=== PATIENT | male | born 1960 | race Caucasian/White ===

== ENCOUNTER 2016-12-17 18:09 | Inpatient (IN) | payer OTHER ==
[2016-12-17 18:25] VITALS: BMI 25.0
--- NOTE | 2016-12-17 19:37 | PDOC ---
History of Present Illness - General Chief Complaint: Pain, Acute Stated Complaint: LEG PAIN/TOES NUMBNESS Time Seen by Provider: 12/17/16 19:20 History Source: Patient Exam Limitations: No Limitations - History of Present Illness Initial Comments: 12/17/16 19:32 This is a 56yo man with PMH: IDDM, HTN, HLD, CAD s/p CABG who presents with 1 week of worsening b/l calf pain which worsens while walking. He states he is able to walk approximately 1-2 blocks before he has to stop due to pain. Pain does not resolve for "hours." He denies trauma. He denies loss of sensation or loss of strength in legs. He denies fevers, chills, chest pain, shortness of breath, abdominal pain, nausea, vomiting or saddle anesthesia. 12/17/16 19:42 Timing/Duration: 1 week, getting worse Severity: moderate Associated Symptoms: denies: chest pain, cough, headaches, loss of appetite, malaise, nausea/vomiting, rash, seizure, shortness of breath, syncope, weakness Past History - Travel Traveled outside of the country in the last 30 days: No Close contact w/someone who was outside of country & ill: No - Past Medical History Allergies/Adverse Reactions: Allergies Allergy/AdvReac Type Severity Reaction Status Date / Time No Known Allergies Allergy Verified 12/17/16 18:20 Home Medications: Ambulatory Orders Aspirin [Aspirin EC] 81 mg PO DAILY 12/17/16 Atorvastatin Ca [Lipitor] 80 mg PO HS 12/17/16 BUPROPion HCL "SR" [WELLBUTRIN SR [Nf]] 100 mg PO DAILY 12/17/16 Clopidogrel Bisulfate [Clopidogrel] 75 mg PO DAILY 12/17/16 Insulin (Levemir) [Levemir Flexpen -] 20 units SQ HS 12/17/16 Insulin Lispro [Humalog] 8 unit SQ TID 12/17/16 Metformin HCl [Metformin HCl ER] 1,000 mg PO BID 12/17/16 Cardiac Disorders: Yes (triple bypass,stent placementx3) Diabetes: Yes HTN: Yes Hypercholesterolemia: Yes - Surgical History Cardiac Surgery: Yes (triple bypass) - Psycho/Social/Smoking Cessation Hx Suicidal Ideation: No Smoking History: Current every day smoker Have you smoked in the past 12 months: Yes Number of Cigarettes Smoked Daily: 20 Information on smoking cessation initiated: No Review of Systems - Review of Systems Able to Perform ROS?: Yes Is the patient limited Chinese proficient: No Constitutional: No: Symptoms Reported HEENTM: No: Symptoms Reported Respiratory: No: Symptoms reported Cardiac (ROS): Yes: Other (PND) ABD/GI: No: Symptoms Reported : No: Symptoms Reported Musculoskeletal: Yes: See HPI Integumentary: No: Symptoms Reported Neurological: No: Symptoms reported *Physical Exam - Vital Signs Last Vital Signs Temp Pulse Resp BP Pulse Ox 98.1 F 102 H 19 140/106 98 12/17/16 18:20 12/17/16 18:20 12/17/16 18:20 12/17/16 18:20 12/17/16 18:20 - Physical Exam General Appearance: Yes: Appropriately Dressed. No: Apparent Distress HEENT: positive: GOPAL, Normal ENT Inspection, Normal Voice Neck: positive: Trachea midline, Supple Respiratory/Chest: positive: Lungs Clear, Normal Breath Sounds. negative: Chest Tender, Respiratory Distress Cardiovascular: positive: Regular Rhythm, Regular Rate. negative: Edema, JVD, Murmur Vascular Pulses: Dorsalis-Pedis (R): 0, Doralis-Pedis (L): 1+ Gastrointestinal/Abdominal: positive: Normal Bowel Sounds, Soft. negative: Tender, Organomegaly, Pulsatile Mass Musculoskeletal: positive: Normal Inspection. negative: CVA Tenderness Extremity: positive: Normal Capillary Refill, Normal Range of Motion, Coldness ( bilateral feet and ankles with R>L). negative: Pedal Edema, Erythema Integumentary: positive: Normal Color, Dry Neurologic: positive: principal statistical programmer II-XII NML intact, Fully Oriented, Alert, Normal Mood/ Affect ED Treatment Course - LABORATORY CBC & Chemistry Diagram: 12/17/16 19:40 12/17/16 19:40 Medical Decision Making - Medical Decision Making 12/17/16 19:42 A/P: This is a 56yo man with PMH: IDDM, HTN, HLD, CAD s/p CABG who presents with 1 week of worsening b/l calf pain which worsens while walking. He states he is able to walk approximately 1-2 blocks before he has to stop due to pain. Pain does not resolve for "hours." He denies trauma. He denies loss of sensation or loss of strength in legs. He has intermittent compliance with medications. He denies fevers, chills, chest pain, shortness of breath, abdominal pain, nausea, vomiting or saddle anesthesia. Bilateral foot and ankles cold to touch with weak pulses present. DDx- dvt vs PAD - dopplers - labs- CBC, BMP 12/17/16 22:03 Arterial doppler positive for Complete occlusion of right mid SFA. - FOBT - heparin gtt started - vascular consult placed - coags - CXR - EKG - T&S PMD- Rochelle (not on service) Will admit to hospitalist 12/17/16 22:07 Case discussed with vascular surgery- Chas. CTA abdomen aorta with runoff ordered. NPO after MN for OR in AM 12/18/16 00:20 Case discussed with Hospitalist- Ryann Araujo, will be admitted. *DC/Admit/Observation/Transfer Diagnosis at time of Disposition: Superficial femoral artery occlusion - Discharge Dispostion Condition at time of disposition: Guarded Admit: Yes Decision to Admit order Date/Time: 12/18/16 00:18
[2016-12-17 19:57] LABS: URINE APPEARANCE SLCLOUDY; URINE BILIRUBIN NEGATIVE (NEGATIVE); URINE BLOOD 1+ (NEGATIVE); URINE COLOR LTYELLOW; URINE GLUCOSE (UA) 3+ (NEGATIVE); URINE KETONE TRACE (NEGATIVE); URINE LEUK ESTERASE TRACE (NEGATIVE); URINE NITRITE NEGATIVE (NEGATIVE); URINE UROBILINOGEN NEGATIVE mg/dL (0.2-1.0)
[2016-12-17 19:59] LABS: BASOPHIL 1.3 % (0-2.0); EOSINOPHIL 1.7 % (0-4.5); MCH 31.1 pg (25.7-33.7); MCHC 33.2 g/dl (32.0-35.9); MEAN CELL VOLUME 93.6 fl (80-96); MEAN PLT VOLUME 9.1 fl (7.5-11.1); NEUTROPHILS 56.2 % (42.8-82.8); PLATELET COUNT 223 K/MM3 (134-434); RDW 13.6 % (11.9-15.9); WHITE BLOOD COUNT 8.7 K/mm3 (4.0-10.0)
[2016-12-17 20:01] LABS: URINE PROTEIN 1+ (NEGATIVE)
[2016-12-17 20:28] LABS: URINE MUCUS RARE; URINE RBC 299 /hpf (0-3); URINE WBC 20 /hpf (3-5); YEAST RARE
[2016-12-17 20:29] LABS: ANION GAP 7 (8-16); CALCIUM 9.5 mg/dL (8.5-10.1); CO2 28 mmol/L (21-32); CREATININE 0.8 mg/dL (0.7-1.3); GLUCOSE,RANDOM 263 mg/dL (74-106)
[2016-12-17] MEDS ORDERED: HEPARIN NA (PORCINE) 5,000 UNITS/ML 1ML VIAL IVPUSH PRN ×2 (21:50)
[2016-12-17] MEDS ORDERED: HEPARIN - 25,000 UNIT in SODIUM CHLORIDE 495 ML IV SCH (22:00)
[2016-12-17] MEDS ORDERED: HEPARIN NA (PORCINE) 5,000 UNITS/ML 1ML VIAL ONE (22:21)
[2016-12-17] MEDS ORDERED: HEPARIN INFUSION - 500 ML IVPB ONE (22:21)
[2016-12-18 00:58] LABS: INR 1.02 (0.82-1.09); PROTHROMBIN TIME (PATIENT) 11.2 SEC (9.98-11.88)
--- NOTE | 2016-12-18 01:02 | PN ---
Teaching Attending Note Name of Resident: Lavern Pollack ATTENDING PHYSICIAN STATEMENT I saw and evaluated the patient. I reviewed the resident's note and discussed the case with the resident. I agree with the resident's findings and plan as documented. SUBJECTIVE: 56 yo F with pmhx of IDDM, HTN, HLD, CAD s/p CABG ( 1 year ago) with 1 week hx of calf pain. States pain is worse with walking. States he is able to ambulate 1 -2 weeks before the pain makes him stop. No chest pain, pressure or shortness of breath. OBJECTIVE: Physical: VS: Vital Signs Period Temp Pulse Resp BP Sys/Bocanegra Pulse Ox Last 24 Hr 96.8 F-98.1 F 91-102 18-19 138-140/76-106 97-98 GEN: NAd, Elderly gentleman resting in bed HEENT: NCAT, PERRL CARD: RRR S1, S2 RESP: CTAB ABD: BS X4, NTD to palpation EXT: DP pulse RLE 0/4, LLE +1/4,, no clubbing or edema CBCD WBC 8.7 K/mm3 (4.0-10.0) 12/17/16 19:40 RBC 4.97 M/mm3 (4.00-5.60) 12/17/16 19:40 Hgb 15.4 GM/dL (11.7-16.9) 12/17/16 19:40 Hct 46.6 % (35.4-49) 12/17/16 19:40 MCV 93.6 fl (80-96) 12/17/16 19:40 MCHC 33.2 g/dl (32.0-35.9) 12/17/16 19:40 RDW 13.6 % (11.9-15.9) 12/17/16 19:40 Plt Count 223 K/MM3 (134-434) 12/17/16 19:40 MPV 9.1 fl (7.5-11.1) 12/17/16 19:40 CMP Sodium 137 mmol/L (136-145) 12/17/16 19:40 Potassium 4.0 mmol/L (3.5-5.1) 12/17/16 19:40 Chloride 102 mmol/L (98-107) 12/17/16 19:40 Carbon Dioxide 28 mmol/L (21-32) 12/17/16 19:40 Anion Gap 7 (8-16) L 12/17/16 19:40 BUN 21 mg/dL (7-18) H 12/17/16 19:40 Creatinine 0.8 mg/dL (0.7-1.3) 12/17/16 19:40 Random Glucose 263 mg/dL (74-106) H 12/17/16 19:40 Calcium 9.5 mg/dL (8.5-10.1) 12/17/16 19:40 CXR: No acute process EKG: NSR Duplex- NO evidence of DVT DUPLEX Art- SFA complete occulusion CTAorta w Runoff- Mod. Atherosclerotic changes and mural thrombus in the thoracic aorta and proximal great vessles Mod. Atherosclerotic changes in abdominal aorta w. irregular mural thrombus as above Mod. Atherosclerotic changes in both LE arteries w segemental occlusion of mid- superficial femoral art. Home Medications Medication Instructions Recorded Aspirin [Aspirin EC] 81 mg PO DAILY 12/17/16 Atorvastatin Ca [Lipitor] 80 mg PO HS 12/17/16 BUPROPion HCL "SR" [WELLBUTRIN SR 100 mg PO DAILY 12/17/16 [Nf]] Clopidogrel Bisulfate [Clopidogrel] 75 mg PO DAILY 12/17/16 Insulin (Levemir) [Levemir Flexpen 20 units SQ HS 12/17/16 -] Insulin Lispro [Humalog] 8 unit SQ TID 12/17/16 Metformin HCl [Metformin HCl ER] 1,000 mg PO BID 12/17/16 ASSESSMENT AND PLAN: 56 yo M with Hx of IDDM, HTN, CAD s/p CABG who has 1 week hx. of bilateral calf pain, worsened with ambulation found to have SFA complete occlusion 1.) Occlusion of the Superficial Femoral Artery/ Thrombus of thoracic aorta/ prox. great vessles/abd. aorta thrombus - Heparin gtt/plavix - Coags - Repeat CBC - Type and Screen - NPO - Vascular consulted 2.) CAD s/p CABG - C/w Home meds 3.) DM II - FS - RAISS - Hold Metformin - NS 4.) Current Smoker - Discussed with pt. smoking cessation 5.) UTI - U cx - Ceftriaxone Place in Med Sx.
[2016-12-18 01:27] LABS: ACTIVATED PTT 144.3 SECONDS (26.9-34.4)
[2016-12-18] MEDS ORDERED: HEPARIN NA (PORCINE) 5,000 UNITS/ML 1ML VIAL IVPUSH PRN ×3 (02:05→03:12)
--- NOTE | 2016-12-18 02:30 | HP ---
CHIEF COMPLAINT: bilateral calf pain PCP: none HISTORY OF PRESENT ILLNESS: 56yo currently smoking man with PMH of CAD s/p CABG and stents, well-controlled HTN, IDDM, HLD, PAD who presents after 1 week of bilateral calf pain. The pain is worse with walking with a severity of 10/10. The patient reports previously having unlimited exercise tolerance, but starting 1 week ago could not walk more than 1 block due his calf pain (R>L). For the past 3 days he noticed intermittent cyanosis of his R great toe, and coolness to touch. Denies SOB, chest pain, pressure or tightness. No FLORES or changes in vision. No hemoptysis, melena, or hematochezia. ER course was notable for: (1) LE dopplers revealed R mid-SFA occulsion (2) Started on heparin gtt Recent Travel: no PAST MEDICAL HISTORY: #CAD #HTN #IDDM #PAD #HLD #Balanitis/candidiasis - pt reports for past 3-4mo has had inflammation of glans penis. Prior PCP told patient it was 2/2 to his DM. Reports inflammation/ pain improved when he remembers to use the Clotrimazole cream PAST SURGICAL HISTORY: #triple bypass 3y ago #CABG 1y ago #appendectomy - approximately 20y ago Social History: Smoking: current, 1ppd for past 35y Alcohol: social Drugs: none Family History: mother - heart disease Allergies: NKDA HOME MEDICATIONS: Home Medications Medication Instructions Recorded Aspirin [Aspirin EC] 81 mg PO DAILY 12/17/16 Atorvastatin Ca [Lipitor] 80 mg PO HS 12/17/16 BUPROPion HCL "SR" [WELLBUTRIN SR 100 mg PO DAILY 12/17/16 [Nf]] Clopidogrel Bisulfate [Clopidogrel] 75 mg PO DAILY 12/17/16 Insulin (Levemir) [Levemir Flexpen 20 units SQ HS 12/17/16 -] Insulin Lispro [Humalog] 7 unit SQ TID 12/17/16 REVIEW OF SYSTEMS CONSTITUTIONAL: Absent: fever, chills, diaphoresis, generalized weakness, malaise, loss of appetite, weight change HEENT: Absent: rhinorrhea, nasal congestion, throat pain, throat swelling, difficulty swallowing, mouth swelling, ear pain, eye pain, visual changes CARDIOVASCULAR: Absent: chest pain, syncope, palpitations, irregular heart rate, lightheadedness , peripheral edema RESPIRATORY: +SOB, paroxysmal nocturnal dyspnea, orthopnea Absent: cough, shortness of breath, dyspnea with exertion, orthopnea, wheezing, stridor, hemoptysis GASTROINTESTINAL: Absent: abdominal pain, abdominal distension, nausea, vomiting, diarrhea, constipation, melena, hematochezia GENITOURINARY: +chronic glans inflammation, dysuria/burning of glans during urination Absent: frequency, urgency, hesitancy, hematuria, flank pain MUSCULOSKELETAL: Absent: myalgia, arthralgia, joint swelling, back pain, neck pain SKIN: +cyanotic R great toe Absent: rash, itching HEMATOLOGIC/IMMUNOLOGIC: Absent: easy bleeding, easy bruising, lymphadenopathy, frequent infections ENDOCRINE: Absent: unexplained weight gain, unexplained weight loss, heat intolerance, cold intolerance NEUROLOGIC: Absent: headache, focal weakness or paresthesias, dizziness, unsteady gait, seizure, mental status changes, bladder or bowel incontinence PSYCHIATRIC: Absent: anxiety, depression, suicidal or homicidal ideation, hallucinations. PHYSICAL EXAMINATION Vital Signs - 24 hr 12/17/16 12/17/16 18:20 23:18 Temperature 98.1 F 96.8 F L Pulse Rate 102 H Pulse Rate [ 91 H Left Apical] Respiratory 19 18 Rate Blood Pressure 140/106 Blood Pressure 138/76 [Right Arm] O2 Sat by Pulse 98 97 Oximetry (%) GENERAL: Awake, alert, and fully oriented, in no acute distress HEAD: Normal with no signs of trauma EYES: PERRLA, EOMI, sclera anicteric, conjunctiva clear EARS, NOSE, THROAT: Oropharynx clear without exudates. Moist mucous membranes. NECK: Supple, no LAD LUNGS: CTAB, no wheezes, and no crackles HEART: RRR, normal S1/S2 without murmur, rub or gallop ABDOMEN: Soft, nontender, not distended, normoactive bowel sounds, no guarding, no rebound, no masses. No hepatosplenomegaly : no suprapubic tenderness LOWER EXTREMITIES: R no palpable DP/PT, L 1+ DP/PT. no pitting edema or cyanosis b/l NEUROLOGICAL: Grossly intact, not formally tested. Normal speech PSYCHIATRIC: Cooperative. Good eye contact. Appropriate mood and affect. SKIN: Warm, dry, normal turgor, no rashes or lesions noted, normal capillary refill. Laboratory Results - last 24 hr 12/17/16 12/17/16 12/17/16 19:40 19:40 19:48 WBC 8.7 RBC 4.97 Hgb 15.4 Hct 46.6 MCV 93.6 MCH 31.1 MCHC 33.2 RDW 13.6 Plt Count 223 MPV 9.1 Neutrophils % 56.2 Lymphocytes % 34.1 Monocytes % 6.7 Eosinophils % 1.7 Basophils % 1.3 INR PTT (Actin FS) Sodium 137 Potassium 4.0 Chloride 102 Carbon Dioxide 28 Anion Gap 7 L BUN 21 H Creatinine 0.8 Random Glucose 263 H Calcium 9.5 Urine Color Ltyellow Urine Appearance Slcloudy Urine pH 5.0 Ur Specific Onyx 1.015 Urine Protein 1+ H Urine Glucose (UA) 3+ H Urine Ketones Trace H Urine Blood 1+ H Urine Nitrite Negative Urine Bilirubin Negative Urine Urobilinogen Negative Ur Leukocyte Esterase Trace Urine RBC 299 Urine WBC 20 Ur Epithelial Cells Rare Urine Mucus Rare Urine Yeast Rare Stool Occult Blood Blood Type Antibody Screen INR, PTT INR 1.02 (0.82-1.09) 12/18/16 00:29 FOBT: Negative Blood Type: O positive Antibody Screen: Negative IMAGING: EKG (12/17/2016): NSR CXR (12/17/2016): No pneumothorax, pleural effusion or consolidation Venous Duplex (12/17/16): No acute pathology, (-) DVT Arterial Duplex (12/17/16): Abnormal flow patterns bilaterally; complete occlusion R mid-SFA CTAorta w Runoff, Preliminary Report (12/17/2016): Moderate atherosclerotic changes and mural thrombus in the thoracic aorta and proximal great vessels. Moderate atherosclerotic changes in abdominal aorta w. irregular mural thrombus as above Moderate atherosclerotic changes in both LE arteries w segmental occlusion of mid-superficial femoral artery ASSESSMENT/PLAN: 56yo actively smoking man with significant vasculopathy (IDDM, HTN, CAD, PAD) and b/l claudication x1week with R great toe cyanosis was found to have complete occulsion of R SFA, and admitted for acute limb ischemia. #R SFA complete occlusion -Heparin 5000 + 1000 U -Hold home ASA 81 -Vascular surgery consulted - Dr. Doherty to assess in AM -NPO since midnight -T&S, coags ordered #UTI -UA showed trace LE, RBC 299, WBC 20 -Urine Cx pending -Ceftriaxone 1gm IVP Q24h #IDDM -Continue home Levemir 20U SQ HS -BGM ACHS -ISS ACHS -Hold home Lispro -Hgb A1c pending #CAD/HLD -Hold home ASA 81mg for pre-op -Continue home Atorvastatin 80mg HS -Lipid panel pending #Active smoker -Counseled on smoking cessation - interested in receiving further resources -Nicotine 21g TD patch HS #Balanitis/candidiasis -Clotrimazole 1% TP cream BID PRN #F/E/N -NS @ 75cc/hr (1bag) -Electrolytes wnl -NPO for preop; start Diabetic/Na controlled diet post-op #Prophylaxis -DVT - high risk, on heparin drip -GI ppx not indicated #Dispo -Admit Med/Surg, likely OR tomorrow -FULL code d/w medical team FATIMAH KNIGHT MD PGY-1 Visit type - Emergency Visit Emergency Visit: Yes ED Registration Date: 12/18/16 Care time: The patient presented to the Emergency Department on the above date and was hospitalized for further evaluation of their emergent condition. - New Patient This patient is new to me today: No - Critical Care Critical Care patient: No
[2016-12-18] MEDS: HEPARIN - 25,000 UNIT in SODIUM CHLORIDE 495 ML IV SCH ×2 (02:45→04:09)
--- NOTE | 2016-12-18 02:56 | HP ---
HISTORY OF PRESENT ILLNESS: Patient is a 56 year old male with a PMHx of IDDMII, HTN, HLD, CAD s/p CABG ( 2013) who complains of worsening right leg pain especially when walking. Patient states he is able to walk up to two blocks before the pain intensifies and does not resolve until hours later. Patient reports no similar symptoms in the past and denies any trauma to the area. Otherwise, patient denies numbness , tingling, fever, chills, nausea, vomiting, abdominal pain, chest pain, palpitations, shortness of breath. PHYSICAL EXAMINATION Vital Signs - 24 hr 12/17/16 12/17/16 18:20 23:18 Temperature 98.1 F 96.8 F L Pulse Rate 102 H Pulse Rate [ 91 H Left Apical] Respiratory 19 18 Rate Blood Pressure 140/106 Blood Pressure 138/76 [Right Arm] O2 Sat by Pulse 98 97 Oximetry (%) GENERAL: Awake, alert, and fully oriented, in no acute distress. LUNGS: Breath sounds equal, clear to auscultation bilaterally. No wheezes, and no crackles. No accessory muscle use. HEART: Regular rate and rhythm, normal S1 and S2 without murmur, rub or gallop. ABDOMEN: Soft, nontender, not distended, normoactive bowel sounds, no guarding, no rebound, no masses. LOWER EXTREMITIES: 0/2 DP pulse of Right LE and faint 1+ in Left LE Laboratory Results - last 24 hr 12/17/16 12/17/16 12/17/16 19:40 19:40 19:48 WBC 8.7 RBC 4.97 Hgb 15.4 Hct 46.6 MCV 93.6 MCH 31.1 MCHC 33.2 RDW 13.6 Plt Count 223 MPV 9.1 Neutrophils % 56.2 Lymphocytes % 34.1 Monocytes % 6.7 Eosinophils % 1.7 Basophils % 1.3 INR PTT (Actin FS) Sodium 137 Potassium 4.0 Chloride 102 Carbon Dioxide 28 Anion Gap 7 L BUN 21 H Creatinine 0.8 Random Glucose 263 H Calcium 9.5 Urine Color Ltyellow Urine Appearance Slcloudy Urine pH 5.0 Ur Specific [place] 1.015 Urine Protein 1+ H Urine Glucose (UA) 3+ H Urine Ketones Trace H Urine Blood 1+ H Urine Nitrite Negative Urine Bilirubin Negative Urine Urobilinogen Negative Ur Leukocyte Esterase Trace Urine RBC 299 Urine WBC 20 Ur Epithelial Cells Rare Urine Mucus Rare Urine Yeast Rare Stool Occult Blood Blood Type Antibody Screen 12/17/16 12/17/16 12/17/16 22:10 23:00 23:10 WBC RBC Hgb Hct MCV MCH MCHC RDW Plt Count MPV Neutrophils % Lymphocytes % Monocytes % Eosinophils % Basophils % INR PTT (Actin FS) Cancelled Sodium Potassium Chloride Carbon Dioxide Anion Gap BUN Creatinine Random Glucose Calcium Urine Color Urine Appearance Urine pH Ur Specific [place] Urine Protein Urine Glucose (UA) Urine Ketones Urine Blood Urine Nitrite Urine Bilirubin Urine Urobilinogen Ur Leukocyte Esterase Urine RBC Urine WBC Ur Epithelial Cells Urine Mucus Urine Yeast Stool Occult Blood Negative Blood Type O POSITIVE Antibody Screen Negative 12/18/16 00:29 WBC RBC Hgb Hct MCV MCH MCHC RDW Plt Count MPV Neutrophils % Lymphocytes % Monocytes % Eosinophils % Basophils % INR 1.02 PTT (Actin FS) 144.3 H Sodium Potassium Chloride Carbon Dioxide Anion Gap BUN Creatinine Random Glucose Calcium Urine Color Urine Appearance Urine pH Ur Specific [place] Urine Protein Urine Glucose (UA) Urine Ketones Urine Blood Urine Nitrite Urine Bilirubin Urine Urobilinogen Ur Leukocyte Esterase Urine RBC Urine WBC Ur Epithelial Cells Urine Mucus Urine Yeast Stool Occult Blood Blood Type Antibody Screen Chest X-Ray (12/17/16): No acute pathology Venous Duplex (12/17/16): No acute pathology, (-) DVT Arterial Duplex (12/17/16): Abnormal flow patterns bilaterally with complete occlusion of the mid right SFA. ASSESSMENT/PLAN: Patient is a 56 year old male with a PMHx of IDDMII, HTN, HLD, CAD s/p CABG ( 2013) who presented for worsening Right lower extremity pain and was found to have a complete occlusion of the right superficial femoral artery. Acute Ischemic Right Limb -Heparin drip started -Check Coagulations, INR/PTT, Type and screen -Vascular surgery consult placed and requested CTA abdomen aorta with runoff -Patient will be taken to the OR in the morning -NPO CAD s/p CABG (2013) -Will hold Plavix and ASA for anticipated surgery tomorrow HLD -Continue Lipitor 80mg daily -Lipid panel ordered HTN -Controlled and on no home medications -Continue to monitor BP IDDMII -ISS -BGM -Levemir 20 units SQ HS -A1C ordered Nicotine Dependence -Active smoker -Nicotine patch 21mg TD HS -Smoking Cessation discussed Prophylaxis -High risk. Heparin drip for DVT -No GI prophylaxis indicated Disposition -Full code -Admit to med/surg. Awaiting vascular surgery evaluation Visit type - Emergency Visit Emergency Visit: Yes ED Registration Date: 12/18/16 Care time: The patient presented to the Emergency Department on the above date and was hospitalized for further evaluation of their emergent condition. - New Patient This patient is new to me today: Yes Date on this admission: 12/18/16 - Critical Care Critical Care patient: No
[2016-12-18] MEDS ORDERED: NICOTINE 21 MG/24 HOURS TOPICAL PATCH TD SCH (03:00)
[2016-12-18] MEDS ORDERED: SODIUM CHLORIDE 1,000 ML IV SCH ×2 (05:15→12:52)
[2016-12-18] MEDS ORDERED: INSULIN (NOVOLOG) ASPART 100 UNITS/ML 10ML VIAL ONE (06:40)
[2016-12-18] MEDS: INSULIN SLIDING SCALE (NOVOLOG) 1 VIAL SQ SCH ×4 (06:42→21:42)
[2016-12-18 07:22] LABS: CHOLESTEROL 199 mg/dL (50-200); LDL CHOLESTEROL (ONLY SJRH) 131 mg/dL (5-100)
[2016-12-18] MEDS ORDERED: cefTRIAXone SODIUM 1 GM VIAL ONE (09:14)
[2016-12-18] MEDS ORDERED: DEXTROSE 5%-WATER - 50 ML IVPB ONE (09:14)
--- NOTE | 2016-12-18 09:27 | CONSULT ---
Consult - Alcohol/Substance Use Hx Alcohol Use: No - Smoking History Smoking history: Current every day smoker Have you smoked in the past 12 months: Yes Aproximately how many cigarettes per day: 20 Home Medications - Allergies Allergies/Adverse Reactions: Allergies Allergy/AdvReac Type Severity Reaction Status Date / Time No Known Allergies Allergy Verified 12/17/16 18:20 - Home Medications Home Medications: Ambulatory Orders Aspirin [Aspirin EC] 81 mg PO DAILY 12/17/16 Atorvastatin Ca [Lipitor] 80 mg PO HS 12/17/16 BUPROPion HCL "SR" [WELLBUTRIN SR [Nf]] 100 mg PO DAILY 12/17/16 Clopidogrel Bisulfate [Clopidogrel] 75 mg PO DAILY 12/17/16 Insulin (Levemir) [Levemir Flexpen -] 20 units SQ HS 12/17/16 Insulin Lispro [Humalog] 8 unit SQ TID 12/17/16 Physical Exam Vital Signs: Vital Signs Temperature 97.9 F 12/18/16 08:37 Pulse Rate 81 12/18/16 08:37 Respiratory Rate 20 12/18/16 08:37 Blood Pressure 139/74 12/18/16 08:37 O2 Sat by Pulse Oximetry (%) 98 12/18/16 04:12 Assessment/Plan Vascular Surgery This is a 56yo man with PMH: IDDM, HTN, HLD, CAD s/p CABG who presents with 1 week of worsening b/l calf pain which worsens while walking. He states he is able to walk approximately 1-2 blocks before he has to stop due to pain. Pain does not resolve for "hours." He denies trauma. He denies loss of sensation or loss of strength in legs. He denies fevers, chills, chest pain, shortness of breath, abdominal pain, nausea, vomiting or saddle anesthesia. PE Head - NC/AT lung - CTA Heart - RRR abd - soft,nt,nd ext - right foot -- no palpable pulses. sensory and motor intact. Pt is a 2 PPD smoker for over 35 years. Pt also is a uncontrolled diabetic. Pt complains of one block claudication. A/P Right lower extremity ischemia/claudication 1. CTA shows mid sfa occlusion. 2. Will do angiogram today. 3. On heparin drip Casey Doherty DO
[2016-12-18] MEDS ORDERED: CLOTRIMAZOLE 1% CREAM 15 GM TUBE TP SCH (10:00)
[2016-12-18] MEDS ORDERED: CEFTRIAXONE 1 GM in DEXTROSE 5%-WATER - 50 ML IVPB SCH (10:00)
[2016-12-18] MEDS ORDERED: LIDOCAINE HCL 1%, 10 MG/ML (20ML VIAL) ONE (10:57)
[2016-12-18] MEDS ORDERED: HEPARIN NA (PORCINE) 5,000 UNITS/ML 1ML VIAL ONE (10:58)
[2016-12-18] MEDS ORDERED: ONDANSETRON 4 MG/2 ML VIAL IVPUSH PRN ×2 (11:05→12:52)
[2016-12-18] MEDS ORDERED: PROPOFOL 20 ML ONE (11:11)
[2016-12-18] MEDS ORDERED: MIDAZOLAM HCL 2 MG/2 ML SINGLE DOSE VIAL ONE (11:11)
[2016-12-18] MEDS ORDERED: ceFAZolin SODIUM 1 GM VIAL IVPB ONE (11:19)
[2016-12-18] MEDS ORDERED: ceFAZolin SODIUM 1 GM VIAL ONE (11:27)
--- NOTE | 2016-12-18 11:54 | PN ---
Physical Exam: SUBJECTIVE: Patient seen and examined at bedside. Pt for R lower extremity angiogram Angioplasty at 10am. Seen by Dr. Doherty. Denies any extremity pain, SOB, chest pain. OBJECTIVE: Vital Signs Period Temp Pulse Resp BP Sys/Bocanegra Pulse Ox Last 24 Hr 97.6 F-97.9 F 81-90 20-20 136-146/74-84 98-98 GENERAL: The patient is awake, alert, and fully oriented, in no acute distress. HEAD: Normal with no signs of trauma. EYES: PERRL, extraocular movements intact, sclera anicteric, conjunctiva clear. ENT: Ears normal, nares patent, oropharynx clear without exudates, moist mucous membranes. NECK: Trachea midline, full range of motion, supple. LUNGS: Breath sounds equal, clear to auscultation bilaterally, no wheezes, no crackles, no accessory muscle use. HEART: Regular rate and rhythm, S1, S2 without murmur, rub or gallop. ABDOMEN: Soft, nontender, nondistended, normoactive bowel sounds, no guarding, no rebound, no hepatosplenomegaly, no masses. EXTREMITIES: 1+ pulses in RLE posterior tibial, 0+ dorsalis pedis RLE, 1+ pulse in posterior tibial LLE NEUROLOGICAL: Cranial nerves II through XII grossly intact. Laboratory Results - last 24 hr 12/18/16 12/18/16 12/18/16 00:29 05:57 06:05 INR 1.02 PTT (Actin FS) 144.3 H POC Glucometer 296 Hemoglobin A1c % 10.9 H Triglycerides Cholesterol Total LDL Cholesterol HDL Cholesterol 12/18/16 06:05 INR PTT (Actin FS) POC Glucometer Hemoglobin A1c % Triglycerides 211 H Cholesterol 199 Total LDL Cholesterol 131 H HDL Cholesterol 41 Active Medications Generic Name Dose Route Start Last Admin Trade Name Freq PRN Reason Stop Dose Admin Atorvastatin Calcium 80 mg 12/18/16 22:00 Lipitor - PO HS CRISTI Clotrimazole 1 applic 12/18/16 10:00 12/18/16 10:01 Lotrimin 1% Cream - TP 1 applic BID CRISTI Administration Fentanyl 25 mcg 12/18/16 11:05 Sublimaze Injection - IVPUSH 12/21/16 11:06 [id number] PRN PAIN Heparin Sodium (Porcine) 5,000 unit 12/17/16 21:50 12/17/16 22:41 Heparin - IVPUSH 5,000 unit PRN PRN Administration Heparin Heparin Sodium (Porcine) 1,000 unit 12/18/16 03:12 Heparin - IVPUSH PRN PRN Heparin Sodium (Porcine) 25, 500 mls @ 20 mls/hr 12/18/16 02:00 12/18/16 04:09 000 unit/ Sodium Chloride IV Not Given TITR CRISTI Protocol 1,000 UNIT/HR Sodium Chloride 1,000 mls @ 75 mls/hr 12/18/16 05:15 12/18/16 05:35 Normal Saline - IV 12/18/16 18:34 75 mls/hr ASDIR CRISTI Administration Ceftriaxone Sodium 1 gm/ 50 mls @ 100 mls/hr 12/18/16 10:00 12/18/16 09:16 Dextrose IVPB 100 mls/hr DAILY CRISTI Administration Insulin Aspart 0 vial 12/18/16 07:00 12/18/16 06:42 Novolog Vial Sliding Scale - SQ 6 units ACHS CRISTI Administration Protocol Insulin Detemir 20 units 12/18/16 22:00 Levemir Vial SQ HS CRISTI Nicotine 21 mg 12/18/16 03:00 12/18/16 04:08 Nicoderm Patch - TD 21 mg HS CRISTI Administration Non-Formulary Medication 100 mg 12/18/16 10:00 Bupropion Hcl "Sr" [Wellbutrin Sr -] PO DAILY CRISTI Ondansetron HCl 4 mg 12/18/16 11:05 Zofran Injection IVPUSH 12/18/16 17:06 Q6H PRN NAUSEA AND/OR VOMITING ASSESSMENT/PLAN: 56 y/o M current smoker with PMH CAD s/p CABG (1 yr ago) and stents (3 yrs ago) , well-controlled HTN, IDDM, HLD, PAD, who came to the ED after 1 week of bilateral calf pain. Pt admitted for acute limb ischemia. 1. R Superficial femoral artery complete occlusion -Heparin 25,000U in NS received today -Holding aspirin 81mg -R lower extremity angiogram Angioplasty at 10am (12/18) -NPO 2. UTI -UA- leukocyte esterase trace, RBC 299, WBC 20 -Asymptomatic, no suprapubic tenderness, does not need to be tx -d/c Rocephin 3. DM -Received 6 novolog units -Levemir 20 units SQ -HbA1c pending 4. CAD -hold aspirin -continue Statin 80mg PO HS 5. Smoking cessation -Continue Nicotine 21g TD patch 6. Balantitis -Continue Clotrimazole 1% cream TP BID PRN F/E/N -NS @ 75 mls/hr -monitor electrolytes -NPO d/t surgery currently Visit type - Emergency Visit Emergency Visit: No - New Patient This patient is new to me today: No - Critical Care Critical Care patient: No
[2016-12-18] MEDS ORDERED: LIDOCAINE HCL 1%, 10 MG/ML (20ML VIAL) IJ ONE (12:25)
--- NOTE | 2016-12-18 12:37 | OP ---
Operative Note - Note: Operative Date: 12/18/16 Pre-Operative Diagnosis: RLE ischemia Operation: Aortogram, RLE angiogram, SFA DCB angioplasty, with stent placement. Findings: SFA occlusion mid Post-Operative Diagnosis: Same as Pre-op Surgeon: Casey Doherty Anesthesia: General Estimated Blood Loss (mls): 20 Operative Report Dictated: Yes
[2016-12-18] MEDS ORDERED: CLOPIDOGREL BISULFATE 75 MG TABLET (FP) ONE (12:41)
[2016-12-18] MEDS: CLOPIDOGREL BISULFATE 75 MG TABLET (FP) PO SCH (12:43)
--- NOTE | 2016-12-18 12:48 | PN ---
Progress Note (short form) - Note Progress Note: Vascular surgery S/P angioplasty and stent placement right leg. STarted plavix. No need for heparin drip. DC home on plavix. Can be DC home in am. Pt needs to stop smoking or will have same problem again. Please send home on smoking cessation patch etc. Have pt follow up in one week in offce. call for appt -- [phone] Casey Doherty DO
[2016-12-18] MEDS ORDERED: morphine CARPU-JECT 2 MG/1 ML DISP.SYRIN IVPUSH PRN ×2 (14:46→18:30)
[2016-12-18] MEDS ORDERED: morphine CARPU-JECT 2 MG/1 ML DISP.SYRIN IVPUSH ONE ×2 (14:46→18:30)
--- NOTE | 2016-12-18 14:59 | HOSP ---
Subjective - Review of Symptoms Subjective: Evaluated pt bedside after procedure states he is feeling well. mild pain in his foot. denies CP, SOB,fever, chills, N/V/C/D, dysuria, hematuria or urinary frequency. states he was on plavix in the past but stopped taking it because the thought of bleeding frightened him. 1. RLE arterial occlusion- s/p angioplasty and stenting. heparin stopped now on plavix. counseled on risks/benefits of treatment. will order morphine prn pain 2. Continuous nicotine depedence-smokes 2 packs/day. counseled on risks of smoking and increased chances of worsening arterial disease in present of smoking. cont nicotine patch 3. +LE on UA- pt is not symptomatic and no indications pt has UTI. will d/c abx. 4. d/c planning in am Physical Examination Vital Signs: Vital Signs Temperature 98.2 F 12/18/16 14:09 Pulse Rate 86 12/18/16 14:09 Respiratory Rate 18 12/18/16 13:58 Blood Pressure 163/65 12/18/16 14:09 O2 Sat by Pulse Oximetry (%) 98 12/18/16 13:58
[2016-12-18] MEDS ORDERED: morphine CARPU-JECT 2 MG/1 ML DISP.SYRIN IVPUSH STA (16:13)
[2016-12-18] MEDS: morphine CARPU-JECT 4 MG/1 ML DISP.SYRIN IVPUSH PRN (19:57)
--- NOTE | 2016-12-18 20:22 | EKG ---
Test Reason : Blood Pressure : / mmHG Vent. Rate : 086 BPM Atrial Rate : 086 BPM P-R Int : 134 ms QRS Dur : 096 ms QT Int : 380 ms P-R-T Axes : 043 000 079 degrees QTc Int : 454 ms NORMAL SINUS RHYTHM WITH SINUS ARRHYTHMIA DIFFUSE NONSPECIFIC ST-T WAVES ABNORMALITIES COMPARED [id number]-T ABNORMALITIES IN COMPARABLE CLINICAL CORRELATION IS RECOMMENDED Confirmed by CHNIEDU BECERRA MD ([id number]) on 12/18/2016 8:22:21 PM Referred By: Confirmed By:CHINEDU BECERRA MD
[2016-12-18] MEDS ORDERED: PT OWN MED DRAWER 7, Y5N ONE (21:32)
[2016-12-18] MEDS: INSULIN DETEMIR 100 UNITS/ML MDV SQ SCH (21:42)
[2016-12-18] MEDS: NICOTINE 21 MG/24 HOURS TOPICAL PATCH TD SCH (21:43)
[2016-12-18] MEDS: ATORVASTATIN CA 80 MG TABLET (FP) PO SCH (21:43)
[2016-12-18] MEDS ORDERED: ATORVASTATIN CA 80 MG TABLET (FP) PO SCH (22:00)
[2016-12-18] MEDS ORDERED: INSULIN DETEMIR 100 UNITS/ML MDV SQ SCH (22:00)
[2016-12-18] MEDS: CLOTRIMAZOLE 1% CREAM 15 GM TUBE TP SCH (22:38)
[2016-12-19] MEDS: morphine CARPU-JECT 4 MG/1 ML DISP.SYRIN IVPUSH PRN ×2 (01:31→06:46)
[2016-12-19] MEDS ORDERED: morphine CARPU-JECT 2 MG/1 ML DISP.SYRIN IVPUSH ONE (03:35)
[2016-12-19] MEDS: INSULIN SLIDING SCALE (NOVOLOG) 1 VIAL SQ SCH ×4 (06:30→22:07)
[2016-12-19] MEDS ORDERED: morphine CARPU-JECT 2 MG/1 ML DISP.SYRIN IVPUSH STA (06:54)
--- NOTE | 2016-12-19 08:14 | PN ---
Progress Note (short form) - Note Progress Note: Anesthesia post op note 56 y/o M s/p GA for angiogram/angioplasty right LE POD#1, vss, aaox3, some LE discomfort, eating breakfast. No anesthesia complications.
[2016-12-19 08:58] LABS: BASOPHIL 0.8 % (0-2.0); EOSINOPHIL 2.3 % (0-4.5); MCH 31.2 pg (25.7-33.7); MCHC 33.5 g/dl (32.0-35.9); MEAN CELL VOLUME 93.1 fl (80-96); MEAN PLT VOLUME 8.4 fl (7.5-11.1); NEUTROPHILS 69.4 % (42.8-82.8); PLATELET COUNT 190 K/MM3 (134-434); RDW 13.5 % (11.9-15.9); WHITE BLOOD COUNT 9.8 K/mm3 (4.0-10.0)
[2016-12-19 09:26] LABS: ANION GAP 9 (8-16); CALCIUM 8.3 mg/dL (8.5-10.1); CO2 24 mmol/L (21-32); GLUCOSE,RANDOM 113 mg/dL (74-106)
[2016-12-19 09:28] LABS: CREATININE 0.5 mg/dL (0.7-1.3)
[2016-12-19] MEDS: CLOPIDOGREL BISULFATE 75 MG TABLET (FP) PO SCH (09:37)
--- NOTE | 2016-12-19 10:27 | PN ---
Physical Exam: SUBJECTIVE: Patient seen and examined at bedside. Pt states that his R big toe and R medial thigh are very painful. He also mentions that the morphine is not strong enough for his pain. Denies burning in lower extremities. Denies SOB and chest pain. As per nurse, pt is able to ambulate to bathroom on his own. OBJECTIVE: Vital Signs Period Temp Pulse Resp BP Sys/Bocanegra Pulse Ox Last 24 Hr 97.3 F-98.9 F 67-109 16-21 141-163/65-96 97-99 GENERAL: The patient is awake, alert, and fully oriented, in no acute distress. HEAD: Normal with no signs of trauma. EYES: PERRL, extraocular movements intact, sclera anicteric, conjunctiva clear. No ptosis. NECK: Trachea midline, supple. LUNGS: Breath sounds equal, clear to auscultation bilaterally, no wheezes, no crackles, no accessory muscle use. HEART: Regular rate and rhythm, S1, S2 without murmur, rub or gallop. ABDOMEN: Soft, nontender, nondistended, normoactive bowel sounds, no guarding, no rebound EXTREMITIES: 1+ posterior tibial pulse on RLE, 1+ posterior tibial pulse on LLE , 1+ dorsalis pedis LLE, 0+ dorsalis pedis RLE, tender to palpation R big toe and R medial thigh NEUROLOGICAL: Cranial nerves II through XII grossly intact. Laboratory Results - last 24 hr 12/18/16 12/18/16 12/19/16 16:17 21:41 06:28 WBC RBC Hgb Hct MCV MCH MCHC RDW Plt Count MPV Neutrophils % Lymphocytes % Monocytes % Eosinophils % Basophils % Sodium Potassium Chloride Carbon Dioxide Anion Gap BUN Creatinine POC Glucometer 240 263 125 Random Glucose Calcium 12/19/16 12/19/16 06:35 06:35 WBC 9.8 RBC 4.66 Hgb 14.6 Hct 43.4 MCV 93.1 MCH 31.2 MCHC 33.5 RDW 13.5 Plt Count 190 MPV 8.4 Neutrophils % 69.4 D Lymphocytes % 19.8 D Monocytes % 7.7 Eosinophils % 2.3 Basophils % 0.8 Sodium 138 Potassium 3.9 Chloride 105 Carbon Dioxide 24 Anion Gap 9 BUN 10 D Creatinine 0.5 L D POC Glucometer Random Glucose 113 H D Calcium 8.3 L Active Medications Generic Name Dose Route Start Last Admin Trade Name Freq PRN Reason Stop Dose Admin Atorvastatin Calcium 80 mg 12/18/16 22:00 12/18/16 21:43 Lipitor - PO 80 mg HS CRISTI Administration Clopidogrel Bisulfate 75 mg 12/18/16 12:45 12/19/16 09:37 Plavix - PO 75 mg DAILY CRISTI Administration Clotrimazole 1 applic 12/18/16 22:00 12/18/16 22:38 Lotrimin 1% Cream - TP 1 applic BID CRISTI Administration Insulin Aspart 0 vial 12/18/16 16:30 12/19/16 06:30 Novolog Vial Sliding Scale - SQ Not Given ACHS [facility] Protocol Insulin Detemir 20 units 12/18/16 22:00 12/18/16 21:42 Levemir Vial SQ 20 units HS CRISTI Administration Morphine Sulfate 1 mg 12/18/16 19:41 12/19/16 06:46 Morphine Injection - IVPUSH 1 mg Q4H PRN Administration PAIN Nicotine 21 mg 12/18/16 22:00 12/18/16 21:43 Nicoderm Patch - TD 21 mg HS CRISTI Administration Non-Formulary Medication 100 mg 12/19/16 10:00 Bupropion Hcl "Sr" [Wellbutrin Sr -] PO DAILY [facility] ASSESSMENT/PLAN: 56 y/o M current smoker with PMH CAD s/p CABG (1 yr ago) and stents (3 yrs ago) , well-controlled HTN, IDDM, HLD, PAD, who came to the ED after 1 week of bilateral calf pain. Pt admitted for acute limb ischemia. 1. R Superficial femoral artery complete occlusion -angio with stent RLE - 12/18/16 -Holding aspirin 81mg -pt endorses soreness in R big toe and upper thigh, medially -F/u evaluation by vascular surgeon PA -Possibility for Neurontin on d/c, will see 2. UTI- resolved -asymptomatic -recheck urine cx, possibility of contamination - B hemolytic strep 3. DM -Has not received novolog yet today -Levemir 20 units SQ -Last glucose readin -HbA1c 10.9% 4. CAD -hold aspirin -continue Lipitor 80mg PO HS -Continue Plavix 75 mg PO 5. Smoking cessation -on d/c will continue Nicotine 21g TD patch for 2 weeks 6. Balantitis -Continue Clotrimazole 1% cream TP BID PRN F/E/N -monitor electrolytes -Diabetic diet Visit type - Emergency Visit Emergency Visit: No - New Patient This patient is new to me today: No - Critical Care Critical Care patient: No
[2016-12-19] MEDS: CLOTRIMAZOLE 1% CREAM 15 GM TUBE TP SCH ×2 (11:30→22:11)
--- NOTE | 2016-12-19 14:07 | OP ---
DATE OF OPERATION: 12/18/2016 PREOPERATIVE DIAGNOSIS: Right lower extremity ischemia. POSTOPERATIVE DIAGNOSIS: Right lower extremity ischemia. PROCEDURE: Aortogram, right lower extremity angiogram, superficial femoral artery drug-coated balloon angioplasty with superficial femoral artery stent placement. SURGEON: Casey Blake DO ANESTHESIA: Fractional. BLOOD LOSS: 20 mL. INDICATIONS: The patient is a 56-year-old male who comes in with a 6-bfuq-zduoonz of right lower extremity claudication less than 1 block with severe pain. He had a preoperative CTA that showed that he his yuq-fe-yhfbzh SFA was occluded. It was decided that he would need an angiogram. The patient was consented for the procedure understanding all risks, benefits, and alternatives and was then taken to the operating room. DESCRIPTION OF PROCEDURE: Once in the operating room, he was laid on the operating room table in a supine manner. The area of the left and right groin were prepped and draped in a sterile surgical manner. We then injected 10 mL of lidocaine 1% over the left common femoral artery. We then used our micropuncture needle and punctured the left common femoral artery. Micropuncture wire was inserted, and a traditional 5-Trinidadian sheath was inserted. A 0.035 floppy guidewire was then inserted into the aorta under fluoroscopy followed by an Omni Flush catheter. We then shot an aortogram via hand injection showing that the aorta and the iliac arteries were without any disease. We then used our 0.035 stiff guidewire and up and over placed a wire in the right common femoral artery and an Omni Flush catheter followed. We then shot an angiogram of the right lower extremity via hand injection showing that the proximal SFA was patent but the flow was very slow. The jha-mg-usfcse SFA was occluded. The above knee popliteal was open, and the patient had 2-vessel runoff into the foot. At this point, we placed a 0.035 stiff guidewire into the SFA. We moved on. We flushed the catheter and placed a 6 x 45 crossover sheath. Then 5000 units of IV heparin was administered to the patient. We then placed our wire down into the below-knee popliteal, and we then went ahead using a 6 x 10 Lutonix balloon performed drug-coated balloon angioplasty of the SFA. We then placed a 6 x 120 LifeStent in the area as well. We then ballooned the stent in place using a 6 x 10 Ultraverse balloon. The completion angiogram now showed that the SFA was patent with good brisk flow, but there was a dissection above the stent. We then went ahead and placed another 6 x 4 LifeStent and ballooned it into place using our Ultraverse balloon. Completion angiogram now showed that the SFA was patent. There was good brisk flow, and there was good flow into the foot. The foot was nice and pink now, and there was a palpable DP pulse. At this point, we brought our sheath up and over. A StarClose device was successfully deployed in the right common femoral artery. The area was wet and dried. Dermabond was placed. The patient tolerated the procedure well with no complication. The patient was transferred to the PACU in stable condition. CASEY BLAKE DO [id number]
[2016-12-19] MEDS: NICOTINE 21 MG/24 HOURS TOPICAL PATCH TD SCH ×2 (14:26→22:07)
--- NOTE | 2016-12-19 14:49 | PN ---
Teaching Attending Note Name of Resident: Kanwal March ATTENDING PHYSICIAN STATEMENT I saw and evaluated the patient. I reviewed the resident's note and discussed the case with the resident. I agree with the resident's findings and plan as documented. SUBJECTIVE:c/o RLE pain, minimal improvement with morphine. denies CP, SOB, fever, chills, N/V/C/D OBJECTIVE: Last Vital Signs Temp Pulse Resp BP Pulse Ox 98.5 F 90 20 162/90 98 12/19/16 14:00 12/19/16 14:00 12/19/16 14:00 12/19/16 14:00 12/18/16 21:00 General NAD Extremities L groin no hematoma or bleeding from surgical site. minimal tenderness. +tenderness to R thigh, RLE warm with 1+pulse ASSESSMENT AND PLAN: 56yo M with PMH DM, dyslipidemia, CAD s/o CABG, presented with B/L leg pain and found to have SFA occlusion 1. SFA occlusion- s/p angioplasty with stent 12/18. pain is likely re-perfusion pain. increase morphine to improve pain. encouraged pt to ambulate which should help with pain. case d/w Dr Doherty who is aware. cont plavix 2. Elevated BP- likely due to pain. will consider initiating agent if remains elevated 3. DM- A1c 10.9. re-started home insulin. adjust as needed 4. Continuous nicotine depedence- counseled on risks of smoking. encouraged cessation. nicotine patch 5. D/c planning once pain is controlled.
[2016-12-19] MEDS ORDERED: INSULIN (NOVOLOG) ASPART 100 UNITS/ML 10ML VIAL ONE ×2 (17:04→22:05)
[2016-12-19] MEDS: ATORVASTATIN CA 80 MG TABLET (FP) PO SCH (22:06)
[2016-12-19] MEDS: INSULIN DETEMIR 100 UNITS/ML MDV SQ SCH (22:08)
[2016-12-20] MEDS: INSULIN SLIDING SCALE (NOVOLOG) 1 VIAL SQ SCH ×2 (06:29→11:44)
[2016-12-20] MEDS ORDERED: INSULIN (NOVOLOG) ASPART 100 UNITS/ML 10ML VIAL ONE ×2 (06:32→11:42)
[2016-12-20] MEDS: CLOTRIMAZOLE 1% CREAM 15 GM TUBE TP SCH (09:42)
[2016-12-20] MEDS: CLOPIDOGREL BISULFATE 75 MG TABLET (FP) PO SCH (09:42)
--- NOTE | 2016-12-20 12:20 | PN ---
Teaching Attending Note Name of Resident: Chevy Patterson ATTENDING PHYSICIAN STATEMENT I saw and evaluated the patient. I reviewed the resident's note and discussed the case with the resident. I agree with the resident's findings and plan as documented. SUBJECTIVE:states pain has improved. denies Cp, SOB,fever, chills, N/V/C/D pt seen ambulating around the room without difficulty or discomfort OBJECTIVE: Last Vital Signs Temp Pulse Resp BP Pulse Ox 97.9 F 97 H 18 142/81 98 12/20/16 08:51 12/20/16 08:51 12/20/16 08:51 12/20/16 08:51 12/20/16 09:00 General NAD Extremities RLE warm good ROM ASSESSMENT AND PLAN: 56yo M with PMH DM, dyslipidemia, CAD s/o CABG, presented with B/L leg pain and found to have SFA occlusion 1. SFA occlusion- s/p angioplasty with stent 12/18. pain improved. no morphine x24H. will need to f/u vascular surgery. cont plavix 2. Elevated BP- remains above goal despite good pain control. start lisinopril 10mg 3. DM- A1c 10.9. cont home management 4. Continuous nicotine depedence- counseled on risks of smoking. encouraged cessation. nicotine patch 5. D/c home
--- NOTE | 2016-12-20 13:18 | DS ---
Physical Exam: SUBJECTIVE: Patient seen and examined at bedside. Pt states that the soreness in his RLE is much improved today. Denies burning or tingling sensation in extremities. Pt has been OOB without difficulty. Denies SOB, chest or abdominal pain. OBJECTIVE: Vital Signs Period Temp Pulse Resp BP Sys/Bocanegra Pulse Ox Last 24 Hr 97.9 F-99 F 86-98 18-20 142-162/81-90 98-98 PHYSICAL EXAM GENERAL: The patient is awake, alert, and fully oriented, in no acute distress. HEAD: Normal with no signs of trauma. EYES: PERRL, extraocular movements intact, sclera anicteric, conjunctiva clear. ENT: oropharynx clear without exudates, moist mucous membranes. NECK: Trachea midline, supple. LUNGS: Breath sounds equal, clear to auscultation bilaterally, no wheezes, no crackles, no accessory muscle use. HEART: Regular rate and rhythm, S1, S2 without murmur, rub or gallop. ABDOMEN: Soft, nontender, nondistended, normoactive bowel sounds, no guarding, no rebound EXTREMITIES: 1+ posterior tibial pulse RLE, 0+ dorsalis pedis pulse RLE, 1+ dorsalis pedis pulse LLE, 1+ posterior tibial pulse LLE, sensation intact in lower extremities NEUROLOGICAL: Cranial nerves II through XII grossly intact. VITALS TREND/LABS Vitals Trend 12/17/16 12/17/16 12/18/16 18:20 23:18 04:12 Temperature 98.1 F 96.8 F L 97.8 F Pulse Rate 102 H 90 Respiratory 19 18 20 Rate Blood Pressure 140/106 136/84 12/18/16 12/18/16 12/18/16 06:00 08:37 09:00 Temperature 97.6 F 97.9 F Pulse Rate 86 81 Respiratory 20 20 20 Rate Blood Pressure 146/76 139/74 12/18/16 12/18/16 12/18/16 12:19 12:35 12:50 Temperature 98.1 F Pulse Rate 81 80 75 Respiratory 16 18 18 Rate Blood Pressure 141/77 147/88 152/80 12/18/16 12/18/16 12/18/16 13:05 13:20 13:58 Temperature 98.4 F 98.4 F Pulse Rate 74 67 86 Respiratory 18 18 18 Rate Blood Pressure 147/81 151/77 163/85 12/18/16 12/18/16 12/18/16 14:09 18:00 21:00 Temperature 98.2 F 98.9 F Pulse Rate 86 109 H Respiratory 21 20 Rate Blood Pressure 163/65 161/96 12/18/16 12/19/16 12/19/16 22:00 06:48 10:00 Temperature 97.3 F L 97.8 F Pulse Rate 79 84 83 Respiratory 20 20 20 Rate Blood Pressure 158/86 155/80 148/80 12/19/16 12/19/16 12/19/16 14:00 18:00 21:00 Temperature 98.5 F 98.8 F Pulse Rate 90 86 Respiratory 20 20 20 Rate Blood Pressure 162/90 154/87 12/19/16 12/20/16 12/20/16 22:00 06:00 08:51 Temperature 99 F 98.4 F 97.9 F Pulse Rate 90 98 H 97 H Respiratory 20 18 18 Rate Blood Pressure 161/90 142/87 142/81 Laboratory Tests 12/17/16 12/17/16 12/18/16 19:40 19:40 06:05 WBC 8.7 Hgb 15.4 Hct 46.6 MCV 93.6 Plt Count 223 Sodium 137 Potassium 4.0 Chloride 102 Carbon Dioxide 28 BUN 21 H Creatinine 0.8 Random Glucose 263 H Hemoglobin A1c % 10.9 H Calcium 9.5 Triglycerides Cholesterol Total LDL Cholesterol 12/18/16 12/19/16 12/19/16 06:05 06:35 06:35 WBC 9.8 Hgb 14.6 Hct 43.4 MCV Plt Count 190 Sodium 138 Potassium 3.9 Chloride 105 Carbon Dioxide 24 BUN 10 D Creatinine 0.5 L D Random Glucose 113 H D Hemoglobin A1c % Calcium 8.3 L Triglycerides 211 H Cholesterol 199 Total LDL Cholesterol 131 H IMAGING 12/17/16 :US/DUPLEX VASCULAR: no evidence of DVT 12/17/16 :US/DUPLEX ART. LOWER COMPL: abnormal flow patterns bilaterally with complete occlusion of mid right SFA 12/17/16: CXR: no evidence of acute pulmonary disease 12/17/16: EKG: normal sinus rhythm with sinus arrythmia, diffuse non-specific ST- T wave abnormalities compared to July 2007 12/18/16: AORTA W RUN OFF CTA: occlusion of SFA on R side. Plaque vs. mural thrombus within the infrarenal aorta and iliac system. SURGICAL 12/18/16: Aortogram, RLE angiogram, superficial femoral a balloon angioplasty with superficial femoral artery stent placement HOSPITAL COURSE: Date of Admission:12/18/16 Date of Discharge: 12/20/16 Admit dignosis: right lower extremity ischemia Pre-admission course Patient is a 56 year old male with a PMH of IDDMII, HTN, HLD, CAD s/p CABG (2013 ) who presented to ED with complaint of worsening right leg pain, especially when walking. Patient stated that he was able to walk up to two blocks before the pain intensified. Pain did not resolve until hours later. Patient reported no similar symptoms in the past and denied any trauma to the area. Patient also denies any numbness, tingling, fever, chills, nausea, vomiting, abdominal pain, chest pain, palpitations, or shortness of breath. Hospital course US duplex of lower extremity and aorta w/run off CTA both confirmed occlusion of SFA on R side. Vascular surgery was consulted, and pt was maintained on heparin drip. On 12/18/16, pt underwent aortogram, RLE angiogram, SFA DCB angioplasty, with stent placement. Pt was then transitioned to Plavix 75 mg PO, which he willl continue upon discharge. He was counseled on the importance of smoking cessation and has been given supply of nicotine patch 21mg for daily application over the next 2 weeks. During this time, pt's pain was controlled with morphine 1 mg IVP q4, and he was started on Lisinopril 10mg PO daily to control his BP, which was elevated at 142/87 (last reading). Minutes to complete discharge: 32 Discharge Summary Reason For Visit: SUPERFICIAL FEMORAL ARTERY OCCLUSION Current Active Problems Superficial femoral artery occlusion (Acute) Diabetes mellitus (Chronic) Nicotine dependence (Chronic) Condition: Stable - Instructions Diet, Activity, Other Instructions: You were recently in the hospital for a blockage in one of the arteries in your leg. You had a surgery to open this blockage, so blood flow could be restored to your right leg. You may resume activity as tolerated. It is very important that you quit smoking for the health of your heart and vessels. continue nicotine patches daily. 21mg patch for 2 weeks then decrease to 14mg patch for 2 weeks then to 7mg patch. refer to handout to help you while you quit. Please continue to use the nicotine patch and follow-up with your primary care physician. Please also take: - Lisinopril 10mg (1 tablet) by mouth every day (starting tomorrow). This will help control your blood pressure. - Plavix 75mg (1 tablet) by mouth every day (starting tomorrow) We also recommend that you exercise and eat healthy to keep your blood sugar down. Please follow-up with a vascular surgeon, Dr. Doherty, and your primary care physician, Dr. Fitzpatrick in 1 week. If you become short of breath, develop chest pain, or any new symptoms, please go to the hospital. We hope you feel better soon. Referrals: Pattie Fitzpatrick MD [Staff Physician] - Casey Doherty MD [Staff Physician] - Disposition: HOME - Home Medications Comprehensive Discharge Medication List: Ambulatory Orders Aspirin [Aspirin EC] 81 mg PO DAILY 12/17/16 Atorvastatin Ca [Lipitor] 80 mg PO HS 12/17/16 BUPROPion HCL "SR" [Wellbutrin Sr -] 100 mg PO DAILY 12/17/16 Clopidogrel Bisulfate [Clopidogrel] 75 mg PO DAILY 12/17/16 Insulin (Levemir) [Levemir Flexpen -] 20 units SQ HS 12/17/16 Insulin Lispro [Humalog] 8 unit SQ TID 12/17/16 Clotrimazole [Lotrimin -] 1 applic TP BID tube 12/20/16 Lisinopril 10 mg PO DAILY #30 tablet 12/20/16 Nicotine Patch [Nicoderm Patch -] 21 mg TD HS #14 patch 12/20/16 This patient is new to me today: No Emergency Visit: No Critical Care patient: No - Discharge Referral Referred to [facility] No
[2016-12-20 13:21] VITALS: BP 118/63; PULSE 105; TEMP 98.5
[2016-12-20] MEDS ORDERED: LISINOPRIL 5 MG TABLET (FP) PO ONE (13:25)
[2016-12-20] MEDS ORDERED: ACETAMINOPHEN 500 MG TABLET (FP) PO ONE (14:59)
== END 2016-12-20 15:15 | disposition home or self-care (01) | DRG 173 ==
LOC: JER 18:09 → J6S 12-18 00:18 → JER 12-18 01:22
PROVIDERS: ADMIT Internal Medicine; ATTEND Internal Medicine
PROC: B41DZZZ Fluoroscopy of Aorta and Bilateral Lower Extremity Arteries (ICD-10-PCS; 2016-12-18)
PROC: B41FZZZ Fluoroscopy of Right Lower Extremity Arteries (ICD-10-PCS; 2016-12-18)
PROC: 3E033GC Introduction of Other Therapeutic Substance into Peripheral Vein, Percutaneous Approach (ICD-10-PCS; 2016-12-18)
PROC: 047K341 Dilation of Right Femoral Artery with Drug-eluting Intraluminal Device, using Drug-Coated Balloon, Percutaneous Approach (ICD-10-PCS; principal; 2016-12-18 10:30)
DX: I77.89 Other specified disorders of arteries and arterioles (principal); I99.8 Other disorder of circulatory system; I25.10 Atherosclerotic heart disease of native coronary artery without angina pectoris; N39.0 Urinary tract infection, site not specified; E78.5 Hyperlipidemia, unspecified; E11.9 Type 2 diabetes mellitus without complications; F17.210 Nicotine dependence, cigarettes, uncomplicated; N48.1 Balanitis; B37.89 Other sites of candidiasis; Z95.1 Presence of aortocoronary bypass graft; Z79.4 Long term (current) use of insulin
CPT/HCPCS: 36415; 71020-TC; 75635-TC; 76000-TC; 80048; 80061; 81003; 81015; 82272; 83036; 83721; 85025; 85610; 85730; 86850; 86900; 86901; 87086; 87186; 93005; 93010; 93925-TC; 93970-TC; 94760; 99285-25; J1644

== ENCOUNTER 2017-05-28 13:52 | Inpatient (IN) | payer OTHER ==
--- NOTE | 2017-05-28 15:51 | PDOC ---
Rapid Medical Evaluation Chief Complaint: Pain, Acute Time Seen by Provider: 05/28/17 15:48 Medical Evaluation: Allergies Allergy/AdvReac Type Severity Reaction Status Date / Time No Known Allergies Allergy Verified 05/28/17 13:54 Vital Signs Temp Pulse Resp BP Pulse Ox 98.7 F 100 H 18 141/106 100 05/28/17 13:54 05/28/17 13:54 05/28/17 13:54 05/28/17 13:54 05/28/17 13:54 05/28/17 15:48 I have performed a brief in-person evaluation of this patient. The patient presents with a chief complaint of: RLE pain x 2 days, H/o DM, HLD, HTM, CABG, s/p angioplasty of RLE by Dr Casey Doherty, here w/ RLE pain, worse w/ walking, better w/ rest w/ intermittent coldness of leg x 2-3 days Pertinent physical exam findings:B/l legs warm to touch, unable to palpate pedal pulses b/l I have ordered the following:labs The patient will proceed to the ED for further evaluation. 05/28/17 15:53 Discharge Disposition - Discharge Dispostion Last Admission D/C Date: 12/20/16 - Referrals Referrals: STAFF,NOT ON [Primary Care Provider] - - Patient Instructions - Post Discharge Activity
[2017-05-28 16:18] LABS: EOS % 0.6 % (0-4.5); HEMATOCRIT 47.4 % (35.4-49); HEMOGLOBIN 15.6 GM/dL (11.7-16.9); MCH 30.5 pg (25.7-33.7); MCHC 32.9 g/dl (32.0-35.9); MEAN CELL VOLUME 92.6 fl (80-96); MEAN PLT VOLUME 8.7 fl (7.5-11.1); NEUT % 69.4 % (42.8-82.8); PLATELET COUNT 260 K/MM3 (134-434); RBC 5.12 M/mm3 (4.00-5.60); RDW 13.2 % (11.9-15.9); WHITE BLOOD COUNT 12.3 K/mm3 (4.0-10.0)
[2017-05-28 16:35] LABS: INR 0.99 (0.82-1.09); PROTHROMBIN TIME (PATIENT) 11.2 SEC (9.98-11.88)
[2017-05-28 16:45] LABS: ALBUMIN 3.3 g/dl (3.4-5.0); ANION GAP 10 (8-16); BILIRUBIN,TOTAL 1.2 mg/dL (0.2-1.0); BLOOD UREA NITROGEN 16 mg/dL (7-18); CHLORIDE 100 mmol/L (98-107); CO2 25 mmol/L (21-32); CREATININE 0.9 mg/dL (0.7-1.3); GLUCOSE,RANDOM 277 mg/dL (74-106); SGOT/AST 7 U/L (15-37); SGPT/ALT 19 U/L (12-78); SODIUM 135 mmol/L (136-145)
[2017-05-28 16:46] LABS: ALK PHOS 99 U/L (45-117); TOT PROT 7.1 g/dl (6.4-8.2)
[2017-05-28 17:05] LABS: URINE APPEARANCE CLEAR; URINE BILIRUBIN NEGATIVE (NEGATIVE); URINE BLOOD 1+ (NEGATIVE); URINE COLOR LTYELLOW; URINE GLUCOSE (UA) 3+ (NEGATIVE); URINE KETONE 1+ (NEGATIVE); URINE NITRITE NEGATIVE (NEGATIVE); URINE UROBILINOGEN NEGATIVE mg/dL (0.2-1.0)
[2017-05-28 17:23] LABS: URINE LEUK ESTERASE 1+ (NEGATIVE); URINE PROTEIN 2+ (NEGATIVE)
--- NOTE | 2017-05-28 17:26 | PDOC ---
History of Present Illness - General History Source: Patient Exam Limitations: No Limitations - History of Present Illness Initial Comments: 05/28/17 17:32 The patient is a 56 year old male, with a significant past medical history of IDDM, HTN, CAD s/p CABG, stent RLE, who presents to the emergency department with Right leg and right foot pain/coldness. The patient arrives with complaints of right foot coldness and pain. He ranks his pain a 9/10 in pain intensity. He denies any recent fevers, chills, headache or dizziness. He denies any recent nausea, vomit, diarrhea or constipation. He denies any recent chest pain or shortness of breath. He denies any recent dysuria, frequency, urgency or hematuria. Allergies: NKA Past surgical history: See HPI <Ramirez Chou - Last Filed: 05/28/17 17:32> <Elly Peter - Last Filed: 06/01/17 11:53> - General Chief Complaint: Pain, Acute Stated Complaint: hx of stent rle LEG PAIN Time Seen by Provider: 05/28/17 15:48 Past History <Ramirez Chou - Last Filed: 05/28/17 17:32> - Past Medical History Anemia: No Asthma: No Cancer: No Cardiac Disorders: Yes (triple bypass,stent placementx3) CVA: No COPD: No CHF: No DVT: No Dementia: No Diabetes: Yes GI Disorders: No Disorders: No HTN: Yes Hypercholesterolemia: Yes Liver Disease: No Seizures: No Thyroid Disease: No Other medical history: pad - Surgical History Abdominal Surgery: No Appendectomy: No Cardiac Surgery: Yes (triple bypass) Cholecystectomy: No Lung Surgery: No Neurologic Surgery: No - Suicide/Smoking/Psychosocial Hx Smoking History: Former smoker Have you smoked in the past 12 months: Yes Number of Cigarettes Smoked Daily: 20 Information on smoking cessation initiated: Yes 'Breaking Loose' booklet given: 12/18/16 Hx Alcohol Use: No Drug/Substance Use Hx: No Substance Use Type: None <Elly Peter - Last Filed: 06/01/17 11:53> - Past Medical History Allergies/Adverse Reactions: Allergies Allergy/AdvReac Type Severity Reaction Status Date / Time No Known Allergies Allergy Verified 05/28/17 13:54 Home Medications: Ambulatory Orders Aspirin [Aspirin EC] 81 mg PO DAILY 12/17/16 Atorvastatin Ca [Lipitor] 80 mg PO HS 12/17/16 BUPROPion HCL "SR" [Wellbutrin Sr -] 100 mg PO DAILY 12/17/16 Clotrimazole [Lotrimin -] 1 applic TP BID tube 12/20/16 Nicotine Patch [Nicoderm Patch -] 21 mg TD HS #14 patch 12/20/16 Blood Sugar Diagnostic [Test Strips] [address] [facility] #1 box 05/30/17 Clopidogrel Bisulfate [Clopidogrel] 75 mg PO DAILY #30 tablet 05/30/17 Insulin (Levemir) [Levemir Flexpen -] 20 units SQ HS #1 pen 05/30/17 Insulin Lispro [Humalog] 8 unit SQ TID #1 vial 05/30/17 Lisinopril 10 mg PO DAILY #30 tablet 05/30/17 Pen Needle, Diabetic [Pen Needle] [address] [facility] #1 box 05/30/17 Review of Systems - Review of Systems Able to Perform ROS?: Yes Comments:: 05/28/17 17:32 GENERAL/CONSTITUTIONAL: No fever or chills. No weakness. HEAD, EYES, EARS, NOSE AND THROAT: No change in vision. No ear pain or discharge. No sore throat. CARDIOVASCULAR: No chest pain or shortness of breath. RESPIRATORY: No cough, wheezing, or hemoptysis. GASTROINTESTINAL: No nausea, vomiting, diarrhea or constipation. GENITOURINARY: No dysuria, frequency, or change in urination. MUSCULOSKELETAL: +right foot pain. No joint or muscle swelling or pain. No neck or back pain. SKIN: No rash NEUROLOGIC: No headache, vertigo, loss of consciousness, or change in strength/ sensation. ENDOCRINE: No increased thirst. No abnormal weight change. HEMATOLOGIC/LYMPHATIC: No anemia, easy bleeding, or history of blood clots. ALLERGIC/IMMUNOLOGIC: No hives or skin allergy. <Ramirez Chou - Last Filed: 05/28/17 17:32> *Physical Exam - Vital Signs Last Vital Signs Temp Pulse Resp BP Pulse Ox 98.7 F 100 H 18 141/106 100 05/28/17 13:54 05/28/17 13:54 05/28/17 13:54 05/28/17 13:54 05/28/17 13:54 - Physical Exam Comments: 05/28/17 17:33 GENERAL: Awake, alert, and fully oriented, in no acute distress HEAD: No signs of trauma EYES: PERRLA, EOMI, sclera anicteric, conjunctiva clear ENT: Auricles normal inspection, hearing grossly normal, nares patent, oropharynx clear without exudates. Moist mucosa NECK: Normal ROM, supple, no lymphadenopathy, JVD, or masses LUNGS: Breath sounds equal, clear to auscultation bilaterally. No wheezes, and no crackles HEART: Regular rate and rhythm, normal S1 and S2, no murmurs, rubs or gallops ABDOMEN: Soft, nontender, normoactive bowel sounds. No guarding, no rebound. No masses EXTREMITIES: RLE toes are cold to touch no palpable pedal pulses. Otherwise Normal range of motion, no edema. No clubbing or cyanosis. No cords, erythema, or tenderness NEUROLOGICAL: Cranial nerves II through XII grossly intact. Normal speech, normal gait SKIN: Warm, Dry, normal turgor, no rashes or lesions noted. <Ramirez Chou - Last Filed: 05/28/17 17:32> - Vital Signs Last Vital Signs Temp Pulse Resp BP Pulse Ox 98.7 F 100 H 18 141/106 100 05/28/17 13:54 05/28/17 13:54 05/28/17 13:54 05/28/17 13:54 05/28/17 13:54 <Elly Peter - Last Filed: 06/01/17 11:53> ED Treatment Course - LABORATORY CBC & Chemistry Diagram: 05/28/17 15:58 05/28/17 15:58 - ADDITIONAL ORDERS Additional order review: Laboratory Results 05/28/17 05/28/17 05/28/17 16:00 15:58 15:58 PT with INR 11.20 INR 0.99 Sodium 135 L Potassium 4.0 Chloride 100 Carbon Dioxide 25 Anion Gap 10 BUN 16 D Creatinine 0.9 D Creat Clearance w eGFR > 60 Random Glucose 277 H D Calcium 9.0 Total Bilirubin 1.2 H AST 7 L ALT 19 Alkaline Phosphatase 99 Total Protein 7.1 Albumin 3.3 L Urine Color Ltyellow Urine Appearance Clear Urine pH 6.0 Ur Specific [place] 1.036 H Urine Protein 2+ H Urine Glucose (UA) 3+ H Urine Ketones 1+ H Urine Blood 1+ H Urine Nitrite Negative Urine Bilirubin Negative Urine Urobilinogen Negative 05/28/17 15:58 RBC 5.12 MCV 92.6 MCHC 32.9 RDW 13.2 MPV 8.7 Neutrophils % 69.4 Lymphocytes % 23.0 Monocytes % 6.0 Eosinophils % 0.6 Basophils % 1.0 <Ramirez Chou - Last Filed: 05/28/17 17:32> - LABORATORY CBC & Chemistry Diagram: 05/31/17 07:05 05/29/17 07:05 - ADDITIONAL ORDERS Additional order review: Laboratory Results 05/28/17 05/28/17 05/28/17 16:00 15:58 15:58 PT with INR 11.20 INR 0.99 Sodium 135 L Potassium 4.0 Chloride 100 Carbon Dioxide 25 Anion Gap 10 BUN 16 D Creatinine 0.9 D Creat Clearance w eGFR > 60 Random Glucose 277 H D Calcium 9.0 Total Bilirubin 1.2 H AST 7 L ALT 19 Alkaline Phosphatase 99 Total Protein 7.1 Albumin 3.3 L Urine Color Ltyellow Urine Appearance Clear Urine pH 6.0 Ur Specific [place] 1.036 H Urine Protein 2+ H Urine Glucose (UA) 3+ H Urine Ketones 1+ H Urine Blood 1+ H Urine Nitrite Negative Urine Bilirubin Negative Urine Urobilinogen Negative 05/28/17 15:58 RBC 5.12 MCV 92.6 MCHC 32.9 RDW 13.2 MPV 8.7 Neutrophils % 69.4 Lymphocytes % 23.0 Monocytes % 6.0 Eosinophils % 0.6 Basophils % 1.0 <Elly Peter - Last Filed: 06/01/17 11:53> Medical Decision Making - Medical Decision Making 05/28/17 19:[address] Maldonado at 7pm shift change. Awaiting results for CTA aorta with BLE runoffs. If stent is occluded will contact Dr. Doherty and admit. <Elly Peter - Last Filed: 06/01/17 11:53> *DC/Admit/Observation/Transfer - Attestations Scribe Attestion: 05/28/17 17:33 Documentation prepared by Ramirez Chou, acting as director medical writing for Elly Peter MD, /DO. <Ramirez Chou - Last Filed: 05/28/17 17:32> <Elly Peter - Last Filed: 06/01/17 11:53> Diagnosis at time of Disposition: Superficial femoral artery occlusion - Discharge Dispostion Disposition: HOME Condition at time of disposition: Stable
[2017-05-28 17:40] LABS: EPI CELLS RARE /HPF (FEW); URINE MUCUS RARE
--- NOTE | 2017-05-28 21:10 | PDOC ---
*Physical Exam - Vital Signs Last Vital Signs Temp Pulse Resp BP Pulse Ox 98.7 F 100 H 18 141/106 100 05/28/17 13:54 05/28/17 13:54 05/28/17 13:54 05/28/17 13:54 05/28/17 13:54 <Edgar Maldonado - Last Filed: 05/28/17 21:09> - Vital Signs Last Vital Signs Temp Pulse Resp BP Pulse Ox 98.7 F 100 H 18 141/106 100 05/28/17 13:54 05/28/17 13:54 05/28/17 13:54 05/28/17 13:54 05/28/17 13:54 <Mackenzie Caceres - Last Filed: 05/28/17 21:40> ED Treatment Course - LABORATORY CBC & Chemistry Diagram: 05/28/17 15:58 05/28/17 15:58 - ADDITIONAL ORDERS Additional order review: Laboratory Results 05/28/17 05/28/17 05/28/17 16:00 15:58 15:58 PT with INR INR Sodium 135 L Potassium 4.0 Chloride 100 Carbon Dioxide 25 Anion Gap 10 BUN 16 D Creatinine 0.9 D Creat Clearance w eGFR > 60 Random Glucose 277 H D Calcium 9.0 Total Bilirubin 1.2 H AST 7 L ALT 19 Alkaline Phosphatase 99 Total Protein 7.1 Albumin 3.3 L Urine Color Ltyellow Urine Appearance Clear Urine pH 6.0 Ur Specific [place] 1.036 H Urine Protein 2+ H Urine Glucose (UA) 3+ H Urine Ketones 1+ H Urine Blood 1+ H Urine Nitrite Negative Urine Bilirubin Negative Urine Urobilinogen Negative Urine WBC (Auto) 22 Urine RBC (Auto) 25 Ur Epithelial Cells Rare Urine Mucus Rare Blood Type O POSITIVE Antibody Screen Negative 05/28/17 15:58 PT with INR 11.20 INR 0.99 Sodium Potassium Chloride Carbon Dioxide Anion Gap BUN Creatinine Creat Clearance w eGFR Random Glucose Calcium Total Bilirubin AST ALT Alkaline Phosphatase Total Protein Albumin Urine Color Urine Appearance Urine pH Ur Specific [place] Urine Protein Urine Glucose (UA) Urine Ketones Urine Blood Urine Nitrite Urine Bilirubin Urine Urobilinogen Urine WBC (Auto) Urine RBC (Auto) Ur Epithelial Cells Urine Mucus Blood Type Antibody Screen 05/28/17 15:58 RBC 5.12 MCV 92.6 MCHC 32.9 RDW 13.2 MPV 8.7 Neutrophils % 69.4 Lymphocytes % 23.0 Monocytes % 6.0 Eosinophils % 0.6 Basophils % 1.0 <Edgar Maldonado - Last Filed: 05/28/17 21:09> - LABORATORY CBC & Chemistry Diagram: 05/28/17 15:58 05/28/17 15:58 - ADDITIONAL ORDERS Additional order review: Laboratory Results 05/28/17 05/28/17 05/28/17 16:00 15:58 15:58 PT with INR INR Sodium 135 L Potassium 4.0 Chloride 100 Carbon Dioxide 25 Anion Gap 10 BUN 16 D Creatinine 0.9 D Creat Clearance w eGFR > 60 Random Glucose 277 H D Calcium 9.0 Total Bilirubin 1.2 H AST 7 L ALT 19 Alkaline Phosphatase 99 Total Protein 7.1 Albumin 3.3 L Urine Color Ltyellow Urine Appearance Clear Urine pH 6.0 Ur Specific [place] 1.036 H Urine Protein 2+ H Urine Glucose (UA) 3+ H Urine Ketones 1+ H Urine Blood 1+ H Urine Nitrite Negative Urine Bilirubin Negative Urine Urobilinogen Negative Urine WBC (Auto) 22 Urine RBC (Auto) 25 Ur Epithelial Cells Rare Urine Mucus Rare Blood Type O POSITIVE Antibody Screen Negative 05/28/17 15:58 PT with INR 11.20 INR 0.99 Sodium Potassium Chloride Carbon Dioxide Anion Gap BUN Creatinine Creat Clearance w eGFR Random Glucose Calcium Total Bilirubin AST ALT Alkaline Phosphatase Total Protein Albumin Urine Color Urine Appearance Urine pH Ur Specific [place] Urine Protein Urine Glucose (UA) Urine Ketones Urine Blood Urine Nitrite Urine Bilirubin Urine Urobilinogen Urine WBC (Auto) Urine RBC (Auto) Ur Epithelial Cells Urine Mucus Blood Type Antibody Screen 05/28/17 15:58 RBC 5.12 MCV 92.6 MCHC 32.9 RDW 13.2 MPV 8.7 Neutrophils % 69.4 Lymphocytes % 23.0 Monocytes % 6.0 Eosinophils % 0.6 Basophils % 1.0 <Mackenzie Caceres - Last Filed: 05/28/17 21:40> Medical Decision Making - Medical Decision Making 05/28/17 21:12 Dr. Casey Doherty was called via phone answering service and the patient's case was discussed. He agrees to see the patient in the morning. He requests NPO after midnight. <Mackenzie Caceres - Last Filed: 05/28/17 21:40> *DC/Admit/Observation/Transfer - Discharge Dispostion Admit: Yes <Edgar Maldonado - Last Filed: 05/28/17 21:09> - Attestations Scribe Attestion: 05/28/17 21:40 Documentation prepared by Mackenzie Caceres, acting as medical technologist hematology for Edgar Maldonado DO <Mackenzie Caceres - Last Filed: 05/28/17 21:40> Diagnosis at time of Disposition: Superficial femoral artery occlusion - Discharge Dispostion Condition at time of disposition: Stable - Referrals Referrals: STAFF,NOT ON [Primary Care Provider] - - Patient Instructions - Post Discharge Activity
[2017-05-28] MEDS ORDERED: HEPARIN NA (PORCINE) 5,000 UNITS/ML 1ML VIAL IVPUSH PRN ×2 (21:34)
[2017-05-28] MEDS ORDERED: HEPARIN SOD,PORK IN 0.45% NACL 25,000 UNITS/500 ML INFUS.BAG IVPB SCH (21:45)
[2017-05-28] MEDS ORDERED: HEPARIN INFUSION - 25,000 UNITS/500 ML INFUS.BAG IVPB ONE (22:02)
--- NOTE | 2017-05-28 22:36 | PN ---
Teaching Attending Note Name of Resident: Gildardo Israel ATTENDING PHYSICIAN STATEMENT I saw and evaluated the patient. I reviewed the resident's note and discussed the case with the resident. I agree with the resident's findings and plan as documented. SUBJECTIVE: 56 yo M w pmhx of IDDM, HTN, CAD s/p CABG, RLE stent, who presents with right leg pain also with pain and coldness. States he was walking today when he experienced severe pain. Notes he quit smoking severeal months ago. No chest pain or pressure. No N/V/D. OBJECTIVE: Physical: VS: Vital Signs Period Temp Pulse Resp BP Sys/[place] Pulse Ox Last 24 Hr 98.7 F 81-100 18-18 141-151/74-106 95-100 GEN: NAD, resting in bed, AA0X3 HEENT: NCAT, PERRL, throat without erythema or exudates CARD: RRR S1, S2 RESP: CTAB ABD: BSx4, NTD to palpation EXT: R LE +1 pulse , LLE +2/4, RLE toes cold to palpation CBCD WBC 12.3 K/mm3 (4.0-10.0) H 05/28/17 15:58 RBC 5.12 M/mm3 (4.00-5.60) 05/28/17 15:58 Hgb 15.6 GM/dL (11.7-16.9) 05/28/17 15:58 Hct 47.4 % (35.4-49) 05/28/17 15:58 MCV 92.6 fl (80-96) 05/28/17 15:58 MCHC 32.9 g/dl (32.0-35.9) 05/28/17 15:58 RDW 13.2 % (11.9-15.9) 05/28/17 15:58 Plt Count 260 K/MM3 (134-434) D 05/28/17 15:58 MPV 8.7 fl (7.5-11.1) 05/28/17 15:58 CMP Sodium 135 mmol/L (136-145) L 05/28/17 15:58 Potassium 4.0 mmol/L (3.5-5.1) 05/28/17 15:58 Chloride 100 mmol/L (98-107) 05/28/17 15:58 Carbon Dioxide 25 mmol/L (21-32) 05/28/17 15:58 Anion Gap 10 (8-16) 05/28/17 15:58 BUN 16 mg/dL (7-18) D 05/28/17 15:58 Creatinine 0.9 mg/dL (0.7-1.3) D 05/28/17 15:58 Creat Clearance w eGFR > 60 (>60) 05/28/17 15:58 Random Glucose 277 mg/dL (74-106) H D 05/28/17 15:58 Calcium 9.0 mg/dL (8.5-10.1) 05/28/17 15:58 Total Bilirubin 1.2 mg/dL (0.2-1.0) H 05/28/17 15:58 AST 7 U/L (15-37) L 05/28/17 15:58 ALT 19 U/L (12-78) 05/28/17 15:58 Alkaline Phosphatase 99 U/L (45-117) 05/28/17 15:58 Total Protein 7.1 g/dl (6.4-8.2) 05/28/17 15:58 Albumin 3.3 g/dl (3.4-5.0) L 05/28/17 15:58 Home Medications Medication Instructions Recorded Aspirin [Aspirin EC] 81 mg PO DAILY 12/17/16 Atorvastatin Ca [Lipitor] 80 mg PO HS 12/17/16 BUPROPion HCL "SR" [Wellbutrin Sr 100 mg PO DAILY 12/17/16 -] Clopidogrel Bisulfate [Clopidogrel] 75 mg PO DAILY 12/17/16 Insulin (Levemir) [Levemir Flexpen 20 units SQ HS 12/17/16 -] Insulin Lispro [Humalog] 8 unit SQ TID 12/17/16 Clotrimazole [Lotrimin -] 1 applic TP BID tube 12/20/16 Lisinopril 10 mg PO DAILY #30 tablet 12/20/16 Nicotine Patch [Nicoderm Patch -] 21 mg TD HS #14 patch 12/20/16 EKG: CTA-Atherosclerotic calcification of the aorta, Complete occlusion of R. Superficial Femoral Artery and right femoral stent with reconstitution of flow distally in distal SFA from collateral vessels ASSESSMENT AND PLAN: 56 yo M w pmhx of IDDM, HTN, CAD s/p CABG, RLE stent, who presents with right leg pain also with pain and coldness. States he was walking today when he experienced severe pain. Notes he quit smoking severeal months ago. No chest pain or pressure. No N/V/D. 1.) R. SFA/R. Femoral stent occlusion - Hep Gtt. - Vasc.Consulted and spoken to by ED - NPO - Coags, Type and Screen, CBC 2.) CAD - C/W home meds 3.) HTN - C/W ARB 4.) Dvt Ppx - Hep. gtt Place in Med-Sx
--- NOTE | 2017-05-28 22:44 | HP ---
CHIEF COMPLAINT: R leg pain, poikilothermia PCP: None HISTORY OF PRESENT ILLNESS: 56 yo man w/ pmh of PAD (s/p RFA stent in 12/10), CAD (triple bypass, multiple stents), DM2, HTN, HLD who presents with two days of intermittent R calf pain worse with exertion and poikilothermia in R foot/toes. Pt with prior superficial RFA occlusion in 12/10, requiring stenting by Dr. Doherty. Pt was discharged on plavix/asa and advised to stop smoking. However, pt endorses noncompliance with AC for past 6 weeks due to stress of managing with cancer. He also endorses an attempt at smoking cessation, but recently smoked on 05/27/2017. Pt states that R foot feels cold and experiences pain in his calf when he walks which has been worse today. He also endorses BL chest pain/ tightness over the last few days, but also states that he has been experiencing a similar pain over the past three years. In addition, pt endorses fatigue and intermittent fevers/chills, but denies any cough, SOB, palpitations, FLORES/ dizziness, abdominal pain, diarrhea, constipation, dysuria, new rashes or other neuro symptoms. He is very concerned about worsening supraorbital edema over the last few years. 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 Pt also endorses worsening BL proximal muscle weakness since [place] three years ago. ER course was notable for: (1)CTA with occlusion of RFA (2)WBC 12.3 (3) Recent Travel: none PAST MEDICAL HISTORY: HLD Diabetes PAD HTN CAD (triple bypass, stents x3) PAST SURGICAL HISTORY: RFA stent Triple bypass, coronary stenting Social History: Smoking: Former smoker, 40 years 1-2 ppd. Has been weaning off cigarettes after prior RFA clot, but smoked a few cigarettes on new years. Alcohol: Denies Drugs: Denies Family History: Mother with [place], DM Allergies Full dose aspirin No Known Allergies Allergy (Verified 05/28/17 13:54) HOME MEDICATIONS: Home Medications Medication Instructions Recorded Aspirin [Aspirin EC] 81 mg PO DAILY 12/17/16 Atorvastatin Ca [Lipitor] 80 mg PO HS 12/17/16 BUPROPion HCL "SR" [Wellbutrin Sr 100 mg PO DAILY 12/17/16 -] Clopidogrel Bisulfate [Clopidogrel] 75 mg PO DAILY 12/17/16 Insulin (Levemir) [Levemir Flexpen 20 units SQ HS 12/17/16 -] Insulin Lispro [Humalog] 8 unit SQ TID 12/17/16 Clotrimazole [Lotrimin -] 1 applic TP BID tube 12/20/16 Lisinopril 10 mg PO DAILY #30 tablet 12/20/16 Nicotine Patch [Nicoderm Patch -] 21 mg TD HS #14 patch 12/20/16 REVIEW OF SYSTEMS CONSTITUTIONAL: generalized weakness, Absent: fever, chills, diaphoresis, malaise, loss of appetite, weight change HEENT: Absent: rhinorrhea, nasal congestion, throat pain, throat swelling, difficulty swallowing, mouth swelling, ear pain, eye pain, visual changes CARDIOVASCULAR: chest pain, claudications Absent: syncope, palpitations, irregular heart rate, lightheadedness, peripheral edema RESPIRATORY: Absent: cough, shortness of breath, dyspnea with exertion, orthopnea, wheezing, stridor, hemoptysis GASTROINTESTINAL: Absent: abdominal pain, abdominal distension, nausea, vomiting, diarrhea, constipation, melena, hematochezia GENITOURINARY: Absent: dysuria, frequency, urgency, hesitancy, hematuria, flank pain, genital pain MUSCULOSKELETAL: myalgia, Absent: arthralgia, joint swelling, back pain, neck pain SKIN: Absent: rash, itching, pallor HEMATOLOGIC/IMMUNOLOGIC: Absent: easy bleeding, easy bruising, lymphadenopathy, frequent infections ENDOCRINE: Absent: unexplained weight gain, unexplained weight loss, heat intolerance, cold intolerance NEUROLOGIC: Absent: headache, focal weakness or paresthesias, dizziness, unsteady gait, seizure, mental status changes, bladder or bowel incontinence PSYCHIATRIC: Absent: anxiety, depression, suicidal or homicidal ideation, hallucinations. PHYSICAL EXAMINATION Vital Signs - 24 hr 05/28/17 05/28/17 13:54 21:45 Temperature 98.7 F Pulse Rate 100 H Pulse Rate [ 81 Apical] Respiratory 18 18 Rate Blood Pressure 141/106 Blood Pressure 151/74 [Left Arm] O2 Sat by Pulse 100 95 Oximetry (%) GENERAL: Awake, alert, and fully oriented, in no acute distress. HEAD: Normal with no signs of trauma. EYES: Supraorbital periorbital edema noted bilaterally. Sub-cm yellow patches noted on superior eyelids BL. Pupils equal, round and reactive to light, extraocular movements intact, sclera anicteric, conjunctiva clear. No lid lag. EARS, NOSE, THROAT: Ears normal, nares patent, oropharynx clear without exudates. Moist mucous membranes. NECK: Normal range of motion, supple without lymphadenopathy, JVD, or masses. LUNGS: Breath sounds equal, clear to auscultation bilaterally. No wheezes, and no crackles. No accessory muscle use. HEART: Tachy, Regular rate and rhythm, normal S1 and S2 without murmur, rub or gallop. ABDOMEN: Increased abdominal tone. Soft, nontender, not distended, normoactive bowel sounds, no guarding, no rebound, no masses. No hepatomegaly or splenomegaly. MUSCULOSKELETAL: Normal range of motion at all joints. No bony deformities or tenderness. No CVA tenderness. UPPER EXTREMITIES: BL digital clubbing. No goittron's papules noted. 2+ pulses, warm, well-perfused. No cyanosis. No peripheral edema. LOWER EXTREMITIES: Absent PT, 1+ DP pulse on R foot. R foot cool to touch in toes/forefoot when compared to L side. 2+ pulses, warm, well-perfused on L. No calf tenderness. No peripheral edema. - Homans sign BL. NEUROLOGICAL: Cranial nerves II-XII intact. Normal speech. 5/5 strength in all extremities grossly. Sensation to light touch preserved in all extremities. 2+ Biceps reflex BL, 1+ patellar reflex on L, 2+ on R. PSYCHIATRIC: Cooperative. Good eye contact. Appropriate mood and affect. SKIN: Hyperemic patch on anterior chest wall in sun-exposed distribution ( possible "shawl sign"). Warm, dry, normal turgor, no other rashes or lesions noted, normal capillary refill. Laboratory Results - last 24 hr CBC, BMP 05/28/17 15:58 05/28/17 15:58 05/28/17 05/28/17 05/28/17 15:58 15:58 15:58 WBC 12.3 H RBC 5.12 Hgb 15.6 Hct 47.4 MCV 92.6 MCH 30.5 MCHC 32.9 RDW 13.2 Plt Count 260 D MPV 8.7 Neutrophils % 69.4 Lymphocytes % 23.0 Monocytes % 6.0 Eosinophils % 0.6 Basophils % 1.0 PT with INR 11.20 INR 0.99 Sodium 135 L Potassium 4.0 Chloride 100 Carbon Dioxide 25 Anion Gap 10 BUN 16 D Creatinine 0.9 D Creat Clearance w eGFR > 60 Random Glucose 277 H D Calcium 9.0 Total Bilirubin 1.2 H AST 7 L ALT 19 Alkaline Phosphatase 99 Total Protein 7.1 Albumin 3.3 L Urine Color Urine Appearance Urine pH Ur Specific [place] Urine Protein Urine Glucose (UA) Urine Ketones Urine Blood Urine Nitrite Urine Bilirubin Urine Urobilinogen Urine WBC (Auto) Urine RBC (Auto) Ur Epithelial Cells Urine Mucus Blood Type Antibody Screen 05/28/17 05/28/17 15:58 16:00 WBC RBC Hgb Hct MCV MCH MCHC RDW Plt Count MPV Neutrophils % Lymphocytes % Monocytes % Eosinophils % Basophils % PT with INR INR Sodium Potassium Chloride Carbon Dioxide Anion Gap BUN Creatinine Creat Clearance w eGFR Random Glucose Calcium Total Bilirubin AST ALT Alkaline Phosphatase Total Protein Albumin Urine Color Ltyellow Urine Appearance Clear Urine pH 6.0 Ur Specific [place] 1.036 H Urine Protein 2+ H Urine Glucose (UA) 3+ H Urine Ketones 1+ H Urine Blood 1+ H Urine Nitrite Negative Urine Bilirubin Negative Urine Urobilinogen Negative Urine WBC (Auto) 22 Urine RBC (Auto) 25 Ur Epithelial Cells Rare Urine Mucus Rare Blood Type O POSITIVE Antibody Screen Negative CXR: Sternotomy wires noted. Increased vascular markings. No consolidations, pneumothorax or pleural effusions EKG: NAD, rate of 77, QTC 443, TWIs in V1-V5. No ST changes CTA-Atherosclerotic calcification of the aorta, Complete occlusion of R. Superficial Femoral Artery and right femoral stent with reconstitution of flow distally in distal SFA from collateral vessels ASSESSMENT/PLAN: 56 yo man w/ pmh of PAD (s/p RFA stent in 12/10), CAD (triple bypass, multiple stents), DM2, HTN, HLD who presents with two days of intermittent R calf pain worse with exertion and poikilothermia in R foot/toes. Heparin gtt started and Dr. Doherty has been consulted and will see pt in AM for further evaluation of R SFA occlusion. Pt also with hx and physical exam findings consistent with possible dermatomyositis; recommend further work-up as outpt. #R SFA occlusion - CTA confirmed occlusion of R SFA - Heparin gtt - Vascular consult, Dr. Doherty to see pt in AM - Pulse checks Q2H - Coags, T&S, CBC in AM - NPO after midnight #CAD - Prior [place] three years ago per pt; pt non-compliant with AC for past 6 weeks - C/W ASA, plavix pending vascular consult #Chest pain/tightness - Vague CP tightness, however appears to be chronic - Trend trops - EKG with diffuse TWIs in V1-V5 - Repeat EKG in AM #Possible Dermatomyositis/Myositis - Chronic BL proximal muscle weakness, periorbital edema and possible shawl sign - F/u ESR - f/u CPK, Michelle-1 AB, Aldolase - Consider rheum consult #HTN - Cont home lisinopril #DM2 - confirm home regimen; pt w/ no PCP and poor f/u - BGM q4h - ISS - A1C #Nicotine dependence - Counseled on importance of smoking cessation - No nicotine patch for now, given vasoconstrictive effects PPX Heparin subq TID FEN PO hydration Daily BMPs NPO after midnight Plan discussed with Attending, Dr. Darwin Israel, PGY1 Visit type - Emergency Visit Emergency Visit: Yes ED Registration Date: 05/28/17 Care time: The patient presented to the Emergency Department on the above date and was hospitalized for further evaluation of their emergent condition. - New Patient This patient is new to me today: Yes Date on this admission: 05/29/17 - Critical Care Critical Care patient: No
[2017-05-29 00:47] VITALS: BMI 25.4
[2017-05-29] MEDS ORDERED: PNEUMOC 13-VAL CONJ-DIP CRM/PF 0.5 ML DISP.SYRIN IM ONE (01:04)
[2017-05-29] MEDS: INSULIN SLIDING SCALE (NOVOLOG) 1 VIAL SQ SCH ×5 (06:58→22:30)
[2017-05-29 07:30] LABS: HEMATOCRIT 45.1 % (35.4-49); HEMOGLOBIN 14.7 GM/dL (11.7-16.9); MCH 30.3 pg (25.7-33.7); MCHC 32.5 g/dl (32.0-35.9); MEAN CELL VOLUME 93.2 fl (80-96); MEAN PLT VOLUME 8.4 fl (7.5-11.1); PLATELET COUNT 234 K/MM3 (134-434); RBC 4.84 M/mm3 (4.00-5.60); RDW 13.4 % (11.9-15.9)
[2017-05-29 08:06] LABS: INR 0.97 (0.82-1.09)
[2017-05-29 08:09] LABS: ACTIVATED PTT 51.6 SECONDS (26.9-34.4)
[2017-05-29 08:50] LABS: ALK PHOS 86 U/L (45-117); ANION GAP 7 (8-16); BILIRUBIN,TOTAL 0.8 mg/dL (0.2-1.0); BLOOD UREA NITROGEN 15 mg/dL (7-18); CALCIUM 8.4 mg/dL (8.5-10.1); CHLORIDE 102 mmol/L (98-107); CO2 27 mmol/L (21-32); CREATININE 0.7 mg/dL (0.7-1.3); GLUCOSE,RANDOM 241 mg/dL (74-106); POTASSIUM 3.8 mmol/L (3.5-5.1); SGOT/AST 7 U/L (15-37); SGPT/ALT 17 U/L (12-78); SODIUM 136 mmol/L (136-145); TOT PROT 6.2 g/dl (6.4-8.2)
--- NOTE | 2017-05-29 09:09 | EKG ---
Test Reason : Blood Pressure : / mmHG Vent. Rate : 077 BPM Atrial Rate : 077 BPM P-R Int : 134 ms QRS Dur : 094 ms QT Int : 392 ms P-R-T Axes : 039 -05 069 degrees QTc Int : 443 ms NORMAL SINUS RHYTHM T WAVE ABNORMALITY, CONSIDER ANTERIOR ISCHEMIA ABNORMAL ECG WHEN COMPARED WITH ECG OF 17-DEC-2016 23:03, INVERTED T WAVES HAVE REPLACED NONSPECIFIC T WAVE ABNORMALITY IN ANTERIOR LEADS Confirmed by MD Dez, Geovanny ([id number]) on 05/29/2017 9:08:52 AM Referred By: Confirmed By:Geovanny Garces MD
--- NOTE | 2017-05-29 09:26 | CONSULT ---
Consult - Alcohol/Substance Use Hx Alcohol Use: No - Smoking History Smoking history: Former smoker Have you smoked in the past 12 months: Yes Aproximately how many cigarettes per day: 20 If you are a former smoker, when did you quit?: 04/2017 Home Medications - Allergies Allergies/Adverse Reactions: Allergies Allergy/AdvReac Type Severity Reaction Status Date / Time No Known Allergies Allergy Verified 05/28/17 13:54 - Home Medications Home Medications: Ambulatory Orders Aspirin [Aspirin EC] 81 mg PO DAILY 12/17/16 Atorvastatin Ca [Lipitor] 80 mg PO HS 12/17/16 BUPROPion HCL "SR" [Wellbutrin Sr -] 100 mg PO DAILY 12/17/16 Clopidogrel Bisulfate [Clopidogrel] 75 mg PO DAILY 12/17/16 Insulin (Levemir) [Levemir Flexpen -] 20 units SQ HS 12/17/16 Insulin Lispro [Humalog] 8 unit SQ TID 12/17/16 Clotrimazole [Lotrimin -] 1 applic TP BID tube 12/20/16 Lisinopril 10 mg PO DAILY #30 tablet 12/20/16 Nicotine Patch [Nicoderm Patch -] 21 mg TD HS #14 patch 12/20/16 Physical Exam Vital Signs: Vital Signs Temperature 97.8 F 05/29/17 06:00 Pulse Rate 77 05/29/17 06:00 Respiratory Rate 18 05/29/17 06:00 Blood Pressure 138/75 05/29/17 06:00 O2 Sat by Pulse Oximetry (%) 95 05/28/17 23:30 Labs: CBC, BMP 05/29/17 07:00 05/29/17 07:05 Assessment/Plan VAscular surgery Pt seen and examined. Right lower ext claudication for some time. Pt had angiolasty and stent placement on 12/10. Pt continued to smoke afterwards and has not stopped. He has been smoking even more now, close to a pack a day. He says his is sick with cancer and is stressed out. He also has not been taking his plavix for some time. CTA performed last night shows right sFA occlsion. Manily above and below the stent. Will do angiogram, angioplasty at 11 am today. Casey gr DO
[2017-05-29] MEDS ORDERED: PNEUMOCOCCAL 23 VACCINE 0.5 ML VIAL IM ONE (10:00)
[2017-05-29] MEDS ORDERED: FLU VACCINE QUAD 60 MCG/0.5 ML (MDV 17-18) IM ONE (10:00)
[2017-05-29] MEDS ORDERED: LISINOPRIL 10 MG TABLET (FP) PO SCH (10:00)
[2017-05-29] MEDS ORDERED: HEPARIN NA (PORCINE) 5,000 UNITS/ML 1ML VIAL ONE ×4 (11:25→14:11)
[2017-05-29] MEDS ORDERED: LIDOCAINE HCL 1%, 10 MG/ML (20ML VIAL) ONE ×3 (11:25→13:41)
[2017-05-29] MEDS ORDERED: ceFAZolin SODIUM 1 GM VIAL IVPB ONE (11:55)
[2017-05-29] MEDS ORDERED: MIDAZOLAM HCL 2 MG/2 ML SINGLE DOSE VIAL ONE ×3 (12:02→13:54)
[2017-05-29] MEDS ORDERED: ceFAZolin SODIUM 1 GM VIAL ONE (12:07)
[2017-05-29] MEDS ORDERED: LIDOCAINE HCL 1%, 10 MG/ML (50 mL VIAL) IJ ONE (12:12)
[2017-05-29] MEDS ORDERED: PROPOFOL 20 ML ONE ×5 (12:15→14:15)
[2017-05-29] MEDS ORDERED: ONDANSETRON 4 MG/2 ML VIAL IVPUSH PRN ×2 (12:35→16:38)
[2017-05-29] MEDS ORDERED: LACTATED RINGERS SOLUTION 1,000 ML IV SCH (12:45)
--- NOTE | 2017-05-29 13:04 | OP ---
Operative Note - Note: Operative Date: 05/29/17 Pre-Operative Diagnosis: RLE claudication Operation: Aortogram, RLE angiogram, SFA DCB angioplasty, SFA stent placement. Findings: SFA stent closed. Disease above and below the stent Post-Operative Diagnosis: Same as Pre-op Surgeon: Casey Doherty Anesthesia: Fractional Estimated Blood Loss (mls): 30 Operative Report Dictated: Yes
--- NOTE | 2017-05-29 13:27 | PN ---
Progress Note (short form) - Note Progress Note: VAscular Surgery S/P RLE angiogram, SFA stent placement. In recovery room, pt complaining of RLE foot pain. Foot is pale. Will take pt back for angiogram to check foot. Casey gr DO
[2017-05-29] MEDS ORDERED: LIDOCAINE HCL 1%, 10 MG/ML (20ML VIAL) INF ONE ×2 (14:00)
--- NOTE | 2017-05-29 14:54 | PN ---
Progress Note (short form) - Note Progress Note: Vascular Surgery S/P angioplasty with stent placement. Good DP pulses. Will restart plavix. no more smoking. Return to office in one week. Can be DC home in am on plavix Casey Doherty DO
[2017-05-29] MEDS ORDERED: CLOPIDOGREL BISULFATE 75 MG TABLET (FP) ONE (15:14)
[2017-05-29] MEDS: CLOPIDOGREL BISULFATE 75 MG TABLET (FP) PO SCH (15:19)
--- NOTE | 2017-05-29 16:10 | PN ---
Physical Exam: SUBJECTIVE: Patient seen and examined at bedside. OBJECTIVE: Vital Signs Period Temp Pulse Resp BP Sys/Bocanegra Pulse Ox Last 24 Hr 97.1 F-97.9 F 61-81 16-20 137-182/68-88 95-97 GENERAL: The patient is awake, alert, and fully oriented, in no acute distress. LUNGS: Breath sounds equal, clear to auscultation bilaterally, no wheezes, no crackles, no accessory muscle use. HEART: Regular rate and rhythm, S1, S2 without murmur, rub or gallop. ABDOMEN: Soft, nontender, nondistended, normoactive bowel sounds, no guarding, no rebound, no hepatosplenomegaly, no masses. LOWER EXTREMITIES: Absent PT, 1+ DP pulse on R foot. R foot cool to touch in toes/forefoot when compared to L side. 2+ pulses, warm, well-perfused on L. No calf tenderness. No peripheral edema. NEUROLOGICAL: Cranial nerves II through XII grossly intact. Normal speech, gait not observed. Laboratory Results - last 24 hr 05/28/17 05/28/17 05/28/17 15:58 15:58 15:58 WBC 12.3 H RBC 5.12 Hgb 15.6 Hct 47.4 MCV 92.6 MCH 30.5 MCHC 32.9 RDW 13.2 Plt Count 260 D MPV 8.7 Neutrophils % 69.4 Lymphocytes % 23.0 Monocytes % 6.0 Eosinophils % 0.6 Basophils % 1.0 ESR PT with INR 11.20 INR 0.99 PTT (Actin FS) Sodium 135 L Potassium 4.0 Chloride 100 Carbon Dioxide 25 Anion Gap 10 BUN 16 D Creatinine 0.9 D Creat Clearance w eGFR > 60 POC Glucometer Random Glucose 277 H D Hemoglobin A1c % Calcium 9.0 Total Bilirubin 1.2 H AST 7 L ALT 19 Alkaline Phosphatase 99 Creatine Kinase Troponin I Total Protein 7.1 Albumin 3.3 L Urine Color Urine Appearance Urine pH Ur Specific [place] Urine Protein Urine Glucose (UA) Urine Ketones Urine Blood Urine Nitrite Urine Bilirubin Urine Urobilinogen Ur Leukocyte Esterase Urine WBC (Auto) Urine RBC (Auto) Ur Epithelial Cells Urine Mucus Blood Type Antibody Screen 05/28/17 05/28/17 05/28/17 15:58 16:00 22:15 WBC RBC Hgb Hct MCV MCH MCHC RDW Plt Count MPV Neutrophils % Lymphocytes % Monocytes % Eosinophils % Basophils % ESR PT with INR INR PTT (Actin FS) 28.9 Sodium Potassium Chloride Carbon Dioxide Anion Gap BUN Creatinine Creat Clearance w eGFR POC Glucometer Random Glucose Hemoglobin A1c % Calcium Total Bilirubin AST ALT Alkaline Phosphatase Creatine Kinase Troponin I Total Protein Albumin Urine Color Ltyellow Urine Appearance Clear Urine pH 6.0 Ur Specific [place] 1.036 H Urine Protein 2+ H Urine Glucose (UA) 3+ H Urine Ketones 1+ H Urine Blood 1+ H Urine Nitrite Negative Urine Bilirubin Negative Urine Urobilinogen Negative Ur Leukocyte Esterase Negative Urine WBC (Auto) 22 Urine RBC (Auto) 25 Ur Epithelial Cells Rare Urine Mucus Rare Blood Type O POSITIVE Antibody Screen Negative 05/29/17 05/29/17 05/29/17 00:13 03:46 03:50 WBC RBC Hgb Hct MCV MCH MCHC RDW Plt Count MPV Neutrophils % Lymphocytes % Monocytes % Eosinophils % Basophils % ESR PT with INR INR PTT (Actin FS) 52.1 H D Sodium Potassium Chloride Carbon Dioxide Anion Gap BUN Creatinine Creat Clearance w eGFR POC Glucometer 333 290 Random Glucose Hemoglobin A1c % Calcium Total Bilirubin AST ALT Alkaline Phosphatase Creatine Kinase Troponin I Total Protein Albumin Urine Color Urine Appearance Urine pH Ur Specific [place] Urine Protein Urine Glucose (UA) Urine Ketones Urine Blood Urine Nitrite Urine Bilirubin Urine Urobilinogen Ur Leukocyte Esterase Urine WBC (Auto) Urine RBC (Auto) Ur Epithelial Cells Urine Mucus Blood Type Antibody Screen 05/29/17 05/29/17 05/29/17 06:19 07:00 07:00 WBC 8.0 D RBC 4.84 Hgb 14.7 Hct 45.1 MCV 93.2 MCH 30.3 MCHC 32.5 RDW 13.4 Plt Count 234 MPV 8.4 Neutrophils % Lymphocytes % Monocytes % Eosinophils % Basophils % ESR PT with INR 11.00 INR 0.97 PTT (Actin FS) 51.6 H Sodium Potassium Chloride Carbon Dioxide Anion Gap BUN Creatinine Creat Clearance w eGFR POC Glucometer 264 Random Glucose Hemoglobin A1c % Calcium Total Bilirubin AST ALT Alkaline Phosphatase Creatine Kinase Troponin I Total Protein Albumin Urine Color Urine Appearance Urine pH Ur Specific [place] Urine Protein Urine Glucose (UA) Urine Ketones Urine Blood Urine Nitrite Urine Bilirubin Urine Urobilinogen Ur Leukocyte Esterase Urine WBC (Auto) Urine RBC (Auto) Ur Epithelial Cells Urine Mucus Blood Type Antibody Screen 05/29/17 05/29/17 05/29/17 07:00 07:00 07:05 WBC RBC Hgb Hct MCV MCH MCHC RDW Plt Count MPV Neutrophils % Lymphocytes % Monocytes % Eosinophils % Basophils % ESR 5 PT with INR INR PTT (Actin FS) Sodium 136 Potassium 3.8 Chloride 102 Carbon Dioxide 27 Anion Gap 7 L BUN 15 Creatinine 0.7 D Creat Clearance w eGFR > 60 POC Glucometer Random Glucose 241 H Hemoglobin A1c % Calcium 8.4 L Total Bilirubin 0.8 D AST 7 L ALT 17 Alkaline Phosphatase 86 Creatine Kinase Cancelled 33 L Troponin I < 0.02 Total Protein 6.2 L Albumin 3.0 L Urine Color Urine Appearance Urine pH Ur Specific [place] Urine Protein Urine Glucose (UA) Urine Ketones Urine Blood Urine Nitrite Urine Bilirubin Urine Urobilinogen Ur Leukocyte Esterase Urine WBC (Auto) Urine RBC (Auto) Ur Epithelial Cells Urine Mucus Blood Type Antibody Screen 05/29/17 07:05 WBC RBC Hgb Hct MCV MCH MCHC RDW Plt Count MPV Neutrophils % Lymphocytes % Monocytes % Eosinophils % Basophils % ESR PT with INR INR PTT (Actin FS) Sodium Potassium Chloride Carbon Dioxide Anion Gap BUN Creatinine Creat Clearance w eGFR POC Glucometer Random Glucose Hemoglobin A1c % 12.5 H D Calcium Total Bilirubin AST ALT Alkaline Phosphatase Creatine Kinase Troponin I Total Protein Albumin Urine Color Urine Appearance Urine pH Ur Specific [place] Urine Protein Urine Glucose (UA) Urine Ketones Urine Blood Urine Nitrite Urine Bilirubin Urine Urobilinogen Ur Leukocyte Esterase Urine WBC (Auto) Urine RBC (Auto) Ur Epithelial Cells Urine Mucus Blood Type Antibody Screen Active Medications Generic Name Dose Route Start Last Admin Trade Name Freq PRN Reason Stop Dose Admin Clopidogrel Bisulfate 75 mg 05/29/17 15:00 05/29/17 15:19 Plavix - PO 75 mg DAILY CRISTI Administration Fentanyl 50 mcg 05/29/17 12:35 05/29/17 15:25 Sublimaze Injection - IVPUSH 50 mcg [id number] PRN Administration PAIN Heparin Sodium (Porcine) 1,000 unit 05/28/17 21:34 Heparin - IVPUSH PRN PRN Heparin Heparin Sodium (Porcine) 5,000 unit 05/28/17 21:34 Heparin - IVPUSH PRN PRN Heparin HEPARIN SOD,PORK IN 0.45% NACL 25,000 units in 500 mls @ 20 mls/hr 05/28/17 21 :45 05/29/17 04:15 Heparin-1/2ns 25,000 Units/500 IVPB 1,000 units/hr TITR CRISTI 20 mls/hr Protocol Titration 1,000 UNITS/HR Lactated Ringer's 1,000 mls @ 75 mls/hr 05/29/17 12:45 Lactated Ringers Solution IV ASDIR CRISTI Insulin Aspart 1 vial 05/29/17 07:00 05/29/17 12:10 Novolog Vial Sliding Scale - SQ Not Given ACHS [facility] Protocol Lisinopril 10 mg 05/29/17 10:00 05/29/17 09:21 Prinivil PO 10 mg DAILY CRISTI Administration Ondansetron HCl 4 mg 05/29/17 12:35 Zofran Injection IVPUSH Q6H PRN NAUSEA AND/OR VOMITING CTA: Occlusion of R SFA ASSESSMENT/PLAN: 56 yo man w/ pmh of PAD (s/p RFA stent in 12/10), CAD (triple bypass, multiple stents), DM2, HTN, HLD and smoking hx admitted for claudication and is s/p RLE angiogram with SFA stent placement #R SFA occlusion -patient is s/p RLE angiogram with SFA stent. Patient had RLE foot pain in the recovery room post procedure, and patient returned to OR for angiogram. As per Dr. Gr, patient has good pulses, will restart plavix. -Patient can start plavix as per dr gr -Smoking cessation -return to office of Dr. Gr in 1 week for follow up #CAD - Prior CT three years ago per pt; pt non-compliant with AC for past 6 weeks -Plavix on AM discharge #Chest pain/tightness - Vague CP tightness, however appears to be chronic -trops neg -EKG with diffuse TWIs in V1-V5, repeat in AM #Possible Dermatomyositis/Myositis - Chronic BL proximal muscle weakness, periorbital edema and possible shawl sign -ESR normal -f/u CPK, Michelle-1 AB, Aldolase abx -Consider rheum consult #HTN -Cont home lisinopril #DM2 - confirm home regimen; pt w/ no PCP -BGM q4h -ISS -A1C #Prophylaxis Heparin subq TID #FEN PO hydration Daily BMPs Diabetic diet #Disposition -continue to monitor on med surg -dispo planning Visit type - Emergency Visit Emergency Visit: No - New Patient This patient is new to pr today: Yes Date on this admission: 05/29/17 - Critical Care Critical Care patient: No
[2017-05-29] MEDS ORDERED: ACETAMINOPHEN 325 MG TABLET (FP) PO ONE (17:30)
--- NOTE | 2017-05-29 18:26 | PN ---
Teaching Attending Note Name of Resident: Sagar Iqbal ATTENDING PHYSICIAN STATEMENT I saw and evaluated the patient. I reviewed the resident's note and discussed the case with the resident. I agree with the resident's findings and plan as documented. SUBJECTIVE: patient seen and examined, returned from OR, reports some right leg pain and asking for medications. No complaints otherwise. OBJECTIVE: Vital Signs Period Temp Pulse Resp BP Sys/Bocanegra Pulse Ox Last 24 Hr 97.1 F-97.9 F 61-81 16-20 137-182/68-88 95-97 Intake & Output 05/26/17 05/27/17 05/28/17 05/29/17 23:59 23:59 23:59 23:59 Intake Total 1170 Output Total 1030 Balance 140 Weight 162 lb 4 oz General: sitting in bed having dinner, no acute distress Extremities; RLE warm, perfused, dopplerable right DP pulse, able to move toes with no concerns Home Medication List Medication Instructions Recorded Confirmed Type Aspirin [Aspirin EC] 81 mg PO DAILY 12/17/16 05/28/17 History Atorvastatin Ca [Lipitor] 80 mg PO HS 12/17/16 05/28/17 History BUPROPion HCL "SR" [Wellbutrin Sr 100 mg PO DAILY 12/17/16 05/28/17 History -] Clopidogrel Bisulfate [Clopidogrel] 75 mg PO DAILY 12/17/16 05/28/17 History Insulin (Levemir) [Levemir Flexpen 20 units SQ HS 12/17/16 05/28/17 History -] Insulin Lispro [Humalog] 8 unit SQ TID 12/17/16 05/28/17 History Active Medications Generic Name Dose Route Start Last Admin Trade Name Freq PRN Reason Stop Dose Admin Clopidogrel Bisulfate 75 mg 05/29/17 15:00 05/29/17 15:19 Plavix - PO 75 mg DAILY CRISTI Administration Lactated Ringer's 1,000 mls @ 75 mls/hr 05/29/17 16:38 Lactated Ringers Solution IV ASDIR CRISTI Insulin Aspart 1 vial 05/29/17 22:00 Novolog Vial Sliding Scale - SQ ACHS CRISTI Protocol Lisinopril 10 mg 05/30/17 10:00 Prinivil PO DAILY CRISTI Ondansetron HCl 4 mg 05/29/17 16:38 Zofran Injection IVPUSH Q6H PRN NAUSEA AND/OR VOMITING Laboratory Results - last 24 hr 05/28/17 05/28/17 05/29/17 16:00 22:15 00:13 WBC RBC Hgb Hct MCV MCH MCHC RDW Plt Count MPV ESR PT with INR INR PTT (Actin FS) 28.9 Sodium Potassium Chloride Carbon Dioxide Anion Gap BUN Creatinine Creat Clearance w eGFR POC Glucometer 333 Random Glucose Hemoglobin A1c % Calcium Total Bilirubin AST ALT Alkaline Phosphatase Creatine Kinase Troponin I Total Protein Albumin Ur Leukocyte Esterase Negative 05/29/17 05/29/17 05/29/17 03:46 03:50 06:19 WBC RBC Hgb Hct MCV MCH MCHC RDW Plt Count MPV ESR PT with INR INR PTT (Actin FS) 52.1 H D Sodium Potassium Chloride Carbon Dioxide Anion Gap BUN Creatinine Creat Clearance w eGFR POC Glucometer 290 264 Random Glucose Hemoglobin A1c % Calcium Total Bilirubin AST ALT Alkaline Phosphatase Creatine Kinase Troponin I Total Protein Albumin Ur Leukocyte Esterase 05/29/17 05/29/17 05/29/17 07:00 07:00 07:00 WBC 8.0 D RBC 4.84 Hgb 14.7 Hct 45.1 MCV 93.2 MCH 30.3 MCHC 32.5 RDW 13.4 Plt Count 234 MPV 8.4 ESR 5 PT with INR 11.00 INR 0.97 PTT (Actin FS) 51.6 H Sodium Potassium Chloride Carbon Dioxide Anion Gap BUN Creatinine Creat Clearance w eGFR POC Glucometer Random Glucose Hemoglobin A1c % Calcium Total Bilirubin AST ALT Alkaline Phosphatase Creatine Kinase Troponin I Total Protein Albumin Ur Leukocyte Esterase 05/29/17 05/29/17 05/29/17 07:00 07:05 07:05 WBC RBC Hgb Hct MCV MCH MCHC RDW Plt Count MPV ESR PT with INR INR PTT (Actin FS) Sodium 136 Potassium 3.8 Chloride 102 Carbon Dioxide 27 Anion Gap 7 L BUN 15 Creatinine 0.7 D Creat Clearance w eGFR > 60 POC Glucometer Random Glucose 241 H Hemoglobin A1c % 12.5 H D Calcium 8.4 L Total Bilirubin 0.8 D AST 7 L ALT 17 Alkaline Phosphatase 86 Creatine Kinase Cancelled 33 L Troponin I < 0.02 Total Protein 6.2 L Albumin 3.0 L Ur Leukocyte Esterase ASSESSMENT AND PLAN: 56 yom with PMHx of PAD (s/p RFA stent in 12/10), CAD (triple bypass, multiple stents), DM2, HTN, HLD, active smoker admitted with RLE arterial ischemia with SFA occulsion. -RLE arterial ischemia with SFA occlusion s/p Angioplasty, stent placement, had to be taken back from PACU to OR for worsening right leg pain with cold foot -CAD -PAD -DM type II -HTN -HLD PLan: Discussed with Dr. gr, off heparin drip. resume plavix. Smoking cessation counseling. Vascular checks overnigt. D/c tomorrow if no new concerns.
[2017-05-29] MEDS: LACTATED RINGERS SOLUTION 1,000 ML IV SCH (18:36)
[2017-05-29] MEDS ORDERED: INSULIN (NOVOLOG) ASPART 100 UNITS/ML 10ML VIAL ONE (19:09)
[2017-05-29] MEDS ORDERED: PT OWN MED DRAWER 7, Y5N ONE (22:40)
[2017-05-29] MEDS: ACETAMINOPHEN 325 MG TABLET (FP) PO PRN (23:00)
[2017-05-30] MEDS: LACTATED RINGERS SOLUTION 1,000 ML IV SCH ×2 (04:33→17:29)
[2017-05-30] MEDS: ACETAMINOPHEN 325 MG TABLET (FP) PO PRN ×3 (05:51→23:43)
[2017-05-30] MEDS: INSULIN SLIDING SCALE (NOVOLOG) 1 VIAL SQ SCH ×4 (06:33→23:43)
--- NOTE | 2017-05-30 07:09 | PN ---
Physical Exam: SUBJECTIVE: Pt complains of soreness in his leg. Pt adamant bout smoking cessation. No other complaints or events noted OBJECTIVE: Vital Signs Period Temp Pulse Resp BP Sys/Bocanegra Pulse Ox Last 24 Hr 97.2 F-99.5 F 60-90 16-20 130-182/59-89 95-98 GENERAL: NAD, awake, alert, and fully oriented HEENT: NC/AT, nicotine stained posterior tongue with moist mucosa, No JVD LUNGS: CTA bilaterally with a prolonged expiratory phase, no wheezes, rhonchi, rales. No accessory muscle use. HEART: RRR, S1, S2 without murmur appreciable ABDOMEN: Soft, nontender, nondistended, normoactive bowel sounds, no guarding, no hepatomegaly EXTREMITIES: B/L extremities warm to touch, 2+ DP pulse on LLE, 1+ DP palpable pulse on RLE with easily dopplerable pulses b/l, ROM limited in dorsiflexion due to pain in RLE, no calf tenderness noted, no edema, cap refill <2sec NEUROLOGICAL: Cranial nerves II through XII grossly intact. Normal speech, gait not observed. PSYCH: Normal mood, normal affect. SKIN: Warm, dry, no rashes noted Laboratory Results - last 24 hr 05/29/17 05/29/17 05/29/17 07:00 07:00 07:00 WBC 8.0 D RBC 4.84 Hgb 14.7 Hct 45.1 MCV 93.2 MCH 30.3 MCHC 32.5 RDW 13.4 Plt Count 234 MPV 8.4 ESR 5 PT with INR 11.00 INR 0.97 PTT (Actin FS) 51.6 H Sodium Potassium Chloride Carbon Dioxide Anion Gap BUN Creatinine Creat Clearance w eGFR POC Glucometer Random Glucose Hemoglobin A1c % Calcium Total Bilirubin AST ALT Alkaline Phosphatase Creatine Kinase Troponin I Total Protein Albumin 05/29/17 05/29/17 05/29/17 07:00 07:05 07:05 WBC RBC Hgb Hct MCV MCH MCHC RDW Plt Count MPV ESR PT with INR INR PTT (Actin FS) Sodium 136 Potassium 3.8 Chloride 102 Carbon Dioxide 27 Anion Gap 7 L BUN 15 Creatinine 0.7 D Creat Clearance w eGFR > 60 POC Glucometer Random Glucose 241 H Hemoglobin A1c % 12.5 H D Calcium 8.4 L Total Bilirubin 0.8 D AST 7 L ALT 17 Alkaline Phosphatase 86 Creatine Kinase Cancelled 33 L Troponin I < 0.02 Total Protein 6.2 L Albumin 3.0 L 05/29/17 05/29/17 05/30/17 19:07 20:59 06:08 WBC RBC Hgb Hct MCV MCH MCHC RDW Plt Count MPV ESR PT with INR INR PTT (Actin FS) Sodium Potassium Chloride Carbon Dioxide Anion Gap BUN Creatinine Creat Clearance w eGFR POC Glucometer 340 307 190 Random Glucose Hemoglobin A1c % Calcium Total Bilirubin AST ALT Alkaline Phosphatase Creatine Kinase Troponin I Total Protein Albumin Active Medications Generic Name Dose Route Start Last Admin Trade Name Freq PRN Reason Stop Dose Admin Acetaminophen 650 mg 05/29/17 18:26 05/30/17 05:51 Tylenol - PO 650 mg Q4H PRN Administration FEVER OR PAIN Clopidogrel Bisulfate 75 mg 05/29/17 15:00 05/29/17 15:19 Plavix - PO 75 mg DAILY CRISTI Administration Lactated Ringer's 1,000 mls @ 75 mls/hr 05/29/17 16:38 05/30/17 04:33 Lactated Ringers Solution IV 75 mls/hr ASDIR CRISTI Administration Insulin Aspart 1 vial 05/29/17 22:00 05/30/17 06:33 Novolog Vial Sliding Scale - SQ 2 units ACHS CRISTI Administration Protocol Lisinopril 10 mg 05/30/17 10:00 Prinivil PO DAILY CRISTI Ondansetron HCl 4 mg 05/29/17 16:38 Zofran Injection IVPUSH Q6H PRN NAUSEA AND/OR VOMITING ASSESSMENT/PLAN:
[2017-05-30 07:35] LABS: HEMATOCRIT 41.6 % (35.4-49); HEMOGLOBIN 13.7 GM/dL (11.7-16.9); MCH 30.7 pg (25.7-33.7); MCHC 32.9 g/dl (32.0-35.9); MEAN CELL VOLUME 93.3 fl (80-96); MEAN PLT VOLUME 8.6 fl (7.5-11.1); PLATELET COUNT 200 K/MM3 (134-434); RBC 4.46 M/mm3 (4.00-5.60); RDW 13.2 % (11.9-15.9); WHITE BLOOD COUNT 9.7 K/mm3 (4.0-10.0)
--- NOTE | 2017-05-30 08:25 | OP ---
DATE OF OPERATION: 05/29/2017 PREOPERATIVE DIAGNOSIS: Right lower extremity ischemia. POSTOPERATIVE DIAGNOSIS: Right lower extremity ischemia. PROCEDURE PERFORMED: Aortogram, right lower extremity angiogram, superficial femoral artery angioplasty with stent placement, tibial artery angioplasty. SURGEON: Casey Blake DO ANESTHESIA: Fractional. BLOOD LOSS: 50 mL. INDICATIONS: The patient is a 56-year-old male who just recently had a right lower extremity angiogram and angioplasty, with stent placement. He was brought on to the recovery room. Once in the recovery room, his foot looked pale and dusky, and we could not get a signal in this foot under Doppler. It was decided that we should go back into the operating room and take repeated images to make sure that the stents are patent, after we had just ballooned and stented them. DESCRIPTION OF PROCEDURE: The patient was consented for the procedure, understanding all risks, benefits and alternatives. He was then taken to the operating room. Once in the operating room, the patient was laid on the operating table in the supine manner. The areas of the left and right groin were prepped and draped in a sterile surgical manner. Under ultrasound guidance, we were able to visualize the left femoral artery and 10 mL of lidocaine 1% was injected there. We then went ahead and used our Micropuncture needle and punctured the left common femoral artery. Micropuncture wire was inserted. A Micropuncture sheath was inserted and an additional 5-Bengali sheath was inserted. A 0.035 floppy guidewire was inserted into the aorta, followed by an Omni Flush catheter. We then shot an aortogram by hand injection, which showed that the aorta and iliac arteries were without any disease. We then placed the 0.[address] the way up and over to the right common femoral artery, followed by the Omni Flush catheter. We then shot an angiogram, showing that the common femoral artery and the profunda were patent, but the flow in the SFA was sluggish. We then took a picture beyond the new stent that was placed, and there was an occlusion of the SFA there, which was not seen at all on the last closing images from the first case. At this point we placed a 0.035 stiff guidewire down into the SFA. We removed the Omni Flush catheter. We placed a 6 x 55 crossover sheath. Then 5000 units of IV heparin was administered to the patient. We then went ahead and placed an additional 6 x 6 LifeStent, which was ballooned in place using a 6 x 6 Ultraverse balloon. Completion angiogram now showed that there was good brisk flow in the SFA and going down into the popliteal artery. We then took a picture of the below-knee peroneal artery and the trifurcation. What we found was that the DP goes into the foot, but the peroneal and the posterior tibial artery do not go into the foot. At this point we were able to selectively cannulate the posterior tibial artery and changed the wire over to an 0.014 [employer] Manufacturer wire and placed the wire in the foot. We then used the 2.5 x 220 Ultraverse balloon and performed angioplasty of the posterior tibial artery. At this point completion angiogram now showed that the posterior tibial artery was not patent. Again, it had too much disease and would not open, but the patient still had good flow going into the foot from the DP artery, which gave collaterals to the posterior tibial artery. At this point the SFA was patent. The flow was nice and brisk. We went head and brought our sheath up and over, and a StarClose device was successfully deployed in the left common femoral artery. The area was wet and dried, and Dermabond was placed. The patient tolerated the procedure with no complication. The patient was transferred to the PACU in stable condition. There was a strong dopplerable DP pulse. CASEY BLAKE DO [id number]
--- NOTE | 2017-05-30 08:40 | OP ---
DATE OF OPERATION: 05/29/2017 PREOPERATIVE DIAGNOSIS: Right lower extremity claudication. POSTOPERATIVE DIAGNOSIS: Right lower extremity claudication. PROCEDURE: Aortogram, right lower extremity angiogram, drug-coated balloon angioplasty, superficial femoral artery stent placement. SURGEON: Casey Blake DO ANESTHESIA: Fractional. BLOOD LOSS: 50 mL INDICATION FOR PROCEDURE: The patient is a 56-year-old male who had an angioplasty and stent placed in his right SFA in November 2016. Since then, he has not stopped smoking, and he does not take his Plavix after a stent was placed in his right leg. He now comes in with a 2-week history of right lower extremity pain after walking 1 block, mainly in his calf. He was admitted to the hospital last night. CTA was performed showing that the SFA stent in his right leg is closed, and the SFA above and below that is closed as well due to progression of his disease and due to secondary to all his smoking. Patient was consented for the procedure, understanding all risks, benefits, and alternatives, then taken to the operating room. DESCRIPTION OF PROCEDURE: Once in the operating room, he was laid on the operating room table in the supine manner. We then prepped and draped the right and left groin in sterile surgical manner, and we then injected 10 mL of lidocaine 1% over the left common femoral artery. Under ultrasound guidance, we were able to visualize the left common femoral artery, and 10 mL of lidocaine 1% was injected there. We then took our micropuncture needle, punctured the left common femoral artery. Micropuncture wire was inserted, and a traditional 5-German sheath was inserted. We then placed an 0.035 floppy guidewire up into the aorta under fluoroscopy. We then went ahead and placed our Omni Flush catheter. We shot an aortogram via hand injection showing that the aorta and the iliac arteries were without any disease. We then placed an 0.035 floppy guidewire up and over to the right common femoral artery, followed by the Omni Flush catheter. We then shot an angiogram of the right lower extremity, showing that the profunda is open, common femoral artery is open, the proximal SFA is closed, the SFA stent is closed, and beyond the SFA stent, the artery is closed as well, and the patient has 2-vessel runoff into the foot. At this point, we placed our 0.035 stiff guidewire up and over, into the right SFA. We moved our Omni Flush catheter and placed a 6 x 45 crossover sheath. Next, 5000 units of IV heparin were administered to the patient. We then placed our wire through the stent and all the way down into the popliteal artery. We then went ahead and used a 6 x 8, 6 x 150, and a 6 x 10 drug-coated balloon, a Disconnecttronic Lutonix balloon, and each balloon was kept up for 3 minutes. After that was performed, we then placed a 6 x 6 stent beyond the distal stent in the distal SFA, and we then went ahead and placed a 6 x 120 stent in the proximal SFA, right beyond the origin. We then ballooned those stents in place using a 6 x 10 Ultraverse balloon. Completion angiogram now showed that the SFA was patent. There was good flow in the popliteal artery. There was 2-vessel runoff, but mainly the DP is the only artery that goes into the foot. At this point, we brought our sheath up and over. StarClose device was successfully deployed in the left common femoral artery. It was wet and dried, and Dermabond was placed. The patient tolerated the procedure with no complication. Patient was transferred to PACU in stable condition. Total blood loss: 50 mL. CASEY BLAKE DO [id number]
[2017-05-30] MEDS: CLOPIDOGREL BISULFATE 75 MG TABLET (FP) PO SCH (09:18)
[2017-05-30] MEDS: LISINOPRIL 10 MG TABLET (FP) PO SCH (09:18)
--- NOTE | 2017-05-30 10:47 | PN ---
Progress Note (short form) - Note Progress Note: Post op day #1.S/P RLE angiogram,angioplasty and stent placement under MAC uneventful.Patient stable.No any anesthesia related problem.Patient DC from the anesthesia care.
--- NOTE | 2017-05-30 11:27 | PN ---
Progress Note (short form) - Note Progress Note: Vascular Surgery Pt seen and examined right foot warm, pink. Palpable DP pulse. Can go home on plavix. Smoking cessation advised. return to office in one week. Casey Doherty DO
--- NOTE | 2017-05-30 12:24 | DS ---
Physical Exam: SUBJECTIVE: Patient reports some soreness in his foot, however no other complaints. Denies any change in sensation, cold extremities, lightheadedness/ dizziness. OBJECTIVE: Vital Signs Period Temp Pulse Resp BP Sys/Bocanegra Pulse Ox Last 24 Hr 97.2 F-99.5 F 60-90 16-20 130-182/59-89 95-98 PHYSICAL EXAM GENERAL: NAD, awake, alert, and fully oriented HEENT: NC/AT, No JVD, sclera anicteric, moist mucosa LUNGS: CTA bilaterally, no wheezes, no crackles, no rhonchi. no accessory muscle use. HEART: RRR, S1, S2 without murmur ABDOMEN: Soft, nontender, nondistended, normoactive bowel sounds, no guarding, no hepatomegaly, no masses. EXTREMITIES: 1+ DP pulses by palpation, strong dopplerable pulses, warm, well- perfused, no edema, cap refill<2sec. Dorsiflexion of R foot limited due to pain NEUROLOGICAL: Cranial nerves II through XII grossly intact. Normal speech, gait not observed. PSYCH: Normal mood, normal affect. SKIN: Warm, dry, normal turgor, no rashes noted. LABS Laboratory Results - last 24 hr 05/29/17 05/29/17 05/29/17 07:05 19:07 20:59 WBC RBC Hgb Hct MCV MCH MCHC RDW Plt Count MPV PTT (Actin FS) POC Glucometer 340 307 Hemoglobin A1c % 12.5 H D 05/30/17 05/30/17 05/30/17 06:08 06:45 06:45 WBC 9.7 RBC 4.46 Hgb 13.7 Hct 41.6 MCV 93.3 MCH 30.7 MCHC 32.9 RDW 13.2 Plt Count 200 MPV 8.6 PTT (Actin FS) 26.5 L D POC Glucometer 190 Hemoglobin A1c % HOSPITAL COURSE: Date of Admission:05/28/17 Date of Discharge: 05/30/17 Pt was admitted on 05/28/17 for increased pain in his R leg found to have his R SFA stent occluded above and below the stent as confirmed with CTA due to pt's lapse in daily Plavix and continued smoking. Vascular surgery was consulted and performed a R SFA angioplasty and new R SFA stent placement. Pt was then restarted on his Plavix and is being discharged in stable condition with resolution of symptoms. Pt has instructions to follow-up with vascular surgery, to continue taking his plavix, and heavily encouraged to stop smoking. Minutes to complete discharge: 35 Discharge Summary Reason For Visit: SUPERFICIAL FEMORAL ARTERY OCCLUSION Current Active Problems Superficial femoral artery occlusion (Acute) Condition: Stable - Instructions Diet, Activity, Other Instructions: RECOMMENDATIONS You were hospitalized because there was another blockage in the artery of your leg. It is very important for you to quit smoking as this will continue to impact your current and future health and could worsen the risk of blockages in your bloodstream It is also very important to continue taking your Plavix everyday If your symptoms return, worsen, or if you develop pain suddenly in your R leg please call 911 or come to ER MEDICATION CHANGES: No changes to your medications occurred during this hospital stay Please continue your Plavix (aka clopidogrel) as this helps cells from sticking to each other and reacting with the stent --A new prescription has been sent to the [facility] on [address] and also for your insulin, atorvastatin and lisinopril, take per your doctor A refill on your insulin and lisinopril prescriptions has also been sent to the [facility] on [address] FOLLOW-UPS: Please follow-up with Dr. Doherty's office within one week --His office number is Please follow-up with your general medical doctor for your other conditions. --If you do not have one please feel free to call [phone] appointment for Dr[address] Luna and Dr. Quintero Referrals: STAFF,NOT ON [Primary Care Provider] - Casey Doherty MD [Staff Physician] - (Follow-up in one week to office) Disposition: HOME - Home Medications Comprehensive Discharge Medication List: Ambulatory Orders Aspirin [Aspirin EC] 81 mg PO DAILY 12/17/16 Atorvastatin Ca [Lipitor] 80 mg PO HS 12/17/16 BUPROPion HCL "SR" [Wellbutrin Sr -] 100 mg PO DAILY 12/17/16 Insulin (Levemir) [Levemir Flexpen -] 20 units SQ HS 12/17/16 Insulin Lispro [Humalog] 8 unit SQ TID 12/17/16 Clotrimazole [Lotrimin -] 1 applic TP BID tube 12/20/16 Lisinopril 10 mg PO DAILY #30 tablet 12/20/16 Nicotine Patch [Nicoderm Patch -] 21 mg TD HS #14 patch 12/20/16 Clopidogrel Bisulfate [Clopidogrel] 75 mg PO DAILY #30 tablet 05/30/17 This patient is new to me today: No Emergency Visit: No Critical Care patient: No - Discharge Referral Referred to [facility] No
--- NOTE | 2017-05-30 12:52 | PN ---
Teaching Attending Note Name of Resident: Sagar Quintero ATTENDING PHYSICIAN STATEMENT Time of evaluation: 10:45 AM I saw and evaluated the patient. I reviewed the resident's note and discussed the case with the resident. I agree with the resident's findings and plan as documented. SUBJECTIVE: Patient seen and examined. no complaints currently. OBJECTIVE: Vital Signs Period Temp Pulse Resp BP Sys/Bocanegra Pulse Ox Last 24 Hr 97.2 F-99.5 F 60-90 16-20 130-182/59-89 95-98 Intake & Output 05/27/17 05/28/17 05/29/17 05/30/17 23:59 23:59 23:59 23:59 Intake Total 2070 1500 Output Total 1880 Balance 190 1500 Weight 162 lb 4 oz general: sitting in bed in no acute distress extremities: RLE warm Dopplerable right foot pulses, able to move without pain Home Medication List Medication Instructions Recorded Confirmed Type Aspirin [Aspirin EC] 81 mg PO DAILY 12/17/16 05/28/17 History Atorvastatin Ca [Lipitor] 80 mg PO HS 12/17/16 05/28/17 History BUPROPion HCL "SR" [Wellbutrin Sr 100 mg PO DAILY 12/17/16 05/28/17 History -] Insulin (Levemir) [Levemir Flexpen 20 units SQ HS 12/17/16 05/28/17 History -] Insulin Lispro [Humalog] 8 unit SQ TID 12/17/16 05/28/17 History Active Medications Generic Name Dose Route Start Last Admin Trade Name Freq PRN Reason Stop Dose Admin Acetaminophen 650 mg 05/29/17 18:26 05/30/17 05:51 Tylenol - PO 650 mg Q4H PRN Administration FEVER OR PAIN Clopidogrel Bisulfate 75 mg 05/29/17 15:00 05/30/17 09:18 Plavix - PO 75 mg DAILY CRISTI Administration Lactated Ringer's 1,000 mls @ 75 mls/hr 05/29/17 16:38 05/30/17 04:33 Lactated Ringers Solution IV 75 mls/hr ASDIR CRISTI Administration Insulin Aspart 1 vial 05/29/17 22:00 05/30/17 12:06 Novolog Vial Sliding Scale - SQ 4 units ACHS CRISTI Administration Protocol Lisinopril 10 mg 05/30/17 10:00 05/30/17 09:18 Prinivil PO 10 mg DAILY CRISTI Administration Ondansetron HCl 4 mg 05/29/17 16:38 Zofran Injection IVPUSH Q6H PRN NAUSEA AND/OR VOMITING Laboratory Results - last 24 hr 05/29/17 05/29/17 05/29/17 07:05 19:07 20:59 WBC RBC Hgb Hct MCV MCH MCHC RDW Plt Count MPV PTT (Actin FS) POC Glucometer 340 307 Hemoglobin A1c % 12.5 H D 05/30/17 05/30/17 05/30/17 06:08 06:45 06:45 WBC 9.7 RBC 4.46 Hgb 13.7 Hct 41.6 MCV 93.3 MCH 30.7 MCHC 32.9 RDW 13.2 Plt Count 200 MPV 8.6 PTT (Actin FS) 26.5 L D POC Glucometer 190 Hemoglobin A1c % 05/30/17 12:05 WBC RBC Hgb Hct MCV MCH MCHC RDW Plt Count MPV PTT (Actin FS) POC Glucometer 248 Hemoglobin A1c % ASSESSMENT AND PLAN: 56 yom with PMHx of PAD (s/p RFA stent in 12/10), CAD (triple bypass, multiple stents), DM2, HTN, HLD, active smoker admitted with RLE arterial ischemia with SFA occulsion. -RLE arterial ischemia with SFA occlusion s/p Angioplasty, stent placement, had to be taken back from PACU to OR for worsening right leg pain with cold foot s/ p aortogram/angioplasty with SFA stent placement -CAD -PAD -DM type II -HTN -HLD PLan: Doing well, no events overnight. Discussed with Dr. Doherty, ok to d.c Discussed in detail with patient aout medication compliance and smoking cessation. D.c home today with outpatient follow up with Dr. Doherty in 1 week. Plan discussed with patient in detail, all questions answered.
[2017-05-31] MEDS: INSULIN SLIDING SCALE (NOVOLOG) 1 VIAL SQ SCH ×2 (06:40→11:48)
[2017-05-31 08:42] LABS: HEMATOCRIT 42.7 % (35.4-49); HEMOGLOBIN 13.9 GM/dL (11.7-16.9); MCH 30.3 pg (25.7-33.7); MCHC 32.6 g/dl (32.0-35.9); MEAN PLT VOLUME 8.9 fl (7.5-11.1); PLATELET COUNT 190 K/MM3 (134-434); RBC 4.59 M/mm3 (4.00-5.60); RDW 13.1 % (11.9-15.9); WHITE BLOOD COUNT 10.3 K/mm3 (4.0-10.0)
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
[2017-05-31] MEDS ORDERED: PT OWN MED DRAWER 7, Y5N ONE (08:59)
[2017-05-31] MEDS: ACETAMINOPHEN 325 MG TABLET (FP) PO PRN (09:05)
[2017-05-31] MEDS: LISINOPRIL 10 MG TABLET (FP) PO SCH (09:05)
[2017-05-31] MEDS: CLOPIDOGREL BISULFATE 75 MG TABLET (FP) PO SCH (09:06)
[2017-05-31 09:14] VITALS: BP 138/72; PULSE 91; TEMP 98.1
[2017-05-31] MEDS ORDERED: INSULIN (NOVOLOG) ASPART 100 UNITS/ML 10ML VIAL ONE (11:45)
--- NOTE | 2017-05-31 15:16 | EKG ---
Test Reason : Blood Pressure : / mmHG Vent. Rate : 078 BPM Atrial Rate : 078 BPM P-R Int : 138 ms QRS Dur : 096 ms QT Int : 374 ms P-R-T Axes : 054 -01 067 degrees QTc Int : 426 ms NORMAL SINUS RHYTHM NONSPECIFIC T WAVE ABNORMALITY ABNORMAL ECG WHEN COMPARED WITH ECG OF 28-MAY-2017 21:56, NONSPECIFIC T WAVE ABNORMALITY, WORSE IN LATERAL LEADS Confirmed by JACOB DODGE, JOHN ([id number]) on 05/31/2017 3:16:06 PM Referred By: Confirmed By:JOHN JAMES MD
== END 2017-05-31 13:40 | disposition home or self-care (01) | DRG 173 ==
LOC: JER 13:52 → JERBED 21:10 → J5S 23:52
PROVIDERS: ADMIT Internal Medicine; ATTEND Hospitalist
PROC: 047K3D1 Dilation of Right Femoral Artery with Intraluminal Device, using Drug-Coated Balloon, Percutaneous Approach (ICD-10-PCS; 2017-05-29)
PROC: B41FYZZ Fluoroscopy of Right Lower Extremity Arteries using Other Contrast (ICD-10-PCS; 2017-05-29)
PROC: B41DYZZ Fluoroscopy of Aorta and Bilateral Lower Extremity Arteries using Other Contrast (ICD-10-PCS; 2017-05-29)
PROC: 3E033GC Introduction of Other Therapeutic Substance into Peripheral Vein, Percutaneous Approach (ICD-10-PCS; 2017-05-29)
PROC: 047K3D1 Dilation of Right Femoral Artery with Intraluminal Device, using Drug-Coated Balloon, Percutaneous Approach (ICD-10-PCS; 2017-05-29)
PROC: 047R3ZZ Dilation of Right Posterior Tibial Artery, Percutaneous Approach (ICD-10-PCS; 2017-05-29)
PROC: B41DYZZ Fluoroscopy of Aorta and Bilateral Lower Extremity Arteries using Other Contrast (ICD-10-PCS; 2017-05-29)
PROC: B41FYZZ Fluoroscopy of Right Lower Extremity Arteries using Other Contrast (ICD-10-PCS; 2017-05-29)
PROC: 047K3DZ Dilation of Right Femoral Artery with Intraluminal Device, Percutaneous Approach (ICD-10-PCS; principal; 2017-05-29 11:00)
DX: T82.898A Other specified complication of vascular prosthetic devices, implants and grafts, initial encounter (principal); I25.10 Atherosclerotic heart disease of native coronary artery without angina pectoris; Z95.1 Presence of aortocoronary bypass graft; I10 Essential (primary) hypertension; E78.5 Hyperlipidemia, unspecified; Z87.891 Personal history of nicotine dependence; I25.2 Old myocardial infarction; M33.90 Dermatopolymyositis, unspecified, organ involvement unspecified; I70.211 Atherosclerosis of native arteries of extremities with intermittent claudication, right leg; Y83.8 Other surgical procedures as the cause of abnormal reaction of the patient, or of later complication, without mention of misadventure at the time of the procedure; E11.51 Type 2 diabetes mellitus with diabetic peripheral angiopathy without gangrene; Z79.4 Long term (current) use of insulin
CPT/HCPCS: 36415; 71045-TC; 75635-TC; 76000-TC; 80053; 81003; 81015; 82085; 82550; 83036; 84484; 85025; 85027; 85610; 85651; 85730; 86235; 86850; 86900; 86901; 90688; 90732; 93005; 93010; 94760; 99283-25; G0009; J1644

== ENCOUNTER 2017-09-30 15:06 | Inpatient (IN) | payer OTHER ==
--- NOTE | 2017-09-30 15:12 | PDOC ---
Rapid Medical Evaluation Time Seen by Provider: 09/30/17 15:09 Medical Evaluation: Allergies Allergy/AdvReac Type Severity Reaction Status Date / Time No Known Allergies Allergy Verified 05/28/17 13:54 I have performed a brief in-person evaluation of this patient. The patient presents with a chief complaint of: dizziness, nausea, diarrhea, dysuria and fatigue x 4 days. intermittent fever Pertinent physical exam findings: tachycardic at 110, hypotensive I have ordered the following: septic work up The patient will proceed to the ED for further evaluation.
[2017-09-30 15:56] LABS: INR 1.02 (0.82-1.09); PROTHROMBIN TIME (PATIENT) 11.5 SEC (9.7-13.0); URINE APPEARANCE SLCLOUDY; URINE BILIRUBIN NEGATIVE (<2.0 mg/dL); URINE COLOR LTYELLOW; URINE GLUCOSE (UA) 3+ (NEGATIVE); URINE KETONE TRACE (NEGATIVE); URINE LEUK ESTERASE TRACE (NEGATIVE); URINE NITRITE NEGATIVE (NEGATIVE); URINE PROTEIN NEGATIVE (NEGATIVE)
[2017-09-30 15:59] LABS: ACTIVATED PTT 24.9 SECONDS (26.9-34.4); BASO % 0.7 % (0-2.0); EOS % 1.2 % (0-4.5); HEMATOCRIT 39.1 % (35.4-49); HEMOGLOBIN 13.3 GM/dL (11.7-16.9); LYMPH % 23.2 % (8-40); MCH 31.8 pg (25.7-33.7); MEAN CELL VOLUME 93.5 fl (80-96); MEAN PLT VOLUME 8.4 fl (7.5-11.1); MONO % 6.9 % (3.8-10.2); PLATELET COUNT 331 K/MM3 (134-434); RBC 4.18 M/mm3 (4.00-5.60); RDW 13.3 % (11.9-15.9); WHITE BLOOD COUNT 9.6 K/mm3 (4.0-10.0)
[2017-09-30] MEDS ORDERED: ACETAMINOPHEN 1000 MG/100 ML VIAL (NON FORMULARY) IVPB ONE (16:04)
[2017-09-30] MEDS ORDERED: ONDANSETRON 4 MG/2 ML VIAL IVPUSH ONE (16:04)
[2017-09-30 16:07] LABS: ALBUMIN 3.2 g/dl (3.4-5.0); ALK PHOS 86 U/L (45-117); ANION GAP 10 (8-16); BILIRUBIN,TOTAL 0.4 mg/dL (0.2-1.0); BLOOD UREA NITROGEN 21 mg/dL (7-18); CALCIUM 8.5 mg/dL (8.5-10.1); CHLORIDE 98 mmol/L (98-107); CO2 27 mmol/L (21-32); CREATININE 1.2 mg/dL (0.7-1.3); SGOT/AST 7 U/L (15-37); SGPT/ALT 18 U/L (12-78); SODIUM 135 mmol/L (136-145); TOT PROT 6.9 g/dl (6.4-8.2)
[2017-09-30] MEDS ORDERED: SODIUM CHLORIDE 1,000 ML IV STA ×2 (16:07→16:28)
[2017-09-30 16:19] LABS: GLUCOSE,RANDOM 454 mg/dL (74-106)
[2017-09-30] MEDS ORDERED: VANCOMYCIN 1,000 MG in DEXTROSE 5%-WATER - 250 ML IVPB ONE (16:26)
[2017-09-30] MEDS ORDERED: PIPERACILLIN/TAZOB 4.5 GM 4.5 GM in DEXTROSE 5%-WATER 100 ML IVPB ONE (16:26)
[2017-09-30] MEDS ORDERED: LACTATED RINGERS SOLUTION 1000 ML INFUS.BAG IV ONE (16:27)
[2017-09-30] MEDS ORDERED: ACETAMINOPHEN INJECTION 100 ML IVPB ONE (16:29)
[2017-09-30] MEDS ORDERED: ONDANSETRON 4 MG/2 ML VIAL ONE (16:30)
[2017-09-30] MEDS ORDERED: FAMOTIDINE 20 MG/50 ML IVPB 20 MG/50 ML MG IVPB ONE (16:30)
[2017-09-30] MEDS ORDERED: PIPERACILLIN/TAZOB 4.5 GM 4.5 GM/100 ML BAG IVPB ONE (16:42)
--- NOTE | 2017-09-30 16:45 | PDOC ---
History of Present Illness - General Chief Complaint: Weakness Stated Complaint: NAUSEA Time Seen by Provider: 09/30/17 15:09 History Source: Patient Exam Limitations: No Limitations - History of Present Illness Initial Comments: 09/30/17 16:40 Patient is a 56M with history of IDDM, HTN, CAD s/p CABG here today complaining of diarrhea for the past 3 weeks. He's complaining of associated fevers, chills , nausea. He states that he's also feeling weak for the past week. He endorses shortness of breath and cough. He also endorses burning with urination. Denies chest pain. No recent antibiotic use, was admitted in may for SFA occlusion. Past History - Past Medical History Allergies/Adverse Reactions: Allergies Allergy/AdvReac Type Severity Reaction Status Date / Time aspirin Allergy Rash Verified 09/30/17 15:09 Home Medications: Ambulatory Orders Aspirin [Aspirin EC] 81 mg PO DAILY 12/17/16 Atorvastatin Ca [Lipitor] 80 mg PO HS 12/17/16 BUPROPion HCL "SR" [Wellbutrin Sr -] 150 mg PO DAILY 12/17/16 Insulin (Levemir) [Levemir Flexpen -] 20 units SQ HS #1 pen 05/30/17 Lisinopril 10 mg PO DAILY #30 tablet 05/30/17 Aspirin [ASA -] 81 mg PO DAILY 09/30/17 Clopidogrel Bisulfate [Plavix] 75 mg PO DAILY 09/30/17 Insulin Glargine,Hum.rec.anlog [Basaglar Kwikpen U-100] 10 unit SQ DAILY Anemia: No Asthma: No Cancer: No Cardiac Disorders: Yes (triple bypass,stent placementx3) CVA: No COPD: No CHF: No DVT: No Dementia: No Diabetes: Yes GI Disorders: No Disorders: No HTN: Yes Hypercholesterolemia: Yes Liver Disease: No Seizures: No Thyroid Disease: No - Surgical History Abdominal Surgery: No Appendectomy: No Cardiac Surgery: Yes (triple bypass) Cholecystectomy: No Lung Surgery: No Neurologic Surgery: No - Suicide/Smoking/Psychosocial Hx Smoking History: Former smoker Have you smoked in the past 12 months: Yes Number of Cigarettes Smoked Daily: 20 If you are a former smoker, when did you quit?: 04/2017 Information on smoking cessation initiated: No 'Breaking Loose' booklet given: 12/18/16 Hx Alcohol Use: No Drug/Substance Use Hx: No Substance Use Type: None Review of Systems - Review of Systems Comments:: 09/30/17 16:45 GENERAL/CONSTITUTIONAL: Positive for fevers, chills, and weakness HEAD, EYES, EARS, NOSE AND THROAT: No change in vision. No sore throat. CARDIOVASCULAR: No chest pain. Positive for shortness of breath RESPIRATORY: Positive for cough. Negative for wheezing, or hemoptysis. GASTROINTESTINAL: Positive for nausea, diarrhea. Negative for vomiting. GENITOURINARY: Positive for dysuria and frequency. MUSCULOSKELETAL: No joint or muscle swelling or pain. No neck or back pain. SKIN: No rash NEUROLOGIC: Positive for headache. Negative for vertigo, loss of consciousness, or change in strength/sensation. HEMATOLOGIC/LYMPHATIC: No anemia, easy bleeding, or history of blood clots. ALLERGIC/IMMUNOLOGIC: No hives or skin allergy. *Physical Exam - Vital Signs Last Vital Signs Temp Pulse Resp BP Pulse Ox 98 F 111 H 19 98/57 97 09/30/17 15:09 09/30/17 15:09 09/30/17 15:09/30/17 15:09/30/17 15:09 - Physical Exam Comments: 09/30/17 16:53 GENERAL: Awake, alert, and fully oriented, in no acute distress HEAD: No signs of trauma, normocephalic, atraumatic EYES: PERRLA, EOMI, sclera anicteric, conjunctiva clear ENT: Auricles normal inspection, hearing grossly normal, nares patent, oropharynx clear without exudates. Moist mucosa NECK: Normal ROM, supple, no lymphadenopathy, JVD, or masses LUNGS: No distress, speaks full sentences, clear to auscultation bilaterally HEART: Regular rate and rhythm, normal S1 and S2, no murmurs, rubs or gallops, peripheral pulses normal and equal bilaterally. ABDOMEN: Diffusely tender, guarding. No rebound. EXTREMITIES: Normal inspection, Normal range of motion, no edema. No clubbing or cyanosis. NEUROLOGICAL: Cranial nerves II through XII grossly intact. Normal speech, normal gait, no focal sensorimotor deficits SKIN: Warm, Dry, normal turgor, no rashes or lesions noted. ED Treatment Course - LABORATORY CBC & Chemistry Diagram: 09/30/17 15:40 09/30/17 15:40 - ADDITIONAL ORDERS Additional order review: Laboratory Results 09/30/17 09/30/17 09/30/17 15:40 15:40 15:40 PT with INR INR PTT (Actin FS) Sodium 135 L Potassium 4.0 Chloride 98 Carbon Dioxide 27 Anion Gap 10 BUN 21 H D Creatinine 1.2 D Creat Clearance w eGFR > 60 Random Glucose 454 H* D Lactic Acid 4.6 H* Calcium 8.5 Total Bilirubin 0.4 D AST 7 L ALT 18 Alkaline Phosphatase 86 Troponin I < 0.02 Total Protein 6.9 Albumin 3.2 L Urine Color Urine Appearance Urine pH Ur Specific [place] Urine Protein Urine Glucose (UA) Urine Ketones Urine Blood Urine Nitrite Urine Bilirubin Urine Urobilinogen Ur Leukocyte Esterase 09/30/17 09/30/17 15:40 15:40 PT with INR 11.50 INR 1.02 PTT (Actin FS) 24.9 L Sodium Potassium Chloride Carbon Dioxide Anion Gap BUN Creatinine Creat Clearance w eGFR Random Glucose Lactic Acid Calcium Total Bilirubin AST ALT Alkaline Phosphatase Troponin I Total Protein Albumin Urine Color Ltyellow Urine Appearance Slcloudy Urine pH 5.0 Ur Specific [place] 1.033 Urine Protein Negative Urine Glucose (UA) 3+ H Urine Ketones Trace H Urine Blood Negative Urine Nitrite Negative Urine Bilirubin Negative Urine Urobilinogen 2.0 Ur Leukocyte Esterase Trace 09/30/17 15:40 RBC 4.18 MCV 93.5 MCHC 34.0 RDW 13.3 MPV 8.4 Neutrophils % 68.0 Lymphocytes % 23.2 Monocytes % 6.9 Eosinophils % 1.2 D Basophils % 0.7 - RADIOLOGY Radiology Studies Ordered: Category Date Time Status ABDOMEN & PELVIS CT WITH CONTR [CT] Stat CT Scan 09/30/17 16:05 Ordered Medical Decision Making - Medical Decision Making 09/30/17 16:53 Patient is 56M with history of IDDN, HTN, CAD s/p CABG here today with weakness and diarrhea. Tachycardic, tender abdomen. DDx is broad, and includes but is not limited to: UTI, bowel ischemia, cholecystitis. Septic workup initiated. Given 2L NS. Will also do abd/pelvis CT. Critical lactate called, 4.4. Glucose in 400s. VBG added, acetone added. CBC pending. No gap on CMP. K - 4. Currently possibly severe sepsis with unknown source. Given zosyn and vanc for empiric coverage. Considering DKA as well at this point. 09/30/17 16:56 CXR clear, UA negative. CBC shows no leukocytosis. No rectal temp obtained before acetaminophen given. High concern for severe sepsis remains. Zosyn initiated before going to CT. 09/30/17 18:59 Laboratory Tests 09/30/17 09/30/17 09/30/17 15:40 15:40 15:40 WBC 9.6 Hgb 13.3 Hct 39.1 Plt Count 331 D VBG pH Sodium 135 L Random Glucose 454 H* D Lactic Acid Urine Glucose (UA) 3+ H Urine Bilirubin Negative Ur Leukocyte Esterase Trace Urine WBC (Auto) 3 Urine RBC (Auto) 3 09/30/17 09/30/17 15:40 17:32 WBC Hgb Hct Plt Count VBG pH 7.38 Sodium Random Glucose Lactic Acid 4.6 H* Urine Glucose (UA) Urine Bilirubin Ur Leukocyte Esterase Urine WBC (Auto) Urine RBC (Auto) VBG normal, acetone negative. UA negative. Patient does not have DKA. Repeat BP after 1L 126/63. Signed out to Dr Metcalf. Pending f/u lactate, glucose , ct results and admission. *DC/Admit/Observation/Transfer Diagnosis at time of Disposition: Lactate blood increased - Discharge Dispostion Condition at time of disposition: Stable - Referrals Referrals: Sheldon Monte [Primary Care Provider] - - Patient Instructions - Post Discharge Activity
[2017-09-30] MEDS ORDERED: MAG HYDROX/AL HYDROX/SIMETH 30 ML UNIT-DOSE CUP PO ONE (16:49)
[2017-09-30] MEDS ORDERED: MAG HYDROX/AL HYDROX/SIMETH 30 ML UNIT-DOSE CUP ONE (16:51)
[2017-09-30 16:55] LABS: EPI CELLS FEW /HPF (FEW); URINE BACTERIA RARE /hpf (NONE SEEN); URINE MUCUS RARE
--- NOTE | 2017-09-30 17:23 | PDOC ---
Attending Attestation - Resident Resident Name: SohanjameeBrandon - ED Attending Attestation I have performed the following: I have examined & evaluated the patient, The case was reviewed & discussed with the resident, I agree w/resident's findings & plan, Exceptions are as noted - HPI HPI: 09/30/17 17:21 56 YO MALE p/w diarrhea for several weeks and generalized weakness head ncat throat no exudates lungs cta b/l cvs [id number] abd soft ext no erythema,no edema neuro no gross focal deficits skin warm and dry psych appropriate - Medical Decision Making 09/30/17 20:08 glu>400 but acetone negative -pt started with NS -elevated lactic acid 4.7 <Paola Taylor - Last Filed: 09/30/17 20:08> - HPI HPI: The patient is a 56 year old male with past medical history of IDDM, HTN, CAD s/ p CABG presents to the emergency department with diarrhea for several weeks. The patient reports associated symptoms of generalized weakness. Denies hematochezia, hematuria, or frequency or urgency to urinate. Denies any recent trauma or sick contact. Allergies: aspirin Social history: Former smoker. Denies the use of recreational drugs. PCP: Dr. Sheldon Monte. 09/30/17 20:15 09/30/17 20:15 - Physicial Exam PE: 09/30/17 20:09 GENERAL: head ncat. Well-appearing, well-nourished. No apparent distress. HEENT: no exudate. Normocephalic, atraumatic. PERRL, EOM intact. CARDIOVASCULAR: cvs [id number] Normal S1, S2. Regular rate and rhythm. PULMONARY: Clear to auscultation bilaterally. ABDOMEN: Soft, non-distended, non-tender. EXTREMITIES: no erythema, no pitting edema. Normal ROM in all four extremities. No gross deformities. SKIN: Warm, dry. No rash NEUROLOGICAL: no gross focal deficits. Psych appropriate. No focal neurological deficits. <Spring Acharya - Last Filed: 09/30/17 20:16>
[2017-09-30 18:00] LABS: VENOUS PC02 44.2 mmHg (38-52); VENOUS PH 7.38 (7.32-7.42)
[2017-09-30 18:01] LABS: VENOUS PO2 28.2 mmHg (28-48)
[2017-09-30] MEDS ORDERED: VANCOMYCIN 1 GRAM (PRE-DOCKED) 1,000 MG/250 ML BAG IVPB ONE (18:20)
--- NOTE | 2017-09-30 18:47 | PDOC ---
*Physical Exam - Vital Signs Last Vital Signs Temp Pulse Resp BP Pulse Ox 98 F 111 H 19 98/57 97 09/30/17 15:09 09/30/17 15:09 09/30/17 15:09/30/17 15:09/30/17 15:09/30/17 18:42 Care endorsed to me by Dr. Delacruz. This is a 56 YOM with h/o IDDM, HTN, CAD, CABG , stent placed for occlusion of superficial femoral artery, p/w weakness x1 week and nonbloody diarrhea x3-4 weeks. Was afebrile orally, HR was 111 initially, nonlocalizing abdominal ttp and guarding, lactate 4.6, BG in the 400s. Covered with vancomycin/Zosyn, UA clear, CXR no obvious PNA. Needs repeat lactate after fluids, then repeat BG too. ED Treatment Course - LABORATORY CBC & Chemistry Diagram: 09/30/17 15:40 09/30/17 15:40 - ADDITIONAL ORDERS Additional order review: Laboratory Results 09/30/17 09/30/17 09/30/17 17:32 17:32 15:40 PT with INR INR PTT (Actin FS) VBG pH 7.38 POC VBG pCO2 44.2 POC VBG pO2 28.2 Mixed VBG HCO3 25.3 H Sodium Potassium Chloride Carbon Dioxide Anion Gap BUN Creatinine Creat Clearance w eGFR Random Glucose Lactic Acid Calcium Total Bilirubin AST ALT Alkaline Phosphatase Troponin I < 0.02 Total Protein Albumin Urine Color Urine Appearance Urine pH Ur Specific [place] Urine Protein Urine Glucose (UA) Urine Ketones Urine Blood Urine Nitrite Urine Bilirubin Urine Urobilinogen Ur Leukocyte Esterase Urine WBC (Auto) Urine RBC (Auto) Ur Epithelial Cells Urine Bacteria Urine Mucus Acetone, Qual Negative 09/30/17 09/30/17 09/30/17 15:40 15:40 15:40 PT with INR INR PTT (Actin FS) VBG pH POC VBG pCO2 POC VBG pO2 Mixed VBG HCO3 Sodium 135 L Potassium 4.0 Chloride 98 Carbon Dioxide 27 Anion Gap 10 BUN 21 H D Creatinine 1.2 D Creat Clearance w eGFR > 60 Random Glucose 454 H* D Lactic Acid 4.6 H* Calcium 8.5 Total Bilirubin 0.4 D AST 7 L ALT 18 Alkaline Phosphatase 86 Troponin I Total Protein 6.9 Albumin 3.2 L Urine Color Ltyellow Urine Appearance Slcloudy Urine pH 5.0 Ur Specific [place] 1.033 Urine Protein Negative Urine Glucose (UA) 3+ H Urine Ketones Trace H Urine Blood Negative Urine Nitrite Negative Urine Bilirubin Negative Urine Urobilinogen 2.0 Ur Leukocyte Esterase Trace Urine WBC (Auto) 3 Urine RBC (Auto) 3 Ur Epithelial Cells Few Urine Bacteria Rare Urine Mucus Rare Acetone, Qual 09/30/17 15:40 PT with INR 11.50 INR 1.02 PTT (Actin FS) 24.9 L VBG pH POC VBG pCO2 POC VBG pO2 Mixed VBG HCO3 Sodium Potassium Chloride Carbon Dioxide Anion Gap BUN Creatinine Creat Clearance w eGFR Random Glucose Lactic Acid Calcium Total Bilirubin AST ALT Alkaline Phosphatase Troponin I Total Protein Albumin Urine Color Urine Appearance Urine pH Ur Specific [place] Urine Protein Urine Glucose (UA) Urine Ketones Urine Blood Urine Nitrite Urine Bilirubin Urine Urobilinogen Ur Leukocyte Esterase Urine WBC (Auto) Urine RBC (Auto) Ur Epithelial Cells Urine Bacteria Urine Mucus Acetone, Qual 09/30/17 15:40 RBC 4.18 MCV 93.5 MCHC 34.0 RDW 13.3 MPV 8.4 Neutrophils % 68.0 Lymphocytes % 23.2 Monocytes % 6.9 Eosinophils % 1.2 D Basophils % 0.7 - Medications Given in the ED: ED Medications Discontinued Medications Generic Name Dose Route Start Last Admin Trade Name Kodyq PRN Reason Stop Dose Admin Acetaminophen 1,000 mg 09/30/17 16:04 09/30/17 16:42 Ofirmev Injection - IVPB 09/30/17 16:05 1,000 mg ONCE ONE Administration Al Hydroxide/Mg Hydroxide 30 ml 09/30/17 16:49 09/30/17 16:54 Mylanta Oral Suspension - PO 09/30/17 16:50 30 ml ONCE ONE Administration Sodium Chloride 1,000 mls @ 1,000 mls/hr 09/30/17 16:07 09/30/17 16:42 Normal Saline - IV 09/30/17 17:06 1,000 mls/hr ASDIR STA Administration Piperacillin Sod/Tazobactam 100 mls @ 200 mls/hr 09/30/17 16:26 09/30/17 18: 19 Sod 4.5 gm/ Dextrose IVPB 09/30/17 16:55 200 mls/hr ONCE ONE Administration Protocol Vancomycin HCl 1,000 mg/ 250 mls @ 166.667 mls/hr 09/30/17 16:26 09/30/17 16: 43 Dextrose IVPB 09/30/17 17:55 166.667 mls/hr ONCE ONE Administration Protocol Sodium Chloride 1,000 mls @ 1,000 mls/hr 09/30/17 16:28 09/30/17 18:29 Normal Saline - IV 09/30/17 17:27 1,000 mls/hr ASDIR STA Administration Ondansetron HCl 4 mg 09/30/17 16:04 09/30/17 16:42 Zofran Injection IVPUSH 09/30/17 16:05 4 mg ONCE ONE Administration Medical Decision Making - Medical Decision Making 09/30/17 21:55 Ordered is 8 U regular insulin for patient's hyperglycemia. Repeat lactate is negative. CT Abdomen/Pelvis with limited GB study but apparent 4mm stone in the GB neck, pericholecystic fluid. Call placed to Dr. Fitzpatrick (admits for Dr. Monte). *DC/Admit/Observation/Transfer Diagnosis at time of Disposition: Hyperglycemia, Lactate blood increased Abdominal pain Qualifiers: Abdominal location: generalized Qualified Code(s): R10.84 - Generalized abdominal pain Cholelithiasis Qualifiers: Cholelithiasis location: gallbladder Cholecystitis presence: with cholecystitis Cholecystitis acuity: acute Biliary obstruction: without biliary obstruction Qualified Code(s): K80.00 - Calculus of gallbladder with acute cholecystitis without obstruction - Discharge Dispostion Condition at time of disposition: Guarded Admit: Yes - Referrals Referrals: Sheldon Monte [Primary Care Provider] - - Patient Instructions - Post Discharge Activity
[2017-09-30] MEDS ORDERED: INSULIN REGULAR HUMAN 100 UNITS/ML *VIAL IVPUSH STA (21:53)
[2017-09-30] MEDS ORDERED: FAMOTIDINE IV 20 MG/12 ML VIAL IVPUSH SCH (22:00)
[2017-09-30] MEDS ORDERED: INSULIN (NOVOLOG) ASPART 100 UNITS/ML 10ML VIAL ONE (22:50)
--- NOTE | 2017-09-30 23:10 | HP ---
Admitting History and Physical - Admission Chief Complaint: diarrhea / weakness History of Present Illness: Patient is a 56M with history of IDDM, HTN, CAD s/p CABG, s/p stent placement of occlusion of SFA on May 2017, today presents with complaint of abdominal of diarrhea, non bloody, for the past 3 weeks. He's complaining of associated fevers, chills, nausea. He states that he's also feeling weak for the past week. He endorses shortness of breath and cough. He also endorses burning with urination. Denies chest pain. No recent antibiotic use, was admitted in may for SFA occlusion. Evaluation in ER patient was afebrile orally, HR was 111 initially, nonlocalizing abdominal tenderness and guarding, lactate 4.6, BG in the 400s. Covered with vancomycin/Zosyn, UA clear, CXR no obvious PNA. Repeat lactate after fluids ordered along with repeat FS History Source: Patient, Medical Record - Past Medical History Cardiovascular: Yes: HTN, Hyperlipdemia Endocrine: Yes: Diabetes Mellitus - Smoking History Smoking history: Former smoker Have you smoked in the past 12 months: Yes Aproximately how many cigarettes per day: 20 If you are a former smoker, when did you quit?: 04/2017 - Alcohol/Substance Use Hx Alcohol Use: No Home Medications - Allergies Allergies/Adverse Reactions: Allergies Allergy/AdvReac Type Severity Reaction Status Date / Time aspirin Allergy Rash Verified 09/30/17 15:09 - Home Medications Home Medications: Ambulatory Orders Aspirin [Aspirin EC] 81 mg PO DAILY 12/17/16 Atorvastatin Ca [Lipitor] 80 mg PO HS 12/17/16 BUPROPion HCL "SR" [Wellbutrin Sr -] 150 mg PO DAILY 12/17/16 Insulin (Levemir) [Levemir Flexpen -] 20 units SQ HS #1 pen 05/30/17 Lisinopril 10 mg PO DAILY #30 tablet 05/30/17 Aspirin [ASA -] 81 mg PO DAILY 09/30/17 Clopidogrel Bisulfate [Plavix] 75 mg PO DAILY 09/30/17 Insulin Glargine,Hum.rec.anlog [Basaglar Kwikpen U-100] 10 unit SQ DAILY Physical Examination Vital Signs: Vital Signs Temperature 98 F 09/30/17 15:09 Pulse Rate 111 H 09/30/17 15:09 Respiratory Rate 19 09/30/17 15:09 Blood Pressure 98/57 09/30/17 15:09 O2 Sat by Pulse Oximetry (%) 97 09/30/17 15:09 Labs: CBC, BMP 09/30/17 15:40 09/30/17 15:40
[2017-10-01] MEDS: SODIUM CHLORIDE 0.45% 1,000 ML IV SCH ×4 (00:16→23:05)
[2017-10-01] MEDS: FAMOTIDINE 20 MG/50 ML IVPB 20 MG/50 ML MG IVPB SCH ×3 (00:19→21:57)
[2017-10-01] MEDS: INSULIN SLIDING SCALE (NOVOLOG) 1 VIAL SQ SCH ×4 (06:34→22:02)
[2017-10-01 07:04] VITALS: BMI 25.4
[2017-10-01 07:59] LABS: BASO % 0.6 % (0-2.0); EOS % 1.9 % (0-4.5); HEMATOCRIT 33.9 % (35.4-49); HEMOGLOBIN 11.8 GM/dL (11.7-16.9); LYMPH % 21.1 % (8-40); MCH 32.2 pg (25.7-33.7); MCHC 34.8 g/dl (32.0-35.9); MEAN CELL VOLUME 92.5 fl (80-96); MEAN PLT VOLUME 8.1 fl (7.5-11.1); MONO % 8.6 % (3.8-10.2); NEUT % 67.8 % (42.8-82.8); PLATELET COUNT 294 K/MM3 (134-434); RBC 3.66 M/mm3 (4.00-5.60); RDW 13.2 % (11.9-15.9); WHITE BLOOD COUNT 10.1 K/mm3 (4.0-10.0)
[2017-10-01 08:32] LABS: CHLORIDE 108 mmol/L (98-107); SODIUM 139 mmol/L (136-145)
[2017-10-01 09:07] LABS: ALBUMIN 2.7 g/dl (3.4-5.0); ALK PHOS 70 U/L (45-117); ANION GAP 7 (8-16); BILIRUBIN,TOTAL 0.6 mg/dL (0.2-1.0); BLOOD UREA NITROGEN 10 mg/dL (7-18); CALCIUM 7.3 mg/dL (8.5-10.1); CO2 24 mmol/L (21-32); CREATININE 0.5 mg/dL (0.7-1.3); GLUCOSE,RANDOM 168 mg/dL (74-106); SGOT/AST 7 U/L (15-37); SGPT/ALT 15 U/L (12-78); TOT PROT 5.4 g/dl (6.4-8.2)
[2017-10-01 09:26] LABS: CHOLESTEROL 110 mg/dL (50-200); HDL CHOLESTEROL 38 mg/dL (40-60); LIPASE 102 U/L (73-393); TRIGLYCERIDES 82 mg/dL (35-160)
[2017-10-01] MEDS: LISINOPRIL 10 MG TABLET (FP) PO SCH (09:31)
--- NOTE | 2017-10-01 09:43 | CON.ID ---
Consult Consult Specialty:: infectious disease Referred by:: genaro - History of Present Illness Chief Complaint: weakness, diarrhea History of Present Illness: 56 year old man with DM, cad,= 3 week history or weakness, fatigue, nausea and diarrhea- loose stools, nonbloody 4-5 times daily no travel no sick contacts no recent antibiotics sugars running in the 200s at home felt hot and cold- didnot take temp near syncope yesterday- came to ED afebrile in ED with low BP and elevated lactic acid, glucose 454 received IVF/vanco/zosyn ct scan abp/pelvis with ?pericholycystic stranding no abdominal pain - History Source History Provided By: Patient, Medical Record Limitations to Obtaining History: No Limitations - Past Medical History Cardio/Vascular: Yes: CAD, HTN, Hyperlipdemia Endocrine: Yes: Diabetes Mellitus - Past Surgical History Past Surgical History: Yes: Appendectomy, CABG (3 vessel) Additional Surgical History: SFA stent RLE - Alcohol/Substance Use Hx Alcohol Use: No - Smoking History Smoking history: Former smoker Have you smoked in the past 12 months: Yes Aproximately how many cigarettes per day: 20 If you are a former smoker, when did you quit?: 04/2017 - Social History Usual Living Arrangement: With Spouse (has lung cancer) ADL: Independent Occupation: unemployed Place of : Other ([place]- here [place] 35 years) History of Recent Travel: No Home Medications - Allergies Allergies/Adverse Reactions: Allergies Allergy/AdvReac Type Severity Reaction Status Date / Time aspirin Allergy Rash Verified 09/30/17 15:09 - Home Medications Home Medications: Ambulatory Orders Aspirin [Aspirin EC] 81 mg PO DAILY 12/17/16 Atorvastatin Ca [Lipitor] 80 mg PO HS 12/17/16 BUPROPion HCL "SR" [Wellbutrin Sr -] 150 mg PO DAILY 12/17/16 Insulin (Levemir) [Levemir Flexpen -] 20 units SQ HS #1 pen 05/30/17 Lisinopril 10 mg PO DAILY #30 tablet 05/30/17 Aspirin [ASA -] 81 mg PO DAILY 09/30/17 Clopidogrel Bisulfate [Plavix] 75 mg PO DAILY 09/30/17 Insulin Glargine,Hum.rec.anlog [Basaglar Kwikpen U-100] 10 unit SQ DAILY 05/07/ 18 Family Disease History - Family Disease History Family Disease History: Diabetes: Mother Review of Systems - Review of Systems Constitutional: reports: Chills, Lethargy, Weakness Eyes: reports: No Symptoms HENT: reports: No Symptoms. denies: Difficult Swallowing Neck: reports: No Symptoms Cardiovascular: reports: No Symptoms. denies: Chest Pain, Edema Respiratory: reports: No Symptoms, SOB. denies: Cough Gastrointestinal: reports: Diarrhea, Nausea. denies: Rectal Bleeding Genitourinary: reports: No Symptoms Musculoskeletal: reports: No Symptoms Integumentary: reports: No Symptoms Neurological: reports: No Symptoms Physical Exam Vital Signs: Vital Signs Temperature 97.7 F 10/01/17 06:00 Pulse Rate 67 10/01/17 06:00 Respiratory Rate 20 10/01/17 06:00 Blood Pressure 148/72 10/01/17 06:00 O2 Sat by Pulse Oximetry (%) 98 09/30/17 23:00 Constitutional: Yes: Well Nourished, No Distress, Calm Eyes: Yes: Conjunctiva Clear HENT: Yes: Atraumatic, Normocephalic Neck: Yes: Supple, Trachea Midline Cardiovascular: Yes: Regular Rate and Rhythm Respiratory: Yes: Regular, CTA Bilaterally Gastrointestinal: Yes: Normal Bowel Sounds, Soft. No: Ascites, Tenderness, Tenderness, Epigastrium ...Rectal Exam: Yes: Deferred Extremities: Yes: WNL Integumentary: Yes: Other (well healed sternal incision and RLQ incision) Labs: CBC, BMP 10/01/17 07:00 10/01/17 07:00 Laboratory Tests 09/30/17 09/30/17 09/30/17 15:40 15:40 20:30 BUN 21 H D Creatinine 1.2 D Random Glucose 454 H* D Lactic Acid 4.6 H* 2.0 Imaging - Results Chest X-ray: Report Reviewed, Image Reviewed Cat Scan: Report Reviewed Problem List - Problems (1) SIRS (systemic inflammatory response syndrome) Code(s): R65.10 - SIRS OF NON-INFECTIOUS ORIGIN W/O ACUTE ORGAN DYSFUNCTION (2) Diarrhea Code(s): R19.7 - DIARRHEA, UNSPECIFIED (3) Lactate blood increased Code(s): R79.89 - OTHER SPECIFIED ABNORMAL FINDINGS OF BLOOD CHEMISTRY Assessment/Plan clinically improved with hydration no evidence colitis on ct scan ?pericholycystic stranding persistent diarrhea no travel blood cultures pending send stool studies rocephin for now ruq sonogram continue IVF GI consult
--- NOTE | 2017-10-01 10:04 | EKG ---
Test Reason : Blood Pressure : / mmHG Vent. Rate : 102 BPM Atrial Rate : 102 BPM P-R Int : 128 ms QRS Dur : 098 ms QT Int : 350 ms P-R-T Axes : 038 -07 086 degrees QTc Int : 456 ms SINUS TACHYCARDIA POSSIBLE LEFT ATRIAL ENLARGEMENT T WAVE ABNORMALITY, CONSIDER ANTERIOR ISCHEMIA Lateral T wave abnormalities Confirmed by MD Dez, Geovanny ([id number]) on 10/01/2017 10:04:18 AM Referred By: Confirmed By:Geovanny Garces MD
[2017-10-01] MEDS ORDERED: DEXTROSE 5%-WATER - 50 ML IVPB ONE (15:37)
[2017-10-01] MEDS ORDERED: cefTRIAXone SODIUM 1 GM VIAL ONE (15:37)
[2017-10-01] MEDS: CEFTRIAXONE 1 GM in DEXTROSE 5%-WATER - 50 ML IVPB SCH (15:41)
--- NOTE | 2017-10-01 17:26 | PN ---
Progress Note (short form) - Note Progress Note: patient seen and examined in room laying in bed "feeling a little better" less diarrhea today admits poor compliance with Diabetic diet Vital Signs Period Temp Pulse Resp BP Sys/Bocanegra Pulse Ox Last 24 Hr 97.7 F-98.7 F 67-89 17-20 110-165/63-87 97-98 neck -JVD / n nodes heart S1/S2 lung clear bilat abd slightly distended / BS+/ tympanic / non tender ext no edema CBC, BMP 10/01/17 07:00 10/01/17 07:00 lactic acid = 1.3 HbA1C 11.4 Microbiology 10/01/17 11:55 Stool Cryptosporidium Antigen - Final 10/01/17 11:55 Stool Giardia Antigen (ODALIS) - Final 09/30/17 15:40 Blood - Peripheral Venous Blood Culture - Preliminary NO GROWTH OBTAINED AFTER 24 HOURS, INCUBATION TO CONTINUE FOR 4 DAYS. 09/30/17 15:40 Blood - Peripheral Venous Blood Culture - Preliminary NO GROWTH OBTAINED AFTER 24 HOURS, INCUBATION TO CONTINUE FOR 4 DAYS. 09/30/17 17:32 Stool Clostridium difficile Antigen (ODALIS) - Final 09/30/17 17:32 Stool Clostridium difficile Toxin Assay - Final Active Medications Atorvastatin Calcium (Lipitor -) 80 mg PO HS CRISTI Bupropion HCl (Wellbutrin Xl -) 150 mg PO DAILY [facility] Last Admin: 10/01/17 10:40 Dose: 150 mg Clonidine HCl (Catapres Tts Patch -) 0.2 mg TD Q7D@1000 CRISTI Sodium Chloride (1/2 Normal Saline) 1,000 mls @ 125 mls/hr IV ASDIR [facility] Last Admin: 10/01/17 09:03 Dose: 125 mls/hr Famotidine/Sodium Chloride (Pepcid 20 Mg Premixed Ivpb -) 20 mg in 50 mls @ 100 mls/hr IVPB BID [facility] Last Admin: 10/01/17 09:35 Dose: 100 mls/hr Ceftriaxone Sodium 1 gm/ (Dextrose) 50 mls @ 100 mls/hr IVPB DAILY [facility] PRN Reason: Protocol Last Admin: 10/01/17 15:41 Dose: 100 mls/hr Insulin Aspart (Novolog Vial Sliding Scale -) 1 vial SQ ACHS [facility] PRN Reason: Protocol Last Admin: 10/01/17 11:49 Dose: Not Given Insulin Detemir (Levemir Vial) 20 units SQ HS [facility] Lisinopril (Prinivil) 10 mg PO DAILY [facility] Last Admin: 10/01/17 09:31 Dose: 10 mg Psyllium Hydrophilic Mucilloid (Metamucil (Sugar-Free) -) 5.85 gm PO BID [facility] # diarrhea cultures send uncontrolled DM ( >15yrs) A1C 11.4, consider autonomic Diarrhea goal to control DM follow up cultures Gi consult / Id consult will advance diet as tolerated # DM uncontrolled request Endo opinion discussed risk of non compliance with patient
[2017-10-01] MEDS: ATORVASTATIN CA 80 MG TABLET (FP) PO SCH (21:56)
[2017-10-01] MEDS: INSULIN (LEVEMIR) 100 UNITS/ML UNITS SQ SCH (21:56)
[2017-10-01] MEDS ORDERED: PT OWN MED DRAWER 7, Y5N ONE ×2 (21:59→23:16)
[2017-10-01] MEDS ORDERED: INSULIN (NOVOLOG) ASPART 100 UNITS/ML 10ML VIAL ONE (22:00)
[2017-10-01] MEDS: PSYLLIUM 5.85 GM PACKET PO SCH (23:01)
[2017-10-02] MEDS: SODIUM CHLORIDE 0.45% 1,000 ML IV SCH ×3 (03:10→21:37)
[2017-10-02] MEDS: INSULIN (LEVEMIR) 100 UNITS/ML UNITS SQ SCH ×2 (06:17→21:28)
[2017-10-02] MEDS: INSULIN SLIDING SCALE (NOVOLOG) 1 VIAL SQ SCH ×4 (06:19→21:29)
[2017-10-02 09:15] LABS: BASO % 0.6 % (0-2.0); HEMATOCRIT 36.2 % (35.4-49); HEMOGLOBIN 12.5 GM/dL (11.7-16.9); MCH 31.7 pg (25.7-33.7); MCHC 34.6 g/dl (32.0-35.9); MEAN CELL VOLUME 91.6 fl (80-96); MEAN PLT VOLUME 8.2 fl (7.5-11.1); NEUT % 70.4 % (42.8-82.8); PLATELET COUNT 315 K/MM3 (134-434); RBC 3.95 M/mm3 (4.00-5.60); RDW 13.4 % (11.9-15.9); WHITE BLOOD COUNT 9.4 K/mm3 (4.0-10.0)
[2017-10-02] MEDS ORDERED: PT OWN MED DRAWER 7, Y5N ONE (09:48)
[2017-10-02] MEDS ORDERED: cefTRIAXone SODIUM 1 GM VIAL ONE (09:48)
[2017-10-02] MEDS ORDERED: DEXTROSE 5%-WATER - 50 ML IVPB ONE (09:49)
[2017-10-02 09:57] LABS: ALBUMIN 2.7 g/dl (3.4-5.0); ANION GAP 7 (8-16); BLOOD UREA NITROGEN 5 mg/dL (7-18); CHLORIDE 107 mmol/L (98-107); CO2 27 mmol/L (21-32); CREATININE 0.7 mg/dL (0.7-1.3); GLUCOSE,RANDOM 110 mg/dL (74-106); SODIUM 141 mmol/L (136-145)
[2017-10-02] MEDS: LISINOPRIL 10 MG TABLET (FP) PO SCH (10:02)
[2017-10-02] MEDS: PSYLLIUM 5.85 GM PACKET PO SCH (10:02)
[2017-10-02] MEDS: FAMOTIDINE 20 MG/50 ML IVPB 20 MG/50 ML MG IVPB SCH ×2 (10:03→21:30)
[2017-10-02 10:04] LABS: ALK PHOS 76 U/L (45-117); BILIRUBIN,TOTAL 0.5 mg/dL (0.2-1.0); SGOT/AST 8 U/L (15-37); SGPT/ALT 15 U/L (12-78); TOT PROT 5.7 g/dl (6.4-8.2)
[2017-10-02] MEDS: CEFTRIAXONE 1 GM in DEXTROSE 5%-WATER - 50 ML IVPB SCH (10:04)
--- NOTE | 2017-10-02 12:03 | CON.GI ---
Consult Consult Specialty:: Gastroenterology Referred by:: Dr Fitzpatrick Reason for Consultation:: Diarrhea. Wt loss - History of Present Illness Chief Complaint: 56M diabetic with peripheral vascular disease is admitted with 3 week h/o diarrhea and persistent nausea that has kept him form eating. He tells me that he is feeling very weak and cannot go on like this. He denies vomiting or rectal bleeding. He has never had an EGD or a colonoscopy. He tells me that at one time he weighed 300 lbs. He had a repeat RLE SFA angioplasty and stent replacement in 06/13 but cannot recall whether he had antibiotics a t that time. Two of his uncles of cancer. He believes that one had a bone cancer. His diabetes has been poorly controlled. He had not been compliant with a diabetic diet. - History Source History Provided By: Patient Limitations to Obtaining History: No Limitations - Past Medical History Cardio/Vascular: Yes: CAD (s/p CABG), HTN, Hyperlipdemia Pulmonary: Yes: COPD Hepatobiliary: Yes: Cholelithiasis Psych: Yes: Depression Endocrine: Yes: Diabetes Mellitus - Past Surgical History Past Surgical History: Yes: Appendectomy, CABG (3 vessel) Additional Surgical History: SFA stent RLE. Bilateral foot hammer toe surgeries as a child - Alcohol/Substance Use Hx Alcohol Use: No History of Substance Use: reports: None - Smoking History Smoking history: Former smoker Have you smoked in the past 12 months: Yes Aproximately how many cigarettes per day: 20 If you are a former smoker, when did you quit?: 04/2017 - Social History Usual Living Arrangement: With Spouse (has lung cancer) ADL: Independent Occupation: unemployed [employer] Place of : Other ([place]) Came to [place]year[place] age 18 History of Recent Travel: No Home Medications - Allergies Allergies/Adverse Reactions: Allergies Allergy/AdvReac Type Severity Reaction Status Date / Time aspirin Allergy Rash Verified 09/30/17 15:09 - Home Medications Home Medications: Ambulatory Orders Aspirin [Aspirin EC] 81 mg PO DAILY 12/17/16 Atorvastatin Ca [Lipitor] 80 mg PO HS 12/17/16 BUPROPion HCL "SR" [Wellbutrin Sr -] 150 mg PO DAILY 12/17/16 Insulin (Levemir) [Levemir Flexpen -] 20 units SQ HS #1 pen 05/30/17 Lisinopril 10 mg PO DAILY #30 tablet 05/30/17 Aspirin [ASA -] 81 mg PO DAILY 09/30/17 Clopidogrel Bisulfate [Plavix] 75 mg PO DAILY 09/30/17 Insulin Glargine,Hum.rec.anlog [Nicole Quesada U-100] 10 unit SQ DAILY Family Disease History - Family Disease History Family Disease History: Diabetes: Mother, Heart Disease: Mother, Other: Father ( healthy) Other Family History: two uncles of cancer, one iwth a bone cancer. Review of Systems - Review of Systems Constitutional: reports: Lethargy, Loss of Appetite, Malaise, Unintentional Wgt. Loss, Weakness, Other (wants to sleep constantly) Eyes: reports: No Symptoms HENT: reports: No Symptoms Neck: reports: No Symptoms Cardiovascular: reports: No Symptoms Respiratory: reports: Exercise Intolerance, SOB on Exertion Gastrointestinal: reports: Diarrhea, Nausea Genitourinary: reports: No Symptoms Musculoskeletal: reports: No Symptoms Physical Exam-GI Vital Signs: Vital Signs Temperature 97.9 F 10/02/17 07:30 Pulse Rate 77 10/02/17 07:30 Respiratory Rate 20 10/02/17 07:30 Blood Pressure 168/87 10/02/17 07:30 O2 Sat by Pulse Oximetry (%) 98 10/01/17 21:00 CBC,CMP WBC 9.4 K/mm3 (4.0-10.0) 10/02/17 08:08 RBC 3.95 M/mm3 (4.00-5.60) L 10/02/17 08:08 Hgb 12.5 GM/dL (11.7-16.9) 10/02/17 08:08 Hct 36.2 % (35.4-49) 10/02/17 08:08 MCV 91.6 fl (80-96) 10/02/17 08:08 MCH 31.7 pg (25.7-33.7) 10/02/17 08:08 MCHC 34.6 g/dl (32.0-35.9) 10/02/17 08:08 RDW 13.4 % (11.9-15.9) 10/02/17 08:08 Plt Count 315 K/MM3 (134-434) 10/02/17 08:08 MPV 8.2 fl (7.5-11.1) 10/02/17 08:08 Neutrophils % 70.4 % (42.8-82.8) 10/02/17 08:08 Lymphocytes % 20.0 % (8-40) 10/02/17 08:08 Monocytes % 7.0 % (3.8-10.2) 10/02/17 08:08 Eosinophils % 2.0 % (0-4.5) 10/02/17 08:08 Basophils % 0.6 % (0-2.0) 10/02/17 08:08 Sodium 141 mmol/L (136-145) 10/02/17 08:08 Potassium 4.0 mmol/L (3.5-5.1) 10/02/17 08:08 Chloride 107 mmol/L (98-107) 10/02/17 08:08 Carbon Dioxide 27 mmol/L (21-32) 10/02/17 08:08 Anion Gap 7 (8-16) L 10/02/17 08:08 BUN 5 mg/dL (7-18) L D 10/02/17 08:08 Creatinine 0.7 mg/dL (0.7-1.3) D 10/02/17 08:08 Creat Clearance w eGFR > 60 (>60) 10/02/17 08:08 POC Glucometer 169 UNITS (80-120) 10/02/17 11:32 Random Glucose 110 mg/dL (74-106) H D 10/02/17 08:08 Hemoglobin A1c % 11.5 % (4.8-6.0) H D 10/01/17 07:00 Lactic Acid 1.3 mmol/L (0.0-2.0) 10/01/17 07:00 Calcium 8.0 mg/dL (8.5-10.1) L 10/02/17 08:08 Total Bilirubin 0.5 mg/dL (0.2-1.0) 10/02/17 08:08 AST 8 U/L (15-37) L 10/02/17 08:08 ALT 15 U/L (12-78) 10/02/17 08:08 Alkaline Phosphatase 76 U/L (45-117) 10/02/17 08:08 Troponin I < 0.02 ng/ml (0.00-0.05) 09/30/17 15:40 Total Protein 5.7 g/dl (6.4-8.2) L 10/02/17 08:08 Albumin 2.7 g/dl (3.4-5.0) L 10/02/17 08:08 Triglycerides 82 mg/dL (35-160) D 10/01/17 07:00 Cholesterol 110 mg/dL (50-200) D 10/01/17 07:00 Total LDL Cholesterol 68 mg/dL (5-100) D 10/01/17 07:00 HDL Cholesterol 38 mg/dL (40-60) L 10/01/17 07:00 Lipase 102 U/L (73-393) 10/01/17 07:00 TSH 0.91 uIU/ml (0.358-3.74) 10/01/17 07:00 Current Medications Generic Name Dose Route Start Last Admin Trade Name Freq PRN Reason Stop Dose Admin Atorvastatin Calcium 80 mg 10/01/17 22:00 10/01/17 21:56 Lipitor - PO 80 mg HS CRISTI Administration Bupropion HCl 150 mg 10/01/17 10:00 10/02/17 10:03 Wellbutrin Xl - PO 150 mg DAILY CRISTI Administration Clonidine HCl 0.2 mg 10/08/17 10:00 Catapres Tts Patch - TD Q7D@1000 CRISTI Sodium Chloride 1,000 mls @ 125 mls/hr 09/30/17 23:00 10/02/17 03:10 1/2 Normal Saline IV 125 mls/hr ASDIR C[facility]STI Administration Famotidine/Sodium Chloride 20 mg in 50 mls @ 100 mls/hr 09/30/17 23:45 10:03 Pepcid 20 Mg Premixed Ivpb - IVPB 100 mls/hr BID [facility] Administration Ceftriaxone Sodium 1 gm/ 50 mls @ 100 mls/hr 10/01/17 10:15 10/02/17 10:04 Dextrose IVPB 100 mls/hr DAILY [facility]STI Administration Protocol Insulin Aspart 1 vial 10/01/17 07:00 10/02/17 11:33 Novolog Vial Sliding Scale - SQ Not Given ACHS C[facility]I Protocol Insulin Detemir 20 units 10/01/17 22:00 10/01/17 21:56 Levemir Vial SQ 20 unit HS C[facility]STI Administration Insulin Detemir 15 units 10/02/17 07:00 10/02/17 06:17 Levemir Vial SQ 15 units AM [facility]I Administration Lisinopril 10 mg 10/01/17 10:00 10/02/17 10:02 Prinivil PO 10 mg DAILY [facility] Administration Psyllium Hydrophilic Mucilloid 5.85 gm 10/01/17 22:00 10/02/17 10:02 Metamucil (Sugar-Free) - PO 5.85 gm BID [facility] Administration Constitutional: Yes: Well Nourished, Anxious Eyes: Yes: Conjunctiva Clear HENT: Yes: Normocephalic Neck: Yes: Supple Cardiovascular: Yes: Regular Rate and Rhythm Respiratory: Yes: CTA Bilaterally Gastrointestinal Inspection: Yes: Scars (healed RLQ incision) ...Auscultate: Yes: Normoactive Bowel Sounds ...Palpate: Yes: Soft, Other (nontende) ...Rectal Exam: Yes: Guaiac Positive, Sphincter Tone Normal Genitourinary: Yes: Other (2+ prostate) Neurological: Yes: Alert Labs: CBC, BMP 10/02/17 08:08 10/02/17 08:08 INR, PTT INR 1.02 (0.82-1.09) 09/30/17 15:40 Imaging - Results Cat Scan: Report Reviewed (Nikki Prasad Name: VENITA DURBIN DEPARTMENT OF RADIOLOGY Phys: Brandon Delacruz RESIDENT : 1960 Age: 56 Sex: M [facility] Acct: [id number] Loc: [address] Exam Date: 09/30/17 [id number] Unit Number: [id number] EXAM#: TYPE/EXAM: RESULT: [id number] CT/ABDOMEN PELVIS CT WITH CONTR Right upper quadrant abdominal pain CT scan of the abdomen and pelvis following intravenous contrast. Coronal and sagittal reformatted images were obtained 93 cc of Omnipaque 350 was intravenously injected Comparison: Prior CT angiograms of the abdomen and lower extremities dated 05/28/2017 Visualized lung base appears unremarkable and the heart is within normal limits in size. Evaluation of the liver, and pancreas appear unremarkable. Gallbladder is contracted limiting its evaluation with suggestion of a small stone in the gallbladder neck region measuring 4 mm. The stomach is only partially distended significantly limiting evaluation of its wall. Both adrenal glands and kidneys appear unremarkable. There is no evidence of small bowel obstruction. Normal-appearing terminal ileum. Nonvisualization of the appendix. Normal stool burden in the colon with multiple diverticula in the distal descending and sigmoid colon that appears to be thickened likely chronic without evidence of acute diverticulitis. Partially distended urinary bladder without wall thickening. Normal size prostate gland. Perirectal and pericecal fat are clear. Notes made of a tiny fat-containing right inguinal hernia. Normal size of the abdominal aorta with thick Atheromatous plaques in the distal abdominal aorta down through its bifurcation. L5-S1 mild degenerative disc disease, mainly posteriorly. Visualized osseous structures are intact of impression: Contracted gallbladder limiting its evaluation with suggestion of a 4 mm stone in the gallbladder neck region. Evaluation of its wall is limited. However, there is mild stranding of the pericholecystic fat. Further evaluation is needed. Diverticulosis coli with chronic wall thickening mainly in the proximal and mid sigmoid colon without evidence of acute diverticulitis. Reported By: Michael Cárdenas MD 09/30/171941 Brandon Delacruz Technologist: Abdiaziz Huitron Transcribed Date/Time: 09/30/171941 Certified Teacher Assistant: Michael Cárdenas Printed Date /Time: By: Signed by: Michael Cárdenas Signed on: 30-Sep-2017 19:43) Problem List - Problems (1) Weight loss Assessment/Plan: I am concerned by Venita's continuing weight loss. Although his GB stones may account for the nausea this would not explain his occult bleeding and mild anemia. I have therefore advised that he undergo both an EGD and a colonoscopy to exclude an underlying neoplasm, ulcers, celiac disease among other possibilities. I have informed him of the potential for such complications as perforation and hemorrhage. He has signed an informed consent. This will need to be a strictly diagnostic study as he is on clopidrogel and his recent stent may become compromised if we interrupt it at this time. I will prep him for an EGD and colonoscopy on 10/04/17. He may have diabetic gastroparesis so I fiorella start Reglan. His diarrhea appears to already be resolving. C diff colitis has been excluded. Code(s): R63.4 - ABNORMAL WEIGHT LOSS (2) Occult blood in stools Code(s): R19.5 - OTHER FECAL ABNORMALITIES (3) Cholelithiasis Code(s): K80.20 - CALCULUS OF GALLBLADDER W/O CHOLECYSTITIS W/O OBSTRUCTION Qualifiers: Cholelithiasis location: gallbladder Cholecystitis presence: with cholecystitis Cholecystitis acuity: acute Biliary obstruction: without biliary obstruction Qualified Code(s): K80.00 - Calculus of gallbladder with acute cholecystitis without obstruction (4) Diarrhea Code(s): R19.7 - DIARRHEA, UNSPECIFIED
[2017-10-02] MEDS: METOCLOPRAMIDE HCL INJECTION 10 MG/2 ML VIAL IVPUSH SCH ×3 (14:10→21:29)
--- NOTE | 2017-10-02 15:14 | PN ---
Progress Note (short form) - Note Progress Note: doing better less nausea less diarrhea Vital Signs Period Temp Pulse Resp BP Sys/Bocanegra Pulse Ox Last 24 Hr 97.9 F-98.7 F 69-77 20-20 148-168/87-93 98 cor-rrr lungs clear abd- soft nontender ext no edema CBC, BMP 10/02/17 08:08 10/02/17 08:08 Microbiology 10/01/17 11:55 Stool Salmonella/Shigella Culture - Preliminary NO ENTERIC PATHOGENS, 24 HOURS, ON PRIMARY PLATES 10/01/17 11:55 Stool Yersinia Culture - Preliminary NO ENTERIC PATHOGENS, 24 HOURS, ON PRIMARY PLATES 10/01/17 11:55 Stool Vibrio Culture - Final NO GROWTH OF VIBRIO SPECIES OBTAINED 10/01/17 11:55 Stool Escherichia coli 0157 Culture - Final NO GROWTH OF E COLI 0157 OBTAINED 09/30/17 15:40 Urine - Urine Clean Catch Urine Culture - Final Contaminated: Please Repeat 10/01/17 11:55 Stool Cryptosporidium Antigen - Final 10/01/17 11:55 Stool Giardia Antigen (ODALIS) - Final 09/30/17 15:40 Blood - Peripheral Venous Blood Culture - Preliminary NO GROWTH OBTAINED AFTER 24 HOURS, INCUBATION TO CONTINUE FOR 4 DAYS. 09/30/17 15:40 Blood - Peripheral Venous Blood Culture - Preliminary NO GROWTH OBTAINED AFTER 24 HOURS, INCUBATION TO CONTINUE FOR 4 DAYS. 09/30/17 17:32 Stool Clostridium difficile Antigen (ODALIS) - Final 09/30/17 17:32 Stool Clostridium difficile Toxin Assay - Final a/p diarrhea- to date workup negative ?biliary disease-for hida- if negative can d/c rocephin for gi workup- endoscopy for chronic diarrhea cad diabetes-hgba1c 11.5- poorly controlled Problem List - Problems (1) SIRS (systemic inflammatory response syndrome) Code(s): R65.10 - SIRS OF NON-INFECTIOUS ORIGIN W/O ACUTE ORGAN DYSFUNCTION (2) Diarrhea Code(s): R19.7 - DIARRHEA, UNSPECIFIED (3) Lactate blood increased Code(s): R79.89 - OTHER SPECIFIED ABNORMAL FINDINGS OF BLOOD CHEMISTRY
[2017-10-02] MEDS: ATORVASTATIN CA 80 MG TABLET (FP) PO SCH (21:29)
--- NOTE | 2017-10-02 22:38 | PN ---
Progress Note (short form) - Note Progress Note: patient seen and examined in room sitting up in bed / feeling better - less diarrhea Vital Signs Period Temp Pulse Resp BP Sys/Bocanegra Pulse Ox Last 24 Hr 97.9 F-98.7 F 77-89 20-20 134-168/54-87 neck -JVD / n nodes heart S1/S2 lung clear bilat abd slightly distended / BS+/ tympanic / non tender ext no edema CBC, BMP 10/02/17 08:08 10/02/17 08:08 CBC, BMP 10/01/17 07:00 10/01/17 07:00 lactic acid = 1.3 HbA1C 11.4 Microbiology 10/01/17 11:55 Stool Gram Stain - Final 09/30/17 15:40 Blood - Peripheral Venous Blood Culture - Preliminary NO GROWTH OBTAINED AFTER 48 HOURS, INCUBATION TO CONTINUE FOR 3 DAYS. 09/30/17 15:40 Blood - Peripheral Venous Blood Culture - Preliminary NO GROWTH OBTAINED AFTER 48 HOURS, INCUBATION TO CONTINUE FOR 3 DAYS. 10/01/17 11:55 Stool Clostridium difficile Antigen (ODALIS) - Final 10/01/17 11:55 Stool Clostridium difficile Toxin Assay - Final 10/01/17 11:55 Stool Salmonella/Shigella Culture - Preliminary NO ENTERIC PATHOGENS, 24 HOURS, ON PRIMARY PLATES 10/01/17 11:55 Stool Yersinia Culture - Preliminary NO ENTERIC PATHOGENS, 24 HOURS, ON PRIMARY PLATES 10/01/17 11:55 Stool Vibrio Culture - Final NO GROWTH OF VIBRIO SPECIES OBTAINED 10/01/17 11:55 Stool Escherichia coli 0157 Culture - Final NO GROWTH OF E COLI 0157 OBTAINED 09/30/17 15:40 Urine - Urine Clean Catch Urine Culture - Final Contaminated: Please Repeat 10/01/17 11:55 Stool Cryptosporidium Antigen - Final 10/01/17 11:55 Stool Giardia Antigen (ODALIS) - Final 09/30/17 17:32 Stool Clostridium difficile Antigen (ODALIS) - Final 09/30/17 17:32 Stool Clostridium difficile Toxin Assay - Final Active Medications Atorvastatin Calcium (Lipitor -) 80 mg PO HS [facility] Last Admin: 10/02/17 21:29 Dose: 80 mg Bisacodyl (Dulcolax -) 20 mg PO ONCE ONE Stop: 10/03/17 20:01 Bupropion HCl (Wellbutrin Xl -) 150 mg PO DAILY [facility] Last Admin: 10/02/17 10:03 Dose: 150 mg Clonidine HCl (Catapres Tts Patch -) 0.2 mg TD Q7D@1000 CRISTI Sodium Chloride (1/2 Normal Saline) 1,000 mls @ 125 mls/hr IV ASDIR [facility] Last Admin: 10/02/17 21:37 Dose: 125 mls/hr Famotidine/Sodium Chloride (Pepcid 20 Mg Premixed Ivpb -) 20 mg in 50 mls @ 100 mls/hr IVPB BID [facility] Last Admin: 10/02/17 21:30 Dose: 100 mls/hr Ceftriaxone Sodium 1 gm/ (Dextrose) 50 mls @ 100 mls/hr IVPB DAILY [facility] PRN Reason: Protocol Last Admin: 10/02/17 10:04 Dose: 100 mls/hr Insulin Aspart (Novolog Vial Sliding Scale -) 1 vial SQ ACHS [facility] PRN Reason: Protocol Last Admin: 10/02/17 21:29 Dose: Not Given Insulin Detemir (Levemir Vial) 20 units SQ HS [facility] Last Admin: 10/02/17 21:28 Dose: 20 unit Insulin Detemir (Levemir Vial) 15 units SQ AM [facility] Last Admin: 10/02/17 06:17 Dose: 15 units Lisinopril (Prinivil) 10 mg PO DAILY [facility] Last Admin: 10/02/17 10:02 Dose: 10 mg Metoclopramide HCl (Reglan Injection -) 10 mg IVPUSH Q6H-IV [facility] Last Admin: 10/02/17 21:29 Dose: 10 mg # diarrhea cultures send --work up negative to date uncontrolled DM ( >15yrs) A1C 11.4, consider autonomic Diarrhea goal to control DM significant weight loss recently appreciate Gi consult / Id consult appreciate GI work up # DM uncontrolled Endo opinion appreciated discussed risk of non compliance with patient patient agreeable to insulin pump -- discuss with Endo
--- NOTE | 2017-10-02 22:45 | CONSULT ---
Consult Consult Specialty:: endocrine Referred by:: Reason for Consultation:: diabetes mellitus hyperglycemia - History of Present Illness Chief Complaint: hi sugars History of Present Illness: 56M with history of IDDN, HTN, CAD s/p CABG here today with weakness and diarrhea. Tachycardic, tender abdomen. DDx is broad, and includes but is not limited to: UTI, bowel ischemia, cholecystitis.has had difficulty controlling sugars,he admitts to non compliance with diet and medication with diabetes condition,he denies cp, - Past Medical History Cardio/Vascular: Yes: CAD (s/p CABG), HTN, Hyperlipdemia Pulmonary: Yes: COPD Hepatobiliary: Yes: Cholelithiasis Psych: Yes: Depression Endocrine: Yes: Diabetes Mellitus - Past Surgical History Past Surgical History: Yes: Appendectomy, CABG (3 vessel) Additional Surgical History: SFA stent RLE. Bilateral foot hammer toe surgeries as a child - Alcohol/Substance Use Hx Alcohol Use: No History of Substance Use: reports: None - Smoking History Smoking history: Former smoker Have you smoked in the past 12 months: Yes Aproximately how many cigarettes per day: 20 If you are a former smoker, when did you quit?: 04/2017 - Social History Usual Living Arrangement: With Spouse (has lung cancer) ADL: Independent Occupation: unemployed [employer] History of Recent Travel: No Home Medications - Allergies Allergies/Adverse Reactions: Allergies Allergy/AdvReac Type Severity Reaction Status Date / Time aspirin Allergy Rash Verified 09/30/17 15:09 - Home Medications Home Medications: Ambulatory Orders Aspirin [Aspirin EC] 81 mg PO DAILY 12/17/16 Atorvastatin Ca [Lipitor] 80 mg PO HS 12/17/16 BUPROPion HCL "SR" [Wellbutrin Sr -] 150 mg PO DAILY 12/17/16 Insulin (Levemir) [Levemir Flexpen -] 20 units SQ HS #1 pen 05/30/17 Lisinopril 10 mg PO DAILY #30 tablet 05/30/17 Aspirin [ASA -] 81 mg PO DAILY 09/30/17 Clopidogrel Bisulfate [Plavix] 75 mg PO DAILY 09/30/17 Insulin Glargine,Hum.rec.anlog [Basaglar Kwikpen U-100] 10 unit SQ DAILY Family Disease History - Family Disease History Family Disease History: Diabetes: Mother, Heart Disease: Mother, Other: Father ( healthy) Other Family History: two uncles of cancer, one iwth a bone cancer. Review of Systems - Review of Systems Constitutional: reports: Weakness Eyes: reports: Blurred Vision HENT: reports: No Symptoms Neck: reports: Decreased ROM Cardiovascular: reports: No Symptoms Respiratory: reports: Exercise Intolerance, SOB on Exertion Gastrointestinal: reports: Bloating Genitourinary: reports: No Symptoms Breasts: reports: No Symptoms Reported Musculoskeletal: reports: No Symptoms Integumentary: reports: No Symptoms Neurological: reports: Numbness, Weakness Endocrine: reports: Unexplained Weight Loss Hematology/Lymphatic: reports: No Symptoms Physical Exam Vital Signs: Vital Signs Temperature 98.7 F 10/02/17 16:07 Pulse Rate 89 10/02/17 16:07 Respiratory Rate 20 10/02/17 16:07 Blood Pressure 136/54 10/02/17 16:07 O2 Sat by Pulse Oximetry (%) 98 10/01/17 21:00 Constitutional: Yes: Anxious Eyes: Yes: EOM Intact HENT: Yes: Normocephalic Neck: Yes: Trachea Midline Cardiovascular: Yes: Regular Rate and Rhythm Respiratory: Yes: CTA Bilaterally Gastrointestinal: Yes: Normal Bowel Sounds ...Rectal Exam: Yes: Deferred Renal/: Yes: WNL Breast(s): Yes: WNL Musculoskeletal: Yes: WNL Extremities: Yes: WNL Neurological: Yes: Alert, Oriented Labs: CBC, BMP 10/02/17 08:08 10/02/17 08:08 Problem List - Problems (1) Type 1 diabetes mellitus with unspecified complications Code(s): E10.8 - TYPE 1 DIABETES MELLITUS WITH UNSPECIFIED COMPLICATIONS (2) Abdominal pain Code(s): R10.9 - UNSPECIFIED ABDOMINAL PAIN Qualifiers: Abdominal location: generalized Qualified Code(s): R10.84 - Generalized abdominal pain (3) Cholelithiasis Code(s): K80.20 - CALCULUS OF GALLBLADDER W/O CHOLECYSTITIS W/O OBSTRUCTION Qualifiers: Cholelithiasis location: gallbladder Cholecystitis presence: with cholecystitis Cholecystitis acuity: acute Biliary obstruction: without biliary obstruction Qualified Code(s): K80.00 - Calculus of gallbladder with acute cholecystitis without obstruction (4) Hyperglycemia Code(s): R73.9 - HYPERGLYCEMIA, UNSPECIFIED (5) Occult blood in stools Code(s): R19.5 - OTHER FECAL ABNORMALITIES (6) SIRS (systemic inflammatory response syndrome) Code(s): R65.10 - SIRS OF NON-INFECTIOUS ORIGIN W/O ACUTE ORGAN DYSFUNCTION Assessment/Plan Current Active Problems Abdominal pain (Acute) Cholelithiasis (Acute) Diarrhea (Acute) Hyperglycemia (Acute) Lactate blood increased (Acute) Occult blood in stools (Acute) SIRS (systemic inflammatory response syndrome) (Acute) Type 1 diabetes mellitus with unspecified complications (Acute) Weight loss (Acute) Abnormal Lab Results 10/02/17 10/02/17 08:08 08:08 RBC 3.95 L Anion Gap 7 L BUN 5 L D Random Glucose 110 H D Calcium 8.0 L AST 8 L Total Protein 5.7 L Albumin 2.7 L Laboratory Results - last 24 hr 10/02/17 10/02/17 10/02/17 06:12 08:08 08:08 WBC 9.4 RBC 3.95 L Hgb 12.5 Hct 36.2 MCV 91.6 MCH 31.7 MCHC 34.6 RDW 13.4 Plt Count 315 MPV 8.2 Neutrophils % 70.4 Lymphocytes % 20.0 Monocytes % 7.0 Eosinophils % 2.0 Basophils % 0.6 Sodium 141 Potassium 4.0 Chloride 107 Carbon Dioxide 27 Anion Gap 7 L BUN 5 L D Creatinine 0.7 D Creat Clearance w eGFR > 60 POC Glucometer 157 Random Glucose 110 H D Calcium 8.0 L Total Bilirubin 0.5 AST 8 L ALT 15 Alkaline Phosphatase 76 Total Protein 5.7 L Albumin 2.7 L 10/02/17 10/02/17 10/02/17 11:32 17:05 21:26 WBC RBC Hgb Hct MCV MCH MCHC RDW Plt Count MPV Neutrophils % Lymphocytes % Monocytes % Eosinophils % Basophils % Sodium Potassium Chloride Carbon Dioxide Anion Gap BUN Creatinine Creat Clearance w eGFR POC Glucometer 169 174 177 Random Glucose Calcium Total Bilirubin AST ALT Alkaline Phosphatase Total Protein Albumin plan: bgm ac hs novolog scale doses levemir bid doses titrate insulin dose consider cgms sensor as outpatient diet nutrition consult
[2017-10-03] MEDS: SODIUM CHLORIDE 0.45% 1,000 ML IV SCH ×2 (02:30→18:12)
[2017-10-03] MEDS: METOCLOPRAMIDE HCL INJECTION 10 MG/2 ML VIAL IVPUSH SCH ×4 (02:34→21:28)
[2017-10-03] MEDS: INSULIN (LEVEMIR) 100 UNITS/ML UNITS SQ SCH ×2 (06:03→21:38)
[2017-10-03] MEDS: INSULIN SLIDING SCALE (NOVOLOG) 1 VIAL SQ SCH ×4 (06:04→21:39)
[2017-10-03] MEDS ORDERED: PEG3350/SOD SULF,BICARB,CL/KCL 4,000 ML SOLN.RECON PO ONE (09:00)
[2017-10-03 09:07] LABS: BASO % 0.6 % (0-2.0); EOS % 0.6 % (0-4.5); HEMATOCRIT 37.4 % (35.4-49); MCH 31.9 pg (25.7-33.7); MCHC 34.7 g/dl (32.0-35.9); MEAN CELL VOLUME 91.9 fl (80-96); MONO % 6.8 % (3.8-10.2); PLATELET COUNT 316 K/MM3 (134-434); RBC 4.07 M/mm3 (4.00-5.60); RDW 13.4 % (11.9-15.9); WHITE BLOOD COUNT 10.5 K/mm3 (4.0-10.0)
[2017-10-03 09:37] LABS: ALBUMIN 2.8 g/dl (3.4-5.0); ANION GAP 7 (8-16); BLOOD UREA NITROGEN 9 mg/dL (7-18); CALCIUM 8.1 mg/dL (8.5-10.1); CHLORIDE 106 mmol/L (98-107); CO2 27 mmol/L (21-32); CREATININE 0.7 mg/dL (0.7-1.3); GLUCOSE,RANDOM 86 mg/dL (74-106); POTASSIUM 3.8 mmol/L (3.5-5.1); SGOT/AST 11 U/L (15-37); SGPT/ALT 16 U/L (12-78); SODIUM 140 mmol/L (136-145)
[2017-10-03 09:42] LABS: ALK PHOS 77 U/L (45-117); BILIRUBIN,TOTAL 0.6 mg/dL (0.2-1.0)
[2017-10-03] MEDS ORDERED: INSULIN (LEVEMIR) 100 UNITS/ML UNITS SQ ONE (09:45)
--- NOTE | 2017-10-03 10:05 | PN ---
Progress Note (short form) - Note Progress Note: 56 y/o male found lying in bed. Reports feeling weak. Just completed abdominal ultrasound. Denies nausea and vomiting at this time. Vital Signs Period Temp Pulse Resp BP Sys/Bocanegra Pulse Ox Last 24 Hr 98.0 F-98.7 F 68-89 20-20 136-169/54-82 97 CBC, BMP 10/03/17 08:32 10/03/17 08:30 HEENT-Normocephalic Neck-Supple Lungs- CTAB Heart- S1/S2 Abd- Pos BS x 4, Soft, NT Ext- No LE edema Active Medications Atorvastatin Calcium (Lipitor -) 80 mg PO HS [facility] Last Admin: 10/02/17 21:29 Dose: 80 mg Bisacodyl (Dulcolax -) 20 mg PO ONCE ONE Stop: 10/03/17 20:01 Bupropion HCl (Wellbutrin Xl -) 150 mg PO DAILY [facility] Last Admin: 10/02/17 10:03 Dose: 150 mg Clonidine HCl (Catapres Tts Patch -) 0.2 mg TD Q7D@1000 [facility] Sodium Chloride (1/2 Normal Saline) 1,000 mls @ 125 mls/hr IV ASDIR [facility] Last Admin: 10/03/17 02:30 Dose: Not Given Famotidine/Sodium Chloride (Pepcid 20 Mg Premixed Ivpb -) 20 mg in 50 mls @ 100 mls/hr IVPB BID [facility] Last Admin: 10/02/17 21:30 Dose: 100 mls/hr Ceftriaxone Sodium 1 gm/ (Dextrose) 50 mls @ 100 mls/hr IVPB DAILY [facility] PRN Reason: Protocol Last Admin: 10/02/17 10:04 Dose: 100 mls/hr Insulin Aspart (Novolog Vial Sliding Scale -) 1 vial SQ ACHS [facility] PRN Reason: Protocol Last Admin: 10/03/17 06:04 Dose: Not Given Insulin Detemir (Levemir Vial) 20 units SQ HS [facility] Last Admin: 10/02/17 21:28 Dose: 20 unit Insulin Detemir (Levemir Vial) 15 units SQ AM [facility] Last Admin: 10/03/17 06:03 Dose: Not Given Lisinopril (Prinivil) 10 mg PO DAILY [facility] Last Admin: 10/02/17 10:02 Dose: 10 mg Metoclopramide HCl (Reglan Injection -) 10 mg IVPUSH Q6H-IV [facility] Last Admin: 10/03/17 02:34 Dose: 10 mg # IDDM- Uncontrolled BG today 77 Continue Levemir and sliding scale Appreciate Endocrine consult #Diarrhea None at present Appreciate GI consult Abd US done today Hida scan to be done today Endoscopy/ Colonoscopy sched for 10/04/18 #HTN BP controlled continue Clonidine and Rommel #HLD cont statin Problem List - Problems (1) SIRS (systemic inflammatory response syndrome) Code(s): R65.10 - SIRS OF NON-INFECTIOUS ORIGIN W/O ACUTE ORGAN DYSFUNCTION (2) Diarrhea Code(s): R19.7 - DIARRHEA, UNSPECIFIED
[2017-10-03] MEDS ORDERED: cefTRIAXone SODIUM 1 GM VIAL ONE (11:35)
[2017-10-03] MEDS ORDERED: DEXTROSE 5%-WATER - 50 ML IVPB ONE (11:35)
[2017-10-03] MEDS: CEFTRIAXONE 1 GM in DEXTROSE 5%-WATER - 50 ML IVPB SCH (11:37)
[2017-10-03] MEDS: LISINOPRIL 10 MG TABLET (FP) PO SCH (11:38)
[2017-10-03] MEDS: FAMOTIDINE 20 MG/50 ML IVPB 20 MG/50 ML MG IVPB SCH ×2 (12:44→21:28)
[2017-10-03] MEDS ORDERED: BISACODYL 5 MG TABLET.DR (FP) PO ONE (20:00)
--- NOTE | 2017-10-03 20:35 | PN ---
GI Progress Note Subjective: GI NOte: Completing bowel prep. NO bleeding. Hida scan negative excluding cholecystitis. - Objective Vital Signs: Vital Signs Temperature 97.5 F L 10/03/17 16:50 Pulse Rate 91 H 10/03/17 16:50 Respiratory Rate 20 10/03/17 16:50 Blood Pressure 150/94 10/03/17 16:50 O2 Sat by Pulse Oximetry (%) 97 10/03/17 09:00 Constitutional: Calm ...Auscultate: Yes: Hyperactive Bowel Sounds ...Palpate: Yes: Soft, Other (nontender) Labs: CBC, BMP 10/03/17 08:32 10/03/17 08:30 INR, PTT INR 1.02 (0.82-1.09) 09/30/17 15:40 Problem List - Problems (1) Weight loss Assessment/Plan: EGD and colonoscopy to exclude a neoplasm as the cause of Shawn's weight loss. No cholecystitis. Code(s): R63.4 - ABNORMAL WEIGHT LOSS (2) Occult blood in stools Code(s): R19.5 - OTHER FECAL ABNORMALITIES (3) Cholelithiasis Code(s): K80.20 - CALCULUS OF GALLBLADDER W/O CHOLECYSTITIS W/O OBSTRUCTION Qualifiers: Cholelithiasis location: gallbladder Cholecystitis presence: with cholecystitis Cholecystitis acuity: acute Biliary obstruction: without biliary obstruction Qualified Code(s): K80.00 - Calculus of gallbladder with acute cholecystitis without obstruction (4) Diarrhea Code(s): R19.7 - DIARRHEA, UNSPECIFIED
[2017-10-03] MEDS: ATORVASTATIN CA 80 MG TABLET (FP) PO SCH (21:28)
--- NOTE | 2017-10-04 00:26 | PN ---
Progress Note, Physician Chief Complaint: feeling better appetite poor History of Present Illness: dm,hyperglycemia inpast poor control bs,abdominal pain improved recent bs lower on diet adjustment - Current Medication List Current Medications: Active Medications Atorvastatin Calcium (Lipitor -) 80 mg PO HS [facility] Last Admin: 10/03/17 21:28 Dose: 80 mg Bupropion HCl (Wellbutrin Xl -) 150 mg PO DAILY [facility] Last Admin: 10/03/17 11:51 Dose: 150 mg Clonidine HCl (Catapres Tts Patch -) 0.2 mg TD Q7D@1000 [facility] Sodium Chloride (1/2 Normal Saline) 1,000 mls @ 125 mls/hr IV ASDIR [facility] Last Admin: 10/03/17 18:12 Dose: 125 mls/hr Famotidine/Sodium Chloride (Pepcid 20 Mg Premixed Ivpb -) 20 mg in 50 mls @ 100 mls/hr IVPB BID [facility] Last Admin: 10/03/17 21:28 Dose: 100 mls/hr Ceftriaxone Sodium 1 gm/ (Dextrose) 50 mls @ 100 mls/hr IVPB DAILY [facility] PRN Reason: Protocol Last Admin: 10/03/17 11:37 Dose: 100 mls/hr Insulin Aspart (Novolog Vial Sliding Scale -) 1 vial SQ ACHS [facility] PRN Reason: Protocol Last Admin: 10/03/17 21:39 Dose: Not Given Insulin Detemir (Levemir Vial) 15 units SQ AM [facility] Last Admin: 10/03/17 06:03 Dose: Not Given Insulin Detemir (Levemir Vial) 10 units SQ HS [facility] Lisinopril (Prinivil) 10 mg PO DAILY [facility] Last Admin: 10/03/17 11:38 Dose: 10 mg Metoclopramide HCl (Reglan Injection -) 10 mg IVPUSH Q6H-IV [facility] Last Admin: 10/03/17 21:28 Dose: 10 mg - Objective Vital Signs: Vital Signs Temperature 97.5 F L 10/03/17 16:50 Pulse Rate 91 H 10/03/17 16:50 Respiratory Rate 20 10/03/17 16:50 Blood Pressure 150/94 10/03/17 16:50 O2 Sat by Pulse Oximetry (%) 97 10/03/17 09:00 Constitutional: Yes: Calm Eyes: Yes: EOM Intact HENT: Yes: Normocephalic Neck: Yes: Trachea Midline Cardiovascular: Yes: Regular Rate and Rhythm Respiratory: Yes: CTA Bilaterally Gastrointestinal: Yes: Normal Bowel Sounds, Distention, Tenderness, Epigastrium ...Rectal Exam: Yes: Deferred Genitourinary: Yes: WNL Breast(s): Yes: WNL Musculoskeletal: Yes: WNL Extremities: Yes: WNL Edema: No Integumentary: Yes: WNL Neurological: Yes: Alert, Oriented Labs: CBC, BMP 10/03/17 08:32 10/03/17 08:30 INR, PTT INR 1.02 (0.82-1.09) 09/30/17 15:40 Problem List - Problems (1) Type 1 diabetes mellitus with unspecified complications Code(s): E10.8 - TYPE 1 DIABETES MELLITUS WITH UNSPECIFIED COMPLICATIONS (2) Abdominal pain Code(s): R10.9 - UNSPECIFIED ABDOMINAL PAIN Qualifiers: Abdominal location: generalized Qualified Code(s): R10.84 - Generalized abdominal pain (3) Cholelithiasis Code(s): K80.20 - CALCULUS OF GALLBLADDER W/O CHOLECYSTITIS W/O OBSTRUCTION Qualifiers: Cholelithiasis location: gallbladder Cholecystitis presence: with cholecystitis Cholecystitis acuity: acute Biliary obstruction: without biliary obstruction Qualified Code(s): K80.00 - Calculus of gallbladder with acute cholecystitis without obstruction (4) Hyperglycemia Code(s): R73.9 - HYPERGLYCEMIA, UNSPECIFIED (5) Occult blood in stools Code(s): R19.5 - OTHER FECAL ABNORMALITIES (6) SIRS (systemic inflammatory response syndrome) Code(s): R65.10 - SIRS OF NON-INFECTIOUS ORIGIN W/O ACUTE ORGAN DYSFUNCTION Assessment/Plan Current Active Problems Abdominal pain (Acute) Cholelithiasis (Acute) Diarrhea (Acute) Hyperglycemia (Acute) Lactate blood increased (Acute) Occult blood in stools (Acute) SIRS (systemic inflammatory response syndrome) (Acute) Type 1 diabetes mellitus with unspecified complications (Acute) Weight loss (Acute) Abnormal Lab Results 10/03/17 10/03/17 08:30 08:32 WBC 10.5 H Anion Gap 7 L Calcium 8.1 L AST 11 L D Total Protein 6.0 L Albumin 2.8 L Laboratory Results - last 24 hr 10/03/17 10/03/17 10/03/17 05:56 08:30 08:32 WBC 10.5 H RBC 4.07 Hgb 13.0 Hct 37.4 MCV 91.9 MCH 31.9 MCHC 34.7 RDW 13.4 Plt Count 316 MPV 8.0 Neutrophils % 72.0 Lymphocytes % 20.0 Monocytes % 6.8 Eosinophils % 0.6 Basophils % 0.6 Sodium 140 Potassium 3.8 Chloride 106 Carbon Dioxide 27 Anion Gap 7 L BUN 9 D Creatinine 0.7 Creat Clearance w eGFR > 60 POC Glucometer 71 Random Glucose 86 D Calcium 8.1 L Total Bilirubin 0.6 AST 11 L D ALT 16 Alkaline Phosphatase 77 Total Protein 6.0 L Albumin 2.8 L 10/03/17 10/03/17 10/03/17 11:53 16:49 21:32 WBC RBC Hgb Hct MCV MCH MCHC RDW Plt Count MPV Neutrophils % Lymphocytes % Monocytes % Eosinophils % Basophils % Sodium Potassium Chloride Carbon Dioxide Anion Gap BUN Creatinine Creat Clearance w eGFR POC Glucometer 124 129 83 Random Glucose Calcium Total Bilirubin AST ALT Alkaline Phosphatase Total Protein Albumin plan: hold levemir while gi eval inprogress iv fluid d5.45 ns 70/hr bgm qid novolog insulin dose
[2017-10-04] MEDS ORDERED: DEXTROSE 5%-0.45% SALINE 1,000 ML IV SCH (00:30)
[2017-10-04] MEDS: SODIUM CHLORIDE 0.45% 1,000 ML IV SCH (02:12)
[2017-10-04] MEDS: METOCLOPRAMIDE HCL INJECTION 10 MG/2 ML VIAL IVPUSH SCH ×2 (04:55→09:20)
[2017-10-04] MEDS: INSULIN (LEVEMIR) 100 UNITS/ML UNITS SQ SCH (06:08)
[2017-10-04] MEDS: INSULIN SLIDING SCALE (NOVOLOG) 1 VIAL SQ SCH ×3 (06:11→18:24)
[2017-10-04 09:04] LABS: BASO % 0.8 % (0-2.0); EOS % 2.7 % (0-4.5); HEMOGLOBIN 12.8 GM/dL (11.7-16.9); LYMPH % 29.4 % (8-40); MCHC 34.7 g/dl (32.0-35.9); MEAN CELL VOLUME 92.4 fl (80-96); MEAN PLT VOLUME 8.3 fl (7.5-11.1); MONO % 7.8 % (3.8-10.2); NEUT % 59.3 % (42.8-82.8); PLATELET COUNT 299 K/MM3 (134-434); RDW 13.6 % (11.9-15.9)
[2017-10-04] MEDS ORDERED: DEXTROSE 5%-WATER - 50 ML IVPB ONE (09:17)
[2017-10-04] MEDS ORDERED: cefTRIAXone SODIUM 1 GM VIAL ONE (09:17)
[2017-10-04] MEDS: CEFTRIAXONE 1 GM in DEXTROSE 5%-WATER - 50 ML IVPB SCH (09:20)
[2017-10-04] MEDS: LISINOPRIL 10 MG TABLET (FP) PO SCH (09:20)
[2017-10-04 09:35] LABS: CHLORIDE 107 mmol/L (98-107); SODIUM 140 mmol/L (136-145)
[2017-10-04 09:43] LABS: ALBUMIN 2.8 g/dl (3.4-5.0); ALK PHOS 85 U/L (45-117); ANION GAP 7 (8-16); BILIRUBIN,TOTAL 0.8 mg/dL (0.2-1.0); BLOOD UREA NITROGEN 5 mg/dL (7-18); CALCIUM 8.1 mg/dL (8.5-10.1); CO2 26 mmol/L (21-32); CREATININE 0.6 mg/dL (0.7-1.3); GLUCOSE,RANDOM 137 mg/dL (74-106); SGOT/AST 14 U/L (15-37); SGPT/ALT 19 U/L (12-78)
[2017-10-04] MEDS: FAMOTIDINE 20 MG/50 ML IVPB 20 MG/50 ML MG IVPB SCH (10:00)
[2017-10-04] MEDS ORDERED: PROPOFOL 20 ML ONE ×3 (10:30)
--- NOTE | 2017-10-04 10:47 | PN ---
Progress Note (short form) - Note Progress Note: 56 y/o male found lying in bed. States that he continues to feel weak. Denies nausea and vomiting. Sched for Endoscopy and colonoscopy today. Vital Signs Period Temp Pulse Resp BP Sys/Bocanegra Pulse Ox Last 24 Hr 97.4 F-97.8 F 73-91 18-20 140-156/78-105 97 CBC, BMP 10/04/17 08:24 10/04/17 08:24 HEENT- normocephalic Neck- supple Lungs- CTAB Heart- S1/S2 Abd- Pos BS x 4, soft, nontender Ext- No LE edema Active Medications Amino Acids (Prosource No Carb Liquid Pkt) 30 ml PO BID@0800,1730 [facility] Atorvastatin Calcium (Lipitor -) 80 mg PO HS [facility] Last Admin: 10/03/17 21:28 Dose: 80 mg Bupropion HCl (Wellbutrin Xl -) 150 mg PO DAILY [facility] Last Admin: 10/04/17 09:20 Dose: Not Given Calcium Carbonate/Cholecalciferol (Os-Herman 500+D -) 1 tab PO DAILY [facility] Clonidine HCl (Catapres Tts Patch -) 0.2 mg TD Q7D@1000 [facility] Famotidine/Sodium Chloride (Pepcid 20 Mg Premixed Ivpb -) 20 mg in 50 mls @ 100 mls/hr IVPB BID [facility] Last Admin: 10/03/17 21:28 Dose: 100 mls/hr Ceftriaxone Sodium 1 gm/ (Dextrose) 50 mls @ 100 mls/hr IVPB DAILY [facility] PRN Reason: Protocol Last Admin: 10/04/17 09:20 Dose: 100 mls/hr Dextrose/Sodium Chloride (D5-1/2ns -) 1,000 mls @ 70 mls/hr IV ASDIR [facility] Last Admin: 10/04/17 02:15 Dose: 70 mls/hr Insulin Aspart (Novolog Vial Sliding Scale -) 1 vial SQ ACHS [facility] PRN Reason: Protocol Last Admin: 10/04/17 06:11 Dose: Not Given Insulin Detemir (Levemir Vial) 15 units SQ AM [facility] Last Admin: 10/04/17 06:08 Dose: Not Given Insulin Detemir (Levemir Vial) 10 units SQ HS [facility] Lisinopril (Prinivil) 10 mg PO DAILY [facility] Last Admin: 10/04/17 09:20 Dose: 10 mg Metoclopramide HCl (Reglan Injection -) 10 mg IVPUSH Q6H-IV [facility] Last Admin: 10/04/17 09:20 Dose: 10 mg #Hypoalbuminemia Albumin 2.8 Prostat ordered BID #Hypocalcemia Calcium ordered # IDDM- Uncontrolled BG today 137 Continue Levemir and sliding scale #Diarrhea Prepped for Colonoscopy/ Endoscopy today US showed polyps on gallbladder Hida scan neg for cystic duct obstruction Endoscopy/ Colonoscopy sched for 10/04/18 #HTN BP controlled continue Clonidine and Rommel #HLD cont statin Problem List - Problems (1) SIRS (systemic inflammatory response syndrome) Code(s): R65.10 - SIRS OF NON-INFECTIOUS ORIGIN W/O ACUTE ORGAN DYSFUNCTION (2) Diarrhea Code(s): R19.7 - DIARRHEA, UNSPECIFIED
--- NOTE | 2017-10-04 12:18 | PN ---
Progress Note (short form) - Note Progress Note: GI Procedure NOte: Please see scanned EGD and colonoscopy reports. Mild duodenitis was noted. Two colon polyps were removed. Diverticulosis was found. No GI objections to discharge. Problem List - Problems (1) Weight loss Code(s): R63.4 - ABNORMAL WEIGHT LOSS (2) Occult blood in stools Code(s): R19.5 - OTHER FECAL ABNORMALITIES (3) Cholelithiasis Code(s): K80.20 - CALCULUS OF GALLBLADDER W/O CHOLECYSTITIS W/O OBSTRUCTION Qualifiers: Cholelithiasis location: gallbladder Cholecystitis presence: with cholecystitis Cholecystitis acuity: acute Biliary obstruction: without biliary obstruction Qualified Code(s): K80.00 - Calculus of gallbladder with acute cholecystitis without obstruction (4) Diarrhea Code(s): R19.7 - DIARRHEA, UNSPECIFIED
--- NOTE | 2017-10-04 16:03 | DS ---
Physical Examination Vital Signs: Vital Signs Temperature 98.1 F 10/04/17 15:28 Pulse Rate 69 10/04/17 15:28 Respiratory Rate 18 10/04/17 15:28 Blood Pressure 150/76 10/04/17 15:28 O2 Sat by Pulse Oximetry (%) 99 10/04/17 12:25 Findings/Remarks: Patient is a 56M with history of IDDM, HTN, CAD s/p CABG, s/p stent placement of occlusion of SFA on May 2017, today presents with complaint of abdominal of diarrhea, non bloody, for the past 3 weeks. He's complaining of associated fevers, chills, nausea. He states that he's also feeling weak for the past week. He endorses shortness of breath and cough. He also endorses burning with urination. Denies chest pain. No recent antibiotic use, was admitted in may for SFA occlusion. Evaluation in ER patient was afebrile orally, HR was 111 initially, nonlocalizing abdominal tenderness and guarding, lactate 4.6, BG in the 400s. Covered with vancomycin/Zosyn, UA clear, CXR no obvious PNA. Repeat lactate after fluids ordered along with repeat FS # diarrhea cultures send --work up negative s/o egd /colonoscoy - report in chart / Gi clear for d/c uncontrolled DM ( >15yrs) A1C 11.4, consider autonomic Diarrhea goal to control DM had significant weight loss recently appreciate Gi consult / Id consult appreciate GI work up # DM uncontrolled Endo opinion appreciated discussed risk of non compliance with patient patient agreeable to insulin pump -- discuss with Endo will follow up with endo Constitutional: Yes: Well Nourished, No Distress, Calm Eyes: Yes: Conjunctiva Clear, EOM Intact HENT: Yes: WNL, Atraumatic, Normocephalic Neck: Yes: WNL, Supple, Trachea Midline Cardiovascular: Yes: WNL, Regular Rate and Rhythm Respiratory: Yes: Regular, CTA Bilaterally Gastrointestinal: Yes: Normal Bowel Sounds, Soft ...Rectal Exam: Yes: Guaiac Negative, Other Renal/: Yes: WNL Breast(s): Yes: WNL Musculoskeletal: Yes: WNL Extremities: Yes: WNL Edema: No Peripheral Pulses WNL: Yes Integumentary: Yes: WNL Wound/Incision: Yes: Clean/Dry Neurological: Yes: WNL ...Motor Strength: WNL Psychiatric: Yes: WNL Labs: CBC, BMP 10/04/17 08:24 10/04/17 08:24 Discharge Summary Reason For Visit: DIABETERS MELLITUS,ABD PAIN,HYPERGLYCEMIA, Current Active Problems Abdominal pain (Acute) Cholelithiasis (Acute) Diarrhea (Acute) Hyperglycemia (Acute) Lactate blood increased (Acute) Occult blood in stools (Acute) SIRS (systemic inflammatory response syndrome) (Acute) Type 1 diabetes mellitus with unspecified complications (Acute) Weight loss (Acute) Condition: Improved - Instructions Referrals: Sheldon Monte [Primary Care Provider] - Disposition: HOME - Home Medications Comprehensive Discharge Medication List: Ambulatory Orders Aspirin [Aspirin EC] 81 mg PO DAILY 12/17/16 Atorvastatin Ca [Lipitor] 80 mg PO HS 12/17/16 BUPROPion HCL "SR" [Wellbutrin Sr -] 150 mg PO DAILY 12/17/16 Insulin (Levemir) [Levemir Flexpen -] 20 units SQ HS #1 pen 05/30/17 Lisinopril 10 mg PO DAILY #30 tablet 05/30/17 Aspirin [ASA -] 81 mg PO DAILY 09/30/17 Clopidogrel Bisulfate [Plavix] 75 mg PO DAILY 09/30/17 Insulin Glargine,Hum.rec.anlog [Basaglar Kwikpen U-100] 10 unit SQ DAILY
[2017-10-04 17:10] VITALS: BP 157/84; PULSE 80; TEMP 97.7
[2017-10-04] MEDS ORDERED: AMINO ACIDS/PROTEIN HYDROLYS 30 ML LIQUID.PKT PO SCH (17:30)
[2017-10-04] MEDS ORDERED: INSULIN (LEVEMIR) 100 UNITS/ML UNITS SQ SCH (22:00)
[2017-10-05] MEDS ORDERED: CALCIUM 500MG/VIT-D 200 UNITS COMBO TABLET (FP) PO SCH (10:00)
[2017-10-05] MEDS ORDERED: PANTOPRAZOLE 40 MG TABLET (FP) PO SCH (10:00)
--- NOTE | 2017-10-07 13:42 | PATH ---
Surgical Pathology Report Patient Name: VENITA DURBIN Med. Rec. #: [id number] /Age/Gender: 1960 (Age: 56) / M Account: [id number] Location: [facility] MED/SURG Taken: 10/04/2017 Received: 10/04/2017 Reported: 10/07/2017 Physicians: Adilene Cleary M.D. Specimen(s) Received A: BX 2ND PORTION DUODENUM & BULB B: BX GASTIC ANTRUM C: BX GE JUNCTION D: BX MID-ESOPHAGUS E: POLYP SIGMOID F: POLYP PROXIMAL TRANSVERSE COLON G: BX ILEUM FOR MICROSCOPIC COLITIS H: BX CECUM FOR MICROSCOPIC COLITIS Clinical History Diarrhea, weight loss Postoperative diagnosis: Duodenitis, hiatal hernia, colon polyp, diverticulosis, rule out microscopic colitis Final Diagnosis A. BIOPSY SECOND PORTION DUODENUM AND BULB: DUODENAL MUCOSA WITH CHRONIC DUODENITIS AND REACTIVE LYMPHOID FOLLICLE. B. GASTRIC ANTRUM, BIOPSY: GASTRIC MUCOSA WITH MILD ACTIVE CHRONIC GASTRITIS. POSITIVE FOR INTESTINAL METAPLASIA. IMMUNOSTAIN IS NEGATIVE FOR H. PYLORI ORGANISMS. C. GE JUNCTION, BIOPSY: ESOPHAGEAL (SQUAMOUS) EPITHELIUM WITH MILD CHRONIC INFLAMMATION. D. MIDESOPHAGUS, BIOPSY: ESOPHAGEAL (SQUAMOUS) EPITHELIUM WITH NO DIAGNOSTIC ABNORMALITIES. E. SIGMOID POLYP, POLYPECTOMY: TUBULAR ADENOMA. F. PROXIMAL TRANSVERSE COLON POLYP, POLYPECTOMY: POLYPOID COLONIC MUCOSA WITH NO DIAGNOSTIC ABNORMALITIES. G. ILEUM FOR MICROSCOPIC COLITIS, BIOPSY: SUPERFICIAL PORTION OF SMALL INTESTINAL MUCOSA WITH NO DIAGNOSTIC ABNORMALITIES. H. CECUM FOR MICROSCOPIC COLITIS, BIOPSY: COLONIC MUCOSA WITH REACTIVE LYMPHOID AGGREGATE. Electronically Signed Selena Gamez M.D. Gross Description A. Received in formalin, labeled "biopsy second portion of duodenum and bulb" are 3 borrego, irregular portions of soft tissue ranging from 0.4-0.6 cm. in greatest dimension. The specimens are submitted in toto in one cassette. B. Received in formalin, labeled "biopsy gastric antrum" are 4 borrego, irregular portions of soft tissue ranging from 0.3-0.6 cm. in greatest dimension. The specimens are submitted in toto in one cassette. C. Received in formalin, labeled "biopsy GE junction" are 2 borrego, irregular portions of soft tissue averaging 0.1 cm. in greatest dimension. The specimens are submitted in toto in one cassette. D. Received in formalin, labeled "biopsy midesophagus" are 2 borrego, irregular portions of soft tissue measuring 0.1 and 0.3 cm. in greatest dimension. The specimens are submitted in toto in one cassette. E. Received in formalin, labeled "polyp sigmoid colon" is a brown, polypoid portion of soft tissue measuring 0.6 cm. in greatest dimension. The specimen is submitted in toto in one cassette. F. Received in formalin, labeled "polyp proximal transverse colon" is a borrego, irregular portion of soft tissue measuring 0.5 cm. in greatest dimension. The specimen is submitted in toto in one cassette. G. Received in formalin, labeled "biopsy ileum" is a borrego, irregular portion of soft tissue measuring 0.3 cm. in greatest dimension. The specimen is submitted in toto in one cassette. H. Received in formalin, labeled "biopsy cecum" are 2 borrego, irregular portions of soft tissue averaging 0.2 cm. in greatest dimension. The specimens are submitted in toto in one cassette. 10/04/2017 [facility]10/04/2017
[2017-10-08] MEDS ORDERED: cloNIDine-TTS 0.2 MG/24 HOURS PATCH.TDWK TD SCH (10:00)
== END 2017-10-04 18:53 | disposition home or self-care (01) ==
LOC: JER 15:06 → JERBED 22:17 → J8W 23:36
PROVIDERS: ADMIT Family Medicine; ATTEND Family Medicine
DX: K80.00 Calculus of gallbladder with acute cholecystitis without obstruction (principal); R65.10 Systemic inflammatory response syndrome (SIRS) of non-infectious origin without acute organ dysfunction; E87.2 Acidosis; E10.65 Type 1 diabetes mellitus with hyperglycemia; E83.51 Hypocalcemia; E88.09 Other disorders of plasma-protein metabolism, not elsewhere classified; Z79.4 Long term (current) use of insulin; R63.4 Abnormal weight loss; Z68.25 Body mass index [BMI] 25.0-25.9, adult; R19.5 Other fecal abnormalities; I25.10 Atherosclerotic heart disease of native coronary artery without angina pectoris; Z95.1 Presence of aortocoronary bypass graft; I10 Essential (primary) hypertension; Z87.891 Personal history of nicotine dependence; R19.7 Diarrhea, unspecified; I73.9 Peripheral vascular disease, unspecified; Z91.19 Patient's noncompliance with other medical treatment and regimen; N28.89 Other specified disorders of kidney and ureter; K29.80 Duodenitis without bleeding
CPT/HCPCS: 36415; 71045-TC-FY; 74177-TC; 76705-TC; 78226-TC; 80053; 80061; 81003; 81015; 82009; 82803; 82962; 83036; 83605; 83690; 83721; 84443; 84484; 85025; 85610; 85730; 87040; 87045; 87046; 87086; 87177; 87205; 87209; 87324; 87328; 87329; 87449; 88305-TC; 93005; 93010; 99284-25; A9537; J0131; J7030

== ENCOUNTER 2017-11-11 16:37 | Inpatient (IN) | payer OTHER ==
--- NOTE | 2017-11-11 17:11 | PDOC ---
Rapid Medical Evaluation Time Seen by Provider: 11/11/17 17:11 Medical Evaluation: Allergies Allergy/AdvReac Type Severity Reaction Status Date / Time aspirin Allergy Rash Verified 09/30/17 15:09 11/11/17 17:13 57 year old male with IDDM, HTN, CAD s/p CABG, and SFA stent with Dr. Doherty May 2017. Presents following hospitalization at [facility] for "cold" and darkly discolored right foot x 4 days; reports amputation of the leg was advised. He was on heparin gtt at [facility] but was reportedly discharged so as to follow up with Dr. Doherty here. States symptoms have improved. Right foot mildly cool. DP/PT pulses are trace palpable. No discoloration of foot. Sensation present. -Basic labs -To Main ED for further evaluation
--- NOTE | 2017-11-11 18:18 | PDOC ---
History of Present Illness - General Chief Complaint: Pain Stated Complaint: RT FOOT DISCOLORATION&COLD TO TOUCH Time Seen by Provider: 11/11/17 17:11 History Source: Patient - History of Present Illness Initial Comments: 11/11/17 18:15 57 year old male with a hx of IDDM, HTN, CAD s/p CABG, R SFA stent by Dr. Gr (06/13) comes to the hospital after being discharged from [facility] for a 4 day hx of cold right foot. At [facility], he received a CTA of the lower extremity which showed 50% occlusion of the R SFA stent. He states that they wanted to amputate the leg, but he wanted a second opinion and after being on heparin drip, he was discharged to follow up with dr. gr. He now states that his foot is cold and that he has some right foot numbness. Denies fevers, chills, nausea, vomiting, shortness of breath, chest pain. Allergies: ASA Smoke: quit 1 week ago Alcohol: none Drugs: none PMD: Dr. Wilkes Past History - Past Medical History Allergies/Adverse Reactions: Allergies Allergy/AdvReac Type Severity Reaction Status Date / Time aspirin Allergy Rash Verified 11/11/17 17:12 Home Medications: Ambulatory Orders Aspirin [Aspirin EC] 81 mg PO DAILY 12/17/16 Atorvastatin Ca [Lipitor] 80 mg PO HS 12/17/16 BUPROPion HCL "SR" [Wellbutrin Sr -] 150 mg PO DAILY 12/17/16 Insulin (Levemir) [Levemir Flexpen -] 20 units SQ HS #1 pen 05/30/17 Lisinopril 10 mg PO DAILY #30 tablet 05/30/17 Aspirin [ASA -] 81 mg PO DAILY 09/30/17 Clopidogrel Bisulfate [Plavix] 75 mg PO DAILY 09/30/17 Insulin Glargine,Hum.rec.anlog [Basaglar Kwikpen U-100] 10 unit SQ DAILY Calcium 500Mg/Vit-D 200 Units [Os-Herman 500+D -] 1 tab PO DAILY tab 10/04/17 Clonidine Patch [Catapres Tts Patch -] 0.2 mg TD Q7D@1000 28 Days #4 patch.tdwk NS 10/04/17 Insulin (Levemir) [Levemir Vial] 15 units SQ AM ml 10/04/17 Pantoprazole Sodium [Protonix -] 40 mg PO DAILY tablet.ec 10/04/17 Anemia: No Asthma: No Cancer: No Cardiac Disorders: Yes (triple bypass,stent placementx3) CVA: No COPD: No CHF: No DVT: No Dementia: No Diabetes: Yes GI Disorders: No Disorders: No HTN: Yes Hypercholesterolemia: Yes Liver Disease: No Seizures: No Thyroid Disease: No - Surgical History Abdominal Surgery: No Appendectomy: No Cardiac Surgery: Yes (triple bypass) Cholecystectomy: No Lung Surgery: No Neurologic Surgery: No - Suicide/Smoking/Psychosocial Hx Smoking History: Former smoker Have you smoked in the past 12 months: Yes Number of Cigarettes Smoked Daily: 20 If you are a former smoker, when did you quit?: 04/2017 Information on smoking cessation initiated: No 'Breaking Loose' booklet given: 12/18/16 Hx Alcohol Use: No Drug/Substance Use Hx: No Substance Use Type: None Review of Systems - Review of Systems Constitutional: No: Chills, Fever Respiratory: No: Cough, Shortness of Breath Cardiac (ROS): No: Chest Pain, Chest Tightness ABD/GI: No: Diarrhea, Nausea, Vomiting Integumentary: Yes: Change in Color Neurological: Yes: Tingling *Physical Exam - Vital Signs Last Vital Signs Temp Pulse Resp BP Pulse Ox 97.5 F L 93 H 19 139/87 96 11/11/17 17:12 11/11/17 17:12 11/11/17 17:12 11/11/17 17:12 11/11/17 17:12 - Physical Exam Comments: 11/11/17 18:40 GENERAL: A&Ox3, no acute distress EYES: PERRLA, EOMI ENT: Moist mucus membranes NECK: No JVD LUNGS: CTA, no wheezes HEART: RRR, no murmurs ABDOMEN: Soft, nontender, BS present MUSCULOSKELETAL: No CVA Tenderness EXTREMITIES: 1+ Right PT, 0+ DP on right, R foot colder than left. L foot pulses 1+ bilaterally NEUROLOGICAL: Cranial nerves II-XII intact. numbness in R toes ED Treatment Course - LABORATORY CBC & Chemistry Diagram: 11/11/17 18:17 11/11/17 18:17 Medical Decision Making - Medical Decision Making 11/11/17 18:44 57 year old male with a hx of IDDM, HTN, CAD s/p CABG, R SFA stent by Dr. Gr in may presenting with cold foot and numbness -cbc, cmp, lactic acid, ekg, INR d/w dr. gr, will place on heparin ggt and for angioplasty saturday -d/w dr. interiano, will admit *DC/Admit/Observation/Transfer Diagnosis at time of Disposition: Superficial femoral artery occlusion - Discharge Dispostion Condition at time of disposition: Stable Decision to Admit order: Yes - Referrals Referrals: Sheldon oMnte [Primary Care Provider] - - Patient Instructions - Post Discharge Activity
--- NOTE | 2017-11-11 18:27 | PDOC ---
Attending Attestation - Resident Resident Name: Sagar Iqbal - ED Attending Attestation I have performed the following: I have examined & evaluated the patient, The case was reviewed & discussed with the resident, I agree w/resident's findings & plan, Exceptions are as noted - HPI HPI: 11/11/17 18:24 57-year-old male who was recently discharged from [facility] for ischemic right foot presents because he states his foot is now numb and has increasing COLDNESS. Past medical history significant for a right SFA stent done in May [address] Doherty. His past medical history insulin depdiabetes, long- term tobacco use, hypertension, coronary artery disease, CABG 11/11/17 19:40 - Physicial Exam PE: 11/11/17 20:19 slender 57 yo male w complaint of rt foot numbness, cold toes head ncat neck supple lungs cta b/l cvs [id number] abd flat,nontender ext no edema,no cellulitis. Right foot, thready posterior tibia pulse - Medical Decision Making 11/11/17 20:18 PT ADMITTED ,HEPARIN gtt STARTED,DR DOHERTY will take to the OR this week <Paola Taylor - Last Filed: 11/11/17 20:49> - HPI HPI: 11/11/17 21:04 The patient is a 57 year old male with past medical history of IDDM, HTN, CAD s/ p CABG (vein out from L. leg), and R. superficial SFA stent (Placed by Dr. Doherty 2017) presents to the emergency department complaining of numbness to the R. foot. The patient presents s/p discharge from [facility] earlier after a 4 day hospital stay. The patient was scheduled for a R. foot amputation 11/13/2017 at [facility], states he wanted a second evaluation and reported he will follow up with Dr. Doherty. The patient reports when he got home there was an increase coldness to the R. foot w/ cyanosis noted when the foot the left down. Denies fever, chills, cough or headache. Denies chest pain or sob. Denies abd pain or back pain. Denies diarrhea or constipation. Denies nausea or vomiting. Denies dysuria, hematuria, frequency or urgency to urinate. Denies vertigo or dizziness. Allergies: aspirin Surgical history: Triple bypass. Social history: Patient reports he quit smoking 1 week ago. PCP: Dr. Monte. - Physicial Exam PE: 11/11/17 21:05 GENERAL: Well developed, well nourished. Awake and alert. No acute distress. HEENT: Normocephalic, atraumatic. PERRLA, EOMI. No conjunctival pallor. Sclera are non- icteric. Moist mucous membranes. Oropharynx is clear. NECK: Supple. Full ROM. No JVD. Carotid pulses 2+ and symmetric, without bruits. No thyromegaly. No lymphadenopathy. CARDIOVASCULAR: Regular rate and rhythm. No murmurs, rubs, or gallops. Distal pulses are 2+ and symmetric. PULMONARY: No evidence of respiratory distress. Lungs clear to auscultation bilaterally. No wheezing, rales or rhonchi. ABDOMINAL: Soft. Non-tender. Non-distended. No rebound or guarding. No organomegaly. Normoactive bowel sounds. MUSCULOSKELETAL Normal range of motion at all joints. No bony deformities or tenderness. No CVA tenderness. EXTREMITIES: (+) Thready posterior tibial pulse +1. (+) Right foot DIP of the toes cool to touch. No clubbing. No edema. No calf tenderness. SKIN: Warm and dry. Normal capillary refill. No rashes. No jaundice. NEUROLOGICAL: Alert, awake, appropriate. Cranial nerves 2-12 intact. No deficits to light touch and temperature in face, upper extremities and lower extremities. No motor deficits in the in face, upper extremities and lower extremities. Normoreflexic in the upper and lower extremities. Normal speech. Toes are down- going bilaterally. Gait is normal without ataxia. PSYCHIATRIC: Cooperative. Good eye contact. Appropriate mood and affect. - Medical Decision Making 11/11/17 21:06 Documentation prepared by Spring Acharya, acting as medical donation professional for Paola Taylor MD. <Spring Acharya - Last Filed: 11/11/17 21:06>
[2017-11-11 18:29] LABS: BASO % 0.9 % (0-2.0); EOS % 2.6 % (0-4.5); HEMATOCRIT 43.2 % (35.4-49); LYMPH % 29.3 % (8-40); MCH 30.4 pg (25.7-33.7); MCHC 32.4 g/dl (32.0-35.9); MEAN CELL VOLUME 93.8 fl (80-96); MEAN PLT VOLUME 8.7 fl (7.5-11.1); MONO % 8.8 % (3.8-10.2); NEUT % 58.4 % (42.8-82.8); PLATELET COUNT 260 K/MM3 (134-434); RBC 4.61 M/mm3 (4.00-5.60); RDW 14.2 % (11.9-15.9); WHITE BLOOD COUNT 8.4 K/mm3 (4.0-10.0)
[2017-11-11] MEDS ORDERED: HEPARIN NA (PORCINE) 5,000 UNITS/ML 1ML VIAL IVPUSH PRN ×2 (18:36)
[2017-11-11 18:46] LABS: PROTHROMBIN TIME (PATIENT) 11.3 SEC (9.7-13.0)
[2017-11-11 18:55] LABS: ALBUMIN 3.6 g/dl (3.4-5.0); ALK PHOS 72 U/L (45-117); ANION GAP 7 (8-16); BILIRUBIN,TOTAL 0.6 mg/dL (0.2-1.0); BLOOD UREA NITROGEN 28 mg/dL (7-18); CALCIUM 8.9 mg/dL (8.5-10.1); CHLORIDE 106 mmol/L (98-107); CO2 25 mmol/L (21-32); CREATININE 0.9 mg/dL (0.7-1.3); GLUCOSE,RANDOM 130 mg/dL (74-106); POTASSIUM 4.7 mmol/L (3.5-5.1); SGOT/AST 38 U/L (15-37); SGPT/ALT 63 U/L (12-78); SODIUM 138 mmol/L (136-145); TOT PROT 7.1 g/dl (6.4-8.2)
--- NOTE | 2017-11-11 19:52 | HP ---
Admitting History and Physical - Primary Care Physician PCP: Sukhjinder Moreau - Admission History of Present Illness: 57 year old male with a hx of IDDM, HTN, CAD s/p CABG, R SFA stent by Dr. Gr (06/13) comes to the hospital after being discharged from [facility] for a 4 day hx of cold right foot. At [facility], he received a CTA of the lower extremity which showed 50% occlusion of the R SFA stent. He states that they wanted to amputate the leg, but he wanted a second opinion and after being on heparin drip, he was discharged to follow up with dr. gr. He now states that his foot is cold and that he has some right foot numbness. Denies fevers, chills, nausea, vomiting, shortness of breath, chest pain. - Past Medical History Cardiovascular: Yes: CAD (s/p CABG), HTN, Hyperlipdemia Pulmonary: Yes: COPD Hepatobiliary: Yes: Cholelithiasis Psych: Yes: Depression Endocrine: Yes: Diabetes Mellitus - Past Surgical History Past Surgical History: Yes: Appendectomy, CABG (3 vessel) - Smoking History Smoking history: Former smoker Have you smoked in the past 12 months: Yes Aproximately how many cigarettes per day: 20 If you are a former smoker, when did you quit?: 04/2017 - Alcohol/Substance Use Hx Alcohol Use: No History of Substance Use: reports: None - Social History ADL: Independent Occupation: unemployed [employer] History of Recent Travel: No Home Medications - Allergies Allergies/Adverse Reactions: Allergies Allergy/AdvReac Type Severity Reaction Status Date / Time aspirin Allergy Rash Verified 11/11/17 17:12 - Home Medications Home Medications: Ambulatory Orders Aspirin [Aspirin EC] 81 mg PO DAILY 12/17/16 Atorvastatin Ca [Lipitor] 80 mg PO HS 12/17/16 BUPROPion HCL "SR" [Wellbutrin Sr -] 150 mg PO DAILY 12/17/16 Insulin (Levemir) [Levemir Flexpen -] 20 units SQ HS #1 pen 05/30/17 Lisinopril 10 mg PO DAILY #30 tablet 05/30/17 Clopidogrel Bisulfate [Plavix] 75 mg PO DAILY 09/30/17 Insulin Glargine,Hum.rec.anlog [Basaglar Kwikpen U-100] 10 unit SQ DAILY Calcium 500Mg/Vit-D 200 Units [Os-Herman 500+D -] 1 tab PO DAILY tab 10/04/17 Clonidine Patch [Catapres Tts Patch -] 0.2 mg TD Q7D@1000 28 Days #4 patch.tdwk NS 10/04/17 Insulin (Levemir) [Levemir Vial] 15 units SQ AM ml 10/04/17 Pantoprazole Sodium [Protonix -] 40 mg PO DAILY tablet.ec 10/04/17 Carvedilol [Coreg -] 3.125 mg PO BID 11/11/17 Gabapentin [Neurontin -] 300 mg PO TID 11/11/17 Ibuprofen 600 mg PO Q8H 11/11/17 Insulin Lispro [Humalog] 7 unit SQ TID 11/11/17 Meclizine HCl 25 mg PO DAILY 11/11/17 Metformin HCl [Glucophage] 1,000 mg PO BID 11/11/17 Metoprolol Succinate [Toprol Xl -] 12.5 mg PO DAILY 11/11/17 Nicotine [Nicotine Patch 7 mg/24 hr] 1 each TD ASDIR 11/11/17 Tamsulosin HCl [Flomax] 0.4 mg PO DAILY 11/11/17 Family Disease History - Family Disease History Family Disease History: Diabetes: Mother, Heart Disease: Mother, Other: Father ( healthy) Physical Examination Vital Signs: Vital Signs Temperature 97.5 F L 11/11/17 17:12 Pulse Rate 93 H 11/11/17 17:12 Respiratory Rate 19 11/11/17 17:12 Blood Pressure 139/87 11/11/17 17:12 O2 Sat by Pulse Oximetry (%) 96 11/11/17 17:12 Constitutional: Yes: No Distress HENT: Yes: Atraumatic Neck: Yes: Supple Cardiovascular: Yes: Regular Rate and Rhythm Respiratory: Yes: CTA Bilaterally Gastrointestinal: Yes: Normal Bowel Sounds Extremities: Yes: Cold (first and second r toes) Peripheral Pulses WNL: Yes (feeble) Neurological: Yes: Alert, Oriented Labs: CBC, BMP 11/11/17 18:17 11/11/17 18:17 Problem List - Problems (1) Superficial femoral artery occlusion Assessment/Plan: dr gr to see pt on heparin drip Code(s): I77.9 - DISORDER OF ARTERIES AND ARTERIOLES, UNSPECIFIED (2) Diabetes mellitus Assessment/Plan: on insulin and bgms Code(s): E11.9 - TYPE 2 DIABETES MELLITUS WITHOUT COMPLICATIONS (3) HTN (hypertension) Assessment/Plan: on meds Code(s): I10 - ESSENTIAL (PRIMARY) HYPERTENSION Assessment/Plan Laboratory Tests 11/11/17 11/11/17 11/11/17 18:17 18:17 18:17 WBC 8.4 RBC 4.61 Hgb 14.0 Hct 43.2 D MCV 93.8 MCH 30.4 MCHC 32.4 RDW 14.2 Plt Count 260 MPV 8.7 Absolute Neuts (auto) 4.9 Neutrophils % 58.4 Lymphocytes % 29.3 Monocytes % 8.8 Eosinophils % 2.6 Basophils % 0.9 Nucleated RBC % 0 PT with INR 11.30 INR 1.00 Sodium 138 Potassium 4.7 Chloride 106 Carbon Dioxide 25 Anion Gap 7 L BUN 28 H D Creatinine 0.9 D Creat Clearance w eGFR > 60 Random Glucose 130 H Calcium 8.9 Total Bilirubin 0.6 D AST 38 H D ALT 63 D Alkaline Phosphatase 72 Total Protein 7.1 Albumin 3.6 D Blood Type Antibody Screen 11/11/17 18:17 WBC RBC Hgb Hct MCV MCH MCHC RDW Plt Count MPV Absolute Neuts (auto) Neutrophils % Lymphocytes % Monocytes % Eosinophils % Basophils % Nucleated RBC % PT with INR INR Sodium Potassium Chloride Carbon Dioxide Anion Gap BUN Creatinine Creat Clearance w eGFR Random Glucose Calcium Total Bilirubin AST ALT Alkaline Phosphatase Total Protein Albumin Blood Type Cancelled Antibody Screen Cancelled Active Medications Generic Name Dose Route Start Last Admin Trade Name Freq PRN Reason Stop Dose Admin Heparin Sodium (Porcine) 1,000 unit 11/11/17 18:36 Heparin - IVPUSH PRN PRN Heparin Heparin Sodium (Porcine) 5,000 unit 11/11/17 18:36 Heparin - IVPUSH PRN PRN Heparin Heparin Sodium (Porcine) 25, 500 mls @ 20 mls/hr 11/11/17 18:45 000 unit/ Sodium Chloride IV TITR CRISTI Protocol 1,000 UNIT/HR
[2017-11-11] MEDS ORDERED: HEPARIN INFUSION - 25,000 UNITS/500 ML INFUS.BAG IVPB ONE (21:05)
[2017-11-11] MEDS ORDERED: HEPARIN NA (PORCINE) 5,000 UNITS/ML 1ML VIAL ONE (21:05)
[2017-11-11] MEDS ORDERED: PATIENT'S OWN MEDICATION (NON-FORMULARY) (Insulin (Levemir) [Levemir Flexpen -] 20 UNITS) SQ SCH (22:00)
[2017-11-11] MEDS: HEPARIN - 25,000 UNIT in SODIUM CHLORIDE 495 ML IV SCH (22:10)
[2017-11-11] MEDS ORDERED: INSULIN (LEVEMIR) 100 UNITS/ML UNITS SQ ONE (22:36)
[2017-11-11] MEDS ORDERED: INSULIN (NOVOLOG) ASPART 100 UNITS/ML 10ML VIAL ONE (22:37)
[2017-11-11] MEDS ORDERED: ATORVASTATIN CA 80 MG TABLET (FP) ONE (22:38)
[2017-11-11] MEDS: INSULIN (LEVEMIR) 100 UNITS/ML UNITS SQ SCH (22:55)
[2017-11-11] MEDS: ATORVASTATIN CA 80 MG TABLET (FP) PO SCH (22:56)
[2017-11-11] MEDS: INSULIN SLIDING SCALE (NOVOLOG) 1 VIAL SQ SCH (22:56)
[2017-11-12] MEDS ORDERED: IBUPROFEN 600 MG TABLET (FP) PO ONE (01:30)
[2017-11-12 03:14] VITALS: BMI 24.3
[2017-11-12] MEDS: INSULIN SLIDING SCALE (NOVOLOG) 1 VIAL SQ SCH ×4 (06:54→21:32)
[2017-11-12] MEDS: INSULIN (LEVEMIR) 100 UNITS/ML UNITS SQ SCH ×2 (06:54→21:33)
--- NOTE | 2017-11-12 07:49 | PN ---
Progress Note (short form) - Note Progress Note: VAscular Surgery Pt seen and examined. Came from [facility] ER Complains of pain in right leg for 5 days. Pt non compliant -- continues to smoke. Just stopped last week. Pt had angioplasty with stent placement in may. Never followed up. CTA done at [facility], showed Stent occlusion. On physical exam, pt has palpable PT pulse. Cont IV heparin drip. Pt booked for angiogram tom. Casey Doherty DO
[2017-11-12] MEDS: IBUPROFEN 600 MG TABLET (FP) PO PRN ×2 (09:12→20:19)
[2017-11-12] MEDS: LISINOPRIL 10 MG TABLET (FP) PO SCH (09:12)
[2017-11-12] MEDS: PANTOPRAZOLE 40 MG TABLET (FP) PO SCH (09:12)
[2017-11-12] MEDS: CLOPIDOGREL BISULFATE 75 MG TABLET (FP) PO SCH (09:13)
--- NOTE | 2017-11-12 15:07 | EKG ---
Test Reason : Blood Pressure : / mmHG Vent. Rate : 081 BPM Atrial Rate : 081 BPM P-R Int : 132 ms QRS Dur : 094 ms QT Int : 388 ms P-R-T Axes : 037 -07 054 degrees QTc Int : 450 ms NORMAL SINUS RHYTHM NORMAL ECG WHEN COMPARED WITH ECG OF 30-SEP-2017 15:47, T WAVE INVERSION NO LONGER EVIDENT IN ANTERIOR LEADS Confirmed by MD Dez, Geovanny ([id number]) on 11/12/2017 3:07:37 PM Referred By: Confirmed By:Geovanny Garces MD
--- NOTE | 2017-11-12 17:41 | PN ---
Progress Note, Physician - Current Medication List Current Medications: Active Medications Atorvastatin Calcium (Lipitor -) 80 mg PO HS [facility] Last Admin: 11/11/17 22:56 Dose: 80 mg Bupropion HCl (Wellbutrin Xl -) 150 mg PO DAILY [facility] Last Admin: 11/12/17 09:12 Dose: 150 mg Clopidogrel Bisulfate (Plavix -) 75 mg PO DAILY [facility] Last Admin: 11/12/17 09:13 Dose: 75 mg Heparin Sodium (Porcine) (Heparin -) 5,000 unit IVPUSH PRN PRN PRN Reason: Heparin Last Admin: 11/11/17 22:10 Dose: 5,000 unit Heparin Sodium (Porcine) 25, (000 unit/ Sodium Chloride) 500 mls @ 20 mls/hr IV TITR [facility]; Protocol Last Titration: 11/12/17 09:13 Dose: 1,000 unit/hr, 20 mls/hr Ibuprofen (Motrin -) 600 mg PO Q8H PRN PRN Reason: PAIN LEVEL 1-5 Last Admin: 11/12/17 09:12 Dose: 600 mg Insulin Aspart (Novolog Vial Sliding Scale -) 1 vial SQ ACHS [facility]; Protocol Last Admin: 11/12/17 16:48 Dose: 6 units Insulin Detemir (Levemir Vial) 15 units SQ AM [facility] Last Admin: 11/12/17 06:54 Dose: 15 units Insulin Detemir (Levemir Vial) 20 units SQ HS [facility] Last Admin: 11/11/17 22:55 Dose: 20 units Lisinopril (Prinivil) 10 mg PO DAILY [facility] Last Admin: 11/12/17 09:12 Dose: 10 mg Pantoprazole Sodium (Protonix -) 40 mg PO DAILY [facility] Last Admin: 11/12/17 09:12 Dose: 40 mg - Objective Vital Signs: Vital Signs Temperature 98.2 F 11/12/17 15:57 Pulse Rate 78 11/12/17 15:57 Respiratory Rate 20 11/12/17 15:57 Blood Pressure 130/68 11/12/17 15:57 O2 Sat by Pulse Oximetry (%) 97 11/12/17 09:00 Constitutional: Yes: No Distress HENT: Yes: Atraumatic Neck: Yes: Supple Cardiovascular: Yes: Regular Rate and Rhythm Respiratory: Yes: CTA Bilaterally Gastrointestinal: Yes: Normal Bowel Sounds Extremities: Yes: Cold (R 1 and 2 toes) Edema: No Peripheral Pulses WNL: Yes (feeble R) Neurological: Yes: Alert, Oriented Labs: CBC, BMP 11/11/17 18:17 11/11/17 18:17 INR, PTT INR 1.00 (0.82-1.09) 11/11/17 18:17 Problem List - Problems (1) Superficial femoral artery occlusion Assessment/Plan: dr gr to see pt on heparin drip for angiogram in am Code(s): I77.9 - DISORDER OF ARTERIES AND ARTERIOLES, UNSPECIFIED (2) Diabetes mellitus Assessment/Plan: on insulin and bgms Code(s): E11.9 - TYPE 2 DIABETES MELLITUS WITHOUT COMPLICATIONS (3) HTN (hypertension) Assessment/Plan: on meds Code(s): I10 - ESSENTIAL (PRIMARY) HYPERTENSION
[2017-11-12] MEDS: HEPARIN - 25,000 UNIT in SODIUM CHLORIDE 495 ML IV SCH (20:43)
[2017-11-12] MEDS ORDERED: INSULIN (NOVOLOG) ASPART 100 UNITS/ML 10ML VIAL ONE (21:07)
[2017-11-12] MEDS: ATORVASTATIN CA 80 MG TABLET (FP) PO SCH (21:32)
[2017-11-13] MEDS: INSULIN (LEVEMIR) 100 UNITS/ML UNITS SQ SCH ×2 (06:51→22:36)
[2017-11-13] MEDS: INSULIN SLIDING SCALE (NOVOLOG) 1 VIAL SQ SCH ×4 (06:52→22:37)
[2017-11-13 07:01] LABS: HEMATOCRIT 38.6 % (35.4-49); HEMOGLOBIN 12.9 GM/dL (11.7-16.9); MCH 31.7 pg (25.7-33.7); MCHC 33.5 g/dl (32.0-35.9); MEAN CELL VOLUME 94.6 fl (80-96); MEAN PLT VOLUME 8.5 fl (7.5-11.1); PLATELET COUNT 230 K/MM3 (134-434); RBC 4.09 M/mm3 (4.00-5.60); WHITE BLOOD COUNT 8.6 K/mm3 (4.0-10.0)
[2017-11-13] MEDS: PANTOPRAZOLE 40 MG TABLET (FP) PO SCH (10:11)
[2017-11-13] MEDS: CLOPIDOGREL BISULFATE 75 MG TABLET (FP) PO SCH (10:11)
[2017-11-13] MEDS: IBUPROFEN 600 MG TABLET (FP) PO PRN (10:11)
[2017-11-13] MEDS: LISINOPRIL 10 MG TABLET (FP) PO SCH (10:11)
--- NOTE | 2017-11-13 12:15 | PN ---
Progress Note, Physician - Current Medication List Current Medications: Active Medications Atorvastatin Calcium (Lipitor -) 80 mg PO HS [facility] Last Admin: 11/12/17 21:32 Dose: 80 mg Bupropion HCl (Wellbutrin Xl -) 150 mg PO DAILY [facility] Last Admin: 11/13/17 10:11 Dose: 150 mg Clopidogrel Bisulfate (Plavix -) 75 mg PO DAILY [facility] Last Admin: 11/13/17 10:11 Dose: 75 mg Heparin Sodium (Porcine) (Heparin -) 5,000 unit IVPUSH PRN PRN PRN Reason: Heparin Last Admin: 11/11/17 22:10 Dose: 5,000 unit Ibuprofen (Motrin -) 600 mg PO Q8H PRN PRN Reason: PAIN LEVEL 1-5 Last Admin: 11/13/17 10:11 Dose: 600 mg Insulin Aspart (Novolog Vial Sliding Scale -) 1 vial SQ [facility]; Protocol Last Admin: 11/13/17 11:40 Dose: Not Given Insulin Detemir (Levemir Vial) 15 units SQ AM [facility] Last Admin: 11/13/17 06:51 Dose: Not Given Insulin Detemir (Levemir Vial) 20 units SQ HS [facility] Last Admin: 11/12/17 21:33 Dose: 20 units Lisinopril (Prinivil) 10 mg PO DAILY [facility] Last Admin: 11/13/17 10:11 Dose: 10 mg Pantoprazole Sodium (Protonix -) 40 mg PO DAILY [facility] Last Admin: 11/13/17 10:11 Dose: 40 mg - Objective Vital Signs: Vital Signs Temperature 97.6 F 11/13/17 06:00 Pulse Rate 79 11/13/17 06:00 Respiratory Rate 19 11/13/17 06:00 Blood Pressure 136/80 11/13/17 06:00 O2 Sat by Pulse Oximetry (%) 96 11/12/17 21:00 HENT: Yes: Atraumatic Neck: Yes: Supple Cardiovascular: Yes: Regular Rate and Rhythm Respiratory: Yes: CTA Bilaterally Gastrointestinal: Yes: Normal Bowel Sounds Neurological: Yes: Alert, Oriented Labs: CBC, BMP 11/13/17 05:50 11/11/17 18:17 INR, PTT INR 1.00 (0.82-1.09) 11/11/17 18:17 Problem List - Problems (1) Superficial femoral artery occlusion Assessment/Plan: dr gr to see pt on heparin drip for angiogram today Code(s): I77.9 - DISORDER OF ARTERIES AND ARTERIOLES, UNSPECIFIED (2) Diabetes mellitus Assessment/Plan: on insulin and bgms Code(s): E11.9 - TYPE 2 DIABETES MELLITUS WITHOUT COMPLICATIONS (3) HTN (hypertension) Assessment/Plan: on meds stable Code(s): I10 - ESSENTIAL (PRIMARY) HYPERTENSION
[2017-11-13] MEDS ORDERED: ceFAZolin SODIUM 1 GM VIAL IVPB ONE (18:42)
[2017-11-13] MEDS ORDERED: MIDAZOLAM HCL 2 MG/2 ML SINGLE DOSE VIAL ONE ×3 (18:44→18:51)
[2017-11-13] MEDS ORDERED: ceFAZolin SODIUM 1 GM VIAL ONE (18:49)
[2017-11-13] MEDS ORDERED: ONDANSETRON 4 MG/2 ML VIAL IVPUSH PRN ×2 (19:53→21:00)
[2017-11-13] MEDS ORDERED: PROMETHAZINE HCL 25 MG/1 ML VIAL IVPUSH PRN (19:53)
[2017-11-13] MEDS ORDERED: oxyCODONE HCL 5 MG TABLET PO PRN (19:53)
[2017-11-13] MEDS ORDERED: LACTATED RINGERS SOLUTION 1,000 ML IV SCH (20:00)
[2017-11-13] MEDS ORDERED: CLOPIDOGREL BISULFATE 75 MG TABLET (FP) ONE (20:11)
--- NOTE | 2017-11-13 20:21 | OP ---
Operative Note - Note: Operative Date: 11/13/17 Pre-Operative Diagnosis: RLE ischemia Operation: Aortogram, RLE angiogram, SFA angioplasty, with popliteal artery stent placement. Findings: instent stenosis Post-Operative Diagnosis: Same as Pre-op Anesthesia: Fractional Estimated Blood Loss (mls): 50 Operative Report Dictated: Yes
--- NOTE | 2017-11-13 20:25 | PN ---
Progress Note (short form) - Note Progress Note: Vascular Surgery S/P angioplasty with stent. Plavix continued. Please have pt ambulate. Pt can be dc home once he feels stable on his feet. Pt cannot smoke anymore. smoking cessation advised. Follow up in office in one week. Please send pt home on plavix. Casey gr dO
[2017-11-13] MEDS ORDERED: CLOPIDOGREL BISULFATE 75 MG TABLET (FP) PO SCH (20:30)
[2017-11-13] MEDS ORDERED: HEPARIN NA (PORCINE) 5,000 UNITS/ML 1ML VIAL IVPUSH PRN (21:00)
[2017-11-13] MEDS ORDERED: PROMETHAZINE HCL 25 MG/1 ML VIAL IVPB PRN (21:00)
[2017-11-13] MEDS: LACTATED RINGERS SOLUTION 1,000 ML IV SCH (22:36)
[2017-11-13] MEDS: ATORVASTATIN CA 80 MG TABLET (FP) PO SCH (22:37)
[2017-11-13] MEDS: oxyCODONE HCL 5 MG TABLET PO PRN (22:37)
[2017-11-14] MEDS: oxyCODONE HCL 5 MG TABLET PO PRN ×3 (04:33→19:11)
[2017-11-14] MEDS: INSULIN (LEVEMIR) 100 UNITS/ML UNITS SQ SCH ×2 (06:26→21:51)
[2017-11-14] MEDS: INSULIN SLIDING SCALE (NOVOLOG) 1 VIAL SQ SCH ×4 (06:26→21:51)
[2017-11-14 07:01] LABS: HEMATOCRIT 39.3 % (35.4-49); HEMOGLOBIN 13.1 GM/dL (11.7-16.9); MCH 31.6 pg (25.7-33.7); MCHC 33.3 g/dl (32.0-35.9); MEAN CELL VOLUME 95.1 fl (80-96); MEAN PLT VOLUME 8.9 fl (7.5-11.1); PLATELET COUNT 237 K/MM3 (134-434); RBC 4.14 M/mm3 (4.00-5.60); RDW 13.9 % (11.9-15.9); WHITE BLOOD COUNT 9.6 K/mm3 (4.0-10.0)
[2017-11-14 08:40] LABS: ANION GAP 11 (8-16); BLOOD UREA NITROGEN 18 mg/dL (7-18); CHLORIDE 101 mmol/L (98-107); CO2 23 mmol/L (21-32); CREATININE 1.1 mg/dL (0.7-1.3); POTASSIUM 4.7 mmol/L (3.5-5.1); SGOT/AST 26 U/L (15-37); SGPT/ALT 68 U/L (12-78); SODIUM 135 mmol/L (136-145)
[2017-11-14 08:41] LABS: ALK PHOS 69 U/L (45-117); BILIRUBIN,TOTAL 0.5 mg/dL (0.2-1.0); TOT PROT 6.1 g/dl (6.4-8.2)
[2017-11-14 08:46] LABS: GLUCOSE,RANDOM 443 mg/dL (74-106)
[2017-11-14] MEDS: CLOPIDOGREL BISULFATE 75 MG TABLET (FP) PO SCH (11:19)
[2017-11-14] MEDS: PANTOPRAZOLE 40 MG TABLET (FP) PO SCH (11:19)
[2017-11-14] MEDS: LISINOPRIL 10 MG TABLET (FP) PO SCH (11:19)
[2017-11-14] MEDS: IBUPROFEN 600 MG TABLET (FP) PO PRN ×2 (11:19→21:50)
[2017-11-14] MEDS ORDERED: NICOTINE 21 MG/24 HOURS TOPICAL PATCH TD ONE (14:45)
[2017-11-14] MEDS ORDERED: PT OWN MED DRAWER 7, Y5N ONE (19:50)
--- NOTE | 2017-11-14 20:06 | PN ---
Progress Note, Physician History of Present Illness: s/p angioplasty rlex - Current Medication List Current Medications: Active Medications Atorvastatin Calcium (Lipitor -) 80 mg PO HS [facility] Last Admin: 11/13/17 22:37 Dose: 80 mg Bupropion HCl (Wellbutrin Xl -) 150 mg PO DAILY [facility] Last Admin: 11/14/17 11:19 Dose: 150 mg Clopidogrel Bisulfate (Plavix -) 75 mg PO DAILY [facility] Last Admin: 11/14/17 11:19 Dose: 75 mg Lactated Ringer's (Lactated Ringers Solution) 1,000 mls @ 75 mls/hr IV ASDIR [facility] Last Admin: 11/13/17 22:36 Dose: Not Given Ibuprofen (Motrin -) 600 mg PO Q8H PRN PRN Reason: PAIN LEVEL 1-5 Last Admin: 11/14/17 11:19 Dose: 600 mg Insulin Aspart (Novolog Vial Sliding Scale -) 1 vial SQ [facility]; Protocol Last Admin: 11/14/17 17:07 Dose: 8 units Insulin Detemir (Levemir Vial) 15 units SQ AM [facility] Last Admin: 11/14/17 06:26 Dose: 15 units Insulin Detemir (Levemir Vial) 20 units SQ HS [facility] Last Admin: 11/13/17 22:36 Dose: 20 units Lisinopril (Prinivil) 10 mg PO DAILY [facility] Last Admin: 11/14/17 11:19 Dose: 10 mg Pantoprazole Sodium (Protonix -) 40 mg PO DAILY [facility] Last Admin: 11/14/17 11:19 Dose: 40 mg - Objective Vital Signs: Vital Signs Temperature 98.4 F 11/14/17 18:32 Pulse Rate 92 H 11/14/17 18:32 Respiratory Rate 18 11/14/17 18:32 Blood Pressure 145/66 11/14/17 18:32 O2 Sat by Pulse Oximetry (%) 97 11/14/17 11:00 Constitutional: Yes: No Distress HENT: Yes: Atraumatic Neck: Yes: Supple Cardiovascular: Yes: Regular Rate and Rhythm Respiratory: Yes: CTA Bilaterally Gastrointestinal: Yes: Normal Bowel Sounds Extremities: Yes: WNL, Other (R foot toes are warm, good circulation) Neurological: Yes: Alert, Oriented Labs: CBC, BMP 11/14/17 06:05 11/14/17 06:05 INR, PTT INR 1.00 (0.82-1.09) 11/11/17 18:17 Problem List - Problems (1) Superficial femoral artery occlusion Assessment/Plan: s/p angioplasty will be on plavix dc in am if stable Code(s): I77.9 - DISORDER OF ARTERIES AND ARTERIOLES, UNSPECIFIED (2) Diabetes mellitus Assessment/Plan: on insulin and bgms Code(s): E11.9 - TYPE 2 DIABETES MELLITUS WITHOUT COMPLICATIONS (3) HTN (hypertension) Assessment/Plan: on meds stable Code(s): I10 - ESSENTIAL (PRIMARY) HYPERTENSION
[2017-11-14] MEDS: POLYETHYLENE GLYCOL 3350 119 GM BTL PO SCH (21:50)
[2017-11-14] MEDS: ATORVASTATIN CA 80 MG TABLET (FP) PO SCH (21:50)
[2017-11-15] MEDS: LACTATED RINGERS SOLUTION 1,000 ML IV SCH (05:41)
[2017-11-15] MEDS: POLYETHYLENE GLYCOL 3350 119 GM BTL PO SCH (05:42)
[2017-11-15] MEDS: INSULIN SLIDING SCALE (NOVOLOG) 1 VIAL SQ SCH ×2 (06:00→12:08)
[2017-11-15] MEDS: INSULIN (LEVEMIR) 100 UNITS/ML UNITS SQ SCH (06:52)
[2017-11-15 07:50] LABS: HEMATOCRIT 38.7 % (35.4-49); HEMOGLOBIN 12.8 GM/dL (11.7-16.9); MCH 31.2 pg (25.7-33.7); MCHC 33.1 g/dl (32.0-35.9); MEAN CELL VOLUME 94.1 fl (80-96); MEAN PLT VOLUME 9.4 fl (7.5-11.1); PLATELET COUNT 252 K/MM3 (134-434); RBC 4.11 M/mm3 (4.00-5.60); RDW 13.9 % (11.9-15.9)
[2017-11-15 10:08] VITALS: BP 139/78; PULSE 69; TEMP 97.7
[2017-11-15] MEDS: IBUPROFEN 600 MG TABLET (FP) PO PRN (10:16)
[2017-11-15] MEDS: PANTOPRAZOLE 40 MG TABLET (FP) PO SCH (10:16)
[2017-11-15] MEDS: LISINOPRIL 10 MG TABLET (FP) PO SCH (10:21)
[2017-11-15] MEDS: CLOPIDOGREL BISULFATE 75 MG TABLET (FP) PO SCH (10:21)
[2017-11-15] MEDS ORDERED: INSULIN (NOVOLOG) ASPART 100 UNITS/ML 10ML VIAL ONE (12:08)
--- NOTE | 2017-11-15 13:42 | DS ---
Physical Examination Vital Signs: Vital Signs Temperature 97.7 F 11/15/17 10:08 Pulse Rate 69 11/15/17 10:08 Respiratory Rate 20 11/15/17 10:08 Blood Pressure 139/78 11/15/17 10:08 O2 Sat by Pulse Oximetry (%) 97 11/14/17 11:00 Constitutional: Yes: No Distress HENT: Yes: Atraumatic Neck: Yes: Supple Cardiovascular: Yes: Regular Rate and Rhythm Respiratory: Yes: CTA Bilaterally Gastrointestinal: Yes: Normal Bowel Sounds Extremities: Yes: WNL, Other (R foot warm) Neurological: Yes: Alert, Oriented Labs: CBC, BMP 11/15/17 06:16 11/14/17 06:05 Discharge Summary Reason For Visit: SUPERFICIAL FEMORAL ARTERY OOCLUSION Current Active Problems Superficial femoral artery occlusion (Acute) Condition: Stable - Instructions Diet, Activity, Other Instructions: see your doctor next week Referrals: Sheldon Monte [Primary Care Provider] - Disposition: HOME - Home Medications Comprehensive Discharge Medication List: Ambulatory Orders Aspirin [Aspirin EC] 81 mg PO DAILY 12/17/16 Atorvastatin Ca [Lipitor] 80 mg PO HS 12/17/16 BUPROPion HCL "SR" [Wellbutrin Sr -] 150 mg PO DAILY 12/17/16 Insulin (Levemir) [Levemir Flexpen -] 20 units SQ HS #1 pen 05/30/17 Lisinopril 10 mg PO DAILY #30 tablet 05/30/17 Clopidogrel Bisulfate [Plavix] 75 mg PO DAILY 09/30/17 Insulin Glargine,Hum.rec.anlog [Basaglar Kwikpen U-100] 10 unit SQ DAILY Calcium 500Mg/Vit-D 200 Units [Os-Herman 500+D -] 1 tab PO DAILY tab 10/04/17 Clonidine Patch [Catapres Tts Patch -] 0.2 mg TD Q7D@1000 28 Days #4 patch.tdwk NS 10/04/17 Insulin (Levemir) [Levemir Vial] 15 units SQ AM ml 10/04/17 Pantoprazole Sodium [Protonix -] 40 mg PO DAILY tablet.ec 10/04/17 Carvedilol [Coreg -] 3.125 mg PO BID 11/11/17 Gabapentin [Neurontin -] 300 mg PO TID 11/11/17 Ibuprofen 600 mg PO Q8H 11/11/17 Insulin Lispro [Humalog] 7 unit SQ TID 11/11/17 Meclizine HCl 25 mg PO DAILY 11/11/17 Metformin HCl [Glucophage] 1,000 mg PO BID 11/11/17 Metoprolol Succinate [Toprol Xl -] 12.5 mg PO DAILY 11/11/17 Nicotine [Nicotine Patch 7 mg/24 hr] 1 each TD ASDIR 11/11/17 Tamsulosin HCl [Flomax] 0.4 mg PO DAILY 11/11/17 Clopidogrel Bisulfate [Plavix] 75 mg PO DAILY #30 tablet 11/13/17 mi home
[2017-11-15] MEDS ORDERED: NICOTINE 21 MG/24 HOURS TOPICAL PATCH TD ONE (14:00)
[2017-11-15] MEDS ORDERED: POLYETHYLENE GLYCOL 3350 119 GM BTL PO ONE (14:00)
== END 2017-11-15 15:54 | disposition home or self-care (01) | DRG 173 ==
LOC: JER 16:37 → JERBED 18:49 → J5S 11-12 00:50
PROVIDERS: ADMIT Internal Medicine; ATTEND Internal Medicine
PROC: 047K34Z Dilation of Right Femoral Artery with Drug-eluting Intraluminal Device, Percutaneous Approach (ICD-10-PCS; principal; 2017-11-13 17:00)
DX: I77.1 Stricture of artery (principal); E11.9 Type 2 diabetes mellitus without complications; I10 Essential (primary) hypertension; I25.10 Atherosclerotic heart disease of native coronary artery without angina pectoris; Z95.1 Presence of aortocoronary bypass graft; F17.210 Nicotine dependence, cigarettes, uncomplicated; Z79.4 Long term (current) use of insulin; Z91.14 Patient's other noncompliance with medication regimen
CPT/HCPCS: 36415; 71046-TC-FY; 76000-TC-FY; 80053; 82962; 83605; 85025; 85027; 85610; 85730; 86850; 86900; 86901; 93005; 93010; 94760; 97116-GP; 97161-GP; 99284-25; J1644

== ENCOUNTER 2022-02-22 17:34 | Inpatient (IN) | payer OTHER ==
[2022-02-22] MEDS ORDERED: VANCOMYCIN 1 GM in D5W (PRE-DOCKED) 1,000 MG/250 ML IVPB ONE (18:32)
[2022-02-22] MEDS ORDERED: PIPERACILLIN/TAZOB 4.5 GM 4.5 GM in DEXTROSE 5%-WATER 100 ML IVPB ONE (18:32)
[2022-02-22] MEDS ORDERED: ACETAMINOPHEN 1000 MG/100 ML BAG IVPB ONE (18:32)
[2022-02-22 19:45] LABS: BASO % 0.9 % (0-2.0); EOS % 1.7 % (0-4.5); HEMATOCRIT 29.8 % (35.4-49); HEMOGLOBIN 9.8 GM/dL (11.7-16.9); LYMPH % 16.6 % (8-40); MCH 30.5 pg (25.7-33.7); MCHC 32.9 g/dl (32.0-35.9); MEAN CELL VOLUME 92.8 fl (80-96); MEAN PLT VOLUME 9.2 fl (7.5-11.1); MONO % 5.6 % (3.8-10.2); NEUT % 75.2 % (42.8-82.8); PLATELET COUNT 246 10^3/uL (134-434); RBC 3.21 M/mm3 (4.00-5.60); RDW 15.5 % (11.9-15.9); WHITE BLOOD COUNT 9.7 K/mm3 (4.0-10.0)
[2022-02-22 20:01] LABS: INR 1.25 (0.83-1.09); PROTHROMBIN TIME (PATIENT) 14.4 SEC (9.7-13.0)
[2022-02-22 20:02] LABS: ACTIVATED PTT 29.3 SECONDS (25.2-36.5)
[2022-02-22 20:09] LABS: CREATININE 1.3 mg/dL (0.55-1.3)
[2022-02-22 20:11] LABS: BILIRUBIN,TOTAL 0.6 mg/dL (0.2-1); TOT PROT 5.3 g/dl (6.4-8.2)
[2022-02-22] MEDS ORDERED: INSULIN (NOVOLOG) ASPART 100 UNITS/ML 10ML VIAL SQ ONE (21:23)
[2022-02-22] MEDS ORDERED: VANCOMYCIN/WATER FOR INJ (PEG) 1,000 MG/200 ML BAG IVPB ONE (21:53)
[2022-02-22] MEDS ORDERED: PIPERACILLIN/TAZOB 4.5 GM 4.5 GM/100 ML BAG IVPB ONE (21:53)
[2022-02-22] MEDS ORDERED: ACETAMINOPHEN INJECTION 100 ML IVPB ONE (21:53)
[2022-02-22] MEDS ORDERED: INSULIN SLIDING SCALE (NOVOLOG) 1 VIAL SQ SCH (22:15)
[2022-02-22] MEDS ORDERED: PANTOPRAZOLE 40 MG TABLET PO ONE (22:28)
[2022-02-22] MEDS ORDERED: LACTATED RINGERS SOLUTION 1,000 ML/1,000 ML INFUS.BAG IV SCH (22:30)
[2022-02-23] MEDS: HEPARIN NA (PORCINE) 5,000 UNITS/ML 1ML VIAL SQ SCH ×4 (00:16→21:35)
[2022-02-23] MEDS: CARVEDILOL 3.125 MG TABLET (FP) PO SCH ×3 (00:16→21:33)
[2022-02-23] MEDS: GABAPENTIN 300 MG CAPSULE PO SCH ×4 (00:16→21:33)
[2022-02-23] MEDS ORDERED: PANTOPRAZOLE 40 MG TABLET PO ONE (00:18)
[2022-02-23] MEDS ORDERED: CARVEDILOL 3.125 MG TABLET (FP) ONE (00:18)
[2022-02-23] MEDS ORDERED: GABAPENTIN 300 MG CAPSULE ONE (00:19)
[2022-02-23] MEDS: ACETAMINOPHEN 325 MG TABLET (FP) PO PRN ×2 (02:46→08:09)
[2022-02-23 03:05] VITALS: BMI 23.7
[2022-02-23] MEDS: INSULIN SLIDING SCALE (NOVOLOG) 1 VIAL SQ SCH ×5 (06:10→21:35)
[2022-02-23 08:40] LABS: BASO % 0.8 % (0-2.0); EOS % 3.4 % (0-4.5); HEMATOCRIT 28.4 % (35.4-49); HEMOGLOBIN 9.5 GM/dL (11.7-16.9); LYMPH % 23.5 % (8-40); MCH 30.7 pg (25.7-33.7); MCHC 33.6 g/dl (32.0-35.9); MEAN CELL VOLUME 91.4 fl (80-96); MEAN PLT VOLUME 9.1 fl (7.5-11.1); MONO % 8.6 % (3.8-10.2); NEUT % 63.7 % (42.8-82.8); PLATELET COUNT 238 10^3/uL (134-434); RBC 3.11 M/mm3 (4.00-5.60); RDW 15.5 % (11.9-15.9); WHITE BLOOD COUNT 10.2 K/mm3 (4.0-10.0)
[2022-02-23] MEDS: LACTATED RINGERS SOLUTION 1,000 ML/1,000 ML INFUS.BAG IV SCH ×2 (08:53→14:49)
[2022-02-23 09:12] LABS: BLOOD UREA NITROGEN 25.5 mg/dL (7-18); CALCIUM 7.8 mg/dL (8.5-10.1); CREATININE 0.9 mg/dL (0.55-1.3)
[2022-02-23] MEDS: TAMSULOSIN HCL 0.4 MG CAP PO SCH (09:15)
[2022-02-23] MEDS: PANTOPRAZOLE 40 MG TABLET PO SCH (09:15)
[2022-02-23] MEDS: ASCORBIC ACID 500 MG TABLET (FP) PO SCH (09:15)
[2022-02-23] MEDS: oxyCODONE HCL 5 MG TABLET PO PRN ×3 (09:16→19:16)
[2022-02-23] MEDS: INSULIN (LEVEMIR) 100 UNITS/ML UNITS SQ SCH ×2 (09:18→21:35)
[2022-02-23 09:24] LABS: ALBUMIN 2.4 g/dl (3.4-5.0)
[2022-02-23] MEDS ORDERED: metoPROLOL SUCCINATE 25 MG TAB.SR.24H (FP) PO SCH (10:00)
[2022-02-23] MEDS ORDERED: FLU VACC QS2022-23(6MOS UP)/PF 60 MCG/0.5 ML SYRINGE IM ONE (10:00)
[2022-02-23] MEDS: ZINC SULFATE 220 MG CAPSULE (FP) PO SCH (10:40)
[2022-02-23 12:05] LABS: EPI CELLS 12 /uL (0-25.1); HYALINE CASTS 2 /uL (0-3.1); PH,URINE 5.5 (5.0-8.0); URINE APPEARANCE CLEAR; URINE BACTERIA 65 /uL (0-1359); URINE BILIRUBIN NEGATIVE (NEGATIVE); URINE COLOR YELLOW; URINE GLUCOSE (UA) TRACE (NEGATIVE); URINE KETONE NEGATIVE (NEGATIVE); URINE LEUK ESTERASE NEGATIVE (NEGATIVE); URINE NITRITE NEGATIVE (NEGATIVE); URINE PROTEIN 4+ (NEGATIVE); URINE RBC 31 /uL (0-23.9); URINE UROBILINOGEN 0.2 mg/dL (0.2-1.0); URINE WBC 18 /uL (0-25.8)
[2022-02-23 12:07] LABS: ALBUMIN 2.6 g/dl (3.4-5.0)
[2022-02-23] MEDS: VITAMIN A 10,000 UNITS (3000 MCG) CAPSULE PO SCH (12:27)
[2022-02-23] MEDS: CHOLECALCIFEROL (VIT D3) 5000 UNITS (125 MCG) CAP PO SCH (12:27)
[2022-02-23] MEDS: LISINOPRIL 10 MG TABLET PO SCH (12:27)
[2022-02-23] MEDS: AMINO ACIDS/PROTEIN HYDROLYS 30 ML LIQUID.PKT PO SCH (17:40)
[2022-02-23 18:41] LABS: IRON SERUM 59 ug/dL (50-175); TOTAL IRON BINDING CAPACITY 212 ug/dL (250-450)
[2022-02-23] MEDS: VANCOMYCIN/WATER FOR INJ (PEG) 1,000 MG/200 ML BAG IVPB SCH (19:15)
[2022-02-23] MEDS: PIPERACILLIN/TAZOB 3.375 GM 3.375 GM in DEXTROSE 5%-WATER - 50 ML IVPB SCH (19:15)
[2022-02-23] MEDS ORDERED: oxyCODONE HCL 5 MG TABLET PO ONE (21:30)
[2022-02-23] MEDS: ATORVASTATIN CA 80 MG TABLET (FP) PO SCH (21:33)
[2022-02-23] MEDS: MELATONIN 5 MG TABLETS PO PRN (21:35)
[2022-02-24] MEDS: PIPERACILLIN/TAZOB 3.375 GM 3.375 GM in DEXTROSE 5%-WATER - 50 ML IVPB SCH ×3 (01:38→17:56)
[2022-02-24] MEDS: oxyCODONE HCL 5 MG TABLET PO PRN ×4 (01:53→23:37)
[2022-02-24] MEDS: GABAPENTIN 300 MG CAPSULE PO SCH ×3 (06:40→21:17)
[2022-02-24] MEDS: VANCOMYCIN/WATER FOR INJ (PEG) 1,000 MG/200 ML BAG IVPB SCH ×2 (06:40→18:51)
[2022-02-24] MEDS: HEPARIN NA (PORCINE) 5,000 UNITS/ML 1ML VIAL SQ SCH ×3 (06:40→21:19)
[2022-02-24] MEDS: INSULIN SLIDING SCALE (NOVOLOG) 1 VIAL SQ SCH ×3 (06:40→17:51)
[2022-02-24 08:20] LABS: BASO % 0.8 % (0-2.0); LYMPH % 17.7 % (8-40); MCH 30.7 pg (25.7-33.7); MCHC 33.3 g/dl (32.0-35.9); MEAN CELL VOLUME 92.2 fl (80-96); MEAN PLT VOLUME 8.5 fl (7.5-11.1); MONO % 8.8 % (3.8-10.2); NEUT % 68.7 % (42.8-82.8); PLATELET COUNT 281 10^3/uL (134-434); RBC 3.25 M/mm3 (4.00-5.60); RDW 15.5 % (11.9-15.9); WHITE BLOOD COUNT 10.6 K/mm3 (4.0-10.0)
[2022-02-24] MEDS: AMINO ACIDS/PROTEIN HYDROLYS 30 ML LIQUID.PKT PO SCH ×2 (08:36→17:55)
[2022-02-24] MEDS: TAMSULOSIN HCL 0.4 MG CAP PO SCH (08:36)
[2022-02-24 08:40] LABS: BLOOD UREA NITROGEN 22.8 mg/dL (7-18); CALCIUM 8.1 mg/dL (8.5-10.1)
[2022-02-24] MEDS: ASCORBIC ACID 500 MG TABLET (FP) PO SCH (09:06)
[2022-02-24] MEDS: CARVEDILOL 3.125 MG TABLET (FP) PO SCH ×2 (09:07→21:17)
[2022-02-24] MEDS: PANTOPRAZOLE 40 MG TABLET PO SCH (09:07)
[2022-02-24] MEDS: LISINOPRIL 10 MG TABLET PO SCH (09:07)
[2022-02-24] MEDS: MULTIVITAMINS (DAILY MVI) TABLET (FP) PO SCH (09:07)
[2022-02-24] MEDS: ZINC SULFATE 220 MG CAPSULE (FP) PO SCH (09:07)
[2022-02-24] MEDS: VITAMIN A 10,000 UNITS (3000 MCG) CAPSULE PO SCH (09:07)
[2022-02-24] MEDS: INSULIN (LEVEMIR) 100 UNITS/ML UNITS SQ SCH ×2 (09:08→22:56)
[2022-02-24] MEDS: CHOLECALCIFEROL (VIT D3) 5000 UNITS (125 MCG) CAP PO SCH (09:08)
[2022-02-24] MEDS ORDERED: INSULIN SLIDING SCALE (NOVOLOG) 1 VIAL SQ SCH ×2 (09:37→16:30)
[2022-02-24] MEDS ORDERED: INSULIN (LEVEMIR) 100 UNITS/ML UNITS SQ SCH ×2 (09:44→22:00)
[2022-02-24] MEDS ORDERED: CARVEDILOL 3.125 MG TABLET (FP) PO SCH (09:44)
[2022-02-24] MEDS: LACTATED RINGERS SOLUTION 1,000 ML/1,000 ML INFUS.BAG IV SCH (15:50)
[2022-02-24] MEDS ORDERED: cloNIDine-TTS 0.2 MG/24 HOURS PATCH.TDWK TD SCH (17:30)
[2022-02-24] MEDS: ACETAMINOPHEN 325 MG TABLET (FP) PO PRN ×2 (17:58→21:18)
[2022-02-24] MEDS: ATORVASTATIN CA 80 MG TABLET (FP) PO SCH (21:17)
[2022-02-24] MEDS: MELATONIN 5 MG TABLETS PO PRN (21:32)
[2022-02-25] MEDS: ACETAMINOPHEN 325 MG TABLET (FP) PO PRN ×6 (01:11→23:55)
[2022-02-25] MEDS ORDERED: cloNIDine HCL 0.1 MG TABLET PO SCH ×2 (02:00→06:00)
[2022-02-25] MEDS: PIPERACILLIN/TAZOB 3.375 GM 3.375 GM in DEXTROSE 5%-WATER - 50 ML IVPB SCH ×3 (02:59→17:06)
[2022-02-25] MEDS: oxyCODONE HCL 5 MG TABLET PO PRN ×5 (03:50→21:58)
[2022-02-25] MEDS: HEPARIN NA (PORCINE) 5,000 UNITS/ML 1ML VIAL SQ SCH ×3 (06:16→22:01)
[2022-02-25] MEDS: GABAPENTIN 300 MG CAPSULE PO SCH ×3 (06:16→21:58)
[2022-02-25] MEDS: INSULIN (LEVEMIR) 100 UNITS/ML UNITS SQ SCH ×2 (06:28→22:03)
[2022-02-25] MEDS: INSULIN SLIDING SCALE (NOVOLOG) 1 VIAL SQ SCH ×3 (06:29→17:06)
[2022-02-25] MEDS: VANCOMYCIN/WATER FOR INJ (PEG) 1,000 MG/200 ML BAG IVPB SCH ×2 (07:16→18:58)
[2022-02-25] MEDS: LACTATED RINGERS SOLUTION 1,000 ML/1,000 ML INFUS.BAG IV SCH ×2 (08:02→11:20)
[2022-02-25] MEDS: TAMSULOSIN HCL 0.4 MG CAP PO SCH (08:55)
[2022-02-25] MEDS: AMINO ACIDS/PROTEIN HYDROLYS 30 ML LIQUID.PKT PO SCH ×2 (08:55→16:54)
[2022-02-25 09:18] LABS: EOS % 5.3 % (0-4.5); HEMOGLOBIN 9.2 GM/dL (11.7-16.9); LYMPH % 31.5 % (8-40); MCH 30.6 pg (25.7-33.7); MEAN CELL VOLUME 92.8 fl (80-96); MEAN PLT VOLUME 8.8 fl (7.5-11.1); MONO % 11.1 % (3.8-10.2); NEUT % 51.1 % (42.8-82.8); PLATELET COUNT 266 10^3/uL (134-434); RBC 3.01 M/mm3 (4.00-5.60); RDW 15.6 % (11.9-15.9); WHITE BLOOD COUNT 6.8 K/mm3 (4.0-10.0)
[2022-02-25] MEDS: MULTIVITAMINS (DAILY MVI) TABLET (FP) PO SCH (09:32)
[2022-02-25] MEDS: ASCORBIC ACID 500 MG TABLET (FP) PO SCH (09:32)
[2022-02-25] MEDS: CARVEDILOL 3.125 MG TABLET (FP) PO SCH ×2 (09:32→21:59)
[2022-02-25] MEDS: VITAMIN A 10,000 UNITS (3000 MCG) CAPSULE PO SCH (09:33)
[2022-02-25] MEDS: PANTOPRAZOLE 40 MG TABLET PO SCH (09:33)
[2022-02-25] MEDS: ZINC SULFATE 220 MG CAPSULE (FP) PO SCH (09:33)
[2022-02-25] MEDS: LISINOPRIL 10 MG TABLET PO SCH (09:33)
[2022-02-25] MEDS: CHOLECALCIFEROL (VIT D3) 5000 UNITS (125 MCG) CAP PO SCH (09:34)
[2022-02-25 09:39] LABS: CALCIUM 8.2 mg/dL (8.5-10.1)
[2022-02-25 09:43] LABS: CREATININE 1.2 mg/dL (0.55-1.3)
[2022-02-25] MEDS: cloNIDine HCL 0.1 MG TABLET PO SCH ×2 (13:24→22:00)
[2022-02-25] MEDS: MELATONIN 5 MG TABLETS PO PRN (21:57)
[2022-02-25] MEDS: ATORVASTATIN CA 80 MG TABLET (FP) PO SCH (21:59)
[2022-02-26] MEDS: oxyCODONE HCL 5 MG TABLET PO PRN ×4 (02:31→17:41)
[2022-02-26] MEDS: PIPERACILLIN/TAZOB 3.375 GM 3.375 GM in DEXTROSE 5%-WATER - 50 ML IVPB SCH ×3 (02:32→17:41)
[2022-02-26] MEDS: cloNIDine HCL 0.1 MG TABLET PO SCH ×4 (06:06→21:25)
[2022-02-26] MEDS: GABAPENTIN 300 MG CAPSULE PO SCH ×3 (06:07→21:29)
[2022-02-26] MEDS: INSULIN SLIDING SCALE (NOVOLOG) 1 VIAL SQ SCH ×4 (06:07→17:47)
[2022-02-26] MEDS: INSULIN (LEVEMIR) 100 UNITS/ML UNITS SQ SCH ×3 (06:08→21:32)
[2022-02-26] MEDS: HEPARIN NA (PORCINE) 5,000 UNITS/ML 1ML VIAL SQ SCH ×3 (06:10→21:27)
[2022-02-26] MEDS: TAMSULOSIN HCL 0.4 MG CAP PO SCH (08:54)
[2022-02-26] MEDS: AMINO ACIDS/PROTEIN HYDROLYS 30 ML LIQUID.PKT PO SCH ×2 (08:54→17:42)
[2022-02-26] MEDS: ACETAMINOPHEN 325 MG TABLET (FP) PO PRN ×2 (08:54→18:54)
[2022-02-26] MEDS: CARVEDILOL 3.125 MG TABLET (FP) PO SCH ×2 (09:09→21:26)
[2022-02-26] MEDS: SILVER SULFADIAZINE 1% TOP CREAM 50 GM JAR TP SCH (10:14)
[2022-02-26] MEDS: LISINOPRIL 10 MG TABLET PO SCH (11:43)
[2022-02-26] MEDS: ASCORBIC ACID 500 MG TABLET (FP) PO SCH (11:44)
[2022-02-26] MEDS: PANTOPRAZOLE 40 MG TABLET PO SCH (11:44)
[2022-02-26] MEDS: ZINC SULFATE 220 MG CAPSULE (FP) PO SCH (11:44)
[2022-02-26] MEDS: MULTIVITAMINS (DAILY MVI) TABLET (FP) PO SCH (11:44)
[2022-02-26 14:54] LABS: BASO % 1.2 % (0-2.0); EOS % 4.2 % (0-4.5); HEMATOCRIT 27.1 % (35.4-49); HEMOGLOBIN 8.9 GM/dL (11.7-16.9); LYMPH % 21.2 % (8-40); MCH 30.6 pg (25.7-33.7); MCHC 32.9 g/dl (32.0-35.9); MEAN CELL VOLUME 93.2 fl (80-96); MEAN PLT VOLUME 8.7 fl (7.5-11.1); MONO % 10.9 % (3.8-10.2); NEUT % 62.5 % (42.8-82.8); PLATELET COUNT 259 10^3/uL (134-434); RBC 2.91 M/mm3 (4.00-5.60); RDW 15.9 % (11.9-15.9); WHITE BLOOD COUNT 8.3 K/mm3 (4.0-10.0)
[2022-02-26 15:15] LABS: BLOOD UREA NITROGEN 36.6 mg/dL (7-18)
[2022-02-26 15:18] LABS: CREATININE 1.1 mg/dL (0.55-1.3)
[2022-02-26] MEDS: CHOLECALCIFEROL (VIT D3) 5000 UNITS (125 MCG) CAP PO SCH (15:56)
[2022-02-26] MEDS: VITAMIN A 10,000 UNITS (3000 MCG) CAPSULE PO SCH (15:57)
[2022-02-26] MEDS: LACTATED RINGERS SOLUTION 1,000 ML/1,000 ML INFUS.BAG IV SCH (15:57)
[2022-02-26] MEDS ORDERED: CLOPIDOGREL BISULFATE 75 MG TABLET (FP) PO SCH (16:45)
[2022-02-26] MEDS: CLOPIDOGREL BISULFATE 75 MG TABLET (FP) PO SCH (17:42)
[2022-02-26] MEDS: ATORVASTATIN CA 80 MG TABLET (FP) PO SCH (21:28)
[2022-02-27] MEDS: ACETAMINOPHEN 325 MG TABLET (FP) PO PRN ×3 (00:09→22:49)
[2022-02-27] MEDS: MELATONIN 5 MG TABLETS PO PRN ×2 (00:09→21:51)
[2022-02-27] MEDS: oxyCODONE HCL 5 MG TABLET PO PRN ×4 (00:30→22:48)
[2022-02-27] MEDS: PIPERACILLIN/TAZOB 3.375 GM 3.375 GM in DEXTROSE 5%-WATER - 50 ML IVPB SCH ×3 (01:31→18:33)
[2022-02-27] MEDS: cloNIDine HCL 0.1 MG TABLET PO SCH ×4 (06:24→21:51)
[2022-02-27] MEDS: HEPARIN NA (PORCINE) 5,000 UNITS/ML 1ML VIAL SQ SCH ×2 (06:25→14:15)
[2022-02-27] MEDS: GABAPENTIN 300 MG CAPSULE PO SCH ×3 (06:26→21:51)
[2022-02-27] MEDS: INSULIN (LEVEMIR) 100 UNITS/ML UNITS SQ SCH ×2 (06:26→21:52)
[2022-02-27] MEDS: INSULIN SLIDING SCALE (NOVOLOG) 1 VIAL SQ SCH ×3 (06:27→16:48)
[2022-02-27] MEDS: VANCOMYCIN/WATER FOR INJ (PEG) 1,000 MG/200 ML BAG IVPB SCH ×2 (07:17→19:36)
[2022-02-27 08:00] LABS: EOS % 3.9 % (0-4.5); HEMATOCRIT 26.5 % (35.4-49); HEMOGLOBIN 9.1 GM/dL (11.7-16.9); LYMPH % 21.5 % (8-40); MCH 31.8 pg (25.7-33.7); MCHC 34.4 g/dl (32.0-35.9); MEAN CELL VOLUME 92.4 fl (80-96); MEAN PLT VOLUME 8.4 fl (7.5-11.1); MONO % 10.4 % (3.8-10.2); NEUT % 63.2 % (42.8-82.8); PLATELET COUNT 268 10^3/uL (134-434); RBC 2.87 M/mm3 (4.00-5.60); RDW 15.9 % (11.9-15.9); WHITE BLOOD COUNT 8.1 K/mm3 (4.0-10.0)
[2022-02-27 08:23] LABS: BLOOD UREA NITROGEN 37.8 mg/dL (7-18)
[2022-02-27 08:26] LABS: CREATININE 1.1 mg/dL (0.55-1.3)
[2022-02-27] MEDS: LISINOPRIL 10 MG TABLET PO SCH (09:15)
[2022-02-27] MEDS: CARVEDILOL 3.125 MG TABLET (FP) PO SCH ×2 (09:15→21:51)
[2022-02-27] MEDS: ZINC SULFATE 220 MG CAPSULE (FP) PO SCH (09:15)
[2022-02-27] MEDS: TAMSULOSIN HCL 0.4 MG CAP PO SCH (09:15)
[2022-02-27] MEDS: ASCORBIC ACID 500 MG TABLET (FP) PO SCH (09:15)
[2022-02-27] MEDS: MULTIVITAMINS (DAILY MVI) TABLET (FP) PO SCH (09:15)
[2022-02-27] MEDS: AMINO ACIDS/PROTEIN HYDROLYS 30 ML LIQUID.PKT PO SCH ×2 (09:15→16:48)
[2022-02-27] MEDS: PANTOPRAZOLE 40 MG TABLET PO SCH (09:15)
[2022-02-27] MEDS: SILVER SULFADIAZINE 1% TOP CREAM 50 GM JAR TP SCH (09:18)
[2022-02-27] MEDS: CHOLECALCIFEROL (VIT D3) 5000 UNITS (125 MCG) CAP PO SCH (09:18)
[2022-02-27] MEDS: LACTATED RINGERS SOLUTION 1,000 ML/1,000 ML INFUS.BAG IV SCH (09:18)
[2022-02-27] MEDS: VITAMIN A 10,000 UNITS (3000 MCG) CAPSULE PO SCH (09:18)
[2022-02-27] MEDS: CLOPIDOGREL BISULFATE 75 MG TABLET (FP) PO SCH (10:25)
[2022-02-27] MEDS ORDERED: IRON SUCROSE INJECTION 300 MG in SODIUM CHLORIDE 235 ML IVPB ONE (14:00)
[2022-02-27] MEDS ORDERED: HEPARIN NA (PORCINE) 5,000 UNITS/ML 1ML VIAL IVPUSH PRN (14:47)
[2022-02-27] MEDS: HEPARIN INFUSION - 25,000 UNITS/500 ML INFUS.BAG IVPB SCH (16:37)
[2022-02-27 16:52] LABS: ACTIVATED PTT 35.7 SECONDS (25.2-36.5)
[2022-02-27 18:09] LABS: INR 1.03 (0.83-1.09); PROTHROMBIN TIME (PATIENT) 11.9 SEC (9.7-13.0)
[2022-02-27] MEDS: ATORVASTATIN CA 80 MG TABLET (FP) PO SCH (21:50)
[2022-02-27] MEDS: ALBUTEROL SO4 2.5/IPRATROPIUM 0.5 INH SOL 3 ML VIAL.NEB. NEB PRN (23:00)
[2022-02-27] MEDS ORDERED: ALBUTEROL SO4 0.083% IH SOL 2.5 MG/3 ML VIAL.NEB. NEB ONE (23:22)
[2022-02-27] MEDS: HEPARIN NA (PORCINE) 5,000 UNITS/ML 1ML VIAL IVPUSH PRN (23:23)
[2022-02-28] MEDS ORDERED: LISINOPRIL 10 MG TABLET PO ONE (01:10)
[2022-02-28] MEDS ORDERED: LISINOPRIL 10 MG TABLET PO SCH ×2 (01:15→10:00)
[2022-02-28] MEDS: PIPERACILLIN/TAZOB 3.375 GM 3.375 GM in DEXTROSE 5%-WATER - 50 ML IVPB SCH ×3 (01:29→17:50)
[2022-02-28] MEDS: GABAPENTIN 300 MG CAPSULE PO SCH ×3 (05:35→21:25)
[2022-02-28] MEDS: ACETAMINOPHEN 325 MG TABLET (FP) PO PRN ×2 (05:35→14:31)
[2022-02-28] MEDS: oxyCODONE HCL 5 MG TABLET PO PRN ×2 (05:35→14:31)
[2022-02-28] MEDS: VANCOMYCIN/WATER FOR INJ (PEG) 1,000 MG/200 ML BAG IVPB SCH ×2 (06:07→18:48)
[2022-02-28] MEDS: INSULIN SLIDING SCALE (NOVOLOG) 1 VIAL SQ SCH ×3 (06:08→18:48)
[2022-02-28] MEDS: INSULIN (LEVEMIR) 100 UNITS/ML UNITS SQ SCH ×2 (06:08→21:28)
[2022-02-28 08:23] LABS: EOS % 3.7 % (0-4.5); HEMOGLOBIN 9.1 GM/dL (11.7-16.9); LYMPH % 19.8 % (8-40); MCHC 33.6 g/dl (32.0-35.9); MEAN CELL VOLUME 92.1 fl (80-96); MEAN PLT VOLUME 8.8 fl (7.5-11.1); MONO % 8.8 % (3.8-10.2); NEUT % 66.7 % (42.8-82.8); PLATELET COUNT 302 10^3/uL (134-434); RBC 2.93 M/mm3 (4.00-5.60); RDW 15.7 % (11.9-15.9); WHITE BLOOD COUNT 9.3 K/mm3 (4.0-10.0)
[2022-02-28 08:37] LABS: BLOOD UREA NITROGEN 41.7 mg/dL (7-18); CALCIUM 8.2 mg/dL (8.5-10.1)
[2022-02-28 08:41] LABS: CREATININE 1.1 mg/dL (0.55-1.3)
[2022-02-28] MEDS: CHOLECALCIFEROL (VIT D3) 5000 UNITS (125 MCG) CAP PO SCH (10:00)
[2022-02-28] MEDS ORDERED: cloNIDine HCL 0.1 MG TABLET PO SCH ×2 (10:15)
[2022-02-28] MEDS: PANTOPRAZOLE 40 MG TABLET PO SCH (10:43)
[2022-02-28] MEDS: MULTIVITAMINS (DAILY MVI) TABLET (FP) PO SCH (10:43)
[2022-02-28] MEDS: ASCORBIC ACID 500 MG TABLET (FP) PO SCH (10:43)
[2022-02-28] MEDS: AMINO ACIDS/PROTEIN HYDROLYS 30 ML LIQUID.PKT PO SCH ×2 (10:43→17:50)
[2022-02-28] MEDS: cloNIDine HCL 0.1 MG TABLET PO SCH ×4 (10:43→21:25)
[2022-02-28] MEDS: ZINC SULFATE 220 MG CAPSULE (FP) PO SCH (10:43)
[2022-02-28] MEDS: CARVEDILOL 3.125 MG TABLET (FP) PO SCH ×2 (10:44→21:25)
[2022-02-28] MEDS: TAMSULOSIN HCL 0.4 MG CAP PO SCH (10:44)
[2022-02-28] MEDS: VITAMIN A 10,000 UNITS (3000 MCG) CAPSULE PO SCH (11:03)
[2022-02-28] MEDS: SILVER SULFADIAZINE 1% TOP CREAM 50 GM JAR TP SCH (12:00)
[2022-02-28 16:16] LABS: ACTIVATED PTT 123.2 SECONDS (25.2-36.5); INR 0.99 (0.83-1.09); PROTHROMBIN TIME (PATIENT) 11.4 SEC (9.7-13.0)
[2022-02-28] MEDS ORDERED: INSULIN SLIDING SCALE (NOVOLOG) 1 VIAL SQ SCH (18:14)
[2022-02-28] MEDS: LACTATED RINGERS SOLUTION 1,000 ML/1,000 ML INFUS.BAG IV SCH (19:38)
[2022-02-28] MEDS: HEPARIN INFUSION - 25,000 UNITS/500 ML INFUS.BAG IVPB SCH (19:39)
[2022-02-28] MEDS: MELATONIN 5 MG TABLETS PO PRN (21:25)
[2022-02-28] MEDS: ATORVASTATIN CA 80 MG TABLET (FP) PO SCH (21:25)
[2022-03-01] MEDS: PIPERACILLIN/TAZOB 3.375 GM 3.375 GM in DEXTROSE 5%-WATER - 50 ML IVPB SCH ×3 (01:38→17:18)
[2022-03-01] MEDS: GABAPENTIN 300 MG CAPSULE PO SCH ×3 (06:33→21:42)
[2022-03-01] MEDS: VANCOMYCIN/WATER FOR INJ (PEG) 1,000 MG/200 ML BAG IVPB SCH ×2 (06:34→21:41)
[2022-03-01] MEDS: cloNIDine HCL 0.1 MG TABLET PO SCH ×3 (06:34→13:11)
[2022-03-01] MEDS: INSULIN (LEVEMIR) 100 UNITS/ML UNITS SQ SCH ×2 (06:35→21:42)
[2022-03-01 07:27] LABS: EOS % 2.9 % (0-4.5); HEMATOCRIT 26.4 % (35.4-49); HEMOGLOBIN 8.7 GM/dL (11.7-16.9); LYMPH % 19.4 % (8-40); MCH 30.8 pg (25.7-33.7); MCHC 32.8 g/dl (32.0-35.9); MEAN PLT VOLUME 9.2 fl (7.5-11.1); MONO % 11.2 % (3.8-10.2); NEUT % 65.5 % (42.8-82.8); PLATELET COUNT 279 10^3/uL (134-434); RBC 2.81 M/mm3 (4.00-5.60); RDW 15.8 % (11.9-15.9); WHITE BLOOD COUNT 8.2 K/mm3 (4.0-10.0)
[2022-03-01 07:58] LABS: BLOOD UREA NITROGEN 37.8 mg/dL (7-18)
[2022-03-01 08:01] LABS: CREATININE 1.2 mg/dL (0.55-1.3)
[2022-03-01] MEDS ORDERED: IRON SUCROSE INJECTION 300 MG in SODIUM CHLORIDE 235 ML IVPB ONE (08:03)
[2022-03-01] MEDS ORDERED: INSULIN (LEVEMIR) 100 UNITS/ML UNITS SQ SCH (08:10)
[2022-03-01] MEDS ORDERED: cloNIDine HCL 0.1 MG TABLET PO ONE ×2 (08:12→22:43)
[2022-03-01] MEDS: HEPARIN NA (PORCINE) 5,000 UNITS/ML 1ML VIAL IVPUSH PRN (09:34)
[2022-03-01] MEDS: AMINO ACIDS/PROTEIN HYDROLYS 30 ML LIQUID.PKT PO SCH ×2 (09:50→17:18)
[2022-03-01] MEDS: TAMSULOSIN HCL 0.4 MG CAP PO SCH (09:51)
[2022-03-01] MEDS: VITAMIN A 10,000 UNITS (3000 MCG) CAPSULE PO SCH (09:52)
[2022-03-01] MEDS: PANTOPRAZOLE 40 MG TABLET PO SCH (09:53)
[2022-03-01] MEDS: ZINC SULFATE 220 MG CAPSULE (FP) PO SCH (09:53)
[2022-03-01] MEDS: CARVEDILOL 3.125 MG TABLET (FP) PO SCH ×2 (09:53→21:42)
[2022-03-01] MEDS: MULTIVITAMINS (DAILY MVI) TABLET (FP) PO SCH (09:54)
[2022-03-01] MEDS: CHOLECALCIFEROL (VIT D3) 5000 UNITS (125 MCG) CAP PO SCH (09:54)
[2022-03-01] MEDS: ASCORBIC ACID 500 MG TABLET (FP) PO SCH (09:54)
[2022-03-01] MEDS ORDERED: cloNIDine-TTS 0.2 MG/24 HOURS PATCH.TDWK TD SCH (10:00)
[2022-03-01] MEDS: LISINOPRIL 10 MG TABLET PO SCH (10:02)
[2022-03-01] MEDS: SILVER SULFADIAZINE 1% TOP CREAM 50 GM JAR TP SCH (10:02)
[2022-03-01] MEDS: INSULIN SLIDING SCALE (NOVOLOG) 1 VIAL SQ SCH ×2 (12:23→17:19)
[2022-03-01] MEDS: LACTATED RINGERS SOLUTION 1,000 ML/1,000 ML INFUS.BAG IV SCH (13:10)
[2022-03-01] MEDS: guaiFENesin 200 MG/10 ML 10 ML UNIT-DOSE CUPS PO PRN ×3 (13:11→21:42)
[2022-03-01] MEDS: HEPARIN INFUSION - 25,000 UNITS/500 ML INFUS.BAG IVPB SCH (17:12)
[2022-03-01] MEDS ORDERED: INSULIN SLIDING SCALE (NOVOLOG) 1 VIAL SQ SCH (17:12)
[2022-03-01] MEDS: MELATONIN 5 MG TABLETS PO PRN (21:42)
[2022-03-01] MEDS: clonazePAM 0.5 MG TABLET PO PRN (21:42)
[2022-03-01] MEDS: ATORVASTATIN CA 80 MG TABLET (FP) PO SCH (21:42)
[2022-03-01] MEDS ORDERED: cloNIDine HCL 0.1 MG TABLET PO SCH ×3 (22:00→22:45)
[2022-03-01] MEDS ORDERED: clonazePAM 0.5 MG TABLET PO ONE (23:55)
[2022-03-02] MEDS: cloNIDine HCL 0.1 MG TABLET PO SCH ×5 (00:30→22:12)
[2022-03-02] MEDS: PIPERACILLIN/TAZOB 3.375 GM 3.375 GM in DEXTROSE 5%-WATER - 50 ML IVPB SCH ×3 (01:31→17:51)
[2022-03-02] MEDS: INSULIN (LEVEMIR) 100 UNITS/ML UNITS SQ SCH ×3 (06:37→23:00)
[2022-03-02] MEDS: GABAPENTIN 300 MG CAPSULE PO SCH ×3 (06:37→22:13)
[2022-03-02] MEDS: VANCOMYCIN/WATER FOR INJ (PEG) 1,000 MG/200 ML BAG IVPB SCH ×2 (06:38→18:03)
[2022-03-02] MEDS ORDERED: hydrALAZINE HCL 10 MG TABLET PO ONE (07:31)
[2022-03-02 08:20] LABS: BASO % 0.9 % (0-2.0); EOS % 2.1 % (0-4.5); HEMATOCRIT 25.9 % (35.4-49); HEMOGLOBIN 8.7 GM/dL (11.7-16.9); MCH 31.2 pg (25.7-33.7); MCHC 33.7 g/dl (32.0-35.9); MEAN CELL VOLUME 92.7 fl (80-96); MEAN PLT VOLUME 8.9 fl (7.5-11.1); PLATELET COUNT 269 10^3/uL (134-434); RBC 2.79 M/mm3 (4.00-5.60); RDW 16.2 % (11.9-15.9); WHITE BLOOD COUNT 11.5 K/mm3 (4.0-10.0)
[2022-03-02 08:59] LABS: BLOOD UREA NITROGEN 40.4 mg/dL (7-18)
[2022-03-02 09:00] LABS: CALCIUM 8.2 mg/dL (8.5-10.1)
[2022-03-02 09:02] LABS: CREATININE 1.2 mg/dL (0.55-1.3)
[2022-03-02] MEDS: LACTATED RINGERS SOLUTION 1,000 ML/1,000 ML INFUS.BAG IV SCH (10:00)
[2022-03-02] MEDS ORDERED: hydrALAZINE HCL 10 MG TABLET PO SCH (10:00)
[2022-03-02] MEDS: clonazePAM 0.5 MG TABLET PO PRN (10:29)
[2022-03-02] MEDS: PANTOPRAZOLE 40 MG TABLET PO SCH (10:37)
[2022-03-02] MEDS: CHOLECALCIFEROL (VIT D3) 5000 UNITS (125 MCG) CAP PO SCH (10:37)
[2022-03-02] MEDS: MULTIVITAMINS (DAILY MVI) TABLET (FP) PO SCH (10:37)
[2022-03-02] MEDS: TAMSULOSIN HCL 0.4 MG CAP PO SCH (10:37)
[2022-03-02] MEDS: VITAMIN A 10,000 UNITS (3000 MCG) CAPSULE PO SCH (10:38)
[2022-03-02] MEDS: LISINOPRIL 10 MG TABLET PO SCH (10:38)
[2022-03-02] MEDS: ASCORBIC ACID 500 MG TABLET (FP) PO SCH (10:38)
[2022-03-02] MEDS: ZINC SULFATE 220 MG CAPSULE (FP) PO SCH (10:39)
[2022-03-02] MEDS: CARVEDILOL 3.125 MG TABLET (FP) PO SCH ×2 (10:39→22:13)
[2022-03-02] MEDS: AMINO ACIDS/PROTEIN HYDROLYS 30 ML LIQUID.PKT PO SCH ×2 (10:39→17:21)
[2022-03-02] MEDS: SILVER SULFADIAZINE 1% TOP CREAM 50 GM JAR TP SCH (10:40)
[2022-03-02] MEDS: hydrALAZINE HCL 10 MG TABLET PO SCH ×2 (12:00→17:52)
[2022-03-02] MEDS: INSULIN SLIDING SCALE (NOVOLOG) 1 VIAL SQ SCH ×2 (14:10→17:20)
[2022-03-02 15:53] LABS: ACTIVATED PTT 38.7 SECONDS (25.2-36.5); INR 0.99 (0.83-1.09); PROTHROMBIN TIME (PATIENT) 11.4 SEC (9.7-13.0)
[2022-03-02] MEDS: HEPARIN INFUSION - 25,000 UNITS/500 ML INFUS.BAG IVPB SCH (16:00)
[2022-03-02] MEDS: HEPARIN NA (PORCINE) 5,000 UNITS/ML 1ML VIAL IVPUSH PRN (16:02)
[2022-03-02] MEDS: guaiFENesin 200 MG/10 ML 10 ML UNIT-DOSE CUPS PO PRN (17:58)
[2022-03-02] MEDS ORDERED: MELATONIN 5 MG TABLETS PO PRN (19:50)
[2022-03-02] MEDS ORDERED: ACETAMINOPHEN 325 MG TABLET (FP) PO PRN (19:50)
[2022-03-02] MEDS: ALBUTEROL SO4 2.5/IPRATROPIUM 0.5 INH SOL 3 ML VIAL.NEB. NEB PRN (21:08)
[2022-03-02] MEDS: ATORVASTATIN CA 80 MG TABLET (FP) PO SCH (22:12)
[2022-03-02] MEDS ORDERED: LORazepam 2 MG/ML SDV VIAL IVPUSH ONE (22:15)
[2022-03-02] MEDS ORDERED: FUROSEMIDE 40 MG/4 ML INJECTABLE VIAL ONE (23:40)
[2022-03-03] MEDS: cloNIDine HCL 0.1 MG TABLET PO SCH ×6 (03:52→20:00)
[2022-03-03] MEDS: PIPERACILLIN/TAZOB 3.375 GM 3.375 GM in DEXTROSE 5%-WATER - 50 ML IVPB SCH ×3 (03:52→17:56)
[2022-03-03] MEDS: hydrALAZINE HCL 10 MG TABLET PO SCH ×5 (03:52→16:40)
[2022-03-03] MEDS: GABAPENTIN 300 MG CAPSULE PO SCH ×3 (06:57→14:10)
[2022-03-03] MEDS: INSULIN (LEVEMIR) 100 UNITS/ML UNITS SQ SCH ×2 (06:57→21:49)
[2022-03-03] MEDS: INSULIN SLIDING SCALE (NOVOLOG) 1 VIAL SQ SCH ×3 (06:58→17:55)
[2022-03-03] MEDS: VANCOMYCIN/WATER FOR INJ (PEG) 1,000 MG/200 ML BAG IVPB SCH ×2 (06:58→18:19)
[2022-03-03] MEDS ORDERED: FUROSEMIDE 40 MG/4 ML INJECTABLE VIAL IVPUSH ONE (08:00)
[2022-03-03 08:05] LABS: HEMATOCRIT 26.5 % (35.4-49); HEMOGLOBIN 8.6 GM/dL (11.7-16.9); MCH 30.3 pg (25.7-33.7); MCHC 32.6 g/dl (32.0-35.9); MEAN PLT VOLUME 9.2 fl (7.5-11.1); PLATELET COUNT 301 10^3/uL (134-434); RBC 2.85 M/mm3 (4.00-5.60); RDW 16.3 % (11.9-15.9); WHITE BLOOD COUNT 11.1 K/mm3 (4.0-10.0)
[2022-03-03] MEDS ORDERED: TAMSULOSIN HCL 0.4 MG CAP PO SCH (08:30)
[2022-03-03] MEDS: AMINO ACIDS/PROTEIN HYDROLYS 30 ML LIQUID.PKT PO SCH ×2 (09:15→17:55)
[2022-03-03] MEDS ORDERED: VITAMIN A 10,000 UNITS (3000 MCG) CAPSULE PO SCH (10:00)
[2022-03-03] MEDS ORDERED: ZINC SULFATE 220 MG CAPSULE (FP) PO SCH (10:00)
[2022-03-03] MEDS ORDERED: hydrALAZINE HCL 10 MG TABLET PO SCH ×2 (10:00→19:17)
[2022-03-03] MEDS ORDERED: FUROSEMIDE 40 MG/4 ML INJECTABLE VIAL IVPUSH SCH (10:00)
[2022-03-03] MEDS: MULTIVITAMINS (DAILY MVI) TABLET (FP) PO SCH (10:35)
[2022-03-03] MEDS: CARVEDILOL 3.125 MG TABLET (FP) PO SCH (10:35)
[2022-03-03] MEDS: PANTOPRAZOLE 40 MG TABLET PO SCH (10:35)
[2022-03-03] MEDS: clonazePAM 0.5 MG TABLET PO PRN (10:35)
[2022-03-03] MEDS: LISINOPRIL 10 MG TABLET PO SCH (10:35)
[2022-03-03] MEDS: ASCORBIC ACID 500 MG TABLET (FP) PO SCH (10:35)
[2022-03-03] MEDS: CHOLECALCIFEROL (VIT D3) 5000 UNITS (125 MCG) CAP PO SCH (10:36)
[2022-03-03] MEDS: HEPARIN NA (PORCINE) 5,000 UNITS/ML 1ML VIAL IVPUSH PRN (10:48)
[2022-03-03] MEDS: SILVER SULFADIAZINE 1% TOP CREAM 50 GM JAR TP SCH (14:09)
[2022-03-03 15:48] LABS: BLOOD UREA NITROGEN 34.9 mg/dL (7-18); CALCIUM 9.1 mg/dL (8.5-10.1)
[2022-03-03 15:49] LABS: INR 1.06 (0.83-1.09); PROTHROMBIN TIME (PATIENT) 12.2 SEC (9.7-13.0)
[2022-03-03 15:51] LABS: ACTIVATED PTT 50.9 SECONDS (25.2-36.5)
[2022-03-03 15:52] LABS: CREATININE 1.2 mg/dL (0.55-1.3)
[2022-03-03] MEDS ORDERED: cloNIDine HCL 0.1 MG TABLET PO SCH (18:00)
[2022-03-03] MEDS: HEPARIN INFUSION - 25,000 UNITS/500 ML INFUS.BAG IVPB SCH (19:56)
[2022-03-03] MEDS: hydrALAZINE HCL 25 MG TABLET (FP) PO SCH ×2 (20:00→20:39)
[2022-03-03] MEDS: ATORVASTATIN CA 80 MG TABLET (FP) PO SCH (21:49)
[2022-03-04] MEDS: cloNIDine HCL 0.1 MG TABLET PO SCH (01:36)
[2022-03-04] MEDS: PIPERACILLIN/TAZOB 3.375 GM 3.375 GM in DEXTROSE 5%-WATER - 50 ML IVPB SCH ×3 (01:36→18:08)
[2022-03-04] MEDS: HEPARIN INFUSION - 25,000 UNITS/500 ML INFUS.BAG IVPB SCH ×2 (04:07→16:15)
[2022-03-04] MEDS ORDERED: cloNIDine HCL 0.1 MG TABLET PO SCH ×5 (05:00→22:00)
[2022-03-04] MEDS ORDERED: SODIUM CHLORIDE 500 ML IV STA ×2 (05:37→07:00)
[2022-03-04] MEDS: INSULIN SLIDING SCALE (NOVOLOG) 1 VIAL SQ SCH ×3 (06:23→16:44)
[2022-03-04] MEDS: INSULIN (LEVEMIR) 100 UNITS/ML UNITS SQ SCH ×2 (06:24→22:03)
[2022-03-04] MEDS: VANCOMYCIN/WATER FOR INJ (PEG) 1,000 MG/200 ML BAG IVPB SCH ×2 (06:25→18:50)
[2022-03-04 07:43] LABS: BASO % 1.3 % (0-2.0); EOS % 2.6 % (0-4.5); HEMATOCRIT 26.8 % (35.4-49); HEMOGLOBIN 9.2 GM/dL (11.7-16.9); LYMPH % 18.4 % (8-40); MCH 31.9 pg (25.7-33.7); MCHC 34.5 g/dl (32.0-35.9); MEAN CELL VOLUME 92.4 fl (80-96); MEAN PLT VOLUME 8.7 fl (7.5-11.1); MONO % 8.1 % (3.8-10.2); NEUT % 69.6 % (42.8-82.8); PLATELET COUNT 305 10^3/uL (134-434); RDW 16.1 % (11.9-15.9); WHITE BLOOD COUNT 9.9 K/mm3 (4.0-10.0)
[2022-03-04 08:09] LABS: CALCIUM 8.9 mg/dL (8.5-10.1)
[2022-03-04 08:14] LABS: CREATININE 1.3 mg/dL (0.55-1.3)
[2022-03-04] MEDS: HEPARIN NA (PORCINE) 5,000 UNITS/ML 1ML VIAL IVPUSH PRN ×2 (08:15→16:13)
[2022-03-04] MEDS ORDERED: FUROSEMIDE 40 MG/4 ML INJECTABLE VIAL IVPUSH SCH ×2 (10:00)
[2022-03-04] MEDS: AMINO ACIDS/PROTEIN HYDROLYS 30 ML LIQUID.PKT PO SCH ×2 (10:26→18:47)
[2022-03-04] MEDS: ASCORBIC ACID 500 MG TABLET (FP) PO SCH (10:27)
[2022-03-04] MEDS: MULTIVITAMINS (DAILY MVI) TABLET (FP) PO SCH (10:28)
[2022-03-04] MEDS: TAMSULOSIN HCL 0.4 MG CAP PO SCH (10:28)
[2022-03-04] MEDS: CHOLECALCIFEROL (VIT D3) 5000 UNITS (125 MCG) CAP PO SCH (10:29)
[2022-03-04] MEDS: PANTOPRAZOLE 40 MG TABLET PO SCH (10:29)
[2022-03-04] MEDS: oxyCODONE HCL 5 MG TABLET PO PRN ×2 (10:30→16:11)
[2022-03-04] MEDS: SILVER SULFADIAZINE 1% TOP CREAM 50 GM JAR TP SCH (10:44)
[2022-03-04] MEDS: ALBUTEROL SO4 2.5/IPRATROPIUM 0.5 INH SOL 3 ML VIAL.NEB. NEB PRN (15:46)
[2022-03-04] MEDS: CLOPIDOGREL BISULFATE 75 MG TABLET (FP) PO SCH (18:05)
[2022-03-04] MEDS ORDERED: FUROSEMIDE 40 MG/4 ML INJECTABLE VIAL IVPUSH ONE (19:04)
[2022-03-04] MEDS: clonazePAM 0.5 MG TABLET PO PRN (19:36)
[2022-03-04] MEDS: ATORVASTATIN CA 80 MG TABLET (FP) PO SCH (22:05)
[2022-03-04] MEDS ORDERED: HEPARIN NA (PORCINE) 5,000 UNITS/ML 1ML VIAL IVPUSH ONE (23:30)
[2022-03-05] MEDS: PIPERACILLIN/TAZOB 3.375 GM 3.375 GM in DEXTROSE 5%-WATER - 50 ML IVPB SCH ×3 (01:29→18:07)
[2022-03-05] MEDS: HEPARIN INFUSION - 25,000 UNITS/500 ML INFUS.BAG IVPB SCH ×2 (02:05→19:19)
[2022-03-05] MEDS ORDERED: CARVEDILOL 6.25 MG TABLET (FP) PO SCH ×2 (02:47→10:00)
[2022-03-05] MEDS ORDERED: CARVEDILOL 6.25 MG TABLET (FP) PO ONE (04:00)
[2022-03-05] MEDS: clonazePAM 0.5 MG TABLET PO PRN ×2 (06:29→14:29)
[2022-03-05] MEDS: ALBUTEROL SO4 2.5/IPRATROPIUM 0.5 INH SOL 3 ML VIAL.NEB. NEB PRN ×2 (06:29→23:46)
[2022-03-05] MEDS: INSULIN SLIDING SCALE (NOVOLOG) 1 VIAL SQ SCH ×3 (06:34→16:33)
[2022-03-05] MEDS: INSULIN (LEVEMIR) 100 UNITS/ML UNITS SQ SCH ×2 (06:39→22:25)
[2022-03-05] MEDS ORDERED: FUROSEMIDE 40 MG/4 ML INJECTABLE VIAL IVPUSH ONE (07:16)
[2022-03-05 08:12] LABS: BASO % 1.1 % (0-2.0); EOS % 3.4 % (0-4.5); HEMATOCRIT 26.9 % (35.4-49); HEMOGLOBIN 8.8 GM/dL (11.7-16.9); LYMPH % 25.6 % (8-40); MCH 30.5 pg (25.7-33.7); MCHC 32.7 g/dl (32.0-35.9); MEAN CELL VOLUME 93.3 fl (80-96); MONO % 11.1 % (3.8-10.2); NEUT % 58.8 % (42.8-82.8); PLATELET COUNT 315 10^3/uL (134-434); RBC 2.88 M/mm3 (4.00-5.60); RDW 16.4 % (11.9-15.9); WHITE BLOOD COUNT 8.6 K/mm3 (4.0-10.0)
[2022-03-05 08:38] LABS: CALCIUM 8.4 mg/dL (8.5-10.1)
[2022-03-05 08:39] LABS: BLOOD UREA NITROGEN 32.5 mg/dL (7-18)
[2022-03-05 08:41] LABS: CREATININE 1.2 mg/dL (0.55-1.3)
[2022-03-05] MEDS: TAMSULOSIN HCL 0.4 MG CAP PO SCH (10:02)
[2022-03-05] MEDS: CLOPIDOGREL BISULFATE 75 MG TABLET (FP) PO SCH (10:26)
[2022-03-05] MEDS: PANTOPRAZOLE 40 MG TABLET PO SCH (10:27)
[2022-03-05] MEDS: MULTIVITAMINS (DAILY MVI) TABLET (FP) PO SCH (10:27)
[2022-03-05] MEDS: SILVER SULFADIAZINE 1% TOP CREAM 50 GM JAR TP SCH (10:27)
[2022-03-05] MEDS: ASCORBIC ACID 500 MG TABLET (FP) PO SCH (10:27)
[2022-03-05] MEDS: CHOLECALCIFEROL (VIT D3) 5000 UNITS (125 MCG) CAP PO SCH (10:32)
[2022-03-05] MEDS: AMINO ACIDS/PROTEIN HYDROLYS 30 ML LIQUID.PKT PO SCH ×2 (10:35→18:07)
[2022-03-05] MEDS: VANCOMYCIN/WATER FOR INJ (PEG) 1,000 MG/200 ML BAG IVPB SCH (14:12)
[2022-03-05 15:16] LABS: INR 1.1 (0.83-1.09); PROTHROMBIN TIME (PATIENT) 12.7 SEC (9.7-13.0)
[2022-03-05 15:18] LABS: ACTIVATED PTT 54.4 SECONDS (25.2-36.5)
[2022-03-05] MEDS ORDERED: LOSARTAN POTASSIUM 50 MG TABLET PO ONE (16:18)
[2022-03-05] MEDS: amLODIPine BESYLATE 5 MG TABLET (FP) PO SCH (16:32)
[2022-03-05] MEDS: CARVEDILOL 12.5 MG TABLET (FP) PO SCH (22:26)
[2022-03-05] MEDS: ATORVASTATIN CA 80 MG TABLET (FP) PO SCH (22:26)
[2022-03-06] MEDS: clonazePAM 0.5 MG TABLET PO PRN ×3 (01:00→21:26)
[2022-03-06] MEDS: PIPERACILLIN/TAZOB 3.375 GM 3.375 GM in DEXTROSE 5%-WATER - 50 ML IVPB SCH ×3 (02:07→17:17)
[2022-03-06] MEDS: INSULIN (LEVEMIR) 100 UNITS/ML UNITS SQ SCH ×2 (06:49→21:27)
[2022-03-06] MEDS: INSULIN SLIDING SCALE (NOVOLOG) 1 VIAL SQ SCH ×3 (06:49→17:30)
[2022-03-06] MEDS ORDERED: FUROSEMIDE 40 MG/4 ML INJECTABLE VIAL IVPUSH ONE ×2 (07:10→15:34)
[2022-03-06 08:00] LABS: BASO % 0.9 % (0-2.0); EOS % 3.2 % (0-4.5); HEMATOCRIT 25.6 % (35.4-49); HEMOGLOBIN 8.5 GM/dL (11.7-16.9); MCH 30.8 pg (25.7-33.7); MEAN CELL VOLUME 93.4 fl (80-96); MEAN PLT VOLUME 8.8 fl (7.5-11.1); MONO % 9.3 % (3.8-10.2); NEUT % 62.6 % (42.8-82.8); PLATELET COUNT 290 10^3/uL (134-434); RBC 2.74 M/mm3 (4.00-5.60); WHITE BLOOD COUNT 8.5 K/mm3 (4.0-10.0)
[2022-03-06 08:33] LABS: CALCIUM 8.3 mg/dL (8.5-10.1)
[2022-03-06 08:34] LABS: BLOOD UREA NITROGEN 22.2 mg/dL (7-18)
[2022-03-06 08:37] LABS: CREATININE 1.1 mg/dL (0.55-1.3)
[2022-03-06] MEDS ORDERED: LOSARTAN POTASSIUM 50 MG TABLET PO SCH (10:00)
[2022-03-06] MEDS: MULTIVITAMINS (DAILY MVI) TABLET (FP) PO SCH (10:17)
[2022-03-06] MEDS: CARVEDILOL 12.5 MG TABLET (FP) PO SCH ×2 (10:18→21:26)
[2022-03-06] MEDS: ASCORBIC ACID 500 MG TABLET (FP) PO SCH (10:18)
[2022-03-06] MEDS: LOSARTAN POTASSIUM 50 MG TABLET PO SCH ×2 (10:18→21:26)
[2022-03-06] MEDS: amLODIPine BESYLATE 5 MG TABLET (FP) PO SCH (10:18)
[2022-03-06] MEDS: CLOPIDOGREL BISULFATE 75 MG TABLET (FP) PO SCH (10:18)
[2022-03-06] MEDS: AMINO ACIDS/PROTEIN HYDROLYS 30 ML LIQUID.PKT PO SCH ×2 (10:19→17:17)
[2022-03-06] MEDS: PANTOPRAZOLE 40 MG TABLET PO SCH (10:21)
[2022-03-06] MEDS: TAMSULOSIN HCL 0.4 MG CAP PO SCH (10:21)
[2022-03-06 10:38] LABS: N-TERMINAL BNP 5027.7 pg/ml (5-125)
[2022-03-06] MEDS: HEPARIN INFUSION - 25,000 UNITS/500 ML INFUS.BAG IVPB SCH (11:08)
[2022-03-06] MEDS: KCL 10 MEQ IVPB 10 MEQ/100 ML INFUS.BAG IVPB SCH ×3 (11:29→14:27)
[2022-03-06] MEDS: ALBUTEROL SO4 2.5/IPRATROPIUM 0.5 INH SOL 3 ML VIAL.NEB. NEB PRN ×2 (14:38→23:15)
[2022-03-06] MEDS: SILVER SULFADIAZINE 1% TOP CREAM 50 GM JAR TP SCH (17:17)
[2022-03-06] MEDS: CHOLECALCIFEROL (VIT D3) 5000 UNITS (125 MCG) CAP PO SCH (17:22)
[2022-03-06] MEDS ORDERED: IRON SUCROSE INJECTION 300 MG in SODIUM CHLORIDE 235 ML IVPB ONE (19:11)
[2022-03-06] MEDS: ATORVASTATIN CA 80 MG TABLET (FP) PO SCH (21:26)
[2022-03-07] MEDS: PIPERACILLIN/TAZOB 3.375 GM 3.375 GM in DEXTROSE 5%-WATER - 50 ML IVPB SCH ×3 (01:03→18:00)
[2022-03-07] MEDS: INSULIN (LEVEMIR) 100 UNITS/ML UNITS SQ SCH ×2 (06:30→21:18)
[2022-03-07] MEDS: INSULIN SLIDING SCALE (NOVOLOG) 1 VIAL SQ SCH ×3 (06:30→17:26)
[2022-03-07 07:34] LABS: BLOOD UREA NITROGEN 14.5 mg/dL (7-18); CALCIUM 8.5 mg/dL (8.5-10.1)
[2022-03-07] MEDS ORDERED: FUROSEMIDE 40 MG/4 ML INJECTABLE VIAL IVPUSH ONE (07:40)
[2022-03-07 08:22] LABS: BASO % 1.2 % (0-2.0); EOS % 4.8 % (0-4.5); HEMATOCRIT 27.3 % (35.4-49); LYMPH % 25.5 % (8-40); MCH 30.7 pg (25.7-33.7); MCHC 33.1 g/dl (32.0-35.9); MEAN CELL VOLUME 92.9 fl (80-96); MEAN PLT VOLUME 8.9 fl (7.5-11.1); MONO % 10.6 % (3.8-10.2); NEUT % 57.9 % (42.8-82.8); PLATELET COUNT 320 10^3/uL (134-434); RBC 2.94 M/mm3 (4.00-5.60); RDW 15.9 % (11.9-15.9); WHITE BLOOD COUNT 8.7 K/mm3 (4.0-10.0)
[2022-03-07] MEDS: PANTOPRAZOLE 40 MG TABLET PO SCH (09:43)
[2022-03-07] MEDS: MULTIVITAMINS (DAILY MVI) TABLET (FP) PO SCH (09:43)
[2022-03-07] MEDS: CLOPIDOGREL BISULFATE 75 MG TABLET (FP) PO SCH (09:43)
[2022-03-07] MEDS: CARVEDILOL 12.5 MG TABLET (FP) PO SCH ×2 (09:43→21:10)
[2022-03-07] MEDS: ASCORBIC ACID 500 MG TABLET (FP) PO SCH (09:43)
[2022-03-07] MEDS: TAMSULOSIN HCL 0.4 MG CAP PO SCH (09:44)
[2022-03-07] MEDS: CHOLECALCIFEROL (VIT D3) 5000 UNITS (125 MCG) CAP PO SCH (09:44)
[2022-03-07] MEDS: amLODIPine BESYLATE 5 MG TABLET (FP) PO SCH (09:44)
[2022-03-07] MEDS: AMINO ACIDS/PROTEIN HYDROLYS 30 ML LIQUID.PKT PO SCH ×2 (09:44→17:00)
[2022-03-07] MEDS: LOSARTAN POTASSIUM 50 MG TABLET PO SCH ×2 (09:44→21:11)
[2022-03-07] MEDS: oxyCODONE HCL 5 MG TABLET PO PRN ×2 (10:04→17:42)
[2022-03-07] MEDS: SPIRONOLACTONE 25 MG TABLET PO SCH (10:18)
[2022-03-07] MEDS: KCL 10 MEQ IVPB 10 MEQ/100 ML INFUS.BAG IVPB SCH ×3 (10:36→14:06)
[2022-03-07] MEDS: SILVER SULFADIAZINE 1% TOP CREAM 50 GM JAR TP SCH (14:06)
[2022-03-07] MEDS: ALBUTEROL SO4 2.5/IPRATROPIUM 0.5 INH SOL 3 ML VIAL.NEB. NEB PRN (20:36)
[2022-03-07] MEDS: ATORVASTATIN CA 80 MG TABLET (FP) PO SCH (21:10)
[2022-03-08] MEDS: PIPERACILLIN/TAZOB 3.375 GM 3.375 GM in DEXTROSE 5%-WATER - 50 ML IVPB SCH ×2 (01:36→09:45)
[2022-03-08] MEDS: HEPARIN INFUSION - 25,000 UNITS/500 ML INFUS.BAG IVPB SCH (06:19)
[2022-03-08] MEDS: INSULIN (LEVEMIR) 100 UNITS/ML UNITS SQ SCH ×2 (06:25→22:16)
[2022-03-08] MEDS: INSULIN SLIDING SCALE (NOVOLOG) 1 VIAL SQ SCH ×3 (06:25→17:44)
[2022-03-08 07:21] LABS: BASO % 1.3 % (0-2.0); EOS % 5.7 % (0-4.5); HEMATOCRIT 28.1 % (35.4-49); HEMOGLOBIN 9.3 GM/dL (11.7-16.9); LYMPH % 25.7 % (8-40); MCH 30.7 pg (25.7-33.7); MCHC 33.1 g/dl (32.0-35.9); MEAN CELL VOLUME 92.9 fl (80-96); MEAN PLT VOLUME 8.5 fl (7.5-11.1); MONO % 9.7 % (3.8-10.2); NEUT % 57.6 % (42.8-82.8); PLATELET COUNT 318 10^3/uL (134-434); RBC 3.03 M/mm3 (4.00-5.60)
[2022-03-08 07:33] LABS: BLOOD UREA NITROGEN 17.4 mg/dL (7-18)
[2022-03-08 07:34] LABS: CALCIUM 8.4 mg/dL (8.5-10.1)
[2022-03-08] MEDS: amLODIPine BESYLATE 5 MG TABLET (FP) PO SCH (10:08)
[2022-03-08] MEDS: SPIRONOLACTONE 25 MG TABLET PO SCH ×2 (10:08→11:10)
[2022-03-08] MEDS: AMINO ACIDS/PROTEIN HYDROLYS 30 ML LIQUID.PKT PO SCH ×2 (10:08→17:41)
[2022-03-08] MEDS: SILVER SULFADIAZINE 1% TOP CREAM 50 GM JAR TP SCH (10:09)
[2022-03-08] MEDS: ASCORBIC ACID 500 MG TABLET (FP) PO SCH (10:09)
[2022-03-08] MEDS: LOSARTAN POTASSIUM 50 MG TABLET PO SCH ×2 (10:09→22:15)
[2022-03-08] MEDS: CARVEDILOL 12.5 MG TABLET (FP) PO SCH ×2 (10:09→22:15)
[2022-03-08] MEDS: CLOPIDOGREL BISULFATE 75 MG TABLET (FP) PO SCH (10:09)
[2022-03-08] MEDS: PANTOPRAZOLE 40 MG TABLET PO SCH (10:09)
[2022-03-08] MEDS: TAMSULOSIN HCL 0.4 MG CAP PO SCH (10:09)
[2022-03-08] MEDS: MULTIVITAMINS (DAILY MVI) TABLET (FP) PO SCH (10:18)
[2022-03-08] MEDS: CHOLECALCIFEROL (VIT D3) 5000 UNITS (125 MCG) CAP PO SCH (11:10)
[2022-03-08] MEDS: oxyCODONE HCL 5 MG TABLET PO PRN ×2 (12:30→22:23)
[2022-03-08 16:03] LABS: INR 1.12 (0.83-1.09); PROTHROMBIN TIME (PATIENT) 12.9 SEC (9.7-13.0)
[2022-03-08 16:06] LABS: ACTIVATED PTT 52.2 SECONDS (25.2-36.5)
[2022-03-08] MEDS: clonazePAM 0.5 MG TABLET PO PRN (17:41)
[2022-03-08] MEDS: SULFAMETHOXAZOLE/TRIMETHOPRIM 800MG/160MG D.S. TABLET PO SCH (22:15)
[2022-03-08] MEDS: ATORVASTATIN CA 80 MG TABLET (FP) PO SCH (22:15)
[2022-03-09] MEDS: INSULIN (LEVEMIR) 100 UNITS/ML UNITS SQ SCH ×3 (07:11→21:09)
[2022-03-09] MEDS: INSULIN SLIDING SCALE (NOVOLOG) 1 VIAL SQ SCH ×3 (07:13→17:06)
[2022-03-09 07:33] LABS: INR 1.09 (0.83-1.09); PROTHROMBIN TIME (PATIENT) 12.6 SEC (9.7-13.0)
[2022-03-09 07:36] LABS: ACTIVATED PTT 73.1 SECONDS (25.2-36.5)
[2022-03-09 08:09] LABS: HEMATOCRIT 30.2 % (35.4-49); MCH 30.6 pg (25.7-33.7); MEAN CELL VOLUME 92.3 fl (80-96); RBC 3.27 M/mm3 (4.00-5.60); WHITE BLOOD COUNT 8.2 K/mm3 (4.0-10.0)
[2022-03-09 08:10] LABS: LYMPH % 28.5 % (8-40); MCHC 33.2 g/dl (32.0-35.9); MEAN PLT VOLUME 8.4 fl (7.5-11.1); MONO % 10.1 % (3.8-10.2); NEUT % 53.7 % (42.8-82.8); PLATELET COUNT 337 10^3/uL (134-434); RDW 15.8 % (11.9-15.9)
[2022-03-09 08:11] LABS: BASO % 1.4 % (0-2.0); EOS % 6.3 % (0-4.5)
[2022-03-09 08:34] LABS: ALBUMIN 2.7 g/dl (3.4-5.0); BILIRUBIN,TOTAL 0.5 mg/dL (0.2-1); BLOOD UREA NITROGEN 19.7 mg/dL (7-18); CALCIUM 9.1 mg/dL (8.5-10.1); CREATININE 1.1 mg/dL (0.55-1.3); MAGNESIUM 1.8 mg/dL (1.8-2.4); PHOSPHOROUS 4.4 mg/dL (2.5-4.9); TOT PROT 5.9 g/dl (6.4-8.2)
[2022-03-09] MEDS: AMINO ACIDS/PROTEIN HYDROLYS 30 ML LIQUID.PKT PO SCH ×2 (08:35→17:06)
[2022-03-09] MEDS: TAMSULOSIN HCL 0.4 MG CAP PO SCH (08:35)
[2022-03-09] MEDS: SPIRONOLACTONE 25 MG TABLET PO SCH (10:41)
[2022-03-09] MEDS: LOSARTAN POTASSIUM 50 MG TABLET PO SCH ×2 (10:42→21:10)
[2022-03-09] MEDS: SULFAMETHOXAZOLE/TRIMETHOPRIM 800MG/160MG D.S. TABLET PO SCH ×2 (10:42→21:11)
[2022-03-09] MEDS: CHOLECALCIFEROL (VIT D3) 5000 UNITS (125 MCG) CAP PO SCH (10:42)
[2022-03-09] MEDS: MULTIVITAMINS (DAILY MVI) TABLET (FP) PO SCH (10:42)
[2022-03-09] MEDS: CARVEDILOL 12.5 MG TABLET (FP) PO SCH ×2 (10:42→21:10)
[2022-03-09] MEDS: ASCORBIC ACID 500 MG TABLET (FP) PO SCH (10:42)
[2022-03-09] MEDS: amLODIPine BESYLATE 5 MG TABLET (FP) PO SCH (10:42)
[2022-03-09] MEDS: PANTOPRAZOLE 40 MG TABLET PO SCH (10:42)
[2022-03-09] MEDS: SILVER SULFADIAZINE 1% TOP CREAM 50 GM JAR TP SCH (10:42)
[2022-03-09] MEDS: CLOPIDOGREL BISULFATE 75 MG TABLET (FP) PO SCH (10:42)
[2022-03-09] MEDS: clonazePAM 0.5 MG TABLET PO PRN ×2 (10:52→21:10)
[2022-03-09 15:12] LABS: INR 1.15 (0.83-1.09); PROTHROMBIN TIME (PATIENT) 13.2 SEC (9.7-13.0)
[2022-03-09] MEDS: HEPARIN INFUSION - 25,000 UNITS/500 ML INFUS.BAG IVPB SCH (16:02)
[2022-03-09] MEDS: oxyCODONE HCL 5 MG TABLET PO PRN ×2 (17:55→21:10)
[2022-03-09] MEDS: ATORVASTATIN CA 80 MG TABLET (FP) PO SCH (21:09)
[2022-03-10] MEDS: oxyCODONE HCL 5 MG TABLET PO PRN ×4 (00:37→21:10)
[2022-03-10] MEDS: INSULIN SLIDING SCALE (NOVOLOG) 1 VIAL SQ SCH ×3 (06:22→16:49)
[2022-03-10] MEDS: INSULIN (LEVEMIR) 100 UNITS/ML UNITS SQ SCH ×2 (06:47→21:10)
[2022-03-10 07:23] LABS: BASO % 1.5 % (0-2.0); EOS % 6.8 % (0-4.5); HEMATOCRIT 31.2 % (35.4-49); HEMOGLOBIN 10.1 GM/dL (11.7-16.9); MCH 30.6 pg (25.7-33.7); MCHC 32.5 g/dl (32.0-35.9); MEAN PLT VOLUME 8.3 fl (7.5-11.1); MONO % 10.3 % (3.8-10.2); NEUT % 48.4 % (42.8-82.8); PLATELET COUNT 325 10^3/uL (134-434); RBC 3.31 M/mm3 (4.00-5.60); RDW 16.2 % (11.9-15.9); WHITE BLOOD COUNT 8.6 K/mm3 (4.0-10.0)
[2022-03-10 07:43] LABS: ALBUMIN 2.6 g/dl (3.4-5.0); CALCIUM 8.7 mg/dL (8.5-10.1)
[2022-03-10 07:45] LABS: BLOOD UREA NITROGEN 20.8 mg/dL (7-18)
[2022-03-10 07:46] LABS: CREATININE 1.2 mg/dL (0.55-1.3)
[2022-03-10 07:48] LABS: BILIRUBIN,TOTAL 0.5 mg/dL (0.2-1); TOT PROT 5.9 g/dl (6.4-8.2)
[2022-03-10] MEDS: AMINO ACIDS/PROTEIN HYDROLYS 30 ML LIQUID.PKT PO SCH ×2 (08:46→16:50)
[2022-03-10] MEDS: TAMSULOSIN HCL 0.4 MG CAP PO SCH (08:46)
[2022-03-10] MEDS: clonazePAM 0.5 MG TABLET PO PRN ×2 (10:14→21:08)
[2022-03-10] MEDS: SULFAMETHOXAZOLE/TRIMETHOPRIM 800MG/160MG D.S. TABLET PO SCH ×2 (10:15→21:10)
[2022-03-10] MEDS: SPIRONOLACTONE 25 MG TABLET PO SCH (10:15)
[2022-03-10] MEDS: CARVEDILOL 12.5 MG TABLET (FP) PO SCH ×2 (10:16→21:07)
[2022-03-10] MEDS: CLOPIDOGREL BISULFATE 75 MG TABLET (FP) PO SCH (10:16)
[2022-03-10] MEDS: amLODIPine BESYLATE 5 MG TABLET (FP) PO SCH (10:16)
[2022-03-10] MEDS: LOSARTAN POTASSIUM 50 MG TABLET PO SCH ×2 (10:16→21:07)
[2022-03-10] MEDS: SILVER SULFADIAZINE 1% TOP CREAM 50 GM JAR TP SCH (10:16)
[2022-03-10] MEDS: MULTIVITAMINS (DAILY MVI) TABLET (FP) PO SCH (10:16)
[2022-03-10] MEDS: PANTOPRAZOLE 40 MG TABLET PO SCH (10:16)
[2022-03-10] MEDS: CHOLECALCIFEROL (VIT D3) 5000 UNITS (125 MCG) CAP PO SCH (10:16)
[2022-03-10] MEDS: ASCORBIC ACID 500 MG TABLET (FP) PO SCH (10:16)
[2022-03-10 16:22] LABS: INR 1.07 (0.83-1.09); PROTHROMBIN TIME (PATIENT) 12.3 SEC (9.7-13.0)
[2022-03-10] MEDS: ATORVASTATIN CA 80 MG TABLET (FP) PO SCH (21:13)
[2022-03-11] MEDS: oxyCODONE HCL 5 MG TABLET PO PRN (05:30)
[2022-03-11] MEDS: INSULIN (LEVEMIR) 100 UNITS/ML UNITS SQ SCH ×2 (06:18→21:56)
[2022-03-11] MEDS: INSULIN SLIDING SCALE (NOVOLOG) 1 VIAL SQ SCH ×3 (06:18→18:02)
[2022-03-11 07:54] LABS: BASO % 2.2 % (0-2.0); EOS % 6.4 % (0-4.5); HEMATOCRIT 29.9 % (35.4-49); HEMOGLOBIN 9.9 GM/dL (11.7-16.9); LYMPH % 28.4 % (8-40); MCH 30.9 pg (25.7-33.7); MCHC 33.2 g/dl (32.0-35.9); MEAN CELL VOLUME 93.2 fl (80-96); MEAN PLT VOLUME 8.4 fl (7.5-11.1); MONO % 10.1 % (3.8-10.2); NEUT % 52.9 % (42.8-82.8); PLATELET COUNT 312 10^3/uL (134-434); RBC 3.21 M/mm3 (4.00-5.60); RDW 15.7 % (11.9-15.9); WHITE BLOOD COUNT 7.4 K/mm3 (4.0-10.0)
[2022-03-11] MEDS: AMINO ACIDS/PROTEIN HYDROLYS 30 ML LIQUID.PKT PO SCH ×2 (08:41→17:57)
[2022-03-11] MEDS: TAMSULOSIN HCL 0.4 MG CAP PO SCH (08:41)
[2022-03-11 08:58] LABS: ALBUMIN 2.6 g/dl (3.4-5.0); BILIRUBIN,TOTAL 0.4 mg/dL (0.2-1); BLOOD UREA NITROGEN 22.6 mg/dL (7-18); CALCIUM 8.7 mg/dL (8.5-10.1); CREATININE 1.4 mg/dL (0.55-1.3); MAGNESIUM 1.9 mg/dL (1.8-2.4); TOT PROT 5.6 g/dl (6.4-8.2)
[2022-03-11] MEDS: amLODIPine BESYLATE 5 MG TABLET (FP) PO SCH (09:14)
[2022-03-11] MEDS: LOSARTAN POTASSIUM 50 MG TABLET PO SCH ×2 (09:14→21:55)
[2022-03-11] MEDS: CLOPIDOGREL BISULFATE 75 MG TABLET (FP) PO SCH (09:14)
[2022-03-11] MEDS: ASCORBIC ACID 500 MG TABLET (FP) PO SCH (09:14)
[2022-03-11] MEDS: PANTOPRAZOLE 40 MG TABLET PO SCH (09:14)
[2022-03-11] MEDS: SPIRONOLACTONE 25 MG TABLET PO SCH (09:14)
[2022-03-11] MEDS: CARVEDILOL 12.5 MG TABLET (FP) PO SCH ×2 (09:14→21:56)
[2022-03-11] MEDS: MULTIVITAMINS (DAILY MVI) TABLET (FP) PO SCH (09:14)
[2022-03-11] MEDS: clonazePAM 0.5 MG TABLET PO PRN (09:14)
[2022-03-11] MEDS: CHOLECALCIFEROL (VIT D3) 5000 UNITS (125 MCG) CAP PO SCH (09:17)
[2022-03-11] MEDS: SULFAMETHOXAZOLE/TRIMETHOPRIM 800MG/160MG D.S. TABLET PO SCH ×2 (09:17→21:59)
[2022-03-11] MEDS: SILVER SULFADIAZINE 1% TOP CREAM 50 GM JAR TP SCH (09:17)
[2022-03-11 13:47] LABS: ACTIVATED PTT 71.2 SECONDS (25.2-36.5); INR 1.09 (0.83-1.09); PROTHROMBIN TIME (PATIENT) 12.6 SEC (9.7-13.0)
[2022-03-11] MEDS: HEPARIN INFUSION - 25,000 UNITS/500 ML INFUS.BAG IVPB SCH (21:48)
[2022-03-11] MEDS: ATORVASTATIN CA 80 MG TABLET (FP) PO SCH (21:55)
[2022-03-12] MEDS: INSULIN (LEVEMIR) 100 UNITS/ML UNITS SQ SCH ×2 (06:50→21:27)
[2022-03-12] MEDS: INSULIN SLIDING SCALE (NOVOLOG) 1 VIAL SQ SCH ×3 (06:50→16:56)
[2022-03-12 07:12] LABS: BASO % 1.7 % (0-2.0); EOS % 6.3 % (0-4.5); HEMATOCRIT 29.6 % (35.4-49); HEMOGLOBIN 9.9 GM/dL (11.7-16.9); MCH 31.3 pg (25.7-33.7); MCHC 33.6 g/dl (32.0-35.9); MEAN CELL VOLUME 93.1 fl (80-96); MEAN PLT VOLUME 8.5 fl (7.5-11.1); MONO % 8.6 % (3.8-10.2); NEUT % 60.4 % (42.8-82.8); PLATELET COUNT 316 10^3/uL (134-434); RBC 3.18 M/mm3 (4.00-5.60); WHITE BLOOD COUNT 7.7 K/mm3 (4.0-10.0)
[2022-03-12] MEDS ORDERED: HEPARIN NA (PORCINE) 5,000 UNITS/ML 1ML VIAL ONE (07:14)
[2022-03-12] MEDS ORDERED: LIDOCAINE HCL 0.5%, 5 MG/ML (50mL SDVIAL) ONE (07:14)
[2022-03-12 07:33] LABS: CALCIUM 8.2 mg/dL (8.5-10.1)
[2022-03-12 07:34] LABS: ALBUMIN 2.6 g/dl (3.4-5.0)
[2022-03-12 07:36] LABS: BLOOD UREA NITROGEN 27.2 mg/dL (7-18); CREATININE 1.3 mg/dL (0.55-1.3)
[2022-03-12 07:38] LABS: BILIRUBIN,TOTAL 0.4 mg/dL (0.2-1); TOT PROT 5.8 g/dl (6.4-8.2)
[2022-03-12] MEDS ORDERED: ESMOLOL HCL 100,000 MCG/10 ML VIAL ONE (08:11)
[2022-03-12] MEDS ORDERED: ONDANSETRON 4 MG/2 ML VIAL ONE ×2 (08:11→12:02)
[2022-03-12] MEDS ORDERED: PHENYLEPHRINE HCL 10 MG/1 ML SINGLE DOSE VIAL ONE (08:11)
[2022-03-12] MEDS ORDERED: LIDOCAINE HCL/PF 2% SDV 5ML VIAL ONE (08:11)
[2022-03-12] MEDS ORDERED: PROPOFOL 20 ML ONE ×2 (08:11→10:36)
[2022-03-12] MEDS ORDERED: MIDAZOLAM HCL 2 MG/2 ML SINGLE DOSE VIAL ONE (08:12)
[2022-03-12] MEDS ORDERED: ROCURONIUM BROMIDE 50 MG/5 ML SYRINGE ONE (08:12)
[2022-03-12] MEDS ORDERED: ceFAZolin SODIUM 1 GM VIAL IVPB ONE (09:40)
[2022-03-12] MEDS ORDERED: DEXAMETHASONE SOD PHOSPHATE 4 MG/1 ML VIAL ONE (09:50)
[2022-03-12] MEDS ORDERED: NEOSTIGMINE METHYLSULFATE 0.5 MG/1 ML - 10 ML MDV ONE (11:06)
[2022-03-12] MEDS ORDERED: GLYCOPYRROLATE 0.2 MG/1 ML VIAL ONE (11:06)
[2022-03-12] MEDS ORDERED: ONDANSETRON 4 MG/2 ML VIAL IVPUSH PRN (11:34)
[2022-03-12] MEDS ORDERED: PROMETHAZINE HCL 25 MG/1 ML VIAL IVPUSH PRN (11:34)
[2022-03-12] MEDS ORDERED: ALBUTEROL SO4 2.5/IPRATROPIUM 0.5 INH SOL 3 ML VIAL.NEB. NEB PRN (11:35)
[2022-03-12] MEDS ORDERED: ACETAMINOPHEN 325 MG TABLET (FP) PO PRN (11:35)
[2022-03-12] MEDS ORDERED: oxyCODONE HCL 5 MG TABLET PO PRN (11:35)
[2022-03-12] MEDS ORDERED: HEPARIN INFUSION - 25,000 UNITS/500 ML INFUS.BAG IVPB SCH (11:35)
[2022-03-12] MEDS ORDERED: HEPARIN NA (PORCINE) 5,000 UNITS/ML 1ML VIAL IVPUSH PRN ×2 (11:35)
[2022-03-12] MEDS ORDERED: clonazePAM 0.5 MG TABLET PO PRN (11:35)
[2022-03-12] MEDS ORDERED: SEVOFLURANE 250 ML BTL ONE (11:56)
[2022-03-12] MEDS ORDERED: PROMETHAZINE HCL 25 MG/1 ML VIAL ONE (12:33)
[2022-03-12] MEDS: LACTATED RINGERS SOLUTION 1,000 ML IV SCH (14:00)
[2022-03-12] MEDS ORDERED: ACETAMINOPHEN 1000 MG/100 ML BAG IVPB PRN (15:15)
[2022-03-12] MEDS: SILVER SULFADIAZINE 1% TOP CREAM 50 GM JAR TP SCH ×2 (15:29→15:40)
[2022-03-12] MEDS: AMINO ACIDS/PROTEIN HYDROLYS 30 ML LIQUID.PKT PO SCH ×2 (15:30→16:57)
[2022-03-12] MEDS: SULFAMETHOXAZOLE/TRIMETHOPRIM 800MG/160MG D.S. TABLET PO SCH ×2 (15:38→21:26)
[2022-03-12] MEDS: MULTIVITAMINS (DAILY MVI) TABLET (FP) PO SCH (15:40)
[2022-03-12] MEDS: ASCORBIC ACID 500 MG TABLET (FP) PO SCH (15:40)
[2022-03-12] MEDS: CHOLECALCIFEROL (VIT D3) 5000 UNITS (125 MCG) CAP PO SCH (15:40)
[2022-03-12] MEDS: TAMSULOSIN HCL 0.4 MG CAP PO SCH (15:41)
[2022-03-12] MEDS: amLODIPine BESYLATE 5 MG TABLET (FP) PO SCH (15:42)
[2022-03-12] MEDS: LOSARTAN POTASSIUM 50 MG TABLET PO SCH (15:42)
[2022-03-12] MEDS: SPIRONOLACTONE 25 MG TABLET PO SCH (15:43)
[2022-03-12] MEDS: CLOPIDOGREL BISULFATE 75 MG TABLET (FP) PO SCH (15:44)
[2022-03-12] MEDS: CARVEDILOL 12.5 MG TABLET (FP) PO SCH ×2 (15:44→21:27)
[2022-03-12] MEDS: PANTOPRAZOLE 40 MG TABLET PO SCH (15:45)
[2022-03-12 16:35] LABS: INR 1.1 (0.83-1.09); PROTHROMBIN TIME (PATIENT) 12.7 SEC (9.7-13.0)
[2022-03-12 16:38] LABS: ACTIVATED PTT 31.4 SECONDS (25.2-36.5)
[2022-03-12] MEDS: ATORVASTATIN CA 80 MG TABLET (FP) PO SCH (21:26)
[2022-03-12] MEDS: LOSARTAN POTASSIUM 25 MG TABLET PO SCH (21:26)
[2022-03-12] MEDS: CHLORHEXIDINE GLUCONATE 4% CLEANSER FOR DECOLONIZATION TP SCH (21:27)
[2022-03-12] MEDS: MUPIROCIN 2% TOPICAL OINTMENT FOR DECOLONIZATION NS SCH (21:27)
[2022-03-12] MEDS ORDERED: INSULIN (NOVOLOG) ASPART 100 UNITS/ML 10ML VIAL SQ ONE (22:28)
[2022-03-13] MEDS: INSULIN SLIDING SCALE (NOVOLOG) 1 VIAL SQ SCH ×3 (06:08→17:05)
[2022-03-13] MEDS: INSULIN (LEVEMIR) 100 UNITS/ML UNITS SQ SCH ×2 (06:10→21:13)
[2022-03-13 07:47] LABS: BASO % 0.8 % (0-2.0); EOS % 0.2 % (0-4.5); LYMPH % 13.9 % (8-40); MCH 31.1 pg (25.7-33.7); MCHC 33.2 g/dl (32.0-35.9); MEAN CELL VOLUME 93.8 fl (80-96); MEAN PLT VOLUME 8.5 fl (7.5-11.1); MONO % 7.8 % (3.8-10.2); NEUT % 77.3 % (42.8-82.8); PLATELET COUNT 295 10^3/uL (134-434); RBC 2.88 M/mm3 (4.00-5.60); RDW 16.2 % (11.9-15.9); WHITE BLOOD COUNT 11.3 K/mm3 (4.0-10.0)
[2022-03-13 08:12] LABS: ALBUMIN 2.5 g/dl (3.4-5.0); CALCIUM 8.6 mg/dL (8.5-10.1)
[2022-03-13 08:13] LABS: BLOOD UREA NITROGEN 31.6 mg/dL (7-18); MAGNESIUM 1.9 mg/dL (1.8-2.4)
[2022-03-13 08:16] LABS: CREATININE 1.4 mg/dL (0.55-1.3)
[2022-03-13 08:17] LABS: BILIRUBIN,TOTAL 0.4 mg/dL (0.2-1); TOT PROT 5.4 g/dl (6.4-8.2)
[2022-03-13] MEDS: AMINO ACIDS/PROTEIN HYDROLYS 30 ML LIQUID.PKT PO SCH ×2 (09:52→17:40)
[2022-03-13] MEDS: oxyCODONE HCL 5 MG TABLET PO PRN ×2 (09:52→14:41)
[2022-03-13] MEDS: POLYETHYLENE GLYCOL (HEALTHYLAX) 3350 17 GM PACKET PO SCH (09:52)
[2022-03-13] MEDS: PANTOPRAZOLE 40 MG TABLET PO SCH (09:53)
[2022-03-13] MEDS: amLODIPine BESYLATE 5 MG TABLET (FP) PO SCH (09:53)
[2022-03-13] MEDS: ASCORBIC ACID 500 MG TABLET (FP) PO SCH (09:54)
[2022-03-13] MEDS: SPIRONOLACTONE 25 MG TABLET PO SCH (09:54)
[2022-03-13] MEDS: CARVEDILOL 12.5 MG TABLET (FP) PO SCH ×2 (09:54→21:11)
[2022-03-13] MEDS: CHOLECALCIFEROL (VIT D3) 1,000 UNIT (25 MCG) TABLET PO SCH (09:54)
[2022-03-13] MEDS: LOSARTAN POTASSIUM 25 MG TABLET PO SCH ×2 (09:54→21:11)
[2022-03-13] MEDS: CLOPIDOGREL BISULFATE 75 MG TABLET (FP) PO SCH (09:54)
[2022-03-13] MEDS: TAMSULOSIN HCL 0.4 MG CAP PO SCH (09:54)
[2022-03-13] MEDS: SILVER SULFADIAZINE 1% TOP CREAM 50 GM JAR TP SCH (10:34)
[2022-03-13] MEDS: SULFAMETHOXAZOLE/TRIMETHOPRIM 800MG/160MG D.S. TABLET PO SCH ×2 (10:34→22:41)
[2022-03-13] MEDS: MULTIVITAMINS (DAILY MVI) TABLET (FP) PO SCH (12:19)
[2022-03-13] MEDS: ONDANSETRON 4 MG/2 ML VIAL IVPUSH PRN (16:00)
[2022-03-13] MEDS: MUPIROCIN 2% TOPICAL OINTMENT FOR DECOLONIZATION NS SCH ×2 (16:00→21:12)
[2022-03-13] MEDS: DOCUSATE SODIUM 100 MG CAPSULE (FP) PO SCH ×2 (16:01→21:12)
[2022-03-13 17:09] LABS: INR 1.08 (0.83-1.09); PROTHROMBIN TIME (PATIENT) 12.4 SEC (9.7-13.0)
[2022-03-13 17:12] LABS: ACTIVATED PTT 27.2 SECONDS (25.2-36.5)
[2022-03-13] MEDS: LACTATED RINGERS SOLUTION 1,000 ML IV SCH (19:40)
[2022-03-13] MEDS: ATORVASTATIN CA 80 MG TABLET (FP) PO SCH (21:11)
[2022-03-13] MEDS: CHLORHEXIDINE GLUCONATE 4% CLEANSER FOR DECOLONIZATION TP SCH (21:13)
[2022-03-13] MEDS ORDERED: PHENOL 177 ML SPRAY BOTTLE MM PRN (22:55)
[2022-03-14] MEDS: oxyCODONE HCL 5 MG TABLET PO PRN ×2 (00:27→11:05)
[2022-03-14] MEDS: DOCUSATE SODIUM 100 MG CAPSULE (FP) PO SCH ×3 (06:19→21:52)
[2022-03-14] MEDS: INSULIN (LEVEMIR) 100 UNITS/ML UNITS SQ SCH ×2 (06:19→21:53)
[2022-03-14] MEDS: INSULIN SLIDING SCALE (NOVOLOG) 1 VIAL SQ SCH ×4 (06:19→17:13)
[2022-03-14] MEDS: LACTATED RINGERS SOLUTION 1,000 ML IV SCH ×3 (06:30→22:20)
[2022-03-14] MEDS: TAMSULOSIN HCL 0.4 MG CAP PO SCH (08:05)
[2022-03-14] MEDS: AMINO ACIDS/PROTEIN HYDROLYS 30 ML LIQUID.PKT PO SCH ×3 (08:05→17:13)
[2022-03-14 08:11] LABS: BASO % 1.1 % (0-2.0); HEMATOCRIT 26.6 % (35.4-49); HEMOGLOBIN 8.9 GM/dL (11.7-16.9); LYMPH % 21.8 % (8-40); MCH 31.7 pg (25.7-33.7); MCHC 33.6 g/dl (32.0-35.9); MEAN CELL VOLUME 94.4 fl (80-96); MEAN PLT VOLUME 8.7 fl (7.5-11.1); MONO % 9.3 % (3.8-10.2); NEUT % 62.8 % (42.8-82.8); PLATELET COUNT 291 10^3/uL (134-434); RBC 2.82 M/mm3 (4.00-5.60); RDW 16.3 % (11.9-15.9); WHITE BLOOD COUNT 10.7 K/mm3 (4.0-10.0)
[2022-03-14 08:30] LABS: CALCIUM 9.1 mg/dL (8.5-10.1)
[2022-03-14 08:31] LABS: ALBUMIN 2.6 g/dl (3.4-5.0); BLOOD UREA NITROGEN 26.1 mg/dL (7-18); MAGNESIUM 1.8 mg/dL (1.8-2.4)
[2022-03-14 08:34] LABS: CREATININE 1.4 mg/dL (0.55-1.3)
[2022-03-14 08:36] LABS: BILIRUBIN,TOTAL 0.6 mg/dL (0.2-1); TOT PROT 5.4 g/dl (6.4-8.2)
[2022-03-14] MEDS: PANTOPRAZOLE 40 MG TABLET PO SCH (09:46)
[2022-03-14] MEDS: ASCORBIC ACID 500 MG TABLET (FP) PO SCH (09:46)
[2022-03-14] MEDS: CLOPIDOGREL BISULFATE 75 MG TABLET (FP) PO SCH (09:46)
[2022-03-14] MEDS: CARVEDILOL 12.5 MG TABLET (FP) PO SCH ×2 (09:46→21:52)
[2022-03-14] MEDS: MULTIVITAMINS (DAILY MVI) TABLET (FP) PO SCH (09:46)
[2022-03-14] MEDS: CHOLECALCIFEROL (VIT D3) 1,000 UNIT (25 MCG) TABLET PO SCH (09:46)
[2022-03-14] MEDS: SPIRONOLACTONE 25 MG TABLET PO SCH (09:46)
[2022-03-14] MEDS: LOSARTAN POTASSIUM 25 MG TABLET PO SCH ×2 (09:46→21:52)
[2022-03-14] MEDS: amLODIPine BESYLATE 5 MG TABLET (FP) PO SCH (09:47)
[2022-03-14] MEDS: SILVER SULFADIAZINE 1% TOP CREAM 50 GM JAR TP SCH (09:48)
[2022-03-14] MEDS: POLYETHYLENE GLYCOL (HEALTHYLAX) 3350 17 GM PACKET PO SCH ×2 (09:48→14:34)
[2022-03-14] MEDS: MUPIROCIN 2% TOPICAL OINTMENT FOR DECOLONIZATION NS SCH ×2 (09:51→21:53)
[2022-03-14] MEDS: SULFAMETHOXAZOLE/TRIMETHOPRIM 800MG/160MG D.S. TABLET PO SCH ×2 (09:51→21:53)
[2022-03-14] MEDS: diazePAM 2 MG TABLET PO PRN (14:33)
[2022-03-14] MEDS: ATORVASTATIN CA 80 MG TABLET (FP) PO SCH (21:52)
[2022-03-14] MEDS: CHLORHEXIDINE GLUCONATE 4% CLEANSER FOR DECOLONIZATION TP SCH (21:53)
[2022-03-15] MEDS: INSULIN (LEVEMIR) 100 UNITS/ML UNITS SQ SCH ×2 (06:18→21:33)
[2022-03-15] MEDS: INSULIN SLIDING SCALE (NOVOLOG) 1 VIAL SQ SCH ×3 (06:18→18:54)
[2022-03-15] MEDS: diazePAM 2 MG TABLET PO PRN (06:19)
[2022-03-15] MEDS: DOCUSATE SODIUM 100 MG CAPSULE (FP) PO SCH ×3 (06:19→21:31)
[2022-03-15 07:37] LABS: BASO % 1.1 % (0-2.0); EOS % 3.8 % (0-4.5); HEMATOCRIT 25.7 % (35.4-49); HEMOGLOBIN 8.7 GM/dL (11.7-16.9); LYMPH % 18.1 % (8-40); MCH 31.4 pg (25.7-33.7); MCHC 33.7 g/dl (32.0-35.9); MEAN CELL VOLUME 93.3 fl (80-96); MEAN PLT VOLUME 8.5 fl (7.5-11.1); MONO % 10.8 % (3.8-10.2); NEUT % 66.2 % (42.8-82.8); PLATELET COUNT 276 10^3/uL (134-434); RBC 2.75 M/mm3 (4.00-5.60); RDW 15.8 % (11.9-15.9); WHITE BLOOD COUNT 10.1 K/mm3 (4.0-10.0)
[2022-03-15 07:43] LABS: INR 1.15 (0.83-1.09); PROTHROMBIN TIME (PATIENT) 13.2 SEC (9.7-13.0)
[2022-03-15 07:58] LABS: ALBUMIN 2.4 g/dl (3.4-5.0); BLOOD UREA NITROGEN 24.3 mg/dL (7-18)
[2022-03-15 07:59] LABS: TOT PROT 5.2 g/dl (6.4-8.2)
[2022-03-15 08:00] LABS: BILIRUBIN,TOTAL 0.8 mg/dL (0.2-1); CALCIUM 9.2 mg/dL (8.5-10.1)
[2022-03-15 08:01] LABS: CREATININE 1.1 mg/dL (0.55-1.3); MAGNESIUM 1.6 mg/dL (1.8-2.4)
[2022-03-15] MEDS ORDERED: PROPOFOL 40 ML ONE ×2 (08:45→13:26)
[2022-03-15] MEDS ORDERED: LIDOCAINE HCL/PF 2% SDV 5ML VIAL ONE (08:46)
[2022-03-15] MEDS: AMINO ACIDS/PROTEIN HYDROLYS 30 ML LIQUID.PKT PO SCH ×2 (08:56→18:52)
[2022-03-15] MEDS: TAMSULOSIN HCL 0.4 MG CAP PO SCH (08:57)
[2022-03-15] MEDS ORDERED: BACITRACIN 15 GM TUBE TOPICAL OINTMENT ONE (09:06)
[2022-03-15] MEDS ORDERED: MAGNESIUM 2GM/50ML STERILE WATER IVPB IVPB ONE (09:38)
[2022-03-15] MEDS ORDERED: ONDANSETRON 4 MG/2 ML VIAL IVPUSH PRN ×2 (09:55→13:52)
[2022-03-15] MEDS ORDERED: ACETAMINOPHEN INJECTION 100 ML IVPB ONE (09:58)
[2022-03-15] MEDS ORDERED: LACTATED RINGERS SOLUTION 1,000 ML IV SCH (10:00)
[2022-03-15] MEDS: CHOLECALCIFEROL (VIT D3) 1,000 UNIT (25 MCG) TABLET PO SCH (10:00)
[2022-03-15] MEDS: LOSARTAN POTASSIUM 25 MG TABLET PO SCH ×2 (10:00→21:31)
[2022-03-15] MEDS: ASCORBIC ACID 500 MG TABLET (FP) PO SCH (10:00)
[2022-03-15] MEDS: CLOPIDOGREL BISULFATE 75 MG TABLET (FP) PO SCH (10:31)
[2022-03-15] MEDS: POLYETHYLENE GLYCOL (HEALTHYLAX) 3350 17 GM PACKET PO SCH (10:31)
[2022-03-15] MEDS: SILVER SULFADIAZINE 1% TOP CREAM 50 GM JAR TP SCH (10:59)
[2022-03-15] MEDS: MUPIROCIN 2% TOPICAL OINTMENT FOR DECOLONIZATION NS SCH ×2 (10:59→21:31)
[2022-03-15] MEDS: MULTIVITAMINS (DAILY MVI) TABLET (FP) PO SCH (11:55)
[2022-03-15] MEDS ORDERED: MIDAZOLAM HCL 2 MG/2 ML SINGLE DOSE VIAL ONE (13:27)
[2022-03-15] MEDS: LACTATED RINGERS SOLUTION 1,000 ML IV SCH (14:00)
[2022-03-15] MEDS ORDERED: ceFAZolin SODIUM 1 GM VIAL IVPB ONE (14:05)
[2022-03-15] MEDS ORDERED: ceFAZolin SODIUM 1 GM VIAL ONE (14:10)
[2022-03-15] MEDS ORDERED: LIDOCAINE HCL 1%, 10 MG/ML (20ML VIAL) ONE (14:14)
[2022-03-15] MEDS ORDERED: BUPIVACAINE HCL/PF 0.5% (5MG/ML) 10 ML VIAL ONE (14:14)
[2022-03-15] MEDS ORDERED: LIDOCAINE HCL 1%, 10 MG/ML (20ML VIAL) NR ONE (14:19)
[2022-03-15] MEDS ORDERED: BUPIVACAINE HCL/PF 0.5% (5 MG/ML) 30 ML VIAL IJ ONE (14:19)
[2022-03-15] MEDS: SULFAMETHOXAZOLE/TRIMETHOPRIM 800MG/160MG D.S. TABLET PO SCH ×2 (18:49→21:31)
[2022-03-15] MEDS: amLODIPine BESYLATE 5 MG TABLET (FP) PO SCH (18:50)
[2022-03-15] MEDS: CARVEDILOL 12.5 MG TABLET (FP) PO SCH ×2 (18:51→21:31)
[2022-03-15] MEDS: PANTOPRAZOLE 40 MG TABLET PO SCH (18:52)
[2022-03-15] MEDS: SPIRONOLACTONE 25 MG TABLET PO SCH (18:53)
[2022-03-15] MEDS: ATORVASTATIN CA 80 MG TABLET (FP) PO SCH (21:31)
[2022-03-15] MEDS: CHLORHEXIDINE GLUCONATE 4% CLEANSER FOR DECOLONIZATION TP SCH (21:31)
[2022-03-15] MEDS: ONDANSETRON 4 MG/2 ML VIAL IVPUSH PRN (23:55)
[2022-03-16] MEDS ORDERED: guaiFENesin/D-M SUGAR-FREE/ACLHOL-FREE 118 ML BOTTLE PO PRN (00:20)
[2022-03-16] MEDS: oxyCODONE HCL 5 MG TABLET PO PRN ×3 (01:57→21:45)
[2022-03-16] MEDS: DOCUSATE SODIUM 100 MG CAPSULE (FP) PO SCH ×3 (05:56→21:38)
[2022-03-16] MEDS: INSULIN SLIDING SCALE (NOVOLOG) 1 VIAL SQ SCH ×3 (06:01→17:30)
[2022-03-16] MEDS: LACTATED RINGERS SOLUTION 1,000 ML IV SCH (06:21)
[2022-03-16 08:02] LABS: BASO % 1.3 % (0-2.0); EOS % 4.5 % (0-4.5); HEMATOCRIT 29.1 % (35.4-49); HEMOGLOBIN 9.9 GM/dL (11.7-16.9); MCHC 33.9 g/dl (32.0-35.9); MEAN CELL VOLUME 94.3 fl (80-96); MEAN PLT VOLUME 8.7 fl (7.5-11.1); MONO % 10.8 % (3.8-10.2); NEUT % 64.4 % (42.8-82.8); PLATELET COUNT 315 10^3/uL (134-434); RBC 3.09 M/mm3 (4.00-5.60); RDW 15.7 % (11.9-15.9); WHITE BLOOD COUNT 9.5 K/mm3 (4.0-10.0)
[2022-03-16 08:17] LABS: INR 1.12 (0.83-1.09); PROTHROMBIN TIME (PATIENT) 12.9 SEC (9.7-13.0)
[2022-03-16 08:33] LABS: CALCIUM 9.1 mg/dL (8.5-10.1)
[2022-03-16 08:34] LABS: ALBUMIN 2.6 g/dl (3.4-5.0); BLOOD UREA NITROGEN 22.3 mg/dL (7-18); MAGNESIUM 2.1 mg/dL (1.8-2.4)
[2022-03-16] MEDS: AMINO ACIDS/PROTEIN HYDROLYS 30 ML LIQUID.PKT PO SCH ×2 (08:36→16:58)
[2022-03-16 08:37] LABS: BILIRUBIN,TOTAL 0.8 mg/dL (0.2-1); CREATININE 1.1 mg/dL (0.55-1.3)
[2022-03-16] MEDS: TAMSULOSIN HCL 0.4 MG CAP PO SCH (08:37)
[2022-03-16 08:38] LABS: TOT PROT 5.9 g/dl (6.4-8.2)
[2022-03-16] MEDS: SPIRONOLACTONE 25 MG TABLET PO SCH (09:50)
[2022-03-16] MEDS: ASCORBIC ACID 500 MG TABLET (FP) PO SCH (09:50)
[2022-03-16] MEDS: PANTOPRAZOLE 40 MG TABLET PO SCH (09:51)
[2022-03-16] MEDS: MULTIVITAMINS (DAILY MVI) TABLET (FP) PO SCH (09:51)
[2022-03-16] MEDS: CHOLECALCIFEROL (VIT D3) 1,000 UNIT (25 MCG) TABLET PO SCH (09:51)
[2022-03-16] MEDS: CARVEDILOL 12.5 MG TABLET (FP) PO SCH ×2 (09:51→21:38)
[2022-03-16] MEDS: amLODIPine BESYLATE 5 MG TABLET (FP) PO SCH (09:51)
[2022-03-16] MEDS: SULFAMETHOXAZOLE/TRIMETHOPRIM 800MG/160MG D.S. TABLET PO SCH ×2 (09:51→21:38)
[2022-03-16] MEDS: CLOPIDOGREL BISULFATE 75 MG TABLET (FP) PO SCH (09:51)
[2022-03-16] MEDS: LOSARTAN POTASSIUM 50 MG TABLET PO SCH (09:51)
[2022-03-16] MEDS: MUPIROCIN 2% TOPICAL OINTMENT FOR DECOLONIZATION NS SCH ×2 (09:52→21:38)
[2022-03-16] MEDS: SILVER SULFADIAZINE 1% TOP CREAM 50 GM JAR TP SCH (09:52)
[2022-03-16] MEDS: POLYETHYLENE GLYCOL (HEALTHYLAX) 3350 17 GM PACKET PO SCH (09:53)
[2022-03-16] MEDS ORDERED: INSULIN (LEVEMIR) 100 UNITS/ML UNITS SQ SCH (10:00)
[2022-03-16] MEDS: INSULIN (LEVEMIR) 100 UNITS/ML UNITS SQ SCH ×2 (11:00→21:39)
[2022-03-16] MEDS ORDERED: oxyCODONE HCL 5 MG TABLET PO PRN (12:26)
[2022-03-16] MEDS: ATORVASTATIN CA 80 MG TABLET (FP) PO SCH (21:39)
[2022-03-16] MEDS: CHLORHEXIDINE GLUCONATE 4% CLEANSER FOR DECOLONIZATION TP SCH (21:39)
[2022-03-17] MEDS: oxyCODONE HCL 5 MG TABLET PO PRN ×2 (04:36→22:22)
[2022-03-17] MEDS: DOCUSATE SODIUM 100 MG CAPSULE (FP) PO SCH ×3 (05:25→21:24)
[2022-03-17] MEDS: INSULIN SLIDING SCALE (NOVOLOG) 1 VIAL SQ SCH ×3 (06:39→16:56)
[2022-03-17 07:10] LABS: BASO % 2.1 % (0-2.0); EOS % 5.2 % (0-4.5); HEMATOCRIT 27.8 % (35.4-49); HEMOGLOBIN 9.2 GM/dL (11.7-16.9); LYMPH % 21.3 % (8-40); MCH 31.2 pg (25.7-33.7); MCHC 33.2 g/dl (32.0-35.9); MEAN PLT VOLUME 8.4 fl (7.5-11.1); MONO % 12.4 % (3.8-10.2); PLATELET COUNT 325 10^3/uL (134-434); RBC 2.96 M/mm3 (4.00-5.60); WHITE BLOOD COUNT 7.5 K/mm3 (4.0-10.0)
[2022-03-17 07:20] LABS: CALCIUM 8.9 mg/dL (8.5-10.1)
[2022-03-17 07:21] LABS: ALBUMIN 2.3 g/dl (3.4-5.0); BLOOD UREA NITROGEN 25.9 mg/dL (7-18); MAGNESIUM 1.7 mg/dL (1.8-2.4)
[2022-03-17 07:24] LABS: CREATININE 1.3 mg/dL (0.55-1.3)
[2022-03-17 07:26] LABS: BILIRUBIN,TOTAL 0.6 mg/dL (0.2-1); TOT PROT 5.4 g/dl (6.4-8.2)
[2022-03-17 07:47] LABS: INR 1.16 (0.83-1.09); PROTHROMBIN TIME (PATIENT) 13.4 SEC (9.7-13.0)
[2022-03-17] MEDS: TAMSULOSIN HCL 0.4 MG CAP PO SCH (08:35)
[2022-03-17] MEDS: AMINO ACIDS/PROTEIN HYDROLYS 30 ML LIQUID.PKT PO SCH ×2 (08:35→18:35)
[2022-03-17] MEDS: POLYETHYLENE GLYCOL (HEALTHYLAX) 3350 17 GM PACKET PO SCH (10:30)
[2022-03-17] MEDS: CHOLECALCIFEROL (VIT D3) 1,000 UNIT (25 MCG) TABLET PO SCH (10:31)
[2022-03-17] MEDS: amLODIPine BESYLATE 5 MG TABLET (FP) PO SCH (10:31)
[2022-03-17] MEDS: CARVEDILOL 12.5 MG TABLET (FP) PO SCH ×2 (10:31→21:24)
[2022-03-17] MEDS: PANTOPRAZOLE 40 MG TABLET PO SCH (10:32)
[2022-03-17] MEDS: SULFAMETHOXAZOLE/TRIMETHOPRIM 800MG/160MG D.S. TABLET PO SCH ×2 (10:33→21:24)
[2022-03-17] MEDS: MULTIVITAMINS (DAILY MVI) TABLET (FP) PO SCH (10:33)
[2022-03-17] MEDS: LOSARTAN POTASSIUM 50 MG TABLET PO SCH (10:33)
[2022-03-17] MEDS: ASCORBIC ACID 500 MG TABLET (FP) PO SCH (10:34)
[2022-03-17] MEDS: CLOPIDOGREL BISULFATE 75 MG TABLET (FP) PO SCH (10:35)
[2022-03-17] MEDS: SILVER SULFADIAZINE 1% TOP CREAM 50 GM JAR TP SCH (10:35)
[2022-03-17] MEDS: MUPIROCIN 2% TOPICAL OINTMENT FOR DECOLONIZATION NS SCH (10:36)
[2022-03-17] MEDS: SPIRONOLACTONE 25 MG TABLET PO SCH (10:46)
[2022-03-17] MEDS: INSULIN (LEVEMIR) 100 UNITS/ML UNITS SQ SCH ×2 (11:00→22:17)
[2022-03-17] MEDS ORDERED: MAGNESIUM OXIDE 400 MG TABLET (FP) PO ONE (12:48)
[2022-03-17] MEDS: GABAPENTIN 100 MG CAPSULE PO SCH ×2 (14:36→21:25)
[2022-03-17] MEDS: CHLORHEXIDINE GLUCONATE 4% CLEANSER FOR DECOLONIZATION TP SCH (21:25)
[2022-03-17] MEDS: ATORVASTATIN CA 80 MG TABLET (FP) PO SCH (21:25)
[2022-03-18] MEDS: DOCUSATE SODIUM 100 MG CAPSULE (FP) PO SCH ×3 (05:59→21:30)
[2022-03-18] MEDS: GABAPENTIN 100 MG CAPSULE PO SCH ×3 (05:59→21:30)
[2022-03-18] MEDS: INSULIN SLIDING SCALE (NOVOLOG) 1 VIAL SQ SCH ×3 (06:24→15:58)
[2022-03-18 07:27] LABS: BASO % 1.9 % (0-2.0); EOS % 5.9 % (0-4.5); HEMATOCRIT 26.3 % (35.4-49); HEMOGLOBIN 8.8 GM/dL (11.7-16.9); LYMPH % 27.8 % (8-40); MCH 31.3 pg (25.7-33.7); MCHC 33.4 g/dl (32.0-35.9); MEAN CELL VOLUME 93.8 fl (80-96); MEAN PLT VOLUME 8.2 fl (7.5-11.1); MONO % 13.2 % (3.8-10.2); NEUT % 51.2 % (42.8-82.8); PLATELET COUNT 358 10^3/uL (134-434); RBC 2.81 M/mm3 (4.00-5.60); WHITE BLOOD COUNT 6.8 K/mm3 (4.0-10.0)
[2022-03-18 07:42] LABS: INR 1.13 (0.83-1.09)
[2022-03-18 07:54] LABS: CALCIUM 8.7 mg/dL (8.5-10.1)
[2022-03-18 07:55] LABS: ALBUMIN 2.3 g/dl (3.4-5.0); BLOOD UREA NITROGEN 29.4 mg/dL (7-18); MAGNESIUM 1.9 mg/dL (1.8-2.4)
[2022-03-18 07:57] LABS: CREATININE 1.3 mg/dL (0.55-1.3)
[2022-03-18 07:59] LABS: BILIRUBIN,TOTAL 0.5 mg/dL (0.2-1); TOT PROT 5.4 g/dl (6.4-8.2)
[2022-03-18] MEDS: TAMSULOSIN HCL 0.4 MG CAP PO SCH (08:52)
[2022-03-18] MEDS: AMINO ACIDS/PROTEIN HYDROLYS 30 ML LIQUID.PKT PO SCH ×2 (08:52→17:15)
[2022-03-18] MEDS: SPIRONOLACTONE 25 MG TABLET PO SCH (09:10)
[2022-03-18] MEDS: SULFAMETHOXAZOLE/TRIMETHOPRIM 800MG/160MG D.S. TABLET PO SCH ×2 (09:10→21:30)
[2022-03-18] MEDS: CARVEDILOL 12.5 MG TABLET (FP) PO SCH ×2 (09:11→21:30)
[2022-03-18] MEDS: amLODIPine BESYLATE 5 MG TABLET (FP) PO SCH (09:11)
[2022-03-18] MEDS: LOSARTAN POTASSIUM 50 MG TABLET PO SCH (09:11)
[2022-03-18] MEDS: PANTOPRAZOLE 40 MG TABLET PO SCH (09:11)
[2022-03-18] MEDS: CLOPIDOGREL BISULFATE 75 MG TABLET (FP) PO SCH (09:11)
[2022-03-18] MEDS: POLYETHYLENE GLYCOL (HEALTHYLAX) 3350 17 GM PACKET PO SCH (09:11)
[2022-03-18] MEDS: SILVER SULFADIAZINE 1% TOP CREAM 50 GM JAR TP SCH (09:12)
[2022-03-18] MEDS: ASCORBIC ACID 500 MG TABLET (FP) PO SCH (09:12)
[2022-03-18] MEDS: CHOLECALCIFEROL (VIT D3) 1,000 UNIT (25 MCG) TABLET PO SCH (09:12)
[2022-03-18] MEDS: MULTIVITAMINS (DAILY MVI) TABLET (FP) PO SCH (09:12)
[2022-03-18] MEDS: INSULIN (LEVEMIR) 100 UNITS/ML UNITS SQ SCH ×2 (09:15→21:30)
[2022-03-18] MEDS: oxyCODONE HCL 5 MG TABLET PO PRN (16:06)
[2022-03-18] MEDS: ATORVASTATIN CA 80 MG TABLET (FP) PO SCH (21:30)
[2022-03-18] MEDS: CHLORHEXIDINE GLUCONATE 4% CLEANSER FOR DECOLONIZATION TP SCH (21:30)
[2022-03-19] MEDS: oxyCODONE HCL 5 MG TABLET PO PRN ×4 (01:05→21:19)
[2022-03-19] MEDS: GABAPENTIN 100 MG CAPSULE PO SCH (06:29)
[2022-03-19] MEDS: INSULIN SLIDING SCALE (NOVOLOG) 1 VIAL SQ SCH ×3 (06:29→17:07)
[2022-03-19] MEDS: DOCUSATE SODIUM 100 MG CAPSULE (FP) PO SCH ×3 (06:29→21:18)
[2022-03-19 08:40] LABS: ALBUMIN 2.4 g/dl (3.4-5.0); BASO % 1.8 % (0-2.0); BLOOD UREA NITROGEN 40.7 mg/dL (7-18); CALCIUM 8.3 mg/dL (8.5-10.1); EOS % 6.8 % (0-4.5); HEMATOCRIT 25.4 % (35.4-49); HEMOGLOBIN 8.8 GM/dL (11.7-16.9); LYMPH % 28.4 % (8-40); MCH 32.7 pg (25.7-33.7); MCHC 34.6 g/dl (32.0-35.9); MEAN CELL VOLUME 94.4 fl (80-96); MEAN PLT VOLUME 7.9 fl (7.5-11.1); MONO % 10.9 % (3.8-10.2); NEUT % 52.1 % (42.8-82.8); PLATELET COUNT 333 10^3/uL (134-434); RBC 2.68 M/mm3 (4.00-5.60); RDW 15.2 % (11.9-15.9); WHITE BLOOD COUNT 6.9 K/mm3 (4.0-10.0)
[2022-03-19 08:43] LABS: CREATININE 1.8 mg/dL (0.55-1.3); INR 1.06 (0.83-1.09); PROTHROMBIN TIME (PATIENT) 12.2 SEC (9.7-13.0)
[2022-03-19 08:45] LABS: BILIRUBIN,TOTAL 0.4 mg/dL (0.2-1); TOT PROT 5.5 g/dl (6.4-8.2)
[2022-03-19] MEDS ORDERED: SODIUM CHLORIDE 1,000 ML IV SCH (09:00)
[2022-03-19] MEDS: AMINO ACIDS/PROTEIN HYDROLYS 30 ML LIQUID.PKT PO SCH ×2 (09:22→17:03)
[2022-03-19] MEDS: amLODIPine BESYLATE 5 MG TABLET (FP) PO SCH (09:23)
[2022-03-19] MEDS: CHOLECALCIFEROL (VIT D3) 1,000 UNIT (25 MCG) TABLET PO SCH (09:23)
[2022-03-19] MEDS: CLOPIDOGREL BISULFATE 75 MG TABLET (FP) PO SCH (09:23)
[2022-03-19] MEDS: TAMSULOSIN HCL 0.4 MG CAP PO SCH (09:23)
[2022-03-19] MEDS: SPIRONOLACTONE 25 MG TABLET PO SCH (09:24)
[2022-03-19] MEDS: SILVER SULFADIAZINE 1% TOP CREAM 50 GM JAR TP SCH (09:24)
[2022-03-19] MEDS: LOSARTAN POTASSIUM 50 MG TABLET PO SCH (09:24)
[2022-03-19] MEDS: PANTOPRAZOLE 40 MG TABLET PO SCH (09:24)
[2022-03-19] MEDS: CARVEDILOL 12.5 MG TABLET (FP) PO SCH ×2 (09:24→21:19)
[2022-03-19] MEDS: ASCORBIC ACID 500 MG TABLET (FP) PO SCH (09:24)
[2022-03-19] MEDS: MULTIVITAMINS (DAILY MVI) TABLET (FP) PO SCH (09:24)
[2022-03-19] MEDS: SULFAMETHOXAZOLE/TRIMETHOPRIM 800MG/160MG D.S. TABLET PO SCH ×2 (09:39→21:19)
[2022-03-19] MEDS: INSULIN (LEVEMIR) 100 UNITS/ML UNITS SQ SCH ×2 (09:39→21:52)
[2022-03-19] MEDS: POLYETHYLENE GLYCOL (HEALTHYLAX) 3350 17 GM PACKET PO SCH (09:39)
[2022-03-19] MEDS ORDERED: diazePAM 2 MG TABLET PO PRN (13:44)
[2022-03-19] MEDS ORDERED: ONDANSETRON 4 MG/2 ML VIAL IVPUSH PRN (13:44)
[2022-03-19] MEDS ORDERED: guaiFENesin/D-M SUGAR-FREE/ACLHOL-FREE 5 ML UNIT DOSE PO PRN (13:44)
[2022-03-19] MEDS ORDERED: ALBUTEROL SO4 2.5/IPRATROPIUM 0.5 INH SOL 3 ML VIAL.NEB. NEB PRN (13:44)
[2022-03-19] MEDS ORDERED: PHENOL 177 ML SPRAY BOTTLE MM PRN (13:44)
[2022-03-19] MEDS: SODIUM CHLORIDE 1,000 ML IV SCH (14:36)
[2022-03-19] MEDS: GABAPENTIN 300 MG CAPSULE PO SCH ×2 (14:36→21:18)
[2022-03-19] MEDS ORDERED: INSULIN (LEVEMIR) 100 UNITS/ML UNITS SQ ONE (21:02)
[2022-03-19] MEDS: ATORVASTATIN CA 80 MG TABLET (FP) PO SCH (21:18)
[2022-03-20] MEDS: DOCUSATE SODIUM 100 MG CAPSULE (FP) PO SCH ×3 (06:49→22:26)
[2022-03-20] MEDS: GABAPENTIN 300 MG CAPSULE PO SCH ×3 (06:50→22:25)
[2022-03-20] MEDS: oxyCODONE HCL 5 MG TABLET PO PRN ×3 (06:50→20:46)
[2022-03-20] MEDS ORDERED: BISACODYL 10 MG SUPP.RECT PR ONE (07:45)
[2022-03-20] MEDS: INSULIN SLIDING SCALE (NOVOLOG) 1 VIAL SQ SCH ×3 (08:23→16:49)
[2022-03-20] MEDS: AMINO ACIDS/PROTEIN HYDROLYS 30 ML LIQUID.PKT PO SCH ×2 (08:47→16:48)
[2022-03-20] MEDS: TAMSULOSIN HCL 0.4 MG CAP PO SCH (08:47)
[2022-03-20] MEDS: POLYETHYLENE GLYCOL (HEALTHYLAX) 3350 17 GM PACKET PO SCH (09:59)
[2022-03-20] MEDS: SPIRONOLACTONE 25 MG TABLET PO SCH (09:59)
[2022-03-20] MEDS: SULFAMETHOXAZOLE/TRIMETHOPRIM 800MG/160MG D.S. TABLET PO SCH ×2 (09:59→22:26)
[2022-03-20] MEDS: CARVEDILOL 12.5 MG TABLET (FP) PO SCH ×2 (09:59→22:26)
[2022-03-20] MEDS: MULTIVITAMINS (DAILY MVI) TABLET (FP) PO SCH (09:59)
[2022-03-20] MEDS: PANTOPRAZOLE 40 MG TABLET PO SCH (10:00)
[2022-03-20] MEDS: amLODIPine BESYLATE 10 MG TABLET (FP) PO SCH (10:00)
[2022-03-20] MEDS: LOSARTAN POTASSIUM 50 MG TABLET PO SCH (10:00)
[2022-03-20] MEDS: ASCORBIC ACID 500 MG TABLET (FP) PO SCH (10:00)
[2022-03-20] MEDS: CHOLECALCIFEROL (VIT D3) 1,000 UNIT (25 MCG) TABLET PO SCH (10:00)
[2022-03-20] MEDS: CLOPIDOGREL BISULFATE 75 MG TABLET (FP) PO SCH (10:00)
[2022-03-20] MEDS: INSULIN (LEVEMIR) 100 UNITS/ML UNITS SQ SCH ×2 (10:01→22:26)
[2022-03-20] MEDS: SILVER SULFADIAZINE 1% TOP CREAM 50 GM JAR TP SCH (10:03)
[2022-03-20] MEDS ORDERED: INSULIN (NOVOLOG) ASPART 100 UNITS/ML 10ML VIAL ONE ×3 (10:31→21:39)
[2022-03-20] MEDS: SODIUM CHLORIDE 1,000 ML IV SCH (14:44)
[2022-03-20] MEDS ORDERED: INSULIN (LEVEMIR) 100 UNITS/ML UNITS SQ ONE ×2 (17:51→21:39)
[2022-03-20] MEDS: ATORVASTATIN CA 80 MG TABLET (FP) PO SCH (22:27)
[2022-03-20] MEDS ORDERED: ACETAMINOPHEN 325 MG TABLET (FP) PO ONE (23:48)
[2022-03-21] MEDS: oxyCODONE HCL 5 MG TABLET PO PRN ×5 (01:54→20:09)
[2022-03-21] MEDS: GABAPENTIN 300 MG CAPSULE PO SCH ×3 (06:09→22:26)
[2022-03-21] MEDS: DOCUSATE SODIUM 100 MG CAPSULE (FP) PO SCH ×3 (06:09→22:26)
[2022-03-21] MEDS: SODIUM CHLORIDE 1,000 ML IV SCH ×2 (06:14→14:34)
[2022-03-21] MEDS ORDERED: ACETAMINOPHEN 325 MG TABLET (FP) PO ONE (07:36)
[2022-03-21] MEDS: INSULIN SLIDING SCALE (NOVOLOG) 1 VIAL SQ SCH ×3 (08:09→17:03)
[2022-03-21] MEDS: CHOLECALCIFEROL (VIT D3) 1,000 UNIT (25 MCG) TABLET PO SCH (11:30)
[2022-03-21] MEDS: CARVEDILOL 12.5 MG TABLET (FP) PO SCH ×2 (11:30→22:26)
[2022-03-21] MEDS: PANTOPRAZOLE 40 MG TABLET PO SCH (11:31)
[2022-03-21] MEDS: LOSARTAN POTASSIUM 50 MG TABLET PO SCH (11:31)
[2022-03-21] MEDS: POLYETHYLENE GLYCOL (HEALTHYLAX) 3350 17 GM PACKET PO SCH (11:31)
[2022-03-21] MEDS: AMINO ACIDS/PROTEIN HYDROLYS 30 ML LIQUID.PKT PO SCH ×2 (11:31→17:03)
[2022-03-21] MEDS: SPIRONOLACTONE 25 MG TABLET PO SCH (11:32)
[2022-03-21] MEDS: ASCORBIC ACID 500 MG TABLET (FP) PO SCH (11:32)
[2022-03-21] MEDS: TAMSULOSIN HCL 0.4 MG CAP PO SCH (11:32)
[2022-03-21] MEDS: amLODIPine BESYLATE 10 MG TABLET (FP) PO SCH (11:32)
[2022-03-21] MEDS: CLOPIDOGREL BISULFATE 75 MG TABLET (FP) PO SCH (11:34)
[2022-03-21] MEDS: INSULIN (LEVEMIR) 100 UNITS/ML UNITS SQ SCH ×2 (11:34→22:30)
[2022-03-21] MEDS: SULFAMETHOXAZOLE/TRIMETHOPRIM 800MG/160MG D.S. TABLET PO SCH ×2 (11:34→22:26)
[2022-03-21] MEDS: SILVER SULFADIAZINE 1% TOP CREAM 50 GM JAR TP SCH (11:35)
[2022-03-21] MEDS: MULTIVITAMINS (DAILY MVI) TABLET (FP) PO SCH (11:35)
[2022-03-21] MEDS: ATORVASTATIN CA 80 MG TABLET (FP) PO SCH (22:26)
[2022-03-22] MEDS: oxyCODONE HCL 5 MG TABLET PO PRN (01:45)
[2022-03-22] MEDS: GABAPENTIN 300 MG CAPSULE PO SCH ×3 (05:54→22:16)
[2022-03-22] MEDS: DOCUSATE SODIUM 100 MG CAPSULE (FP) PO SCH ×3 (05:54→22:16)
[2022-03-22] MEDS: SODIUM CHLORIDE 1,000 ML IV SCH ×3 (05:55→16:59)
[2022-03-22] MEDS: INSULIN SLIDING SCALE (NOVOLOG) 1 VIAL SQ SCH ×3 (06:01→16:53)
[2022-03-22] MEDS: TAMSULOSIN HCL 0.4 MG CAP PO SCH (08:33)
[2022-03-22] MEDS: AMINO ACIDS/PROTEIN HYDROLYS 30 ML LIQUID.PKT PO SCH ×2 (08:33→16:59)
[2022-03-22] MEDS: CLOPIDOGREL BISULFATE 75 MG TABLET (FP) PO SCH (10:45)
[2022-03-22] MEDS: CHOLECALCIFEROL (VIT D3) 1,000 UNIT (25 MCG) TABLET PO SCH (10:45)
[2022-03-22] MEDS: SPIRONOLACTONE 25 MG TABLET PO SCH (10:45)
[2022-03-22] MEDS: SULFAMETHOXAZOLE/TRIMETHOPRIM 800MG/160MG D.S. TABLET PO SCH (10:45)
[2022-03-22] MEDS: ASCORBIC ACID 500 MG TABLET (FP) PO SCH (10:45)
[2022-03-22] MEDS: LOSARTAN POTASSIUM 50 MG TABLET PO SCH (10:45)
[2022-03-22] MEDS: PANTOPRAZOLE 40 MG TABLET PO SCH (10:46)
[2022-03-22] MEDS: MULTIVITAMINS (DAILY MVI) TABLET (FP) PO SCH (10:46)
[2022-03-22] MEDS: INSULIN (LEVEMIR) 100 UNITS/ML UNITS SQ SCH ×2 (10:46→22:15)
[2022-03-22] MEDS: amLODIPine BESYLATE 10 MG TABLET (FP) PO SCH (10:46)
[2022-03-22] MEDS: POLYETHYLENE GLYCOL (HEALTHYLAX) 3350 17 GM PACKET PO SCH (10:46)
[2022-03-22] MEDS: SILVER SULFADIAZINE 1% TOP CREAM 50 GM JAR TP SCH (10:47)
[2022-03-22] MEDS: CARVEDILOL 12.5 MG TABLET (FP) PO SCH ×2 (10:47→22:16)
[2022-03-22] MEDS ORDERED: INSULIN (NOVOLOG) ASPART 100 UNITS/ML 10ML VIAL ONE (21:55)
[2022-03-22] MEDS: ATORVASTATIN CA 80 MG TABLET (FP) PO SCH (22:16)
[2022-03-23] MEDS: SODIUM CHLORIDE 1,000 ML IV SCH ×2 (06:32→13:39)
[2022-03-23] MEDS: DOCUSATE SODIUM 100 MG CAPSULE (FP) PO SCH ×3 (06:32→22:25)
[2022-03-23] MEDS: GABAPENTIN 300 MG CAPSULE PO SCH ×3 (06:32→22:25)
[2022-03-23] MEDS: INSULIN SLIDING SCALE (NOVOLOG) 1 VIAL SQ SCH ×3 (06:32→17:04)
[2022-03-23] MEDS ORDERED: INSULIN (LEVEMIR) 100 UNITS/ML UNITS SQ ONE (06:56)
[2022-03-23] MEDS: AMINO ACIDS/PROTEIN HYDROLYS 30 ML LIQUID.PKT PO SCH ×2 (07:58→17:05)
[2022-03-23] MEDS: TAMSULOSIN HCL 0.4 MG CAP PO SCH (07:58)
[2022-03-23] MEDS: MULTIVITAMINS (DAILY MVI) TABLET (FP) PO SCH (10:32)
[2022-03-23] MEDS: CHOLECALCIFEROL (VIT D3) 1,000 UNIT (25 MCG) TABLET PO SCH (10:32)
[2022-03-23] MEDS: POLYETHYLENE GLYCOL (HEALTHYLAX) 3350 17 GM PACKET PO SCH (10:32)
[2022-03-23] MEDS: SPIRONOLACTONE 25 MG TABLET PO SCH (10:33)
[2022-03-23] MEDS: LOSARTAN POTASSIUM 50 MG TABLET PO SCH (10:33)
[2022-03-23] MEDS: ASCORBIC ACID 500 MG TABLET (FP) PO SCH (10:33)
[2022-03-23] MEDS: CLOPIDOGREL BISULFATE 75 MG TABLET (FP) PO SCH (10:33)
[2022-03-23] MEDS: INSULIN (LEVEMIR) 100 UNITS/ML UNITS SQ SCH ×2 (10:33→22:24)
[2022-03-23] MEDS: SILVER SULFADIAZINE 1% TOP CREAM 50 GM JAR TP SCH (10:34)
[2022-03-23] MEDS: CARVEDILOL 12.5 MG TABLET (FP) PO SCH ×2 (10:34→22:25)
[2022-03-23] MEDS: amLODIPine BESYLATE 10 MG TABLET (FP) PO SCH (10:34)
[2022-03-23] MEDS: PANTOPRAZOLE 40 MG TABLET PO SCH (10:34)
[2022-03-23] MEDS ORDERED: INSULIN (NOVOLOG) ASPART 100 UNITS/ML 10ML VIAL ONE (11:32)
[2022-03-23] MEDS: ATORVASTATIN CA 80 MG TABLET (FP) PO SCH (22:24)
[2022-03-23] MEDS: oxyCODONE HCL 5 MG TABLET PO PRN (22:30)
[2022-03-24] MEDS: oxyCODONE HCL 5 MG TABLET PO PRN ×3 (03:49→21:54)
[2022-03-24] MEDS: GABAPENTIN 300 MG CAPSULE PO SCH ×3 (06:16→21:54)
[2022-03-24] MEDS: DOCUSATE SODIUM 100 MG CAPSULE (FP) PO SCH ×3 (06:16→21:55)
[2022-03-24] MEDS: INSULIN SLIDING SCALE (NOVOLOG) 1 VIAL SQ SCH ×3 (06:17→16:48)
[2022-03-24 08:51] LABS: BASO % 1.4 % (0-2.0); EOS % 6.1 % (0-4.5); HEMATOCRIT 25.8 % (35.4-49); HEMOGLOBIN 9.1 GM/dL (11.7-16.9); MCH 32.7 pg (25.7-33.7); MCHC 35.3 g/dl (32.0-35.9); MEAN CELL VOLUME 92.7 fl (80-96); MEAN PLT VOLUME 7.7 fl (7.5-11.1); MONO % 10.3 % (3.8-10.2); NEUT % 51.2 % (42.8-82.8); PLATELET COUNT 413 10^3/uL (134-434); RBC 2.79 M/mm3 (4.00-5.60); RDW 14.7 % (11.9-15.9); WHITE BLOOD COUNT 6.5 K/mm3 (4.0-10.0)
[2022-03-24 09:08] LABS: CALCIUM 8.4 mg/dL (8.5-10.1)
[2022-03-24 09:09] LABS: ALBUMIN 2.4 g/dl (3.4-5.0); BLOOD UREA NITROGEN 24.3 mg/dL (7-18)
[2022-03-24 09:13] LABS: BILIRUBIN,TOTAL 0.4 mg/dL (0.2-1); TOT PROT 5.4 g/dl (6.4-8.2)
[2022-03-24] MEDS: AMINO ACIDS/PROTEIN HYDROLYS 30 ML LIQUID.PKT PO SCH ×2 (10:02→16:48)
[2022-03-24] MEDS: TAMSULOSIN HCL 0.4 MG CAP PO SCH (10:03)
[2022-03-24] MEDS: CLOPIDOGREL BISULFATE 75 MG TABLET (FP) PO SCH (10:03)
[2022-03-24] MEDS: CARVEDILOL 12.5 MG TABLET (FP) PO SCH ×2 (10:04→21:54)
[2022-03-24] MEDS: amLODIPine BESYLATE 10 MG TABLET (FP) PO SCH (10:04)
[2022-03-24] MEDS: CHOLECALCIFEROL (VIT D3) 1,000 UNIT (25 MCG) TABLET PO SCH (10:04)
[2022-03-24] MEDS: MULTIVITAMINS (DAILY MVI) TABLET (FP) PO SCH (10:04)
[2022-03-24] MEDS: SPIRONOLACTONE 25 MG TABLET PO SCH (10:04)
[2022-03-24] MEDS: LOSARTAN POTASSIUM 50 MG TABLET PO SCH (10:04)
[2022-03-24] MEDS: PANTOPRAZOLE 40 MG TABLET PO SCH (10:04)
[2022-03-24] MEDS: INSULIN (LEVEMIR) 100 UNITS/ML UNITS SQ SCH ×2 (10:05→21:55)
[2022-03-24] MEDS: POLYETHYLENE GLYCOL (HEALTHYLAX) 3350 17 GM PACKET PO SCH (10:05)
[2022-03-24] MEDS: SILVER SULFADIAZINE 1% TOP CREAM 50 GM JAR TP SCH (10:06)
[2022-03-24] MEDS: ASCORBIC ACID 500 MG TABLET (FP) PO SCH (10:07)
[2022-03-24] MEDS: ATORVASTATIN CA 80 MG TABLET (FP) PO SCH (21:55)
[2022-03-25] MEDS: oxyCODONE HCL 5 MG TABLET PO PRN ×3 (05:44→21:42)
[2022-03-25] MEDS: GABAPENTIN 300 MG CAPSULE PO SCH ×3 (05:45→21:42)
[2022-03-25] MEDS: DOCUSATE SODIUM 100 MG CAPSULE (FP) PO SCH ×3 (05:45→21:42)
[2022-03-25] MEDS: INSULIN SLIDING SCALE (NOVOLOG) 1 VIAL SQ SCH ×3 (06:04→16:15)
[2022-03-25 08:20] LABS: BASO % 2.1 % (0-2.0); EOS % 5.9 % (0-4.5); HEMATOCRIT 27.3 % (35.4-49); HEMOGLOBIN 9.4 GM/dL (11.7-16.9); LYMPH % 24.6 % (8-40); MCH 32.2 pg (25.7-33.7); MCHC 34.4 g/dl (32.0-35.9); MEAN CELL VOLUME 93.6 fl (80-96); MEAN PLT VOLUME 7.8 fl (7.5-11.1); MONO % 8.5 % (3.8-10.2); NEUT % 58.9 % (42.8-82.8); PLATELET COUNT 438 10^3/uL (134-434); RBC 2.92 M/mm3 (4.00-5.60); RDW 14.5 % (11.9-15.9); WHITE BLOOD COUNT 6.8 K/mm3 (4.0-10.0)
[2022-03-25 08:37] LABS: ALBUMIN 2.5 g/dl (3.4-5.0); BLOOD UREA NITROGEN 30.5 mg/dL (7-18); CALCIUM 8.8 mg/dL (8.5-10.1); MAGNESIUM 1.8 mg/dL (1.8-2.4)
[2022-03-25 08:41] LABS: BILIRUBIN,TOTAL 0.3 mg/dL (0.2-1); TOT PROT 5.6 g/dl (6.4-8.2)
[2022-03-25] MEDS: AMINO ACIDS/PROTEIN HYDROLYS 30 ML LIQUID.PKT PO SCH ×2 (10:25→17:28)
[2022-03-25] MEDS: MULTIVITAMINS (DAILY MVI) TABLET (FP) PO SCH (10:26)
[2022-03-25] MEDS: CLOPIDOGREL BISULFATE 75 MG TABLET (FP) PO SCH (10:26)
[2022-03-25] MEDS: SPIRONOLACTONE 25 MG TABLET PO SCH (10:26)
[2022-03-25] MEDS: CARVEDILOL 12.5 MG TABLET (FP) PO SCH ×2 (10:26→21:42)
[2022-03-25] MEDS: PANTOPRAZOLE 40 MG TABLET PO SCH (10:26)
[2022-03-25] MEDS: amLODIPine BESYLATE 10 MG TABLET (FP) PO SCH (10:26)
[2022-03-25] MEDS: ASCORBIC ACID 500 MG TABLET (FP) PO SCH (10:26)
[2022-03-25] MEDS: LOSARTAN POTASSIUM 50 MG TABLET PO SCH (10:27)
[2022-03-25] MEDS: TAMSULOSIN HCL 0.4 MG CAP PO SCH (10:27)
[2022-03-25] MEDS: CHOLECALCIFEROL (VIT D3) 1,000 UNIT (25 MCG) TABLET PO SCH (10:27)
[2022-03-25] MEDS: INSULIN (LEVEMIR) 100 UNITS/ML UNITS SQ SCH ×2 (10:28→21:46)
[2022-03-25] MEDS: POLYETHYLENE GLYCOL (HEALTHYLAX) 3350 17 GM PACKET PO SCH (10:29)
[2022-03-25] MEDS: SILVER SULFADIAZINE 1% TOP CREAM 50 GM JAR TP SCH (10:30)
[2022-03-25] MEDS: ATORVASTATIN CA 80 MG TABLET (FP) PO SCH (21:42)
[2022-03-26] MEDS: DOCUSATE SODIUM 100 MG CAPSULE (FP) PO SCH ×3 (06:06→22:31)
[2022-03-26] MEDS: GABAPENTIN 300 MG CAPSULE PO SCH ×3 (06:06→22:32)
[2022-03-26] MEDS: INSULIN SLIDING SCALE (NOVOLOG) 1 VIAL SQ SCH ×3 (06:07→17:11)
[2022-03-26] MEDS ORDERED: INSULIN (NOVOLOG) ASPART 100 UNITS/ML 10ML VIAL ONE (10:30)
[2022-03-26] MEDS: CLOPIDOGREL BISULFATE 75 MG TABLET (FP) PO SCH (10:51)
[2022-03-26] MEDS: POLYETHYLENE GLYCOL (HEALTHYLAX) 3350 17 GM PACKET PO SCH (10:51)
[2022-03-26] MEDS: TAMSULOSIN HCL 0.4 MG CAP PO SCH (10:51)
[2022-03-26] MEDS: AMINO ACIDS/PROTEIN HYDROLYS 30 ML LIQUID.PKT PO SCH ×2 (10:51→17:09)
[2022-03-26] MEDS: SPIRONOLACTONE 25 MG TABLET PO SCH (10:51)
[2022-03-26] MEDS: CHOLECALCIFEROL (VIT D3) 1,000 UNIT (25 MCG) TABLET PO SCH (10:52)
[2022-03-26] MEDS: MULTIVITAMINS (DAILY MVI) TABLET (FP) PO SCH (10:52)
[2022-03-26] MEDS: LOSARTAN POTASSIUM 50 MG TABLET PO SCH (10:53)
[2022-03-26] MEDS: INSULIN (LEVEMIR) 100 UNITS/ML UNITS SQ SCH ×2 (10:53→22:35)
[2022-03-26] MEDS: CARVEDILOL 12.5 MG TABLET (FP) PO SCH ×2 (10:53→22:31)
[2022-03-26] MEDS: amLODIPine BESYLATE 10 MG TABLET (FP) PO SCH (10:53)
[2022-03-26] MEDS: PANTOPRAZOLE 40 MG TABLET PO SCH (10:53)
[2022-03-26] MEDS: ASCORBIC ACID 500 MG TABLET (FP) PO SCH (10:53)
[2022-03-26] MEDS: SILVER SULFADIAZINE 1% TOP CREAM 50 GM JAR TP SCH (10:55)
[2022-03-26] MEDS: ATORVASTATIN CA 80 MG TABLET (FP) PO SCH (22:32)
[2022-03-27] MEDS ORDERED: LOPERAMIDE HCL 2 MG CAPSULE PO PRN (03:31)
[2022-03-27] MEDS: GABAPENTIN 300 MG CAPSULE PO SCH (05:25)
[2022-03-27] MEDS: INSULIN SLIDING SCALE (NOVOLOG) 1 VIAL SQ SCH ×2 (06:53→11:59)
[2022-03-27] MEDS: TAMSULOSIN HCL 0.4 MG CAP PO SCH (08:45)
[2022-03-27] MEDS: AMINO ACIDS/PROTEIN HYDROLYS 30 ML LIQUID.PKT PO SCH (08:47)
[2022-03-27] MEDS: MULTIVITAMINS (DAILY MVI) TABLET (FP) PO SCH (09:43)
[2022-03-27] MEDS: CHOLECALCIFEROL (VIT D3) 1,000 UNIT (25 MCG) TABLET PO SCH (09:44)
[2022-03-27] MEDS: SPIRONOLACTONE 25 MG TABLET PO SCH (09:46)
[2022-03-27] MEDS: CARVEDILOL 12.5 MG TABLET (FP) PO SCH (09:47)
[2022-03-27] MEDS: LOSARTAN POTASSIUM 50 MG TABLET PO SCH (09:47)
[2022-03-27] MEDS: CLOPIDOGREL BISULFATE 75 MG TABLET (FP) PO SCH (09:49)
[2022-03-27] MEDS: amLODIPine BESYLATE 10 MG TABLET (FP) PO SCH (09:50)
[2022-03-27] MEDS: PANTOPRAZOLE 40 MG TABLET PO SCH (09:51)
[2022-03-27] MEDS: INSULIN (LEVEMIR) 100 UNITS/ML UNITS SQ SCH (09:56)
[2022-03-27] MEDS: POLYETHYLENE GLYCOL (HEALTHYLAX) 3350 17 GM PACKET PO SCH (10:11)
[2022-03-27] MEDS: ASCORBIC ACID 500 MG TABLET (FP) PO SCH (10:23)
[2022-03-27] MEDS: SILVER SULFADIAZINE 1% TOP CREAM 50 GM JAR TP SCH (10:40)
[2022-03-27 12:02] VITALS: BP 145/71; PULSE 75; RESP 20; TEMP 97.8
== END 2022-03-27 13:37 | disposition home or self-care (01) | DRG 711 ==
LOC: JER 17:34 → JERBED 19:48 → J5S 02-23 01:19 → J2W 02-26 11:01 → J7W 03-19 13:17
PROVIDERS: ADMIT Internal Medicine; ATTEND Internal Medicine
PROC: 03CJ0ZZ Extirpation of Matter from Left Common Carotid Artery, Open Approach (ICD-10-PCS; 2022-03-12)
PROC: 03UJ07Z Supplement Left Common Carotid Artery with Autologous Tissue Substitute, Open Approach (ICD-10-PCS; principal; 2022-03-12 09:00)
PROC: 0JB70ZZ Excision of Back Subcutaneous Tissue and Fascia, Open Approach (ICD-10-PCS; 2022-03-15)
PROC: 0HX6XZZ Transfer Back Skin, External Approach (ICD-10-PCS; 2022-03-15)
DX: T81.49XA Infection following a procedure, other surgical site, initial encounter (principal); I63.9 Cerebral infarction, unspecified; I50.33 Acute on chronic diastolic (congestive) heart failure; L97.129 Non-pressure chronic ulcer of left thigh with unspecified severity; I13.0 Hypertensive heart and chronic kidney disease with heart failure and stage 1 through stage 4 chronic kidney disease, or unspecified chronic kidney disease; E11.65 Type 2 diabetes mellitus with hyperglycemia; I10 Essential (primary) hypertension; A49.02 Methicillin resistant Staphylococcus aureus infection, unspecified site; I65.22 Occlusion and stenosis of left carotid artery; Y83.9 Surgical procedure, unspecified as the cause of abnormal reaction of the patient, or of later complication, without mention of misadventure at the time of the procedure; N40.0 Benign prostatic hyperplasia without lower urinary tract symptoms; D50.9 Iron deficiency anemia, unspecified; E78.5 Hyperlipidemia, unspecified; F41.8 Other specified anxiety disorders
CPT/HCPCS: 36415; 70450-TC; 70551-TC; 71045-TC-FY; 72170-TC-FY; 80048; 80053; 80061; 81003; 82040; 82728; 82962; 83036; 83540; 83550; 83721; 83735; 83880; 84100; 84443; 85025; 85027; 85610; 85651; 85730; 86140; 86850; 86900; 86901; 86922; 87040; 87070; 87086; 87186; 87205; 88304-TC; 88311-TC; 93005; 93010; 93306-TC; 93880-TC; 94640; 94760; 97116-GP; 97162-GP; 99285-25; C9803-CS; G0008; G0480; J1644; J1756; Q2036; U0003; U0005

== ENCOUNTER 2024-09-22 15:40 | Inpatient (IN) | payer OTHER ==
[2024-09-22 15:52] VITALS: BMI 22.8
[2024-09-22 16:44] LABS: ABSOLUTE IMMATURE GRANULOCYTES 0.08 x10^3/uL (0.0-0.031); BASOPHILS # 0.07 x10^3/uL (0.01-0.08); EOSINOPHIL % 1.3 % (0.8-7.0); HEMATOCRIT 36.5 % (40.1-51.0); HEMOGLOBIN 11.6 g/dL (13.7-17.5); MCHC 31.8 g/dl (32.3-36.5); MEAN CELL VOLUME 94.3 fl (79.0-92.2); MEAN PLT VOLUME 9.6 fl (9.4-12.4); MONOCYTE # 1.44 x10^3/uL (0.30-0.82); MONOCYTE % 9.7 % (5.3-12.2); PLATELET COUNT 320 x10^3/uL (163-337)
[2024-09-22 16:51] LABS: INR 1.06 (0.83-1.09); PROTHROMBIN TIME (PATIENT) 11.5 SEC (9.7-13.0)
[2024-09-22 16:53] LABS: ACTIVATED PTT 27.4 SECONDS (25.2-36.5)
[2024-09-22 17:06] LABS: POTASSIUM 3.9 mmol/L (3.5-5.1)
[2024-09-22 17:07] LABS: CALCIUM 8.9 mg/dL (8.5-10.1)
[2024-09-22 17:08] LABS: ALBUMIN 2.6 g/dl (3.4-5.0)
[2024-09-22 17:09] LABS: BLOOD UREA NITROGEN 35.2 mg/dL (7-18)
[2024-09-22 17:11] LABS: CREATININE 1.3 mg/dL (0.55-1.3)
[2024-09-22 17:13] LABS: TOT PROT 6.1 g/dl (6.4-8.2)
[2024-09-22 17:14] LABS: BILIRUBIN,TOTAL 0.9 mg/dL (0.2-1)
[2024-09-22] MEDS: LACTATED RINGERS SOLUTION 1000 ML INFUS.BAG IV ONE (18:03)
[2024-09-22 19:18] LABS: EPI CELLS 1 /uL (0-25.1); HYALINE CASTS 1 /uL (0-3.1); URINE APPEARANCE CLOUDY; URINE BACTERIA >9,000 /uL (0-1359); URINE BILIRUBIN NEGATIVE (NEGATIVE); URINE COLOR YELLOW; URINE GLUCOSE (UA) 3+ (NEGATIVE); URINE KETONE TRACE (NEGATIVE); URINE LEUK ESTERASE 1+ (NEGATIVE); URINE NITRITE NEGATIVE (NEGATIVE); URINE PROTEIN 1+ (NEGATIVE); URINE RBC 11 /uL (0-23.9); URINE UROBILINOGEN 0.2 mg/dL (0.2-1.0); URINE WBC 437 /uL (0-25.8)
[2024-09-22] MEDS ORDERED: CEFTRIAXONE 1 G/50 ML PREMIX 50 ML IVPB ONE (20:04)
[2024-09-22] MEDS: CEFTRIAXONE 1 G/50 ML PREMIX 50 ML IVPB ONE (20:07)
[2024-09-22] MEDS ORDERED: ACETAMINOPHEN 500 MG TABLET (FP) PO PRN (20:10)
[2024-09-22] MEDS ORDERED: DOCUSATE SODIUM 100 MG CAPSULE (FP) PO PRN (20:10)
[2024-09-22] MEDS: SODIUM CHLORIDE 1,000 ML IV SCH ×2 (22:10→23:27)
[2024-09-22 22:19] LABS: YEAST NONE SEEN (NEGATIVE)
[2024-09-22] MEDS: DEXTROSE 50%-WATER 25 GM/50 ML DISP.SYRIN IVPUSH ONE (23:00)
[2024-09-23] MEDS: INSULIN ASPART SLIDING SCALE (NOVOLOG) 1 VIAL SQ SCH ×3 (05:47→17:58)
[2024-09-23] MEDS: ACETAMINOPHEN 1000 MG/100 ML BAG IVPB ONE (05:56)
[2024-09-23 06:41] LABS: ABSOLUTE IMMATURE GRANULOCYTES 0.11 x10^3/uL (0.0-0.031); BASOPHILS # 0.09 x10^3/uL (0.01-0.08); EOSINOPHIL % 1.5 % (0.8-7.0); EOSINOPHILS # 0.23 x10^3/uL (0.04-0.54); HEMATOCRIT 36.7 % (40.1-51.0); HEMOGLOBIN 11.9 g/dL (13.7-17.5); MCHC 32.4 g/dl (32.3-36.5); MEAN CELL VOLUME 93.6 fl (79.0-92.2); MONOCYTE # 1.33 x10^3/uL (0.30-0.82); MONOCYTE % 8.9 % (5.3-12.2); PLATELET COUNT 346 x10^3/uL (163-337)
[2024-09-23 07:16] LABS: POTASSIUM 4.1 mmol/L (3.5-5.1)
[2024-09-23 07:19] LABS: CALCIUM 8.9 mg/dL (8.5-10.1)
[2024-09-23 07:20] LABS: MAGNESIUM 2.3 mg/dL (1.8-2.4)
[2024-09-23 07:23] LABS: PHOSPHOROUS 3.7 mg/dL (2.5-4.9)
[2024-09-23] MEDS ORDERED: EMPAGLIFLOZIN (JARDIANCE) 10 MG TABLET PO SCH (10:00)
[2024-09-23] MEDS: ASPIRIN 81 MG CHEWABLE TABLETS PO ONE (10:52)
[2024-09-23] MEDS: CEFTRIAXONE 1 G/50 ML PREMIX 50 ML IVPB SCH (10:52)
[2024-09-23] MEDS: CLOPIDOGREL BISULFATE 75 MG TABLET (FP) PO SCH (10:52)
[2024-09-23] MEDS: DEXTROSE 50%-WATER 25 GM/50 ML DISP.SYRIN IVPUSH ONE (11:01)
[2024-09-23] MEDS: NYSTATIN POWDER 100,000 UNITS/GM - 15 GM TOPICAL POWDER TP SCH (18:02)
[2024-09-23] MEDS: ATORVASTATIN CA 80 MG TABLET (FP) PO SCH (22:26)
[2024-09-24] MEDS: ACETAMINOPHEN 500 MG TABLET (FP) PO PRN (01:50)
[2024-09-24 06:37] LABS: ABSOLUTE IMMATURE GRANULOCYTES 0.37 x10^3/uL (0.0-0.031); BASOPHILS # 0.08 x10^3/uL (0.01-0.08); EOSINOPHIL % 1.1 % (0.8-7.0); EOSINOPHILS # 0.18 x10^3/uL (0.04-0.54); HEMATOCRIT 34.1 % (40.1-51.0); MCHC 32.3 g/dl (32.3-36.5); MEAN CELL VOLUME 93.7 fl (79.0-92.2); MONOCYTE # 1.66 x10^3/uL (0.30-0.82); MONOCYTE % 10.2 % (5.3-12.2); PLATELET COUNT 377 x10^3/uL (163-337); RDW 13.9 % (12.2-16.4)
[2024-09-24 06:57] LABS: ALBUMIN 2.3 g/dl (3.4-5.0); CALCIUM 8.9 mg/dL (8.5-10.1)
[2024-09-24 06:58] LABS: BLOOD UREA NITROGEN 24.4 mg/dL (7-18); MAGNESIUM 2.3 mg/dL (1.8-2.4)
[2024-09-24 07:01] LABS: CREATININE 1.1 mg/dL (0.55-1.3)
[2024-09-24 07:02] LABS: BILIRUBIN,TOTAL 0.9 mg/dL (0.2-1); TOT PROT 5.8 g/dl (6.4-8.2)
[2024-09-24] MEDS: ASPIRIN 81 MG CHEWABLE TABLETS PO SCH (09:13)
[2024-09-24] MEDS: SACUBITRIL/VALSARTAN 24 MG-26 MG TABLET PO SCH (09:14)
[2024-09-24] MEDS ORDERED: PIPERACILLIN/TAZOB 3.375 GM 3.375 GM in DEXTROSE 5%-WATER - 50 ML IVPB SCH (12:00)
[2024-09-24] MEDS: PIPERACILLIN/TAZOB 3.375 GM 50 ML IVPB SCH (16:03)
[2024-09-24] MEDS: PIPERACILLIN/TAZOB 3.375 GM 3.375 GM in DEXTROSE 5%-WATER - 50 ML IVPB SCH (17:53)
[2024-09-24] MEDS ORDERED: PIPERACILLIN/TAZOB 3.375 GM 50 ML IVPB SCH (19:49)
[2024-09-24] MEDS: DOCUSATE SODIUM 100 MG CAPSULE (FP) PO PRN (21:13)
[2024-09-25] MEDS: PIPERACILLIN/TAZOB 3.375 GM 50 ML IVPB SCH (03:00)
[2024-09-25 07:23] LABS: HEMATOCRIT 35.5 % (40.1-51.0); HEMOGLOBIN 11.3 g/dL (13.7-17.5); MCHC 31.8 g/dl (32.3-36.5); MEAN CELL VOLUME 93.9 fl (79.0-92.2); MEAN PLT VOLUME 9.6 fl (9.4-12.4); PLATELET COUNT 432 x10^3/uL (163-337); RDW 13.9 % (12.2-16.4)
[2024-09-25 07:37] LABS: POTASSIUM 4.5 mmol/L (3.5-5.1)
[2024-09-25 07:40] LABS: CALCIUM 9.2 mg/dL (8.5-10.1)
[2024-09-25 07:41] LABS: BLOOD UREA NITROGEN 18.1 mg/dL (7-18); MAGNESIUM 2.2 mg/dL (1.8-2.4)
[2024-09-25 07:44] LABS: CREATININE 0.9 mg/dL (0.55-1.3); PHOSPHOROUS 3.7 mg/dL (2.5-4.9)
[2024-09-26 09:18] LABS: HEMATOCRIT 39.3 % (40.1-51.0); HEMOGLOBIN 12.3 g/dL (13.7-17.5); MCHC 31.3 g/dl (32.3-36.5); MEAN CELL VOLUME 95.9 fl (79.0-92.2); MEAN PLT VOLUME 9.7 fl (9.4-12.4); PLATELET COUNT 467 x10^3/uL (163-337); RDW 13.8 % (12.2-16.4)
[2024-09-26 09:57] LABS: POTASSIUM 4.6 mmol/L (3.5-5.1)
[2024-09-26 10:01] LABS: CALCIUM 9.6 mg/dL (8.5-10.1)
[2024-09-26 10:02] LABS: BLOOD UREA NITROGEN 19.8 mg/dL (7-18)
[2024-09-26] MEDS: PATIENT'S OWN MEDICATION (NON-FORMULARY) (Vibegron [Gemtesa] 75 MG Tablet) PO SCH (19:45)
[2024-09-26] MEDS: SACUBITRIL/VALSARTAN 24 MG-26 MG TABLET PO SCH (21:34)
[2024-09-27] MEDS: INSULIN GLARGINE (LANTUS) 100 UNITS/ML UNITS SQ SCH (06:35)
[2024-09-27 10:26] LABS: ABSOLUTE IMMATURE GRANULOCYTES 0.11 x10^3/uL (0.0-0.031); EOSINOPHIL % 4.3 % (0.8-7.0); EOSINOPHILS # 0.41 x10^3/uL (0.04-0.54); HEMATOCRIT 36.6 % (40.1-51.0); HEMOGLOBIN 11.5 g/dL (13.7-17.5); MCHC 31.4 g/dl (32.3-36.5); MEAN CELL VOLUME 95.3 fl (79.0-92.2); MEAN PLT VOLUME 9.5 fl (9.4-12.4); MONOCYTE # 0.63 x10^3/uL (0.30-0.82); MONOCYTE % 6.5 % (5.3-12.2); PLATELET COUNT 459 x10^3/uL (163-337); RDW 13.5 % (12.2-16.4)
[2024-09-27 10:45] LABS: POTASSIUM 4.7 mmol/L (3.5-5.1)
[2024-09-27 10:47] LABS: ALBUMIN 2.4 g/dl (3.4-5.0); BLOOD UREA NITROGEN 17.8 mg/dL (7-18); CALCIUM 9.1 mg/dL (8.5-10.1)
[2024-09-27 10:52] LABS: BILIRUBIN,TOTAL 0.6 mg/dL (0.2-1)
[2024-09-27 11:21] LABS: TOT PROT 5.8 g/dl (6.4-8.2)
[2024-09-27] MEDS: POLYETHYLENE GLYCOL (HEALTHYLAX) 3350 17 GM PACKET PO SCH (11:34)
[2024-09-27] MEDS: BISACODYL 5 MG TABLET.DR (FP) PO ONE (11:34)
[2024-09-27 15:28] VITALS: BP 106/63; PULSE 72; RESP 18; TEMP 97.5
== END 2024-09-27 17:29 | disposition home or self-care (01) | DRG 463 ==
LOC: JER 15:40 → JERBED 19:05 → J6S 19:12 → JERBED 19:12 → J6S 20:10 → J4W 22:45 → J4S 09-23 01:16 → OBSVTOIN 09-25 09:03
PROVIDERS: ADMIT Internal Medicine; ATTEND Internal Medicine
DX: N39.0 Urinary tract infection, site not specified (principal); G93.41 Metabolic encephalopathy; E11.51 Type 2 diabetes mellitus with diabetic peripheral angiopathy without gangrene; J44.9 Chronic obstructive pulmonary disease, unspecified; I25.10 Atherosclerotic heart disease of native coronary artery without angina pectoris; K21.9 Gastro-esophageal reflux disease without esophagitis; R21 Rash and other nonspecific skin eruption; R47.1 Dysarthria and anarthria; F32.A Depression, unspecified; L30.4 Erythema intertrigo; E78.5 Hyperlipidemia, unspecified; I50.32 Chronic diastolic (congestive) heart failure; I11.0 Hypertensive heart disease with heart failure; D64.9 Anemia, unspecified; B96.1 Klebsiella pneumoniae [K. pneumoniae] as the cause of diseases classified elsewhere; B95.2 Enterococcus as the cause of diseases classified elsewhere; I25.2 Old myocardial infarction
CPT/HCPCS: 36415; 70450-TC; 70496-TC; 70498-TC; 71045-TC-FY; 80048; 80053; 80061; 81003; 82550; 82553; 82607; 82962; 83036; 83735; 84100; 84439; 84443; 84484; 85025; 85027; 85610; 85730; 86850; 86900; 86901; 87077; 87081; 87086; 87186; 93005; 93010; 97116-GP; 97161-GP; 99285-25; G0378